=== PATIENT | female | born 1955 | race African-American/Black ===

== ENCOUNTER → 2020-07-26 03:58 | Outpatient (CLI) | payer MEDICARE, MEDICAID, SELFPAY ==
[2020-07-28 17:04] LABS: SARS-CoV-2 RNA PCR Negative
== END ==
PROVIDERS: Visit Provider Internal Medicine Gastroenterology
DX: Z01.812 Encounter for preprocedural laboratory examination (principal); Z20.822 Contact with and (suspected) exposure to COVID-19
CPT/HCPCS: C9803; U0003; U0005

== ENCOUNTER 2020-07-30 01:38 | Day surgery (SDC) | payer MEDICARE, MEDICAID, SELFPAY ==
[2020-07-17 08:21] VITALS: BMI 34.4
--- NOTE | 2020-07-18 08:07 | PC.NURSE ---
I called pt and instructed her to call Dr Van's office and tell him Dr Garber doesn't require abx for a colonoscopy pt with a knee replacement in 2003, Dr. Van may prescribe her one if needed.
[2020-07-30 07:59] VITALS: BP 158/86; PULSE 67; RESP 18; TEMP 35.9; O2SAT 100; BMI 34.9
--- NOTE | 2020-07-30 08:01 | PC.NURSE ---
PT WITH COMPLAINTS OF ITCHY, RASH. STATES IT STARTED WITH HER COVID VACCINE. TAKING OTC BENADRYL.
[2020-07-30] MEDS: LACTATED RINGERS 1,000 ML 150 ML IV CONT (08:14)
--- NOTE | 2020-07-30 08:16 | PM.HPGS ---
History of Present Illness History of Present Illness Consent: Risks, benefits, and alternatives have been discussed and questions answered. Patient agrees to proceed with procedure. Chief complaint: hx of colon polyps Narrative: Connie Garrett is a 65 year old female who had 5 polyps removed about 5 years ago. Last year she saw a physician in [place] who attempted a colonoscopy. She thinks he may have removed 1 or 2 polyps. they told her that her prep was unacceptable and she was told to return in 3 months for repeat colonoscopy Review of Systems Review of Systems: All systems reviewed & are unremarkable except as noted in HPI and below PMFSH Social History Social History Smoking packs per day: 1 Smoking cigarettes per day: 20.0 Years smoked: 43 Smoking pack-years: 43.00 Smoking status: Current every day smoker Tobacco type: cigarettes Alcohol intake: never Substance use: never Living arrangements: with family Gender identity (if verbalized by the patient): Female Spiritual care concerns: No Meds Home Medications and Allergies Home Medications Medication Instructions Recorded Confirmed Type peg 3350-electrolytes 227.1 240 ml PO Q10M #1 ea 07/16/20 07/30/20 Rx gram-21.5 gram-6.36gram oral powder packet albuterol sulfate 2.5 mg INHALATION TID 07/17/20 07/30/20 History albuterol sulfate [Ventolin HFA] 2 puff INHALATION TID PRN 07/17/20 07/30/20 History budesonide-formoterol [Symbicort] 160 puff INHALATION BID 07/17/20 07/30/20 History cyanocobalamin (vitamin B-12) 1,000 mcg SUBCUT MONTHLY 07/17/20 07/30/20 History ergocalciferol (vitamin D2) 1,250 mcg PO WEEKLY 07/17/20 07/30/20 History tiotropium bromide [Spiriva with 18 mcg INHALATION DAILY 07/17/20 07/30/20 History HandiHaler] Allergies Allergy/AdvReac Type Severity Reaction Status Date / Time fluconazole Allergy Mild RASH Verified 07/30/20 07:37 omeprazole Allergy Mild RASH Verified 07/30/20 07:37 Iodinated Contrast Media Allergy Unknown Rash Verified 07/30/20 07:37 lovastatin Allergy Hives Verified 07/30/20 07:37 Vital Signs Vital Signs - 24 hr 07/30/20 07:59 Temperature 35.9 C L Pulse Rate 67 Respiratory Rate 18 Blood Pressure 158/86 H Pulse Oximetry 100 Exam Const: General: alert Orientation/consciousness: patient oriented x3 Resp: Auscultation: clear to auscultation bilaterally Cardio: Rhythm: regular rhythm GI: GI Palp: Yes Soft to palpation and No Tenderness to palpation present (GI) Neuro: General: patient oriented x3 Assessment and Plan Assessment and plan (1) Personal history of colonic polyps: Code(s): Z86.010 - Personal history of colonic polyps Status: Acute Assessment and Plan: Colonoscopy with possible biopsy or polypectomy or cautery or injection of substances.
--- NOTE | 2020-07-30 08:28 | WPDANESEPPF ---
Anes - Initial Pre Proc Eval Procedure: Operation Date: 07/30/20 08:30 Proposed Procedures p Screening Colonoscopy - Ever Garber MD Date/Time: 07/30/20 08:28 Surgeon: Ever Garber MD Pre Op Diagnosis: hx of colon polyps Patient Data Age: 65 Gender: F Height: 5 ft 6 in Weight: 98.1 kg Last Vital Signs Temp 96.6 F L 07/30/20 07:59 Pulse 67 07/30/20 07:59 Resp 18 07/30/20 07:59 BP 158/86 H 07/30/20 07:59 Pulse Ox 100 07/30/20 07:59 Allergies Allergy/AdvReac Type Severity Reaction Status Date / Time fluconazole Allergy Mild RASH Verified 07/30/20 07:37 omeprazole Allergy Mild RASH Verified 07/30/20 07:37 Iodinated Contrast Media Allergy Unknown Rash Verified 07/30/20 07:37 lovastatin Allergy Hives Verified 07/30/20 07:37 Home Medications Medication Instructions Recorded Confirmed Type peg 3350-electrolytes 227.1 240 ml PO Q10M #1 ea 07/16/20 07/30/20 Rx gram-21.5 gram-6.36gram oral powder packet albuterol sulfate 2.5 mg INHALATION TID 07/17/20 07/30/20 History albuterol sulfate [Ventolin HFA] 2 puff INHALATION TID PRN 07/17/20 07/30/20 History budesonide-formoterol [Symbicort] 160 puff INHALATION BID 07/17/20 07/30/20 History cyanocobalamin (vitamin B-12) 1,000 mcg SUBCUT MONTHLY 07/17/20 07/30/20 History ergocalciferol (vitamin D2) 1,250 mcg PO WEEKLY 07/17/20 07/30/20 History tiotropium bromide [Spiriva with 18 mcg INHALATION DAILY 07/17/20 07/30/20 History HandiHaler] Patient hx anesthesia problems: none Family hx anesthesia problems: none PMFSH Past Medical History Medical History (Updated 07/30/20 @ 08:24 by Jose Mckeon MD) COPD (chronic obstructive pulmonary disease) Hyperlipidemia HUY (obstructive sleep apnea) Social History Social History Smoking packs per day: 1 Smoking cigarettes per day: 20.0 Years smoked: 43 Smoking pack-years: 43.00 Smoking status: Current every day smoker Tobacco type: cigarettes Alcohol intake: never Substance use: never Living arrangements: with family Gender identity (if verbalized by the patient): Female Spiritual care concerns: No Anes - Eval Final PreProcedure Day of Procedure 07/30/20 08:28 Patient weight: obese Heart: regular rate and rhythm Lungs: clear to auscultation Airway: Mallampati scale class II Neurological: alert and oriented Last oral intake: >/= 8 hours ASA classification: III Emergent: no Anesthetic plan: proceed Anesthesia type and monitoring: general GIVS and standard monitoring Informed Consent: The patient's anesthetic plan and its attendant risks and benefits were discussed with the patient/family/POA. Questions were solicited and answers provided to the satisfaction of the patient/family/POA.
[2020-07-30] MEDS: SIMETHICONE ORAL SUSPENSION 20 MG/0.3 ML 30 ML BOTTLE 0.6 ML IRRIGATION (09:05)
[2020-07-30 09:22] VITALS: BP 102/66; PULSE 69; RESP 18; O2SAT 92
[2020-07-30 09:32] VITALS: BP 114/72; PULSE 57; RESP 18; O2SAT 94
[2020-07-30 09:39] VITALS: BP 137/81; PULSE 60; RESP 18; O2SAT 94
== END 2020-07-30 10:04 | disposition home or self-care (01) ==
PROVIDERS: Visit Provider Internal Medicine Gastroenterology
PROC: 0DJD8ZZ Inspection of Lower Intestinal Tract, Via Natural or Artificial Opening Endoscopic (ICD-10-PCS; CPT 45378; principal; 2020-07-30 08:30)
DX: Z12.11 Encounter for screening for malignant neoplasm of colon (principal); K63.5 Polyp of colon; J44.9 Chronic obstructive pulmonary disease, unspecified; E78.5 Hyperlipidemia, unspecified; G47.33 Obstructive sleep apnea (adult) (pediatric); F17.210 Nicotine dependence, cigarettes, uncomplicated; Z79.51 Long term (current) use of inhaled steroids; E66.9 Obesity, unspecified; Z68.34 Body mass index [BMI] 34.0-34.9, adult
CPT/HCPCS: 45385; 45380; 88305; J2704; J7120

== ENCOUNTER 2022-05-31 14:35 | Outpatient (CLI) | payer MEDICARE, MEDICAID, SELFPAY ==
[2022-05-31 14:50] LABS: Basophils Absolute Auto 0.1 K/mm3 (0.0-0.1); Basophils Percent Auto 0.8 % (0.2-1.2); Eosinophils Absolute Auto 0.3 K/mm3 (0-0.3); Eosinophils Percent Auto 3.5 % (0-4.4); Hematocrit 45.1 % (37.0-47.0); Hemoglobin 14.9 g/dL (12.0-15.0); Immature Granulocyte Absolute 0.02 K/mm3 (0.00-0.031); Immature Granulocyte Percent A 0.3 % (0-0.5); Lymphocytes Percent Auto 50.2 % (18.3-44.2); Mean Corpuscular Hemoglobin 30.9 pg (26-34); Mean Corpuscular Volume 93.6 fl (80-100); Mean Platelet Volume 10.9 fl (7.4-10.4); Monocytes Absolute Auto 0.6 K/mm3 (0.1-0.6); Monocytes Percent Auto 7.5 % (2.6-8.5); Neutrophils Absolute Auto 2.9 K/mm3 (1.3-6.7); Neutrophils Percent Auto 37.7 % (45.5-73.1); Platelet Count Result 243 k/mm3 (150-375); Red Blood Count 4.82 M/mm3 (4.2-5.4); Red Cell Distribution Width 13.7 % (11.5-14.5); White Blood Count 7.8 K/mm3 (4.5-10.0)
[2022-05-31 17:44] LABS: Alanine Aminotransferase 28 U/L (6-35); Albumin Level 4.3 g/dL (3.5-5.1); Alkaline Phosphatase 68 U/L (38-126); Anion Gap 5 mmol/L (8-16); Aspartate Amino Transferase 29 U/L (14-36); Bilirubin,Total 0.4 mg/dL (0.2-1.3); Blood Urea Nitrogen 19 mg/dL (7-17); Calcium 8.6 mg/dL (8.4-10.2); Carbon Dioxide 31 mmol/L (22-30); Chloride 106 mmol/L (98-107); Estimated Glomerular Filt Rate > 60; Glucose 93 mg/dL (65-110); Potassium 4.5 mmol/L (3.4-5.0); Sodium 142 mmol/L (137-145)
[2022-06-03 12:44] LABS: Erythropoietin (EPO) 7.8 mIU/mL (2.6-18.5)
== END 2022-05-31 14:36 | disposition home or self-care (01) ==
LOC: ANHLAB 14:37
PROVIDERS: Visit Provider Internal Medicine Hematology & Oncology
DX: D75.1 Secondary polycythemia (principal)
CPT/HCPCS: 36415; 80053; 82668; 85025

== ENCOUNTER 2022-12-29 09:02 | Outpatient (CLI) | payer MEDICARE, MEDICAID, SELFPAY ==
[2022-12-29 09:18] LABS: Basophils Percent Auto 0.4 % (0.2-1.2); Eosinophils Absolute Auto 0.2 K/mm3 (0-0.3); Eosinophils Percent Auto 2.4 % (0-4.4); Hematocrit 43.1 % (37.0-47.0); Hemoglobin 14.2 g/dL (12.0-15.0); Immature Granulocyte Absolute 0.01 K/mm3 (0.00-0.031); Immature Granulocyte Percent A 0.1 % (0-0.5); Lymphocytes Absolute Auto 3.49 K/mm3 (0.9-3.2); Mean Corpuscular HGB Conc 32.9 g/dl (32-36); Mean Corpuscular Hemoglobin 30.5 pg (26-34); Mean Corpuscular Volume 92.7 fl (80-100); Mean Platelet Volume 11.1 fl (7.4-10.4); Monocytes Absolute Auto 0.5 K/mm3 (0.1-0.6); Monocytes Percent Auto 6.4 % (2.6-8.5); Neutrophils Absolute Auto 3.5 K/mm3 (1.3-6.7); Neutrophils Percent Auto 45.7 % (45.5-73.1); Platelet Count Result 230 k/mm3 (150-375); Red Blood Count 4.65 M/mm3 (4.2-5.4); Red Cell Distribution Width 13.6 % (11.5-14.5); White Blood Count 7.8 K/mm3 (4.5-10.0)
== END 2022-12-29 09:03 | disposition home or self-care (01) ==
PROVIDERS: Visit Provider Internal Medicine Hematology & Oncology
DX: D75.1 Secondary polycythemia (principal)
CPT/HCPCS: 36415; 85025

== ENCOUNTER 2023-07-04 10:37 | Outpatient (CLI) | payer MEDICARE, MEDICAID, SELFPAY ==
[2023-07-04 10:52] LABS: Basophils Percent Auto 0.5 % (0.2-1.2); Eosinophils Absolute Auto 0.2 K/mm3 (0-0.3); Eosinophils Percent Auto 3.1 % (0-4.4); Hematocrit 45.7 % (37.0-47.0); Hemoglobin 15.2 g/dL (12.0-15.0); Immature Granulocyte Absolute 0.01 K/mm3 (0.00-0.031); Immature Granulocyte Percent A 0.2 % (0-0.5); Lymphocytes Absolute Auto 3.39 K/mm3 (0.9-3.2); Lymphocytes Percent Auto 57.8 % (18.3-44.2); Mean Corpuscular HGB Conc 33.3 g/dl (32-36); Mean Corpuscular Hemoglobin 30.5 pg (26-34); Mean Corpuscular Volume 91.8 fl (80-100); Mean Platelet Volume 11.2 fl (7.4-10.4); Monocytes Absolute Auto 0.6 K/mm3 (0.1-0.6); Monocytes Percent Auto 10.1 % (2.6-8.5); Neutrophils Absolute Auto 1.7 K/mm3 (1.3-6.7); Neutrophils Percent Auto 28.3 % (45.5-73.1); Platelet Count Result 251 k/mm3 (150-375); Red Blood Count 4.98 M/mm3 (4.2-5.4); Red Cell Distribution Width 14.6 % (11.5-14.5); White Blood Count 5.9 K/mm3 (4.5-10.0)
[2023-07-04 12:16] LABS: Iron 65 ug/dL (37-170)
[2023-07-04 12:26] LABS: Percent Iron Saturation 23 % (20-50)
== END 2023-07-04 10:38 | disposition home or self-care (01) ==
PROVIDERS: Nurse Practitioner Family; Visit Provider Internal Medicine Hematology & Oncology
DX: D75.1 Secondary polycythemia (principal); E53.8 Deficiency of other specified B group vitamins; D50.8 Other iron deficiency anemias
CPT/HCPCS: 36415; 82607; 83540; 83550; 85025

== ENCOUNTER 2023-08-27 12:12 | Inpatient (IN) | payer MEDICARE, MEDICAID, SELFPAY ==
[2023-08-27] VITALS (25 sets, daily range): BP systolic 107–160; BP diastolic 58–104; PULSE 72–97; RESP 17–29; TEMP 36.3–36.9; O2SAT 84–99; BMI 34.3
--- NOTE | ~2023-08-27 | CT_ITS ---
EXAMINATION: CT abdomen pelvis wo con DATE: 08/29/2023 14:45 INDICATION: Kidney stones TECHNIQUE: Computed tomography (CT) of the abdomen and pelvis was performed without intravenous contr ast. Automated exposure control and iterative reconstruction technique were employed. The dose-length product was 1260.65 mGy-cm. COMPARISON: None FINDINGS: Moderate discoid atelectasis in the bilateral lower lungs including the lingula, right middle and jessica ateral lower lobes. Heart size is normal. No pericardial or pleural effusion. Small high attenuation likely gallstones within the cephalad aspect of the decompressed gallbladder. Liver, spleen, pancreas and bilateral adrenal glands are normal. There are nonobstructing stones at the lower pole calyces o f both kidneys measuring up to 6 mm on the left and 4 stones measuring up to 5 mm on the right. No ur eteral stones or hydronephrosis. Partially decompressed bladder is normal. Bowels are unremarkable wi th no obstruction. The uterus is not identified and has likely been surgically resected. No free intr aperitoneal gas or fluid. No pathologically enlarged abdominal or pelvic lymphadenopathy. Bones are u nremarkable. IMPRESSION: 1. Bilateral nephrolithiasis. 2. Cholelithiasis. Reviewed, dictated and finalized at location B.
--- NOTE | ~2023-08-27 | XR_ITS ---
EXAMINATION: XR abdomen/kub 1V DATE: 08/30/2023 10:43 INDICATION: Nephrolithiasis. TECHNIQUE: A supine view of the abdomen was obtained. COMPARISON: CT abdomen and pelvis 08/29/2023 FINDINGS: There are no dilated loops of bowel. There are phleboliths in the pelvis. The kidneys are o bscured by bowel. There is a 5 mm stone in left kidney lower pole. IMPRESSION: 1. 5 mm left kidney stone. Reviewed, dictated and finalized at location A. IMPRESSION: 1. 5 mm left kidney stone.
--- NOTE | ~2023-08-27 | XR_ITS ---
EXAMINATION: XR chest 2V DATE: 08/27/2023 12:53 INDICATION: 3-4 weeks of shortness of breath TECHNIQUE: frontal and lateral views of the chest were obtained. COMPARISON: None FINDINGS: Opacities in bilateral lower lung zones which include both linear discoid atelectasis in the right lo wer lung. Additionally there is bronchial wall thickening with some interstitial and more patchy airs pace opacities which could represent additional atelectasis, mild pulmonary edema or pneumonia. The c ardiomediastinal silhouette is normal. Lower cervical prosthetic disc. IMPRESSION: 1. Opacities in bilateral lower lungs most likely combination of atelectasis with pulmonary edema and /or pneumonia. Reviewed, dictated and finalized at location A. IMPRESSION: 1. Opacities in bilateral lower lungs most likely combination of atelectasis wi th pulmonary edema and/or pneumonia.
--- NOTE | 2023-08-27 12:19 | ECG_ITS ---
Test Date: 2023-08-27 12:21:13 Measurements Intervals [place] Rate: 90 P: 58 RI: 143 QRS: 39 QRSD: 82 T: 57 QT: 345 QTc: 422 Interpretive Statements SINUS RHYTHM No previous ECG available for comparison Electronically Signed On 08-28-2023 16:09:28 CDT by Tonny Arias M.D.
[2023-08-27 12:39] LABS: Basophils Percent Auto 0.3 % (0.2-1.2); Eosinophils Percent Auto 0.3 % (0-4.4); Hematocrit 47.8 % (37.0-47.0); Hemoglobin 15.9 g/dL (12.0-15.0); Immature Granulocyte Absolute 0.02 K/mm3 (0.00-0.031); Immature Granulocyte Percent A 0.3 % (0-0.5); Lymphocytes Absolute Auto 1.94 K/mm3 (0.9-3.2); Lymphocytes Percent Auto 33.7 % (18.3-44.2); Mean Corpuscular HGB Conc 33.3 g/dl (32-36); Mean Corpuscular Hemoglobin 30.4 pg (26-34); Mean Corpuscular Volume 91.4 fl (80-100); Mean Platelet Volume 11.1 fl (7.4-10.4); Monocytes Absolute Auto 0.9 K/mm3 (0.1-0.6); Monocytes Percent Auto 15.3 % (2.6-8.5); Neutrophils Absolute Auto 2.9 K/mm3 (1.3-6.7); Neutrophils Percent Auto 50.1 % (45.5-73.1); Platelet Count Result 205 k/mm3 (150-375); Red Blood Count 5.23 M/mm3 (4.2-5.4); Red Cell Distribution Width 14.6 % (11.5-14.5); White Blood Count 5.8 K/mm3 (4.5-10.0)
[2023-08-27 12:48] LABS: Alanine Aminotransferase 18 U/L (6-35); Alkaline Phosphatase 84 U/L (38-126); Anion Gap 13 mmol/L (4-12); Aspartate Amino Transferase 26 U/L (14-36); Bilirubin,Total 0.7 mg/dL (0.2-1.3); Blood Urea Nitrogen 14 mg/dL (7-17); Calcium 9.2 mg/dL (8.4-10.2); Carbon Dioxide 26 mmol/L (22-30); Chloride 102 mmol/L (98-107); Estimated CRCL calculation 55 ml/min; Estimated Glomerular Filt Rate > 60; Glucose 86 mg/dL (65-110); Potassium 4.3 mmol/L (3.4-5.0); Sodium 141 mmol/L (137-145)
[2023-08-27 13:17] LABS: Influenza A QL RT-PCR Negative (Negative); Influenza B QL RT-PCR Negative (Negative); RSV RNA, RT-PCR Negative (Negative); SARS-CoV-2 RNA PCR Positive (Negative)
--- NOTE | 2023-08-27 13:28 | ED.GENADULT ---
HPI - General Adult General Chief complaint: Shortness of Breath/Dyspnea Stated complaint: sob Time Seen by Provider: 08/27/23 12:28 History of Present Illness HPI narrative: 68-year-old female with history of COPD presented to the emergency department for evaluation of worsening cough and congestion. Patient states but 3 weeks ago she had onset of symptoms and had follow-up with her primary care physician and was started on antibiotic and prednisone. Patient reports symptoms continue to worsen. Patient presents emergency department today complaining worsening cough and shortness of breath. Patient does have history of COPD but is not on oxygen. Related Data Home Medications Medication Instructions Recorded Confirmed albuterol sulfate 90 mcg/actuation 2 puff inhalation TID PRN 07/17/20 08/27/23 aerosol inhaler (Ventolin HFA) Shortness Of Breath Or Wheezing budesonide-formoterol HFA 160 160 puff inhalation BID 07/17/20 08/27/23 mcg-4.5 mcg/actuation aerosol inhaler (Symbicort) tiotropium bromide 18 mcg capsule 18 mcg inhalation DAILY 07/17/20 08/27/23 with inhalation device (Spiriva with HandiHaler) aspirin 81 mg capsule 81 mg PO DAILY 08/27/23 08/27/23 atorvastatin 10 mg tablet 10 mg PO DAILY 08/27/23 08/27/23 baclofen 10 mg tablet 10 mg PO BID PRN Pain 08/27/23 08/27/23 montelukast 10 mg tablet 10 mg PO HS 08/27/23 08/27/23 Allergies Allergy/AdvReac Type Severity Reaction Status Date / Time fluconazole Allergy Mild RASH Verified 08/27/23 12:24 omeprazole Allergy Mild RASH Verified 08/27/23 12:24 Iodinated Contrast Media Allergy Unknown Rash Verified 08/27/23 12:24 lovastatin Allergy Hives Verified 08/27/23 12:24 Review of Systems Review of Systems: All systems reviewed & are unremarkable except as noted in HPI and below PMFSH Past Medical History Medical History Chronic obstructive pulmonary disease Hyperlipidemia Obstructive sleep apnea on CPAP Surgical History Surgical History History of appendectomy History of arthroplasty of left knee (2003) History of colonoscopy with polypectomy History of hysterectomy History of parotidectomy (11/16/18) Excision left parotid mass and tail of parotid. Pathology consistent with Warthin's tumor. History of spinal surgery (2018) History of tubal ligation Social History Social History (Updated 08/27/23 @ 16:36 by Noelle Wilkins PA-C) Social History: Surrogate medical decision maker: Code status: Full code. Smoking packs per day: 1 Smoking cigarettes per day: 20.0 Years smoked: 43 Smoking pack-years: 43.00 Smoking status: Current every day smoker Tobacco type: cigarettes Alcohol intake: never Substance use: never Do You Feel Safe in your Home?: Yes Lack of Transportation: No Lack of Food: Never True Current Housing: I Have Housing Concerned About Future Housing: No Difficulty Paying Gas/Electric Bills: No Difficulty Paying for Meds: No Currently Unemployed: No Education: High School Diploma/GED Difficulty w/ Childcare or Family Care: No Living arrangements: with family Spiritual care concerns: No Exam Narrative: APPEARANCE: Ill-appearing HEAD: normocephalic, atraumatic. EYES: PERRLA/EOMI, conjunctivae clear. NOSE: Normal no drainage EARS:TMS clear with good light reflex. THROAT: Pharynx clear, no exudate. NECK: Supple. No adenopathy, no masses. RESPIRATORY: Airway patent, respirations nonlabored. Clear to auscultation bilaterally, no rales, rhonchi, wheezing. CARDIOVASCULAR: Regular rate and rhythm without murmurs rubs or gallops. ABDOMINAL: Soft, nontender, nondistended, normal bowel sounds MUSCULOSKELETAL: Moves all extremities. Strength/ROM intact, No edema, No calf tenderness. NEURO: Alert. Cranial nerves II through XII intact. Grossly intact SKIN: Warm, dry
[2023-08-27 13:29] LABS: NT Pro B Type Natriuretic Pept 632 pg/mL (19.9-100)
[2023-08-27] MEDS: ALBUTEROL SULFATE NEB 2.5 MG/3 ML INH INHALATION (13:44)
[2023-08-27] MEDS: dexAMETHasone 2 MG TABLET 6 MG PO (13:57)
[2023-08-27] MEDS: AZITHROMYCIN 500 MG/NS 250 ML 500 MG/250 ML BAG 250 MG IVPB (15:22)
--- NOTE | 2023-08-27 16:29 | PM.IMHP ---
H&P: HPI History of Present Illness Date/Time: 08/27/23 17:00 Chief Complaint: Cough and shortness of breath. Narrative: This is a 68-year-old female smoker with chronic obstructive pulmonary disease and obstructive sleep apnea on CPAP presented to the emergency department for evaluation of cough and shortness of breath. The patient provides the following history. She has not felt well for several weeks with cough productive of clear sputum, mild wheezing, and exertional dyspnea. She saw her doctor at the beginning of the month and was prescribed cefdinir and a short burst of prednisone on 08/01/2023. Symptoms seem to improve for only a short period of time before returning. She is now feeling increasingly short of breath on exertion and her cough continues. She denies fever, chills, sweats, sinus congestion, sore throat, chest and pleuritic pain, orthopnea, paroxysmal nocturnal dyspnea, lower extremity edema, nausea, vomiting, and diarrhea. In the ED: SpO2 was as low as 84% with ambulation and she is currently requiring 2 L nasal cannula. She has been afebrile since arrival and is occasionally tachypneic. Labs were significant for WBC count of 5.8, hemoglobin 15.9, proBNP 632. She tested positive for SARS-CoV-2 by PCR. Chest x-ray shows opacities in the bilateral lower lung zones which is most likely combination of atelectasis with pulmonary edema and/or pneumonia. She was given an albuterol nebulizer, dexamethasone 6 mg IV, azithromycin 500 mg IV, and ceftriaxone 1 g IV and she is being admitted in this setting for further treatment. Review of Systems Review of Systems: 12 systems were reviewed and are negative except for as per HPI. [facility] Past Medical History Medical History (Updated 08/27/23 @ 20:09 by Noelle Wilkins PA-C) Chronic obstructive pulmonary disease Hyperlipidemia Obstructive sleep apnea on CPAP Tobacco dependence Surgical History Surgical History History of appendectomy History of arthroplasty of left knee (2003) History of colonoscopy with polypectomy History of hysterectomy History of parotidectomy (11/16/18) Excision left parotid mass and tail of parotid. Pathology consistent with Warthin's tumor. History of spinal surgery (2018) History of tubal ligation Family History Family History (Updated 08/27/23 @ 22:47 by Noelle Wilkins PA-C) Other Family history non-contributory Social History Social History (Updated 08/27/23 @ 22:47 by Noelle Wilkins PA-C) Social History: Surrogate medical decision maker: Lencho Garrett, [place]son. Code status: Full code. Smoking packs per day: 1 Smoking cigarettes per day: 20.0 Years smoked: 43 Smoking pack-years: 43.00 Smoking status: Current every day smoker Tobacco type: cigarettes Alcohol intake: never Substance use: never Do You Feel Safe in your Home?: Yes Lack of Transportation: No Lack of Food: Never True Current Housing: I Have Housing Concerned About Future Housing: No Difficulty Paying Gas/Electric Bills: No Difficulty Paying for Meds: No Currently Unemployed: No Education: High School Diploma/GED Difficulty w/ Childcare or Family Care: No Living arrangements: with family Spiritual care concerns: No Meds Home Medications and Allergies Home Medications Medication Instructions Recorded Confirmed Type albuterol sulfate 90 mcg/actuation 2 puff inhalation TID PRN 07/17/20 08/27/23 History aerosol inhaler (Ventolin HFA) Shortness Of Breath Or Wheezing budesonide-formoterol HFA 160 160 puff inhalation BID 07/17/20 08/27/23 History mcg-4.5 mcg/actuation aerosol inhaler (Symbicort) tiotropium bromide 18 mcg capsule 18 mcg inhalation DAILY 07/17/20 08/27/23 History with inhalation device (Spiriva with HandiHaler) aspirin 81 mg capsule 81 mg PO DAILY 08/27/23 08/27/23 History atorvastatin 10 mg tablet 10 mg PO DAILY 08/27/23
--- NOTE | 2023-08-27 16:37 | ADMGEN ---
This patient, Connie Garrett, was admitted to [address] [facility] Surg Room 302-01. Patient/family oriented to hospital policies and general routines including ID bracelet, bed and alarms, visiting hours, pain management, procedures, bathroom and other care routines, personal items, smoking policy, room service/diet, and visiting hours. Information on how to activate the Rapid Response Team has been discussed. Patient/Family are encouraged to report perceived risks to care and to ask questions if they do not understand what they are told or what they should do.
[2023-08-27 17:26] LABS: INR 1.1; Prothrombin Time 14.1 Seconds (11.1-14.7)
[2023-08-27 17:28] LABS: CRP 0.6 mg/dL (<1.0)
[2023-08-27 17:41] LABS: Procalcitonin 0.1 ng/mL
[2023-08-27] MEDS: ACETAMINOPHEN 325 MG TABLET 650 MG PO (17:59)
[2023-08-27] MEDS: REMDESIVIR 200 MG/NS 250 ML 200 MG/250 ML BAG 250 MG IVPB (18:54)
[2023-08-27] MEDS: FLUTICASONE/SALMETEROL 115-21 MCG INHALER 1 PUFF 2 PUFF INHALATION (19:28)
[2023-08-27] MEDS: IPRATROPIUM 0.5 MG/ALBUTEROL SULFATE 2.5 MG AMPUL.NEB 3 ML INHALATION (20:32)
[2023-08-27] MEDS: guaiFENesin 12 HR 600 MG TABCR 1200 MG PO (20:57)
[2023-08-27] MEDS: MONTELUKAST SODIUM 10 MG TABLET PO (20:57)
[2023-08-27] MEDS: HYDROcodone/acetaminophen (*CRX) 5-325 MG TABLET 1 TAB PO (20:58)
[2023-08-28] VITALS (17 sets, daily range): BP systolic 86–141; BP diastolic 55–72; PULSE 55–91; RESP 13–20; TEMP 36–36.7; O2SAT 93–98
--- NOTE | 2023-08-28 00:01 | PC.NURSE ---
Spoke with Noelle Wilkins at this time r/t patient having low BP (86/58). New order received to give NS 500 ml bolus, then recheck BP.
[2023-08-28] MEDS: SODIUM CHLORIDE 0.9% IV 500 ML IV CONT (00:20)
[2023-08-28] MEDS: IPRATROPIUM 0.5 MG/ALBUTEROL SULFATE 2.5 MG AMPUL.NEB 3 ML INHALATION ×4 (02:52→19:28)
[2023-08-28 06:14] LABS: Hematocrit 41.9 % (37.0-47.0); Hemoglobin 13.4 g/dL (12.0-15.0); Mean Corpuscular Volume 93.7 fl (80-100); Mean Platelet Volume 11.7 fl (7.4-10.4); Platelet Count Result 179 k/mm3 (150-375); Red Blood Count 4.47 M/mm3 (4.2-5.4); Red Cell Distribution Width 14.6 % (11.5-14.5); White Blood Count 2.9 K/mm3 (4.5-10.0)
[2023-08-28 06:44] LABS: Anion Gap 8 mmol/L (4-12); Blood Urea Nitrogen 16 mg/dL (7-17); Calcium 8.6 mg/dL (8.4-10.2); Carbon Dioxide 22 mmol/L (22-30); Chloride 109 mmol/L (98-107); Estimated CRCL calculation 77 ml/min; Estimated Glomerular Filt Rate > 60; Glucose 170 mg/dL (65-110); Magnesium 1.9 mg/dL (1.6-2.3); Potassium 4.3 mmol/L (3.4-5.0); Sodium 139 mmol/L (137-145)
--- NOTE | 2023-08-28 07:10 | PM.IMPN ---
Progress Note: A&P Assessment and Plan (1) Acute respiratory failure with hypoxia: Code(s): J96.01 - Acute respiratory failure with hypoxia Status: Acute Assessment and Plan: Patients SpO2 84% with ambulation on admission. Started on 2L NC supplemental O2. Patient has history of COPD. - Monitor Oxygen saturation, Oxygen via NC; wean oxygen as tolerated, keep SpO2 greater than 88% - Patient would likely benefit from a home O2 eval prior to discharge (2) COVID: Code(s): U07.1 - COVID-19 Status: Acute Assessment and Plan: Positive SARS-CoV-2 PCR. Likely cause of hypoxia. - Remdesivir 100 mg IV daily - Dexamethasone 6 mg IV daily - Isolation (3) COPD (chronic obstructive pulmonary disease): Qualifiers: COPD type: COPD with acute exacerbation Qualified Code(s): J44.1 - Chronic obstructive pulmonary disease with (acute) exacerbation Code(s): J44.9 - Chronic obstructive pulmonary disease, unspecified Status: Acute Assessment and Plan: COPD in acute exacerbation likely from underlying covid and pneumonia infections. - Monitor vital signs, I&Os, neuro status and patient is a fall risk - Monitor serum electrolytes, cultures and CBC - Monitor Oxygen saturation, Oxygen via NC; wean oxygen as tolerated, keep SpO2 greater than 88% - Antibiotics: Azithromycin 500mg - Duonebz q6H - Decadron 6 mg IV daily - Send sputum cultures if possible (4) Pneumonia: Code(s): J18.9 - Pneumonia, unspecified organism Status: Acute Assessment and Plan: CXR: Opacities in bilateral lower lungs most likely combination of atelectasis with pulmonary edema and/or pneumonia. - Complicating Factors: Covid and COPD - started on CAP tx: azithromycin ceftriaxone - Viral PCR: positive for Covid - Procal 0.1 and CRP 0.6 - 2L NC supplemental O2 requirement, baseline room air. Wean as tolerated. Keep SpO2 greater than 88% - supportive treatment tyl prn nebs prn - Monitor vital signs, I&Os, neuro status and patient is a fall risk - Follow WBC, serum electrolytes, temperature curves and cultures - Send sputum cultures (5) Polycythemia: Code(s): D75.1 - Secondary polycythemia Status: Acute Assessment and Plan: Possible that this is chronic due to patients hypoxia. Since admission the H/H has returned to normal limits. - Continue to monitor on daily labs (6) Obstructive sleep apnea on CPAP: Code(s): G47.33 - Obstructive sleep apnea (adult) (pediatric) Status: Acute Assessment and Plan: Chronic, continue CPAP. Patient states that she is not always compliant at home as the mask is uncomfortable. (7) Tobacco dependence: Code(s): F17.200 - Nicotine dependence, unspecified, uncomplicated Status: Acute Assessment and Plan: Not requiring a nicotine patch at this time. Encourage smoking cessation. Time Spent With Patient Time with patient: 25 - 35 minutes Subjective Date/time seen: 08/28/23 07:10 Interval history: 8-year-old female smoker with chronic obstructive pulmonary disease and obstructive sleep apnea on CPAP presented to the emergency department for evaluation of cough and shortness of breath. Patient is pleasant lying comfortably in bed. She continues to endorse shortness of breath that is further exacerbated by her coughing episodes and ambulating throughout her room. She stats she is coughing up a yellowish phlegm. Sputum culture ordered. She remains on supplemental O2 of 2LNC. Discussed with patient that we will continue to wean this as possible. She reports rib pain due to coughing, reproducible with palpation. She denies chest pain, nausea/vomiting and change in bowel/bladder. Review of Systems Review of Systems: All systems reviewed & are unremarkable except as noted in HPI and below Exam Narrative: AF HR 77 RR 20 SpO2 97 2LNC BP 138/72 General: female in no acute respiratory distress who is
[2023-08-28] MEDS: FLUTICASONE/SALMETEROL 115-21 MCG INHALER 1 PUFF 2 PUFF INHALATION ×2 (07:43→19:28)
[2023-08-28 07:45] LABS: Alanine Aminotransferase 16 U/L (6-35); Albumin Level 3.7 g/dL (3.5-5.1); Alkaline Phosphatase 62 U/L (38-126); Aspartate Amino Transferase 23 U/L (14-36); Bilirubin,Total 0.3 mg/dL (0.2-1.3)
[2023-08-28] MEDS: ENOXAPARIN 40 MG/0.4 ML SYRINGE SUB-Q (09:39)
[2023-08-28] MEDS: dexAMETHasone SOD PHOS INJ 10 MG/ML 1 ML VIAL 6 MG IV PUSH (09:39)
[2023-08-28] MEDS: guaiFENesin 12 HR 600 MG TABCR 1200 MG PO ×2 (09:40→21:48)
[2023-08-28] MEDS: ASPIRIN 81 MG ENTERIC TABLET PO (09:40)
[2023-08-28] MEDS: ATORVASTATIN 10 MG TABLET PO (09:40)
[2023-08-28] MEDS: AZITHROMYCIN 500 MG/NS 250 ML 500 MG/250 ML BAG 250 MG IVPB (14:39)
[2023-08-28] MEDS: ACETAMINOPHEN 325 MG TABLET 650 MG PO (14:39)
[2023-08-28] MEDS: REMDESIVIR 100 MG/NS 250 ML 100 MG/250 ML BAG 250 MG IVPB (21:48)
[2023-08-28] MEDS: MONTELUKAST SODIUM 10 MG TABLET PO (21:48)
[2023-08-29] VITALS (13 sets, daily range): BP systolic 133–138; BP diastolic 68–78; PULSE 67–82; RESP 14–20; TEMP 36.2–36.3; O2SAT 94–98
[2023-08-29] MEDS: IPRATROPIUM 0.5 MG/ALBUTEROL SULFATE 2.5 MG AMPUL.NEB 3 ML INHALATION ×4 (02:28→20:45)
[2023-08-29] MEDS: ACETAMINOPHEN 325 MG TABLET 650 MG PO (03:38)
[2023-08-29 06:02] LABS: Prothrombin Time 13.3 Seconds (11.1-14.7)
[2023-08-29] MEDS: FLUTICASONE/SALMETEROL 115-21 MCG INHALER 1 PUFF 2 PUFF INHALATION ×2 (07:36→20:45)
--- NOTE | 2023-08-29 07:52 | PM.IMPN ---
Progress Note: A&P Assessment and Plan (1) Acute respiratory failure with hypoxia: Code(s): J96.01 - Acute respiratory failure with hypoxia Status: Acute Assessment and Plan: Patients SpO2 84% with ambulation on admission. Started on 2L NC supplemental O2. Patient has history of COPD. - Monitor Oxygen saturation, Oxygen via NC; wean oxygen as tolerated, keep SpO2 greater than 88% - Patient would likely benefit from a home O2 eval prior to discharge (2) COVID: Code(s): U07.1 - COVID-19 Status: Acute Assessment and Plan: Positive SARS-CoV-2 PCR. Likely cause of hypoxia. - Remdesivir 100 mg IV daily - Dexamethasone 6 mg IV daily - Isolation (3) COPD (chronic obstructive pulmonary disease): Qualifiers: COPD type: COPD with acute exacerbation Qualified Code(s): J44.1 - Chronic obstructive pulmonary disease with (acute) exacerbation Code(s): J44.9 - Chronic obstructive pulmonary disease, unspecified Status: Acute Assessment and Plan: COPD in acute exacerbation likely from underlying covid and pneumonia infections. - Monitor vital signs, I&Os, neuro status and patient is a fall risk - Monitor serum electrolytes, cultures and CBC - Monitor Oxygen saturation, Oxygen via NC; wean oxygen as tolerated, keep SpO2 greater than 88% - Antibiotics: Azithromycin 500mg - Duonebz q6H - Decadron 6 mg IV daily - Send sputum cultures if possible (4) Pneumonia: Code(s): J18.9 - Pneumonia, unspecified organism Status: Acute Assessment and Plan: CXR: Opacities in bilateral lower lungs most likely combination of atelectasis with pulmonary edema and/or pneumonia. - Complicating Factors: Covid and COPD - started on CAP tx: azithromycin ceftriaxone - Viral PCR: positive for Covid - Procal 0.1 and CRP 0.6 - 2L NC supplemental O2 requirement, baseline room air. Wean as tolerated. Keep SpO2 greater than 88% - supportive treatment tyl prn nebs prn - Monitor vital signs, I&Os, neuro status and patient is a fall risk - Follow WBC, serum electrolytes, temperature curves and cultures - Send sputum cultures (5) Polycythemia: Code(s): D75.1 - Secondary polycythemia Status: Acute Assessment and Plan: Possible that this is chronic due to patients hypoxia. Since admission the H/H has returned to normal limits. - Continue to monitor on daily labs (6) Obstructive sleep apnea on CPAP: Code(s): G47.33 - Obstructive sleep apnea (adult) (pediatric) Status: Acute Assessment and Plan: Chronic, continue CPAP. Patient states that she is not always compliant at home as the mask is uncomfortable. (7) Tobacco dependence: Code(s): F17.200 - Nicotine dependence, unspecified, uncomplicated Status: Acute Assessment and Plan: Not requiring a nicotine patch at this time. Encourage smoking cessation. Time Spent With Patient Time with patient: 25 - 35 minutes Subjective Date/time seen: 08/29/23 07:52 Interval history: 68-year-old female smoker with chronic obstructive pulmonary disease and obstructive sleep apnea on CPAP presented to the emergency department for evaluation of cough and shortness of breath. Patient is pleasant lying comfortably in bed. She continues to endorse shortness of breath with a productive cough. A sputum culture was collected and pending. Patient remains on 2L NC at this time. Continue to wean as tolerated. She states she is having abdominal and flank pain similar to her prior kidney stones. Will obtain a urinalysis and CT abdomen/pelvis to further evaluate. Patient denies chest pain, nausea/vomiting and changes in bowel/bladder. Review of Systems Review of Systems: All systems reviewed & are unremarkable except as noted in HPI and below Exam Narrative: AF HR 72 RR 18 SpO2 96 BP 138/68 General: female in no acute respiratory distress who is nontoxic appearing, lying semi recumbent in bed.
[2023-08-29] MEDS: dexAMETHasone SOD PHOS INJ 10 MG/ML 1 ML VIAL 6 MG IV PUSH (09:06)
[2023-08-29] MEDS: ENOXAPARIN 40 MG/0.4 ML SYRINGE SUB-Q (09:06)
[2023-08-29] MEDS: guaiFENesin 12 HR 600 MG TABCR 1200 MG PO ×2 (09:06→21:45)
[2023-08-29] MEDS: ATORVASTATIN 10 MG TABLET PO (09:06)
[2023-08-29] MEDS: ASPIRIN 81 MG ENTERIC TABLET PO (09:06)
[2023-08-29] MEDS: HYDROcodone/acetaminophen (*CRX) 5-325 MG TABLET 1 TAB PO (09:12)
[2023-08-29 10:00] LABS: Basophils Percent Auto 0.4 % (0.2-1.2); Hematocrit 42.4 % (37.0-47.0); Hemoglobin 13.6 g/dL (12.0-15.0); Immature Granulocyte Absolute 0.01 K/mm3 (0.00-0.031); Immature Granulocyte Percent A 0.2 % (0-0.5); Lymphocytes Absolute Auto 2.64 K/mm3 (0.9-3.2); Lymphocytes Percent Auto 46.7 % (18.3-44.2); Mean Corpuscular HGB Conc 32.1 g/dl (32-36); Mean Corpuscular Hemoglobin 29.6 pg (26-34); Mean Corpuscular Volume 92.2 fl (80-100); Mean Platelet Volume 12.1 fl (7.4-10.4); Monocytes Absolute Auto 0.6 K/mm3 (0.1-0.6); Monocytes Percent Auto 10.3 % (2.6-8.5); Neutrophils Absolute Auto 2.4 K/mm3 (1.3-6.7); Neutrophils Percent Auto 42.4 % (45.5-73.1); Platelet Count Result 191 k/mm3 (150-375); Red Cell Distribution Width 14.6 % (11.5-14.5); White Blood Count 5.7 K/mm3 (4.5-10.0)
[2023-08-29 10:13] LABS: Alanine Aminotransferase 16 U/L (6-35); Albumin Level 3.6 g/dL (3.5-5.1); Alkaline Phosphatase 56 U/L (38-126); Anion Gap 10 mmol/L (4-12); Aspartate Amino Transferase 22 U/L (14-36); Bilirubin,Total 0.3 mg/dL (0.2-1.3); Blood Urea Nitrogen 17 mg/dL (7-17); Calcium 8.9 mg/dL (8.4-10.2); Carbon Dioxide 26 mmol/L (22-30); Chloride 107 mmol/L (98-107); Estimated CRCL calculation 69 ml/min; Estimated Glomerular Filt Rate > 60; Glucose 108 mg/dL (65-110); Potassium 3.3 mmol/L (3.4-5.0); Sodium 143 mmol/L (137-145)
[2023-08-29] MEDS: AZITHROMYCIN 500 MG/NS 250 ML 500 MG/250 ML BAG 250 MG IVPB (15:29)
[2023-08-29] MEDS: REMDESIVIR 100 MG/NS 250 ML 100 MG/250 ML BAG 250 MG IVPB (21:45)
[2023-08-29] MEDS: MONTELUKAST SODIUM 10 MG TABLET PO (21:45)
[2023-08-30] VITALS (13 sets, daily range): BP systolic 121–142; BP diastolic 53–75; PULSE 65–90; RESP 17–20; TEMP 36.1–36.6; O2SAT 95–98
[2023-08-30] MEDS: IPRATROPIUM 0.5 MG/ALBUTEROL SULFATE 2.5 MG AMPUL.NEB 3 ML INHALATION ×4 (02:33→22:47)
[2023-08-30] MEDS: HYDROcodone/acetaminophen (*CRX) 5-325 MG TABLET 1 TAB PO ×2 (03:53→20:55)
[2023-08-30 06:46] LABS: Basophils Percent Auto 0.2 % (0.2-1.2); Hematocrit 41.6 % (37.0-47.0); Hemoglobin 13.3 g/dL (12.0-15.0); Immature Granulocyte Absolute 0.01 K/mm3 (0.00-0.031); Immature Granulocyte Percent A 0.2 % (0-0.5); Lymphocytes Absolute Auto 3.11 K/mm3 (0.9-3.2); Lymphocytes Percent Auto 49.7 % (18.3-44.2); Mean Corpuscular Hemoglobin 29.8 pg (26-34); Mean Corpuscular Volume 93.3 fl (80-100); Mean Platelet Volume 12.1 fl (7.4-10.4); Monocytes Absolute Auto 0.5 K/mm3 (0.1-0.6); Monocytes Percent Auto 7.5 % (2.6-8.5); Neutrophils Absolute Auto 2.7 K/mm3 (1.3-6.7); Neutrophils Percent Auto 42.4 % (45.5-73.1); Platelet Count Result 205 k/mm3 (150-375); Red Blood Count 4.46 M/mm3 (4.2-5.4); Red Cell Distribution Width 14.9 % (11.5-14.5); White Blood Count 6.3 K/mm3 (4.5-10.0)
[2023-08-30 07:01] LABS: Alanine Aminotransferase 15 U/L (6-35); Albumin Level 3.5 g/dL (3.5-5.1); Alkaline Phosphatase 54 U/L (38-126); Anion Gap 6 mmol/L (4-12); Aspartate Amino Transferase 21 U/L (14-36); Bilirubin,Total 0.3 mg/dL (0.2-1.3); Blood Urea Nitrogen 21 mg/dL (7-17); Calcium 8.5 mg/dL (8.4-10.2); Carbon Dioxide 27 mmol/L (22-30); Chloride 107 mmol/L (98-107); Estimated CRCL calculation 69 ml/min; Estimated Glomerular Filt Rate > 60; Glucose 117 mg/dL (65-110); Potassium 3.7 mmol/L (3.4-5.0); Sodium 140 mmol/L (137-145)
--- NOTE | 2023-08-30 07:12 | PM.IMPN ---
Progress Note: A&P Assessment and Plan (1) Acute respiratory failure with hypoxia: Code(s): J96.01 - Acute respiratory failure with hypoxia Status: Acute Assessment and Plan: Patients SpO2 84% with ambulation on admission. Started on 2L NC supplemental O2. Patient has history of COPD. - Patient back to baseline room air - Monitor Oxygen saturation, Oxygen via NC; wean oxygen as tolerated, keep SpO2 greater than 88% - Patient would likely benefit from a home O2 eval prior to discharge (2) COVID: Code(s): U07.1 - COVID-19 Status: Acute Assessment and Plan: Positive SARS-CoV-2 PCR. Likely cause of hypoxia. - Remdesivir 100 mg IV daily - Dexamethasone 6 mg IV daily - Isolation (3) COPD (chronic obstructive pulmonary disease): Qualifiers: COPD type: COPD with acute exacerbation Qualified Code(s): J44.1 - Chronic obstructive pulmonary disease with (acute) exacerbation Code(s): J44.9 - Chronic obstructive pulmonary disease, unspecified Status: Acute Assessment and Plan: COPD in acute exacerbation likely from underlying covid and pneumonia infections. - Monitor vital signs, I&Os, neuro status and patient is a fall risk - Monitor serum electrolytes, cultures and CBC - Monitor Oxygen saturation, Oxygen via NC; wean oxygen as tolerated, keep SpO2 greater than 88% - Antibiotics: Azithromycin 500mg - Duonebz q6H - Decadron 6 mg IV daily - Sputum culture pending (4) Pneumonia: Code(s): J18.9 - Pneumonia, unspecified organism Status: Acute Assessment and Plan: CXR: Opacities in bilateral lower lungs most likely combination of atelectasis with pulmonary edema and/or pneumonia. - Complicating Factors: Covid and COPD - started on CAP tx: azithromycin ceftriaxone - Viral PCR: positive for Covid - Procal 0.1 and CRP 0.6 - Back to baseline room air. Keep SpO2 greater than 88% - supportive treatment tyl prn nebs prn - Monitor vital signs, I&Os, neuro status and patient is a fall risk - Follow WBC, serum electrolytes, temperature curves and cultures - Sputum culture pending (5) Bilateral nephrolithiasis: Code(s): N20.0 - Calculus of kidney Status: Acute Assessment and Plan: - CT abdomen/pelvis: 1. Bilateral nephrolithiasis, nonobstructing stones at the lower calyces of both kidneys (6mm left and 4 stones measuring 5 mm right) 2. Cholelithiasis. - KUB: 5 mm left kidney stone - Discussed patients case with urology and she will likely require a lithotripsy as the stones are unlikely to pass on their own. Due to patients covid status this will need to be performed outpatient. (6) Polycythemia: Code(s): D75.1 - Secondary polycythemia Status: Acute Assessment and Plan: Possible that this is chronic due to patients hypoxia. Since admission the H/H has returned to normal limits. - Continue to monitor on daily labs (7) Obstructive sleep apnea on CPAP: Code(s): G47.33 - Obstructive sleep apnea (adult) (pediatric) Status: Acute Assessment and Plan: Chronic, continue CPAP. Patient states that she is not always compliant at home as the mask is uncomfortable. (8) Tobacco dependence: Code(s): F17.200 - Nicotine dependence, unspecified, uncomplicated Status: Acute Assessment and Plan: Not requiring a nicotine patch at this time. Encourage smoking cessation. Time Spent With Patient Time with patient: 25 - 35 minutes Subjective Date/time seen: 08/30/23 07:12 Interval history: 68-year-old female smoker with chronic obstructive pulmonary disease and obstructive sleep apnea on CPAP presented to the emergency department for evaluation of cough and shortness of breath. Patient is pleasant lying in bed. She continues to endorse abdominal pain at this time. CT showing bilateral kidney stones. Discussed patients case with urology and she will likely require a lithotripsy as the ston
[2023-08-30] MEDS: FLUTICASONE/SALMETEROL 115-21 MCG INHALER 1 PUFF 2 PUFF INHALATION ×2 (07:29→22:47)
[2023-08-30] MEDS: guaiFENesin 12 HR 600 MG TABCR 1200 MG PO ×2 (08:48→20:56)
[2023-08-30] MEDS: dexAMETHasone SOD PHOS INJ 10 MG/ML 1 ML VIAL 6 MG IV PUSH (08:48)
[2023-08-30] MEDS: ATORVASTATIN 10 MG TABLET PO (08:48)
[2023-08-30] MEDS: ENOXAPARIN 40 MG/0.4 ML SYRINGE SUB-Q (08:49)
[2023-08-30] MEDS: ASPIRIN 81 MG ENTERIC TABLET PO (08:49)
[2023-08-30] MEDS: AZITHROMYCIN 500 MG/NS 250 ML 500 MG/250 ML BAG 250 MG IVPB (14:31)
[2023-08-30] MEDS: ACETAMINOPHEN 325 MG TABLET 650 MG PO (16:39)
[2023-08-30] MEDS: SALINE 0.65% NAS SOLN 44 ML BTL 1 SPRAY NASAL ×2 (16:39→23:02)
[2023-08-30 17:58] LABS: Appearance Urine Clear (Clear); Bilirubin Urine Negative (Negative); Blood Urine Negative (Negative); Color Urine Yellow (Yellow); Glucose Urine UA Negative (Negative); Ketones Urine Negative (Negative); Leukocyte Esterase Ur Negative LEU/UL (Negative); Nitrate Urine Negative (Negative); Protein Urine Negative (Negative); Urobilinogen Urine 0.2 mg/dL (<2.0)
[2023-08-30 18:51] LABS: Add Urine Microscopic? NO
[2023-08-30] MEDS: MONTELUKAST SODIUM 10 MG TABLET PO (20:55)
[2023-08-30] MEDS: REMDESIVIR 100 MG/NS 250 ML 100 MG/250 ML BAG 250 MG IVPB (20:56)
[2023-08-31] VITALS (15 sets, daily range): BP systolic 128–172; BP diastolic 58–80; PULSE 69–95; RESP 14–20; TEMP 36.1–36.7; O2SAT 91–97
[2023-08-31] MEDS: IPRATROPIUM 0.5 MG/ALBUTEROL SULFATE 2.5 MG AMPUL.NEB 3 ML INHALATION ×4 (02:30→20:53)
[2023-08-31] MEDS: HYDROcodone/acetaminophen (*CRX) 5-325 MG TABLET 1 TAB PO (03:42)
[2023-08-31 06:12] LABS: Basophils Percent Auto 0.1 % (0.2-1.2); Hematocrit 41.1 % (37.0-47.0); Hemoglobin 13.6 g/dL (12.0-15.0); Immature Granulocyte Absolute 0.01 K/mm3 (0.00-0.031); Immature Granulocyte Percent A 0.1 % (0-0.5); Lymphocytes Absolute Auto 3.22 K/mm3 (0.9-3.2); Lymphocytes Percent Auto 47.4 % (18.3-44.2); Mean Corpuscular HGB Conc 33.1 g/dl (32-36); Mean Corpuscular Hemoglobin 30.3 pg (26-34); Mean Corpuscular Volume 91.5 fl (80-100); Mean Platelet Volume 12.3 fl (7.4-10.4); Monocytes Absolute Auto 0.5 K/mm3 (0.1-0.6); Monocytes Percent Auto 7.1 % (2.6-8.5); Neutrophils Absolute Auto 3.1 K/mm3 (1.3-6.7); Neutrophils Percent Auto 45.3 % (45.5-73.1); Platelet Count Result 218 k/mm3 (150-375); Red Blood Count 4.49 M/mm3 (4.2-5.4); Red Cell Distribution Width 15.1 % (11.5-14.5); White Blood Count 6.8 K/mm3 (4.5-10.0)
[2023-08-31 06:22] LABS: INR 0.9; Prothrombin Time 12.4 Seconds (11.1-14.7)
[2023-08-31 06:24] LABS: Alanine Aminotransferase 17 U/L (6-35); Albumin Level 3.5 g/dL (3.5-5.1); Alkaline Phosphatase 53 U/L (38-126); Anion Gap 8 mmol/L (4-12); Aspartate Amino Transferase 22 U/L (14-36); Bilirubin,Total 0.2 mg/dL (0.2-1.3); Blood Urea Nitrogen 25 mg/dL (7-17); Calcium 8.6 mg/dL (8.4-10.2); Carbon Dioxide 25 mmol/L (22-30); Chloride 106 mmol/L (98-107); Estimated CRCL calculation 62 ml/min; Estimated Glomerular Filt Rate > 60; Glucose 171 mg/dL (65-110); Sodium 139 mmol/L (137-145)
[2023-08-31] MEDS: FLUTICASONE/SALMETEROL 115-21 MCG INHALER 1 PUFF 2 PUFF INHALATION ×2 (08:00→20:53)
[2023-08-31] MEDS: ENOXAPARIN 40 MG/0.4 ML SYRINGE SUB-Q (09:16)
[2023-08-31] MEDS: ASPIRIN 81 MG ENTERIC TABLET PO (09:17)
[2023-08-31] MEDS: dexAMETHasone SOD PHOS INJ 10 MG/ML 1 ML VIAL 6 MG IV PUSH (09:17)
[2023-08-31] MEDS: ATORVASTATIN 10 MG TABLET PO (09:17)
[2023-08-31] MEDS: guaiFENesin 12 HR 600 MG TABCR 1200 MG PO ×2 (09:17→20:23)
--- NOTE | 2023-08-31 11:54 | P.PNIM_ITS ---
Progress Note: A&P Assessment and Plan (1) Acute respiratory failure with hypoxia: Code(s): J96.01 - Acute respiratory failure with hypoxia Status: Acute (2) COVID: Code(s): U07.1 - COVID-19 Status: Acute (3) COPD (chronic obstructive pulmonary disease): Qualifiers: COPD type: COPD with acute exacerbation Qualified Code(s): J44.1 - Chronic obstructive pulmonary disease with (acute) exacerbation Code(s): J44.9 - Chronic obstructive pulmonary disease, unspecified Status: Acute (4) Pneumonia: Code(s): J18.9 - Pneumonia, unspecified organism Status: Acute (5) Bilateral nephrolithiasis: Code(s): N20.0 - Calculus of kidney Status: Acute (6) Polycythemia: Code(s): D75.1 - Secondary polycythemia Status: Acute (7) Obstructive sleep apnea on CPAP: Code(s): G47.33 - Obstructive sleep apnea (adult) (pediatric) Status: Acute (8) Tobacco dependence: Code(s): F17.200 - Nicotine dependence, unspecified, uncomplicated Status: Acute Plan Acute respiratory failure with hypoxia secondary to COVID * Patients SpO2 84% with ambulation on admission. Started on 2L NC supplemental O2. Patient has history of COPD and current smoker. * Intermittent use of O2 especially with exertion * Monitor Oxygen saturation, Oxygen via NC; wean oxygen as tolerated, keep SpO2 greater than 88% * Patient would likely benefit from a home O2 eval prior to discharge COVID * Patient tested positive for COVID. * Supportive care. * Monitor for COVID pneumonia, acute respiratory distress syndrome. * Decadron 6 mg daily * remdesivir for 5 days for patient with high risk for hypoxemia * supplemental oxygen as needed to maintain 90% oxygen saturation * monitor LFTs daily * incentive spirometer while awake * DuoNebs * procalcitonin/CRP * initiate antibiotic therapy if suspicion of bacterial * guaifenesin scheduled for cough COPD * Bronchodilators. * Chest x-ray * incentive spirometry while awake. * Decadron * azithromycin 500 x 1 day/250 daily/and Rocephin discontinued * Started on Augmentin p.o. 08/31/2023 * supplemental oxygen therapy to maintain oxygen 92% * Pneumonia and flu vaccination advised. * Evaluation from home O2 if saturation less than 88% on room air. * Smoking cessation counseling done Pneumonia * Complicating Factors: Covid and COPD * started on CAP tx: azithromycin ceftriaxone tranistion to PO Augmentin PO * Viral PCR: positive for Covid * Keep SpO2 greater than 88% * Monitor vital signs, I&Os, neuro status and patient is a fall risk * Sputum culture pending Bilateral Nephrolithiasis * 4/5MM stone bilateral * Lithotripsy outpatient due to current COVID status HX HUY: CPAP at night HX smoker: Smoking cessation Code status: Full code per patient DVT prophylaxis: Lovenox Stress ulcer prophylaxis: Protonix 40 daily PT/OT notes: PT/OT pending Disposition: Patient continues admission for acute respiratory failure secondary to COVID PNA will continue current treatment, wean O2 and plan for home o2 walk study tomorrow. Time Spent With Patient Time with patient: 15 - 25 minutes Subjective Date/time seen: 08/31/23 11:54 Interval history: Admission: Medical record 68-year-old female smoker with chronic obstructive pulmonary disease and obstructive sleep apnea on CPAP presented to the emergency department for evaluation of cough a
--- NOTE | 2023-08-31 11:54 | PM.IMPN ---
Progress Note: A&P Assessment and Plan (1) Acute respiratory failure with hypoxia: Code(s): J96.01 - Acute respiratory failure with hypoxia Status: Acute (2) COVID: Code(s): U07.1 - COVID-19 Status: Acute (3) COPD (chronic obstructive pulmonary disease): Qualifiers: COPD type: COPD with acute exacerbation Qualified Code(s): J44.1 - Chronic obstructive pulmonary disease with (acute) exacerbation Code(s): J44.9 - Chronic obstructive pulmonary disease, unspecified Status: Acute (4) Pneumonia: Code(s): J18.9 - Pneumonia, unspecified organism Status: Acute (5) Bilateral nephrolithiasis: Code(s): N20.0 - Calculus of kidney Status: Acute (6) Polycythemia: Code(s): D75.1 - Secondary polycythemia Status: Acute (7) Obstructive sleep apnea on CPAP: Code(s): G47.33 - Obstructive sleep apnea (adult) (pediatric) Status: Acute (8) Tobacco dependence: Code(s): F17.200 - Nicotine dependence, unspecified, uncomplicated Status: Acute Plan Acute respiratory failure with hypoxia secondary to COVID Patients SpO2 84% with ambulation on admission. Started on 2L NC supplemental O2. Patient has history of COPD and current smoker. Intermittent use of O2 especially with exertion Monitor Oxygen saturation, Oxygen via NC; wean oxygen as tolerated, keep SpO2 greater than 88% Patient would likely benefit from a home O2 eval prior to discharge COVID Patient tested positive for COVID. Supportive care. Monitor for COVID pneumonia, acute respiratory distress syndrome. Decadron 6 mg daily remdesivir for 5 days for patient with high risk for hypoxemia supplemental oxygen as needed to maintain 90% oxygen saturation monitor LFTs daily incentive spirometer while awake DuoNebs procalcitonin/CRP initiate antibiotic therapy if suspicion of bacterial guaifenesin scheduled for cough COPD Bronchodilators. Chest x-ray incentive spirometry while awake. Decadron azithromycin 500 x 1 day/250 daily/and Rocephin discontinued Started on Augmentin p.o. 08/31/2023 supplemental oxygen therapy to maintain oxygen 92% Pneumonia and flu vaccination advised. Evaluation from home O2 if saturation less than 88% on room air. Smoking cessation counseling done Pneumonia Complicating Factors: Covid and COPD started on CAP tx: azithromycin ceftriaxone tranistion to PO Augmentin PO Viral PCR: positive for Covid Keep SpO2 greater than 88% Monitor vital signs, I&Os, neuro status and patient is a fall risk Sputum culture pending Bilateral Nephrolithiasis 4/5MM stone bilateral Lithotripsy outpatient due to current COVID status HX HUY: CPAP at night HX smoker: Smoking cessation Code status: Full code per patient DVT prophylaxis: Lovenox Stress ulcer prophylaxis: Protonix 40 daily PT/OT notes: PT/OT pending Disposition: Patient continues admission for acute respiratory failure secondary to COVID PNA will continue current treatment, wean O2 and plan for home o2 walk study tomorrow. Time Spent With Patient Time with patient: 15 - 25 minutes Subjective Date/time seen: 08/31/23 11:54 Interval history: Admission: Medical record 68-year-old female smoker with chronic obstructive pulmonary disease and obstructive sleep apnea on CPAP presented to the emergency department for evaluation of cough and shortness of breath. Patient is pleasant lying in bed. She continues to endorse abdominal pain at this time. CT showing bilateral kidney stones. Discussed patients case with urology and she will likely require a lithotripsy as the stones are unlikely to pass on their own. Due to patients covid status this will need to be performed outpatient. Patient aware and states understanding. She is back on room air, but continues to have increased shortness of breath with short amounts of ambulation. She will
[2023-08-31] MEDS: AMOXICILLIN/CLAVULANATE K 875-125 MG TAB 1 TABLET PO ×2 (12:28→20:23)
[2023-08-31] MEDS: BENZOCAINE/MENTHOL (*BKC) 18 EA LOZENGE 1 LOZENGE PO (12:29)
[2023-08-31] MEDS: AZITHROMYCIN 250 MG TABLET 500 MG PO (14:36)
[2023-08-31] MEDS: polyethylene glycoL 3350 17 GM POWD.PACK PO (18:22)
[2023-08-31] MEDS: MONTELUKAST SODIUM 10 MG TABLET PO (20:24)
[2023-08-31] MEDS: REMDESIVIR 100 MG/NS 250 ML 100 MG/250 ML BAG 250 MG IVPB (21:29)
[2023-09-01] VITALS (8 sets, daily range): BP systolic 134; BP diastolic 71; PULSE 72–88; RESP 12–20; TEMP 36.3; O2SAT 98–100
[2023-09-01] MEDS: HYDROcodone/acetaminophen (*CRX) 5-325 MG TABLET 1 TAB PO (00:47)
[2023-09-01] MEDS: IPRATROPIUM 0.5 MG/ALBUTEROL SULFATE 2.5 MG AMPUL.NEB 3 ML INHALATION ×2 (02:25→06:52)
[2023-09-01] MEDS: polyethylene glycoL 3350 17 GM POWD.PACK PO (04:49)
[2023-09-01] MEDS: FLUTICASONE/SALMETEROL 115-21 MCG INHALER 1 PUFF 2 PUFF INHALATION (06:52)
[2023-09-01 06:57] LABS: Basophils Percent Auto 0.2 % (0.2-1.2); Eosinophils Percent Auto 0.2 % (0-4.4); Hematocrit 40.2 % (37.0-47.0); Hemoglobin 13.3 g/dL (12.0-15.0); Immature Granulocyte Absolute 0.02 K/mm3 (0.00-0.031); Immature Granulocyte Percent A 0.3 % (0-0.5); Lymphocytes Absolute Auto 3.09 K/mm3 (0.9-3.2); Lymphocytes Percent Auto 47.5 % (18.3-44.2); Mean Corpuscular HGB Conc 33.1 g/dl (32-36); Mean Corpuscular Hemoglobin 30.2 pg (26-34); Mean Corpuscular Volume 91.2 fl (80-100); Mean Platelet Volume 12.4 fl (7.4-10.4); Monocytes Absolute Auto 0.5 K/mm3 (0.1-0.6); Monocytes Percent Auto 8.2 % (2.6-8.5); Neutrophils Absolute Auto 2.8 K/mm3 (1.3-6.7); Neutrophils Percent Auto 43.6 % (45.5-73.1); Platelet Count Result 214 k/mm3 (150-375); Red Blood Count 4.41 M/mm3 (4.2-5.4); Red Cell Distribution Width 14.8 % (11.5-14.5); White Blood Count 6.5 K/mm3 (4.5-10.0)
[2023-09-01 07:08] LABS: Alanine Aminotransferase 22 U/L (6-35); Albumin Level 3.5 g/dL (3.5-5.1); Alkaline Phosphatase 53 U/L (38-126); Anion Gap 7 mmol/L (4-12); Aspartate Amino Transferase 26 U/L (14-36); Bilirubin,Total 0.3 mg/dL (0.2-1.3); Blood Urea Nitrogen 21 mg/dL (7-17); Calcium 8.5 mg/dL (8.4-10.2); Carbon Dioxide 27 mmol/L (22-30); Chloride 105 mmol/L (98-107); Estimated CRCL calculation 69 ml/min; Estimated Glomerular Filt Rate > 60; Glucose 119 mg/dL (65-110); Sodium 139 mmol/L (137-145)
--- NOTE | 2023-09-01 08:26 | HOMEO2EVAL ---
Evaluation was performed at [facility] Home Oxygen Evaluation RC: Home Oxygen (O2) Evaluation Start: 09/01/23 07:27 Freq: ONCE Status: Active Protocol: RPE Activity Type Activity Date Activity User E-sign Co-sign Detail Recorded Client Recorded Date Recorded By Document 09/01/23 08:10 CLC [email or web address] 09/01/23 08:25 CLC Document 09/01/23 08:24 CLC [email or web address] 09/01/23 08:25 CLC 09/01/23 09/01/23 08:10 08:24 Home O2 Evaluation [Oxygen] -Test Phase Resting Exercise -Oxygen Delivery Room Air [Pulse Oximetry] -Pulse Oximetry (90-100 %) 100 98 [Pulse Rate] -Pulse Rate (60-100 beats/min) 78 88 [Evaluation] -Activity Tolerance Good -Rating of Perceived Dyspnea (PD) +3 Moderate Difficulty, But Can Continue [Exercise] -Ambulation Distance (feet) 25 -Ambulation Distance (meters) 7.61 [Comments] -Home Oxygen Evaluation Comments Walked to bathroom and back to bed and did some leg exercises in bed for activity as well. [Charges] -Evaluation Charges O2 Evaluation by KIRTI
--- NOTE | 2023-09-01 08:26 | PCRCNOTE ---
Home oxygen evaluation complete. Patient requires no oxygen at rest or with activity.
[2023-09-01] MEDS: dexAMETHasone SOD PHOS INJ 10 MG/ML 1 ML VIAL 6 MG IV PUSH (08:43)
[2023-09-01] MEDS: ATORVASTATIN 10 MG TABLET PO (08:43)
[2023-09-01] MEDS: ENOXAPARIN 40 MG/0.4 ML SYRINGE SUB-Q (08:43)
[2023-09-01] MEDS: AMOXICILLIN/CLAVULANATE K 875-125 MG TAB 1 TABLET PO (08:43)
[2023-09-01] MEDS: ASPIRIN 81 MG ENTERIC TABLET PO (08:44)
[2023-09-01] MEDS: guaiFENesin 12 HR 600 MG TABCR 1200 MG PO (11:36)
[2023-09-01] MEDS: LACTULOSE 20 GM/30 ML UDC PO (11:36)
--- NOTE | 2023-09-01 11:51 | P.DS_ITS ---
DS: Admitting Diagnosis Discharge Date 09/01/2023 Admitting Diagnosis Acute respiratory failure with hypoxia secondary to COVID-19 pneumonia DS: Discharge Diagnosis Discharge Diagnosis (1) Acute respiratory failure with hypoxia: Code(s): J96.01 - Acute respiratory failure with hypoxia Status: Acute (2) COVID: Code(s): U07.1 - COVID-19 Status: Acute (3) COPD (chronic obstructive pulmonary disease): Qualifiers: COPD type: COPD with acute exacerbation Qualified Code(s): J44.1 - Chronic obstructive pulmonary disease with (acute) exacerbation Code(s): J44.9 - Chronic obstructive pulmonary disease, unspecified Status: Acute (4) Pneumonia: Code(s): J18.9 - Pneumonia, unspecified organism Status: Acute (5) Bilateral nephrolithiasis: Code(s): N20.0 - Calculus of kidney Status: Acute (6) Polycythemia: Code(s): D75.1 - Secondary polycythemia Status: Acute (7) Obstructive sleep apnea on CPAP: Code(s): G47.33 - Obstructive sleep apnea (adult) (pediatric) Status: Acute (8) Tobacco dependence: Code(s): F17.200 - Nicotine dependence, unspecified, uncomplicated Status: Acute Plan Acute respiratory failure with hypoxia secondary to COVID * Patients SpO2 84% with ambulation on admission. Started on 2L NC supplemental O2. Patient has history of COPD and current smoker. * Intermittent use of O2 especially with exertion * Monitor Oxygen saturation, Oxygen via NC; wean oxygen as tolerated, keep SpO2 greater than 88% * Patient would likely benefit from a home O2 eval prior to discharge COVID * Patient tested positive for COVID. * Supportive care. * Monitor for COVID pneumonia, acute respiratory distress syndrome. * Decadron 6 mg daily * remdesivir for 5 days for patient with high risk for hypoxemia * supplemental oxygen as needed to maintain 90% oxygen saturation * monitor LFTs daily * incentive spirometer while awake * DuoNebs * procalcitonin/CRP * initiate antibiotic therapy if suspicion of bacterial * guaifenesin scheduled for cough COPD * Bronchodilators. * Chest x-ray * incentive spirometry while awake. * Decadron * azithromycin 500 x 1 day/250 daily/and Rocephin discontinued * Started on Augmentin p.o. 08/31/2023 * supplemental oxygen therapy to maintain oxygen 92% * Pneumonia and flu vaccination advised. * Evaluation from home O2 if saturation less than 88% on room air. * Smoking cessation counseling done Pneumonia * Complicating Factors: Covid and COPD * started on CAP tx: azithromycin ceftriaxone tranistion to PO Augmentin PO * Viral PCR: positive for Covid * Keep SpO2 greater than 88% * Monitor vital signs, I&Os, neuro status and patient is a fall risk * Sputum culture pending Bilateral Nephrolithiasis * 4/5MM stone bilateral * Lithotripsy outpatient due to current COVID status HX HUY: CPAP at night HX smoker: Smoking cessation Disposition: Patient discharged to home on supportive care for COVID-19, patient on RA and did not require oxygen at discharge. DS: Summary Hospital Course Reason for hospitalization: Acute respiratory failure with hypoxia secondary to COVID-19 pneumonia Hospital Course: Interval history: Admission: Medical record 68-year-old female smoker with chronic obstructive pulmonary disease and obstructive sleep apnea on CPAP presented to the emergency department for
--- NOTE | 2023-09-01 11:51 | PM.DS ---
DS: Admitting Diagnosis Discharge Date 09/01/2023 Admitting Diagnosis Acute respiratory failure with hypoxia secondary to COVID-19 pneumonia DS: Discharge Diagnosis Discharge Diagnosis (1) Acute respiratory failure with hypoxia: Code(s): J96.01 - Acute respiratory failure with hypoxia Status: Acute (2) COVID: Code(s): U07.1 - COVID-19 Status: Acute (3) COPD (chronic obstructive pulmonary disease): Qualifiers: COPD type: COPD with acute exacerbation Qualified Code(s): J44.1 - Chronic obstructive pulmonary disease with (acute) exacerbation Code(s): J44.9 - Chronic obstructive pulmonary disease, unspecified Status: Acute (4) Pneumonia: Code(s): J18.9 - Pneumonia, unspecified organism Status: Acute (5) Bilateral nephrolithiasis: Code(s): N20.0 - Calculus of kidney Status: Acute (6) Polycythemia: Code(s): D75.1 - Secondary polycythemia Status: Acute (7) Obstructive sleep apnea on CPAP: Code(s): G47.33 - Obstructive sleep apnea (adult) (pediatric) Status: Acute (8) Tobacco dependence: Code(s): F17.200 - Nicotine dependence, unspecified, uncomplicated Status: Acute Plan Acute respiratory failure with hypoxia secondary to COVID Patients SpO2 84% with ambulation on admission. Started on 2L NC supplemental O2. Patient has history of COPD and current smoker. Intermittent use of O2 especially with exertion Monitor Oxygen saturation, Oxygen via NC; wean oxygen as tolerated, keep SpO2 greater than 88% Patient would likely benefit from a home O2 eval prior to discharge COVID Patient tested positive for COVID. Supportive care. Monitor for COVID pneumonia, acute respiratory distress syndrome. Decadron 6 mg daily remdesivir for 5 days for patient with high risk for hypoxemia supplemental oxygen as needed to maintain 90% oxygen saturation monitor LFTs daily incentive spirometer while awake DuoNebs procalcitonin/CRP initiate antibiotic therapy if suspicion of bacterial guaifenesin scheduled for cough COPD Bronchodilators. Chest x-ray incentive spirometry while awake. Decadron azithromycin 500 x 1 day/250 daily/and Rocephin discontinued Started on Augmentin p.o. 08/31/2023 supplemental oxygen therapy to maintain oxygen 92% Pneumonia and flu vaccination advised. Evaluation from home O2 if saturation less than 88% on room air. Smoking cessation counseling done Pneumonia Complicating Factors: Covid and COPD started on CAP tx: azithromycin ceftriaxone tranistion to PO Augmentin PO Viral PCR: positive for Covid Keep SpO2 greater than 88% Monitor vital signs, I&Os, neuro status and patient is a fall risk Sputum culture pending Bilateral Nephrolithiasis 4/5MM stone bilateral Lithotripsy outpatient due to current COVID status HX HUY: CPAP at night HX smoker: Smoking cessation Disposition: Patient discharged to home on supportive care for COVID-19, patient on RA and did not require oxygen at discharge. DS: Summary Hospital Course Reason for hospitalization: Acute respiratory failure with hypoxia secondary to COVID-19 pneumonia Hospital Course: Interval history: Admission: Medical record 68-year-old female smoker with chronic obstructive pulmonary disease and obstructive sleep apnea on CPAP presented to the emergency department for evaluation of cough and shortness of breath. Patient is pleasant lying in bed. She continues to endorse abdominal pain at this time. CT showing bilateral kidney stones. Discussed patients case with urology and she will likely require a lithotripsy as the stones are unlikely to pass on their own. Due to patients covid status this will need to be performed outpatient. Patient aware and states understanding. She is back on room air, but continues to have increased shortness of breath with short amounts of ambulatio
[2023-09-01 22:53] LABS: Pneumococcal Antigen Urine NOT DETECTED
[2023-09-03 17:24] LABS: Mycoplasma IgM Antibody Titer 89 U/mL
[2023-09-06 03:18] LABS: Legionella pneumophila Ag Ur NOT DETECTED
== END 2023-09-01 13:10 | disposition home or self-care (01) | DRG 177 ==
LOC: ANHED 14:23 → ANH3MEDSUR 15:57
PROVIDERS: Physician Assistant; Student in an Organized Health Care Education/Training Program; Admitting Provider Internal Medicine; Emergency Provider Emergency Medicine; PCP Internal Medicine; Visit Provider Nurse Practitioner Family
DX: U07.1 COVID-19 (principal); J12.82 Pneumonia due to coronavirus disease 2019; J96.01 Acute respiratory failure with hypoxia; J44.1 Chronic obstructive pulmonary disease with (acute) exacerbation; D75.1 Secondary polycythemia; E78.5 Hyperlipidemia, unspecified; F17.210 Nicotine dependence, cigarettes, uncomplicated; G47.33 Obstructive sleep apnea (adult) (pediatric); N20.0 Calculus of kidney; Z99.89 Dependence on other enabling machines and devices; Z79.82 Long term (current) use of aspirin; Z96.652 Presence of left artificial knee joint; Z90.49 Acquired absence of other specified parts of digestive tract; Z90.710 Acquired absence of both cervix and uterus
CPT/HCPCS: 36415; 71046; 74018; 74176; 80048; 80053; 80076; 81003; 82248; 83735; 83880; 84145; 85025; 85027; 85610; 86140; 86738; 87070; 87205; 87449; 87637; 87899; 93005; 94002; 94003; 94618; 94640; 96372; 96374; 96375; 97161; 99285; A9270; G0378; J0248; J0456; J0696; J1100; J1650; J7040; J8540

== ENCOUNTER 2023-12-15 09:51 | Outpatient (CLI) | payer MEDICARE, MEDICAID, SELFPAY ==
--- NOTE | 2023-12-15 11:54 | WPDPFTINT ---
PFT Procedure Performed PFT Procedure Performed Spirometry with Pre/Post Bronchodilator Plethysmography (Lung Vol) Diffusing Cap (DLCO) Flow Vol Loop PFT Interpretation Lung volumes were measured with the body plethysmography method. The diminished lung volumes are indicative of restrictive respiratory disease. Spirometry showed diminished expiratory flow rates and a normal FEV1 to FVC ratio 79%, also consistent with restrictive respiratory disease. Following administration of a bronchodilator there was no significant increase in expiratory flow rates. Lung diffusion capacity is moderately reduced at 58% predicted. The diminished lung diffusion capacity coupled with a low alveolar volume and a normal DLCO/VA ratio indicates loss of alveolar capillary stricture as seen in interstitial lung disease or emphysema. The flow-volume loop is consistent with restrictive respiratory disease. Impression: Mild to moderate restrictive respiratory disease. Moderately reduced lung diffusion capacity.
== END 2023-12-15 09:52 | disposition home or self-care (01) ==
LOC: ANHPFT 09:52
PROVIDERS: PCP Internal Medicine; Visit Provider Internal Medicine Pulmonary Disease
DX: J45.40 Moderate persistent asthma, uncomplicated (principal); R94.2 Abnormal results of pulmonary function studies
CPT/HCPCS: 94060; 94726; 94729

== ENCOUNTER 2024-05-15 12:07 | Outpatient (CLI) | payer MEDICARE, MEDICAID, SELFPAY ==
--- OUTSIDE RECORDS SUMMARY | 2024-05-15 13:33 | XMS_ITS | Clinical Summary ---
Author Organization [facility] Address [address] [place] [address] Care Team Providers Care Warehouse Man Name Role Phone Unavailable Primary Care Provider Unavailabl e Allergies Active Allergy Reactions Criticality Noted Date Comments Iodine Rash Medium 10/12/2017 Omeprazole Hives 10/12/2017 Medications aspirin 81 MG chewable tablet Chew 1 tablet (81 mg total) once a day. 0 10/27/19 18 Active budesonide-formoter ol (SYMBICORT) 160-4.5 MCG/ACT inhaler Inhale 2 puffs RT 2 (two) times a day. 6 g 10/27/19 18 Active tiotropium (SPIRIVA) 18 MCG per inhalation capsule Place 2 puffs (1 capsule total) into inhaler and inhale RT Daily. 30 each 10/28/19 18 Active loratadine (CLARITIN) 10 MG tablet Take 1 tablet (10 mg total) by mouth once a day. 0 10/27/19 18 Active lidocaine (LIDOCARE) 4 % patch patch Place 1 patch on the skin once a day. 30 patch 10/27/19 18 Active furosemide (LASIX) 20 MG tablet Take 1 tablet (20 mg total) by mouth once a day. 30 tablet 10/27/19 18 Active vitamin B-12 1000 MCG tablet Take 1 tablet (1,000 mcg total) by mouth once a day. 0 10/27/19 18 Active polyethylene glycol (MIRALAX) packet Take 17 g by mouth daily as needed (constipation) . 10 each 10/27/19 18 Active senna-docusate (SENOKOT-S) 8.6-50 MG Take 2 tablets by mouth 2 (two) times a day. 0 10/27/19 18 Active potassium bicarb-citric acid (EFFER-K) 10 MEQ effervescent tablet effervescent tablet Take 1 tablet (10 mEq total) by mouth once a day. 30 tablet 10/27/19 18 Active ipratropium (ATROVENT) 0.06 % nasal spray Administer 2 sprays into each nostril Daily at 6am. 15 mL 10/28/19 18 Active famotidine (PEPCID) 20 MG tablet Take 1 tablet (20 mg total) by mouth 2 (two) times a day. 60 tablet 10/27/19 18 Active vitamin D cholecalciferol 1000 units tablet Take 2 tablets (2,000 Units total) by mouth once a day. 30 tablet 10/27/19 18 Active Active Problems Problem Noted Date Diagnosed Date Cervical myelopathy 10/12/2017 Atherosclerosis of aorta 11/22/2016 Overview (10/26/2017): Overview: CT Abdomen 07/22/16 Chronic obstructive pulmonary disease 04/24/2014 Overview (10/26/2017): Overview: Dr. Dobbs note 11/05/13 Cobalamin deficiency 09/29/2010 Overview (10/26/2017): Overview: Wants to remain on injections. Normal 04/11, 10/2012 Glaucoma 09/29/2010 Obesity 09/29/2010 Obstructive sleep apnea syndrome 09/29/2010 Overview (10/26/2017): Overview: Uses CPAP Dr. Abdullahi Ortiz Tobacco user 09/29/2010 Overview (10/26/2017): Overview: Declines lung cancer CT screening. Gastroesophageal reflux disease 09/28/2010 Overview (10/26/2017): Overview: Zantac doesn't help with GERD. Fatigue 04/20/2010 Overview (10/26/2017): Overview: Life-long Celiac negative 04/11 Osteoarthritis 04/20/2010 Vitamin D deficiency 10/28/2009 Overview (10/26/2017): Overview: 10/2012: 29 (L) Allergic rhinitis 10/27/2009 Hyperlipidemia 10/27/2009 Overview (10/26/2017): Overview: Family History Medical History Relation Name Comments Cancer Brother colon Hypertension Brother Heart disease Father Stroke Maternal Grandfather Stroke Maternal Grandmother Heart disease Mother Hypertension Mother Migraines Mother Stroke Mother Cancer Sister cervical Diabetes Sister Sleep apnea Sister Relation Name Status Comments Brother Father Maternal Grandfather Maternal Grandmother Mother Sister Social History Tobacco Use Types Packs/Day Years Used Date Smoking Tobacco: Every Day Cigarettes 1 53.6 Started: 10/12/1970 Smokeless Tobacco: Never Tobacco Cessation:Ready to Q uit: Yes; Counseling Given: Yes Alcohol Use Standard Drinks/Week Comments No 0 (1 standard drink = 0.6 oz pur e alcohol) Comments Unknown Sex and Gender Information Value Date Recorded Sex Assigned at Not on file Legal Sex Female 12:59 PM EDT Gender Identity Not on file Sexual Orientation Not on file Last Filed Vital Signs Vital Sign Reading Time Taken Comments Blood Pressure 101/66 10/25/2017 7:55 PM CDT Pulse 87 10/25/2017 7:55 PM CDT Temperature 37 C (98.6 F) 10/25/2017 7:55 PM CDT Respiratory Rate 19 10/25/2017 7:55 PM CDT Oxygen Saturation 98% 10/25/2017 7:55 PM CDT Inhaled Oxygen Concentration - - Weight 95.3 kg (210 lb 1 oz) 10/25/2017 6:00 AM CDT Height 165.1 cm (5' 5 ) 10/18/2017 6:16 AM CDT Body Mass Index 34.96 10/18/2017 6:16 AM CDT Plan of Treatment Not on file Advance Directives * Full Resuscitation (Latest Code Status on File) Date Activated Date Inactivated Comments 10/12/2017 4:19 PM 10/26/2017 2:37 PM
--- OUTSIDE RECORDS SUMMARY | 2024-05-15 13:33 | XMS_ITS | Clinical Summary ---
Author Organization [employer] [facility] Address [address] [place] [address] Care Team Providers Care Electron Beam Welder Setter Name Role Phone Emery Jarrell MD Primary Care Provider [phone] Allergies Active Allergy Reactions Criticality Noted Date Comments Denosumab Rash Low 05/31/2022 Blisters around mouth Iodinated Contrast Media Rash Low 05/31/2022 Medications budesonide-formo teroL (SYMBICORT) 160-4.5 mcg/actuation HFA Aerosol Inhaler Take 2 Puffs by inhalation 2 times daily. Active baclofen (LIORESAL) 10 mg tablet Take by mouth. Activ e HYDROcodone-acet aminophen (NORCO) 5-325 mg tablet Take 1 Tablet by mouth every 4 hours as needed for Pain, Moderate. Active albuterol (PROVENTIL,KELLI GIRISH) 0.63 mg/3 mL Solution for Nebulization Take 0.63 mg by inhalation one time only. Active tiotropium (Spiriva Respimat) 2.5 mcg/actuation Mist Take by inhalation daily. Active atorvastatin (LIPITOR) 10 mg tablet Take 10 mg by mouth daily. 04/01/19 24 Active aspirin (ECOTRIN EC) 81 mg Tablet, Delayed Release (E.C.) Take 81 mg by mouth daily. Active montelukast (SINGULAIR) 10 mg tablet Take 10 mg by mouth daily at bedtime. Active Syringe with Needle, Disp, 1 mL 27 x 1/2 Syringe Use with B-12 3 Each 3 03/27/19 25 Active cyanocobalamin (VITAMIN B-12) 1,000 mcg/mL Solution Inject 1 mL (1,000 mcg) by intramuscular injection every 30 days. 3 mL 3 01/28/20 25 Active Active Problems No known active problems Encounters Date Type Department Care Team Description 05/05/2024 External Device Data [facility] ABSTRACTION Provider, Abstract 05/04/2024 External Device Data [facility] ABSTRACTION Provider, Abstract 05/01/2024 External Device Data [facility] ABSTRACTION Provider, Abstract 04/17/2024 External Device Data [facility] ABSTRACTION Provider, Abstract 03/27/2024 2:00 PM CANDLE POURER Office Visit [facility] - [place] [address] [place] [address] Darryl Hauser MD B12 deficiency (Primary Dx) 03/27/2024 External Device Data [facility] ABSTRACTION Provider, Abstract 03/27/2024 Refill [facility] - [place] [address] [place] [address] Darryl Hauser MD 03/27/2024 Orders Only [facility] - [place] [address] [place] [address] Darryl Hauser MD 03/22/2024 Orders Only [facility] - [place] [address] [place] [address] Darryl Hauser MD B12 deficiency (Primary Dx); Other iron deficiency anemia; Erythrocytosis 03/21/2024 External Device Data [facility] ABSTRACTION Provider, Abstract 03/21/2024 External Device Data [facility] ABSTRACTION Provider, Abstract 2024 External Device Data [facility] ABSTRACTION Provider, Abstract 02/28/2024 External Device Data [facility] ABSTRACTION Provider, Abstract from Last 3 Months Family History Medical History Relation Name Comments Colon Cancer Brother 2 Heart Disease Mother Cervical Cancer Sister 1 Relation Name Status Comments Brother 1 Alive Brother 2 Alive Father Mother Sister 1 Alive Sister 2 Alive Sister 3 Alive Social History Tobacco Use Types Packs/Day Years Used Date Smoking Tobacco: Every Day Cigarettes 0.5 48 Smokeless Tobacco: Never Alcohol Use Standard Drinks/Week Comments Not Currently 0 (1 standard drink = 0.6 oz pur e alcohol) Comments Unknown Sex and Gender Information Value Date Recorded Sex Assigned at Not on file Legal Sex Female 11:08 AM CANDLE POURER Gender Identity Not on file Sexual Orientation Not on file Last Filed Vital Signs Vital Sign Reading Time Taken Comments Blood Pressure 130/79 03/27/2024 1:45 PM CANDLE POURER Pulse 72 03/27/2024 1:45 PM CANDLE POURER Temperature 36 C (96.8 F) 03/27/2024 1:45 PM CANDLE POURER Respiratory Rate 15 03/27/2024 1:45 PM CANDLE POURER Oxygen Saturation 96% 03/27/2024 1:45 PM CANDLE POURER Inhaled Oxygen Concentration - - Weight 96.3 kg (212 lb 6.4 oz) 03/27/2024 1:45 P M CANDLE POURER Height 165.1 cm (5' 5 ) 05/31/2022 1:51 PM CDT Body Mass Index 35.35 05/31/2022 1:51 PM CDT Plan of Treatment Upcoming Encounters Date Type Department Care Team (Late st Contact Info) Description 09/25/2024 11:30 AM CDT Office Visit [facility] [address] [facility] [address] [place] [address] Darryl Hauser MD [address] [facility] [address] [place] [address] Health Maintenance Due Date Last Done Comments Pre-Diabetes and Diabetes Screening 1955 FIT-DNA Q 3 years 1999 FIT/FOBT Q 1 year 1999 Flex Sig/CT Colonography Q 5 years 1999 Lung Cancer Screening 2004 RSV VACCINE (60+ or ) (1 - Risk 60-74 years 1-dose series) 2014 INFLUENZA VACCINE (#1) 2023 , 03/19/2022, 12/05/2020, Additional history exists COVID-19 Vaccine (3 - 2023-2 5 season) 2023 05/19/2020, 04/21/2020 BREAST CANCER SCREENING 12/25/2024 12/26/19 24, 12/24/2022, 12/21/2021, Additional history exists DTAP/TDAP/TD VACCINES (3 - T d or Tdap) 01/10/2028 01/09/2018, 04/01/2011 COLORECTAL SCREENING 07/30/2030 07/30/2020 Colorectal Cancer Screening 07/30/2030 ZOSTER VACCINE Completed 10/29/2017, 08/28, 06/24/2017 PNEUMOCOCCAL VACCINE 50+ YEARS Completed 1 , 04/26/2014, 05/04/2012 OSTEOPOROSIS SCREENING Completed 05/16/2020, 2020 Procedures Procedure Name Priority Date/Time Associated Diagnosis Comments CBC WITH DIFFERENTIAL Routine 03/26/2024 12:56 PM CANDLE POURER from Last 3 Months Results * CBC WITH DIFFERENTIAL (03/26/2024 12:56 PM CANDLE POURER) Blood us Darryl Hauser MD HEMATOLOGY ORDERABLES Final Res ult from Last 3 Months Insurance RX [employer] RX Member Subscriber Plan / Payer (Ef fective 2022-Present) Name:Connie Garrett Relation to Subscriber:Self Name:Connie Garrett Payer ID:Not on file Group ID:[id number] Type:RX Medicare Part D Address: [address] [place] Care Teams Electron Beam Welder Setter Relationship Specialty Start Date End Date Emery Jarrell MD [address] [phone] PCP - General Internal Medicine 12/29/22
--- OUTSIDE RECORDS SUMMARY | 2024-05-15 13:34 | XMS_ITS | Clinical Summary ---
Author Organization [facility] Address [address] [place] [id number] Care Team Providers Care Supervisor Special Education Name Role Phone Unavailable Primary Care Provider Unavailabl e Social History Tobacco Use Types Packs/Day Years Used Date Smoking Tobacco: Never Assessed Comments Unknown Sex and Gender Information Value Date Recorded Sex Assigned at Not on file Legal Sex Female 7:42 PM CDT Gender Identity Not on file Sexual Orientation Not on file Plan of Treatment Health Maintenance Due Date Last Done Comments Colorectal Cancer Screening Colonoscopy (10 Years) 1954 Hepatitis C 1972 DTaP, Tdap and Td Vaccines ( 1 - Tdap) 1973 Mammogram Screening 1994 Zoster Vaccines (1 of 2) 2004 Dexa Scan (General) 2019 Pneumococcal Vaccine: 65+ Ye ars (1 of 1 - PCV) 2019 COVID-19 Vaccine ( - 2023-2 5 season) 2023 Influenza Adult (#1) 2023 RSV Immunization or 60+ Years (1 - 1-dose 75+ series) 2029 Meningococcal B Vaccine Aged Out No l onger eligible based on patient's age to complete this topic Meningococcal Vaccine Aged Out No randall grupo eligible based on patient's age to complete this topic RSV Immunizations Under 20 Months Aged Out No longer eligible based on patient's age to complete this topic
--- OUTSIDE RECORDS SUMMARY | 2024-05-15 13:34 | XMS_ITS | Clinical Summary ---
Author Organization [facility] Address [address] [facility] [place] [address] Care Team Providers Care Tree Thinner Name Role Phone Jas Borrero MD Unavailable [phone] Ever Garber MD Unavailable [phone] Gian Zimmer Unavailable [phone] MastromichalDino anne MD Unavailable [phone] Rambo Hui MD Unavailable [phone] Emery Jarrell MD Primary Care Provider [phone] Francisco Adams MD Unavailable [phone] Source Comments [facility],non-owned Affiliates and Associated Physician Practices is amultiple site organization consisting of ambulatory clinics and hospital sitesin [place], [place], [place] and [place]. This disclosure is being madepursuant to the Care Everywhere program and may not contain all information available regarding this patient. Last updated 17.[facility] Allergies Active Allergy Reactions Criticality Noted Date Comments Cefuroxime Itching,Nausea and/or Vomiting 09/13/2016 Cefazolin IV dosed 01/2018 with no adverse effect Denosumab Rash Medium 05/31/2022 Blisters around mouth Iodine Rash High 10/27/2009 IVP DYE Contrast-Iodinated Agents For Ct/Other Rash Low 09/28/2010 IVP DYE Flunisolide Other 04/13/2012 Gag and vomit. Tolerates nasacort, causes nose to bleed. Omeprazole Rash,Nausea and/or Vomiting Low 09/29/2010 Over the counter prilosec Propoxyphene N-Apap Elevated Blood Pressure Medium 10/27/2009 Medications * Be aware that medications may not be up to date on this document. Alwaysverify current medications with the patient. Medication Sig Dispensed Refills Start Date End Date Status lidocaine (LIDODERM) 5 % patch 1 Active albuterol (PROVENTIL;VENTOLIN) (2.5 MG/3ML) 0.083% nebulizer solution INHALE 1 VIAL VIA NEBULIZER FOUR TIMES DAILY NEEDED SHORTNESS OF BREATH 2 Active triamcinolone acetonide (KENALOG) 0.1 % ointment Active tiotropium (SPIRIVA RESPIMAT) 2.5 MCG/ACT inhaler Inhale 2 (two) puffs by mouth once daily 1 g 2 Active ibuprofen (MOTRIN) 800 MG tablet 2 Active albuterol HFA (Proventil; Ventolin; Proair) 108 (90 Base) MCG/ACT inhaler INHALE 2 PUFFS BY MOUTH EVERY 6 HOURS NEEDED 54 g 1 2 Active cyanocobalamin (Vitamin B-12) injection Inject 1,000 (one thousand) mcg into muscle every 30 days 10 mL 2 Active montelukast (Singulair) 10 MG tabletIndications:Asthma TAKE 1 TABLET BY MOUTH AT BEDTIME FOR ASTHMA Reasons: Asthma 90 tablet 2 2 Active baclofen (Lioresal) 10 MG tablet TAKE 1 TABLET BY MOUTH 1 TO 2 TIMES DAILY NEEDED 3 Active ASPIRIN 81 PO Active ipratropium (Atrovent) 0.06 % nasal spray USE 2 SPRAYS IN EACH NOSTRIL THREE TIMES DAILY NEEDED Active Misc. Devices (Transfer Bench) MISC Use 1 Each once daily as needed 1 Each 3 Active Symbicort 160-4.5 MCG/ACT inhalerIndications:Chron ic obstructive pulmonary disease, unspecified COPD type (HCC) INHALE 2 PUFFS BY MOUTH TWICE DAILY FOR CHRONIC OBSTRUCTIVE LUNG DISEASE 10.2 g 2 3 Active HYDROcodone-acetaminophe n ([place]) 5-325 MG tabletIndications:Kidney stone Take 1 (one) tablet by mouth every 6 hours as needed for Pain 12 tablet 3 Active triamcinolone (Nasacort Aq) 55 MCG/ACT nasal inhalerIndications:Aller gic rhinitis, unspecified seasonality, unspecified trigger [place] 1 (one) spray to 2 (two) sprays into each nostril once daily 50.7 mL 4 4 Active Additional Information Patient not taking.Reported on 06/27/2023 gabapentin (Neurontin) 100 MG capsule Take 1 (one) capsule by mouth once daily Active ergocalciferol (Drisdol) 1.25 MG (00859 UT) capsuleIndications:Vitam in D deficiency Take 1 (one) capsule by mouth every 7 days 12 capsule 5 Active furosemide (Lasix) 20 MG tabletIndications:Chroni c heart failure with preserved ejection fraction (HCC) Take 1 (one) tablet by mouth once daily 90 tablet 5 Active guaiFENesin-codeine (Robitussin AC) 100-10 MG/5ML syrupIndications:Chronic cough Take 5 mL by mouth every 6 hours as needed for Cough 240 mL 5 Active ergocalciferol (Drisdol) 1.25 MG (09596 UT) capsule 025 Discontin ued(Reord er) atorvastatin (Lipitor) 10 MG tabletIndications:Pure hypercholesterolemia Take 1 (one) tablet by mouth once daily 100 tablet 4 4 025 Discontin ued(List Clean-Up) ezetimibe (Zetia) 10 MG tablet Take 1 (one) tablet by mouth once daily 025 Discontin ued(List Clean-Up) guaiFENesin-codeine (Robitussin AC) 100-10 MG/5ML syrupIndications:Chronic cough Take 5 mL by mouth every 6 hours as needed for Cough 240 mL 5 025 Discontin ued(Reord er) Active Problems Problem Noted Date Diagnosed Date [place] 10/27/2023 Assessment & Plan (10/27/2023 11:03 AM CDT): Using walker and right leg brace Chronic pain syndrome 03/23/2023 Assessment & Plan (10/27/2023 11:02 AM CDT): Current follow-up in pain clinic Intermittent hydrocodone use Encouraged less use due to pulmonary condition or eliminating if able Moderate persistent asthma 06/16/2022 Serum creatinine raised 09/13/2021 Insomnia 04/17/2021 Viral respiratory illness 11/29/2020 Bilateral plantar fasciitis 11/10/2020 Vulvovaginitis 10/17/2020 Age-related osteoporosis wit hout current pathological fracture 05/26/2020 Overview (05/26/2020): DEXA April,: T-score is -2.5 Assessment & Plan (10/27/2023 11:02 AM CDT): Will review and discuss treatment Vitamin-D pending Acute urticaria 05/19/2020 CKD (chronic kidney disease) stage 3, GFR 30-59 ml/min 12/26/2019 Assessment & Plan (10/27/2023 11:02 AM CDT): Follow-up labs ordered today Urinary incontinence 10/12/2019 Chronic constipation 03/08/2019 Eczema 10/23/2018 Parotid cyst 10/23/2018 Atherosclerosis of aorta 11/22/2016 Overview (03/13/2020): CT Abdomen 07/22/16 Overview: Overview: CT Abdomen 07/22/16 Assessment & Plan (10/27/2023 11:01 AM CDT): Continue statin and aspirin COPD (chronic obstructive pulmonary disease) Overview (04/24/2014): Dr. Dilia cat 11/05/13 Assessment & Plan (10/27/2023 11:01 AM CDT): Currently on inhalers Treatment per Pulmonary Calcium nephrolithiasis 01/23/2013 Overview (11/17/2015): urocit-K through Obesity, morbid 09/29/2010 Assessment & Plan (10/27/2023 11:00 AM CDT): 5-10% weight loss Fluid retention from pulmonary condition No evidence of systolic dysfunction History of mild diastolic dysfunction, Holding on diuresis given low blood pressure Tobacco abuse 09/29/2010 Overview (06/14/2017): Declines lung cancer CT screening. Assessment & Plan (10/27/2023 11:02 AM CDT): Declined screening Smoking cessation reviewed, 3 minutes Quadriparesis 09/29/2010 Overview (03/13/2020): Due to cervical myelopathy. Surgically repaired spine, but has residual damage. On disability. Has home health aid, power hospital bed Uses walker. Weakness in all extremities - quadriparesis MRI (05/05): residual C4-5 moderate central spinal stenosis Overview: Overview: Due to cervical myelopathy. Surgically repaired spine, but has residual damage. On disability. Has home health aid, power hospital bed Uses walker. Weakness in all extremities - quadriparesis MRI (05/05): residual C4-5 moderate central spinal stenosis HUY (obstructive sleep apnea) 09/29/2010 Overview (09/29/2010): Uses CPAP Dr. Abdullahi Ortiz Assessment & Plan (10/27/2023 11:01 AM CDT): Encouraged treatment Pulmonary follow-up Intolerant to CPAP currently Glaucoma 09/29/2010 Neurogenic bladder 09/29/2010 Overview (07/29/2014): Dr. Mondragon in the past. Wears adult diapers B12 deficiency 09/29/2010 Overview (11/07/2012): Wants to remain on injections. Normal 04/11, 10/2012 Assessment & Plan (10/27/2023 11:01 AM CDT): Patient reports outside B12 has been done I can prescribe injections if I can see documented level Patient will forward when able Gastroesophageal reflux disease 09/28/2010 Overview (03/13/2020): Zantac doesn't help with GERD. Osteoarthrosis 04/20/2010 Vitamin D deficiency 10/28/2009 Overview (03/13/2020): 10/2012: 29 (L) Assessment & Plan (10/27/2023 11:00 AM CDT): Periodic monitoring and replacement Allergic rhinitis 10/27/2009 Hyperlipidemia 10/27/2009 Overview (10/27/2023): Tolerating statin without side effects Follow-up lipid profile Resolved Problems Problem Noted Date Diagnosed Date Resolved Date Cough 11/29/2020 12/27/2020 Shoulder joint pain 03/13/2020 06/27/19 21 Sprain of ankle 03/13/2020 06/26/2020 Acute pharyngitis 06/05/2019 03/27/2020 Low serum vitamin B12 03/08/20192020 Herniated lumbar intervertebral disc 11/27/2018 06/26/2020 Right upper quadrant pain 09/22/2018 Dental abscess 06/15/2018 06/26/2020 Acute otitis media 05/01/2018 1 Neuropathy 10/05/2017 06/26/2020 Pneumonia due to organism 05/29/2017 COPD with acute exacerbation 05/29/2017 11/01/2017 Cervical myelopathy 04/21/2017 06/27/19 21 UTI (urinary tract infection) 09/14/2016 09/28/2016 COPD (chronic obstructive pulmonary disease) 5 06/26/2020 Overview (03/13/2020): Overview: Overview: Dr. Dilia cat 11/05/13 Preventative health care 04/01/201106/2022 Overview (05/16/2014): Breasts: The tissue density is heterogeneously dense. Lifetime Risk of Developing Breast Cancer is: 7.9% HIV negative 04/11 Last Medicare wellness visit done on 03/2014 Fatigue 04/20/2010 09/01/2022 Overview (04/08/2011): Life-long Celiac negative 04/11 Encounters Date Type Department Care Team Description 05/03/2024 Refill [facility] - Internal Medicine [address] [place] [address] Emery Jarrell MD MEDICATION REFILL 05/01/2024 12:30 PM BUOY TENDER - 05/01/2024 11:59 PM BUOY TENDER Hospital Encounter [facility] [address] [place] [address] Emery Jarrell MD Discharge Disposition: Home or Self Care 05/01/2024 11:00 AM BUOY TENDER Office Visit [facility] Internal Medicine [address] [place] [address] [address] [place] [address] Emery Jarrell MD Medicare annual wellness visit, subsequent (Primary Dx); Pure hypercholesterolemia; Vitamin D deficiency; Tobacco abuse; Stage 3a chronic kidney disease (HCC); B12 deficiency; Chronic cough; Chronic heart failure with preserved ejection fraction (HCC); Quadriparesis (HCC); Obesity, morbid (HCC); Atherosclerosis of aorta (HCC); Chronic obstructive pulmonary disease, unspecified COPD type (HCC); Moderate persistent asthma, unspecified whether complicated ([facility]); HUY (obstructive sleep apnea); Age-related osteoporosis without current pathological fracture; Gastroesophageal reflux disease without esophagitis from Last 3 Months Immunizations Name Administration Dates Next Due INFLUENZA VACCINE, TRIV. (AF LURIA, FLUZONE TRIVALENT; 6MO+) (IIV3) 12/02/2011,11/30/2010 Covid Moderna primary monova lent 12+ yr 0.5mL 05/19/2020,04/21/2020 FLU VACCINE QUAD IIV4 PF ID 11/17/2015 FLU VACCINE TRI IIV3 SPLIT PF IM (FLUVIRIN) 11/0 09/2012 HEP A VACCINE, ADULT 08/28/2002,02/28/2002 HEP B VACCINE ADOL/ADULT 2 DOSE 08/28/2002,03/31,02/28/2002 HEP B VACCINE, ADULT 3 DOSE 08/28/2002, 3,02/28/2002 INFLUENZA VACCINE 01/28/2009 INFLUENZA VACCINE, ADJUVANTE D, QUADR. (FLUAD QUADRIVALENT; 65Y+) (AIIV4) 03/19/2022,12/05/2020 INFLUENZA VACCINE, HIGH-DOSE , QUADR. (FLUZONE HIGH-DOSE QUADRIVALENT; 65Y+), 0.7 ML (HD-IIV4) 01/28/2023 INFLUENZA VACCINE, HIGH-DOSE , TRIV. (FLUZONE HIGH-DOSE TRIVALENT; 65Y+) (HD-IIV3) 12/13/2023 INFLUENZA VACCINE, QUADR. (F LUZONE; FLULAVAL; FLUARIX; AFLURIA QUADRIVALENT; 6MO+), 0.5 ML (IIV4) 11/23/2016,11/14/2014,11/05/2013 PNEUMOCOCCAL PPSV23 12/27/2019,05/04/2012 Pneumococcal Pcv13 Conj 04/26/2014 RSV AREXVY 60YR+ 0.5ML 03/28/2024 TD (ADULT), 5 LF TETANUS TOX OID, ADSORBED, PF 01/09/2018 TDAP (7yrs+) 04/01/2011 Zoster Hzv Vacc Recombinant Inj Im 10/29/2017,,06/24/2017 iNFLUENZA VACCINE, RECOM-BALL, QUADR. (FLUBLOCK QUADRIVALENT; 18Y+) (RIV4) 12/27/2019,12/25/2018,12/15/2017 Family History Medical History Relation Name Comments Hypertension Brother 1 Migraine Brother 2 Cancer - Colon Brother 3 Stroke Maternal Grandfather Stroke Maternal Grandmother Arthritis - Osteo Mother Hypercholesterolemia Mother Hypertension Mother Migraine Mother Stroke Mother Asthma Sister 1 Sleep Apnea Sister 1 Cancer Sister 2 cervical Sleep Apnea Sister 2 CAD (Coronary Artery Disease) Sister 3 Sleep Apnea Sister 3 Diabetes Sister 4 Sleep Apnea Sister 4 Hypercholesterolemia Sister 5 Sleep Apnea Sister 5 Hypertension Sister 6 Sleep Apnea Sister 6 Migraine Sister 7 Sleep Apnea Sister 7 Cancer - Breast Neg Hx Cancer - Ovarian Neg Hx Relation Name Status Comments Brother 1 Brother 2 Brother 3 Maternal Grandfather Maternal Grandmother Mother Sister 1 Sister 2 Sister 3 Sister 4 Sister 5 Sister 6 Sister 7 Social History Tobacco Use Types Packs/Day Years Used Date Smoking Tobacco: Every Day Cigarettes 1 49.2 Started: 02/28/1975 Smokeless Tobacco: Never Tobacco Cessation:Ready to Q uit: No; Counseling Given: Yes Comments:cut down to half ppd Alcohol Use Standard Drinks/Week Comments No 0 (1 standard drink = 0.6 oz pur e alcohol) AUDIT-C Answer Date Recorded Q1: How often do you have a drink containing alcohol? Never 09/22/2023 Q2: How many drinks containi ng alcohol do you have on a typical day when you are drinking? Patient does not drink Q3: How often do you have si x or more drinks on one occasion? Never 09/22/2023 PHQ-2 Answer Date Recorded Patient Health Questionnaire-2 Score 0 05/01/2024 Sex and Gender Information Value Date Recorded Sex Assigned at Not on file Gender Identity Not on file Sexual Orientation Not on file Last Filed Vital Signs Vital Sign Reading Time Taken Comments Blood Pressure 130/80 05/01/2024 11:04 AM BUOY TENDER Pulse 80 05/01/2024 11:04 AM BUOY TENDER Temperature 36.7 C (98.1 F) 05/01/2024 11:04 AM BUOY TENDER Respiratory Rate 20 10/27/2023 10:13 AM CDT Oxygen Saturation 98% 05/01/2024 11:04 AM BUOY TENDER Inhaled Oxygen Concentration 21% 12/05/2020 2 :06 AM CDT Weight 95.3 kg (210 lb) 05/01/2024 11:04 AM BUOY TENDER Height 165.1 cm (5' 5 ) 05/01/2024 11:04 AM BUOY TENDER Body Mass Index 34.95 05/01/2024 11:04 AM BUOY TENDER Plan of Treatment Upcoming Encounters Date Type Department Care Team (Late st Contact Info) Description 06/11/2024 1:20 PM CDT Office Visit [facility] - Urology [address], [address] [place] [address] Francisco Adams MD [address] [address] 11/12/2024 9:00 AM CDT Office Visit [facility] - Internal Medicine [address] [place] [address] Emery Jarrell MD [address] [place] [address] Health Maintenance Due Date Last Done Comments COLOGUARD (AGES 45-75) - COLON CA SCREENING 1955 CT COLONOGRAPHY - COLON CA SCREENING 1955 FIT - COLON CA SCREENING 1955 FLEX SIG - COLON CA SCREENING 1955 COVID-19 VACCINE ( season) 2023 05/19/2020, 04/21/2020 MAMMOGRAM 12/25/2024 12/26/2023, 11/29, 12/24/2022, Additional history exists LIPID TESTING 05/01/2025 05/01/2024, 03/01, 12/18/2019, Additional history exists COLON MONITORING 07/30/2025 07/30/2020 (Don e Outside Per Report), 07/30/2020, 03/11/2020, Additional history exists Colorectal Cancer Screening 07/30/2025 SCREENING FOR DIABETES 05/02/2027 , 12/05/2020, 12/04/2020, Additional history exists DTAP/TDAP/TD VACCINES (3 - Td or Tdap) 01/10/2028 01/09/2018, 04/01/2011 COLONOSCOPY - COLON CA SCREENING 07/30/2030 07/30/2020, 03/11/2020, 03/11/2020, Additional history exists HEPATITIS B VACCINE Completed 08/28/2002, 08/28/2002, 03/31/2002, Additional history exists HEPATITIS C SCREENING Completed 10/18/2014 ZOSTER VACCINE Completed 10/29/2017, 08/28, 06/24/2017 PNEUMOCOCCAL VACCINE 50+ Completed 020, 04/26/2014, 05/04/2012 INFLUENZA VACCINE Completed 12/13/2023, , 03/19/2022, Additional history exists Respiratory Syncytial Virus (RSV) Vaccine Pt: or over 60 yrs Completed 03/28/2024 BONE DENSITY TESTING Completed 05/01/2024, 05/16/2020, 11/08/2009 DEPRESSION SCREENING Completed 05/01/2024, 03/23/2023, 03/19/2022, Additional history exists MEDICARE AWV CALENDAR YEAR Completed 05/01/2024, 03/23/2023, 03/19/2022, Additional history exists HIB VACCINE Aged Out No longer eligi ble based on patient's age to complete this topic HPV VACCINE Aged Out No longer eligi ble based on patient's age to complete this topic LUNG CANCER SCREENING Discontinued MENINGOCOCCAL (Group B) VACCINE SHARED DECISION-MAKING Aged Out No longer eligible based on patient's age to complete this topic MENINGOCOCCAL GROUPS A/C/Y/W VACCINE Aged Out No longer eligible based on patient's age to complete this topic Goals Goal Patient Goal Type Associated Problems Recent Progress Patient-Stated? Author Quit smoking / using tobacco Lifestyle Not on track(11/17/19 16 12:03 PM CDT) Marie Guadarrama MA Medical Devices Implanted Type Area Underwriting Internship Device Identifier Shelf Expiration Date Model / Serial / Lot Percuflex Stent Implanted:Qty: 1 on 04/10/2015 by Dino Thakkar MD at [facility] Right: [employer]ter [employer] 09/18/2017 [id number] / / [id number] Set Stent Blk 22cm 6fr .038in 2 Pgtl Crv Implanted:Qty: 1 on 10/21/2016 at [facility] Right: [employer] 07/22/2018 [id number] / / [id number] Explanted Type Area Underwriting Internship Device Identifier Shelf Expiration Date Model / Serial / Lot Stent Uret Contour Vl 4.8fr X 22-30cm Implanted:Qty: 1 on 04/08/2015 by Dino Thakkar MD at [facility] Explanted:Qty: 1 on 10/21/2016 at [facility] Right: [employer] [id number] / / [id number] Stent Uret 6fr 22-30cm Pgtl Crv Tpr Tip Implanted:Qty: 1 on 09/09/2016 by Dino Thakkar MD at [facility] Explanted:Qty: 1 on 10/21/2016 at [facility] Left: [employer]ter [employer] 06/18/2019 [id number] Procedures Procedure Name Priority Date/Time Associated Diagnosis Comments DEXA BONE DENSITY AXIAL SKELETON Routine 05/01/2024 1:00 PM BUOY TENDER Age-related osteoporosis without current pathological fracture XR CHEST 2VW Routine 05/01/2024 12:50 PM BUOY TENDER Chronic cough LIPID PROFILE Routine 05/01/2024 12:08 PM BUOY TENDER Pure hypercholesterolemia TSH RFLX FREE T4+FREE T3 Routine 05/01/2024 12:08 PM BUOY TENDER Stage 3a chronic kidney disease (HCC) COMPREHENSIVE METABOLIC PANEL Routine 05/01/2024 12:08 PM BUOY TENDER Stage 3a chronic kidney disease (HCC) CBC W AUTO DIFFERENTIAL Routine 05/01/2024 12:08 PM BUOY TENDER Stage 3a chronic kidney disease (HCC) VITAMIN D 25-HYDROXY Routine 05/01/2024 12:08 PM BUOY TENDER Vitamin D deficiency VITAMIN B12 FOLATE PANEL Routine 05/01/2024 12:08 PM BUOY TENDER B12 deficiency MAMMO BILAT SCREENING W NAHUM Routine 12/26/2023 10:42 AM CDT Visit for screening mammogram ENDOSCOPY, COLON, SCREENING Routine 07/30/2020 HEPATITIS C ANTIBODY 10/18/2014 10:43 AM CDT from Last 3 Months or Most Recently Relevant to Health Maintenance Results * DEXA BONE DENSITY AXIAL SKELETON (05/01/2024 1:00 PM BUOY TENDER) Anatomical Region Laterality Modality Nuclear Medicine 05/01/2024 1:29 PM BUOY TENDER Impressions 05/01/2024 1:31 PM BUOY TENDER IMPRESSION: WHO category: Osteopenia WORLD HEALTH ORGANIZATION DEFINITIONS NORMAL= T-Score at or above -1.0 SD OSTEOPENIA = T-Score between -1 and -2.5 SD OSTEOPOROSIS = T-Score at or below -2.5 SD > Interpreting Provider: Martha Rodriguez DO on 05/01/2024 1:31 PM Narrative 05/01/2024 1:31 PM BUOY TENDER PROCEDURE: DEXA BONE DENSITY AXIAL SKELETON DATE/TIME OF EXAM: 05/01/2024 1:00 PM CLINICAL INFORMATION: None relevant/not provided if blank. Indication: M81.0: Age-related osteoporosis without current pathological fracture COMPARISON: DEXA dated 05/16/2020 INDICATION: 69 years-old for osteoporosis screening. FINDINGS: The mean bone mineral content of the lumbar spine is 1.067 g/cm2 and T-score is -0.9. The mean bone mineral content of the left femoral neck is 0.701 g/cm2 and T-score is -2.4. The mean bone mineral content of the left total hip is 0.761 g/cm2 and T-score is -2.0. The mean bone mineral content of the right femoral neck is 0.758 g/cm2 and T-score is -2.0. The mean bone mineral content of the right total hip is 0.726 g/cm2 and T-score is -2.2. FRAX 10 year fracture risk Major osteoporotic fracture: 10.3% Hip fracture: 3.5% In comparison to prior exam, there is improvement of the lumbar spine and hips. Procedure Note Martha Rodriguez DO - 05/01/2024 PROCEDURE: DEXA BONE DENSITY AXIAL SKELETON DATE/TIME OF EXAM: 05/01/2024 1:00 PM CLINICAL INFORMATION: None relevant/not provided if blank. Indication: M81.0: Age-related osteoporosis without current pathological fracture COMPARISON: DEXA dated 05/16/2020 INDICATION: 69 years-old for osteoporosis screening. FINDINGS: The mean bone mineral content of the lumbar spine is 1.067 g/cm2 and T-score is -0.9. The mean bone mineral content of the left femoral neck is 0.701 g/cm2and T-score is -2.4. The mean bone mineral content of the left total hip is 0.761 g/cm2 and T-score is -2.0. The mean bone mineral content of the right femoral neck is 0.758 g/cm2and T-score is -2.0. The mean bone mineral content of the right total hip is 0.726 g/cm2 and T-score is -2.2. FRAX 10 year fracture risk Major osteoporotic fracture: 10.3% Hip fracture: 3.5% In comparison to prior exam, there is improvement of the lumbar spineand hips. IMPRESSION: WHO category: Osteopenia WORLD HEALTH ORGANIZATION DEFINITIONS NORMAL= T-Score at or above -1.0 SD OSTEOPENIA = T-Score between -1 and -2.5 SD OSTEOPOROSIS = T-Score at or below -2.5 SD > Interpreting Provider: Martha Rodriguez DO on 05/01/2024 1:31 PM Emery Jarrell MD DEXA ORDERABLES * XR Chest 2Vw (05/01/2024 12:50 PM BUOY TENDER) Anatomical Region Laterality Modality Chest Radiographic Ирина ging 05/01/2024 12:5 3 PM BUOY TENDER Narrative 05/01/2024 12:54 PM BUOY TENDER Procedure: XR CHEST 2VW Exam Date: 05/01/2024 12:50 PM Location: [facility] Indication: R05.3: Chronic cough Findings/impression: The study is compared to an exam from December 2020. The heart size is stable. Increased interstitial markings are seen throughout the lungs similar to the old exam. There is no consolidation. There is no pleural effusion or pneumothorax. The pulmonary vascularity is normal. There are postop changes of the cervical spine. > Interpreting Provider: Eh Gerard MD on 05/01/2024 12:54 PM Procedure Note Eh Gerard MD - 05/01/2024 Procedure: XR CHEST 2VW Exam Date: 05/01/2024 12:50 PM Location: [facility] Indication: R05.3: Chronic cough Findings/impression: The study is compared to an exam from December 2020. The heart size is stable. Increased interstitial markings are seen throughout the lungs similar to the old exam. There is no consolidation. There is no pleural effusion or pneumothorax. The pulmonary vascularity is normal. There are postop changes of the cervical spine. > Interpreting Provider: Eh Gerard MD on 05/01/2024 12:54 PM Emery Jarrell MD DIAGNOSTIC IMAGING O RDERABLES * TSH RFLX FREE T4+FREE T3 (05/01/2024 12:08 PM BUOY TENDER) TSH 1.870 0.450 - 4.500 uIU/mL [facility] ACCOUNT BILL Blood BLOOD SPECIMEN / Unknown 05/01/2024 12:08 PM BUOY TENDER 05/01/2024 Narrative [facility] ACCOUNT BILL - 05/02/2024 6:09 AM BUOY TENDER Performed at: [address] [id number] Deployment Specialist: Oskar Bauer PhD, Phone: [phone] Emery Jarrell MD LAB - CHEMISTRY [address] [facility] ACCOUNT BILL [address] [place] [address] * (ABNORMAL) VITAMIN D 25-HYDROXY (05/01/2024 12:08 PM BUOY TENDER) Vitamin D, 25 Hydroxy 20.7(L) 30 - 80 ng/mL [facility] ACCOUNT BILL Comment: Vitamin D Status: Deficiency <20 ng/mL Insufficiency 20-30 ng/mL Sufficiency 30-100 ng/mL Toxicity >100 ng/mL Blood BLOOD SPECIMEN / Unknown 05/01/2024 12:08 PM BUOY TENDER 05/01/2024 Narrative [facility] ACCOUNT BILL - 05/01/2024 7:08 PM BUOY TENDER Performed at: [address] [place] [address] [place] [id number] Deployment Specialist: Sampson Joiner Dr, Phone: [phone] Emery Jarrell MD LAB - CHEMISTRY [address] [place] [facility] Organization Address City/State/ZIP Co de Phone Number [facility] ACCOUNT BILL [address] [place] [address] * CBC WITH DIFFERENTIAL (05/01/2024 12:08 PM BUOY TENDER) WBC 7.0 4.0 - 10.7 x10E9/L [facility] ACCOUNT BILL RBC 4.58 3.90 - 5.20 x10E12/L [facility] ACCOUNT BILL Hemoglobin 14.1 11.9 - 15.8 g/dL [facility] ACCOUNT BILL Hematocrit 42.6 34.8 - 46.1 % [facility] ACCOUNT BILL MCV 93.0 80.0 - 98.0 fL [facility] ACCOUNT BILL MCH 30.8 26.7 - 33.6 pg [facility] ACCOUNT BILL MCHC 33.1 31.7 - 36.3 g/dL [facility] ACCOUNT BILL RDW 13.8 11.3 - 14.8 % [facility] ACCOUNT BILL Platelet Count 352 150 - 420 x10E9/L [facility] ACCOUNT BILL Comment:MPV (CS) 11.4 fL 7.8 -11.4 Granulocytes % 42.6 41.0 - 74.0 % [facility] ACCOUNT BILL Lymphocytes % 46.4 17.0 - 47.0 % [facility] ACCOUNT BILL Monocytes % 8.1 3.0 - 11.0 % [facility] ACCOUNT BILL Eosinophils % 2.0 0.0 - 7.0 % [facility] ACCOUNT BILL Basophils % 0.6 0.0 - 1.6 % [facility] ACCOUNT BILL Granulocytes Absolute 2.99 1.60 - 7.50 x10E9/L [facility] ACCOUNT BILL Lymphocytes Absolute 3.26 1.00 - 4.40 x10E9/L [facility] ACCOUNT BILL Monocytes Absolute 0.57 0.15 - 1.00 x10E9/L [facility] ACCOUNT BILL Eosinophils Absolute 0.14 0.00 - 0.60 x10E9/L [facility] ACCOUNT BILL Basophils Absolute 0.04 0.00 - 0.13 x10E9/L [facility] ACCOUNT BILL Immature Granulocytes 0.3 0.0 - 1.0 % [facility] ACCOUNT BILL Blood BLOOD SPECIMEN / Unknown 05/01/2024 12:08 PM BUOY TENDER 05/01/2024 Narrative [facility] ACCOUNT BILL - 05/01/2024 5:09 PM BUOY TENDER Performed at: [address] [place] [id number] Deployment Specialist: Sampson [address], Phone: [phone] Emery Jarrell MD LAB - HEMATOLOGY ORD ERABLES [facility] ACCOUNT BILL [address] [place] [address] * (ABNORMAL) COMPREHENSIVE METABOLIC PANEL (05/01/2024 12:08 PM BUOY TENDER) Pathologist [facility] Glucose 95 70 - 99 mg/dL [facility] ACCOUNT BILL BUN 21 7 - 26 mg/dL [facility] ACCOUNT BILL Creatinine 0.78 0.57 - 1.11 mg/dL [facility] ACCOUNT BILL eGFR by CKD-EPI 82(L) >=90 mL/min/1.7 3 m2 [facility] ACCOUNT BILL Sodium 141 136 - 145 mmol/L [facility] ACCOUNT BILL Potassium 4.2 3.5 - 5.1 mmol/L [facility] ACCOUNT BILL Chloride 107 98 - 107 mmol/L [facility] ACCOUNT BILL CO2 27 22 - 29 mmol/L [facility] ACCOUNT BILL Calcium 8.5 8.4 - 10.4 mg/dL [facility] ACCOUNT BILL Protein Total 6.8 6.4 - 8.3 gm/dL [facility] ACCOUNT BILL Albumin 3.4 3.4 - 5.0 gm/dL [facility] ACCOUNT BILL Bilirubin Total 0.4 0.2 - 1.2 mg/dL [facility] ACCOUNT BILL Alkaline Phosphatase 60 40 - 150 U/L [facility] ACCOUNT BILL AST 15 5 - 34 U/L [facility] ACCOUNT BILL ALT 12 0 - 55 U/L [facility] ACCOUNT BILL Blood BLOOD SPECIMEN / Unknown 05/01/2024 12:08 PM BUOY TENDER 05/01/2024 Narrative [facility] ACCOUNT BILL - 05/01/2024 6:09 PM BUOY TENDER Performed at: [address] [place] [id number] Deployment Specialist: Sampson Joiner [address], Phone: [phone] Emery Jarrell MD LAB - CHEMISTRY [address] Performing Organization Address City/[facility]/ZIP Co de Phone Number [facility] ACCOUNT BILL [address] [place] [address] * VITAMIN B12 FOLATE PANEL (05/01/2024 12:08 PM BUOY TENDER) Pathologist [facility] Vitamin B12 591 232 - 1,245 pg/mL [facility] ACCOUNT BILL Folate 6.9 >3.0 ng/mL [facility] ACCOUNT BILL Comment: A serum folate concentration of less than 3.1 ng/mL is considered to represent clinical deficiency. Blood BLOOD SPECIMEN / Unknown 05/01/2024 12:08 PM BUOY TENDER 05/01/2024 Narrative [facility] ACCOUNT BILL - 05/02/2024 6:09 AM BUOY TENDER Performed at: [address] [place] [id number] Deployment Specialist: Oskar Bauer PhD, Phone: [phone] Emery Jarrell MD LAB - CHEMISTRY [address] Performing Organization Address [facility] Co de Phone Number [facility] ACCOUNT BILL [address] [place] [address] * LIPID PROFILE (05/01/2024 12:08 PM BUOY TENDER) [facility] Signature Cholesterol 157 <200 mg/dL [facility] ACCOUNT BILL Triglycerides 87 <150 mg/dL [facility] ACCOUNT BILL HDL Cholesterol 50 >40 mg/dL [facility] ACCOUNT BILL VLDL Calculated 17 <=30 mg/dL [facility] ACCOUNT BILL LDL Calculated 90 <130 mg/dL [facility] ACCOUNT BILL Blood BLOOD SPECIMEN / Unknown 05/01/2024 12:08 PM BUOY TENDER 05/01/2024 Narrative [facility] ACCOUNT BILL - 05/01/2024 6:09 PM BUOY TENDER Performed at: [address] [place] [address] [address] [place], [place] [id number] Deployment Specialist: Sampson Joiner [address], Phone: [phone] Emery Jarrell MD LAB - CHEMISTRY [address] [facility] ACCOUNT [place]ILL [place] [address] * Mammo Bilat Screening [place] (12/26/2023 10:42 AM CDT) Anatomical Region Laterality Modality Breast Bilateral Mammography 12/26/2023 1:26 PM CDT Impressions 12/26/2023 1:45 PM CDT IMPRESSION: Annual screening mammography is recommended. OVERALL FINAL ASSESSMENT: BI-RADS Category 2: Benign. > Interpreting Provider: Chris Gilbert MD on 12/26/2023 1:45 PM Narrative 12/26/2023 1:45 PM CDT EXAMINATION: BILATERAL DIGITAL SCREENING MAMMOGRAM AND BILATERAL BREAST TOMOSYNTHESIS HISTORY: Screening. COMPARISON: Serial examinations dating back to November 24, 2019. TECHNIQUE: BILATERAL digital breast tomosynthesis (DBT) and synthetic 2D digital mammogram images were obtained (bilateral craniocaudal and mediolateral oblique projections) including computer aided detection (CAD.) BREAST PARENCHYMAL COMPOSITION:Category B: There are scattered areas of fibroglandular density. MAMMOGRAM FINDINGS: There is no suspicious finding in either breast. Again seen are postoperative changes in the left breast. Emery Jarrell MD MAMMO ORDERABLES * ENDOSCOPY, COLON, SCREENING (07/30/2020) Scanned Document GI PROCEDURE ORDERAB LES * HEPATITIS C ANTIBODY (10/18/2014 10:43 AM CDT) Hepatitis C Antibody NON-REACTI VE NON-REACT [facility] Signal to Cut-Off 0.03 <1.00 [facility] Comment: Test Performed at: [facility] [address] [place] [address] SANDY SHARMA DO,MPH 10/18/2014 10:4 3 AM CDT 10/18/2014 10:43 AM CDT Mati Dobbs MD LAB - CHEMISTRY [address] [facility] [id number] [place] [id number] from Last 3 Months or Most Recently Relevant to Health Maintenance Advance Directives * Full Code (Latest Code Status on File) Date Activated Date Inactivated Comments 11/29/2020 5:27 PM 12/05/2020 8:38 PM * Full Code Date Activated Date Inactivated Comments 11/29/2020 1:36 PM 11/29/2020 5:27 PM * Full Code Date Activated Date Inactivated Comments 01/26/2018 3:16 PM 01/30/2018 1:50 PM * Full Code Date Activated Date Inactivated Comments 10/12/2017 3:39 PM 10/26/2017 12:44 PM * Full Code Date Activated Date Inactivated Comments 05/29/2017 11:59 PM 06/04/2017 7:29 PM Care Teams Tree Thinner Relationship Specialty Start Date End Date Toloczko, Emery J, MD [address] [facility] [address] [place] [address] PCP - General Internal Medicine 12/13/22 Jas Borrero MD Obstetrics 05/08/13 Ever Garber MD [address] [place], [place] [id number] Gastroenterology 03/22/14 Gian Zimmer PA [address] [place] [phone] Physician Server Cashier 05/24/17 Dino Thakkar MD [facility] [address] [place] [phone] Urology 05/24/17 Rambo Hui MD [address] [facility] [address] [place] [address] Sleep Medicine 06/22/18 Francisco Adams MD [facility] [address] [place], [place] [id number] Surgeon Urology 06/27/23
--- OUTSIDE RECORDS SUMMARY | 2024-05-15 13:34 | XMS_ITS | Data Portability ---
Author Organization [facility] S[place] Anderson Address [address] [place] [address] Care Team Providers Care Color Depositing Machine Tender Name Role Phone DONNIE DALEY Primary Care Provider Assessment Encounter Date Assessment Date Assessment LastModified by Organization Details LastModified Time 09/20/2023 09/20/2023 COPD exacerbation slowly improving obesity healthy lifestyle care instructions. Smoking quitting tobacco care instructions. She will follow up in a month I can not reiterate to her how important it is for her to get off of the cigarettes. Multiple strategies patch gum hypnosis auricular therapy Chantix and others discussed but she is not accepting of utilizing any of those plans at this time [email or web address] Not available 10/01/2023 15:16:15 10/26/2023 10/26/2023 advised to stay up-to-date on immunizations and screenings so she has a mammogram scheduled December 23 blood work has been ordered continue current therapy and follow up in 3 months [email or web address] Not available 11/05/2023 14:47:25 03/30/2024 03/30/2024 we will continue current therapy healthy lifestyle care instructions follow up 4 months continue current therapy all diagnosis discussed that are in the assessment and plan and their management patient did get an RSV shot at [facility] [email or web address] Not available 03/30/2024 22:09:19 04/13/2024 04/13/2024 she needs to get her blood work done EMG NCS legs ABIs legs to make sure no vascular insufficiency we may need an MRI of the back before it is all said and done blood work ordered further recommendations once we get testing results motor vascular and neuro appear intact to the lower extremities. consider [email or web address] Not available 04/14/2024 16:07:50 Plan of Treatment Reminders Order Date Submit Date Provider Last Modified By Organization Details Last Modified Time Details Appointments ANY 15 2024 10:30A Jeremie Daley MD Not available Not available Not available Lab cobalamin and folate panel, serum 2024 025 [facility], [address], [address], [place], [address], 04/14/2024 09:14:04 TSH + free T4, serum 2024 025 [facility], [address], [address], [place], [address], 04/14/2024 09:14:01 T3, total, serum 2024 025 [facility], [address], [address], [place], [address], 04/14/2024 09:14:06 CBC w/ auto diff 2024 025 [facility], [address], [address], [place], [address], 04/14/2024 09:14:07 CMP, serum or plasma 2024 025 [facility], [address], [address], [place], [address], 04/14/2024 09:14:02 CBC w/ auto diff 2023 024 [facility], [address], [address], [place], [address], 11/08/2023 17:31:42 CMP, serum or plasma 2023 024 [facility], [address], [address], [place], [address], 11/08/2023 17:31:57 lipid panel, serum 2023 024 [facility], [address], [address], [place], [address], 11/08/2023 17:32:13 T3, free, serum or plasma 2023 024 [facility], [address], [place], [address], 10/28/2023 06:18:58 T4, free, serum 2023 024 [facility], [address] [address] [facility] [address], [place], [address], 10/28/2023 06:18:59 TSH, serum or plasma 2023 024 [facility], [address] [place] [address], [address], [place], [address], 11/03/2023 06:19:46 vitamin B12 + folate, serum or blood 2023 024 [facility], [address], [address], [place], [address], 10/28/2023 06:18:59 Referral None recorded. Procedures nerve conductio n study/EMG , lower extremity (PROC) - B/L lower extermity . 2024 025 [facility] (Cardiology & Emg), [address], [place], [address], 05/14/2024 10:45:32 Surgeries None recorded. Imaging None recorded. Medication Orders Zetia 10 mg tablet 2024 025 [email or web address] [id number], [address], [place], [id number], 03/30/2024 14:01:31 Patient TargetsNo targets recorded. Patient Instructions Encounter Date Encounter Id Patient Instructions Last Modified By Organization Details Last Modified Time 09/20/2023 [id number] A healthy lifestyle: care instructions [email or web address] Not available 09/20/2023 17:42:06 Quitting Tobacco : Care Instructions [email or web address] Not available 09/20/2023 17:42:06 03/30/2024 [id number] A healthy lifestyle: care instructions [email or web address] Not available 03/30/2024 14:01:31 04/13/2024 [id number] A healthy lifestyle: care instructions Not available 04/13/2024 11:41:03 (AARON) ankle brachial index* [email or web address] Not available 05/07/2024 10:25:54 Reason for Referral None Reported. Results Created Date Observation Date Name Description Value Unit Range Abnormal Flag Note LastModifiedBy Organization Detail LastModifiedTime 10/26/19 24 10/27/2023 LIPID PANEL cholesterol, total 158 mg/dL 100-19 9 Not Available [facility] ([facility]) [address] [place], [address], 10/27/2023 11:15:07 10/26/19 24 10/27/2023 LIPID PANEL triglyceride s 111 mg/dL 0-149 Not Available [facility] ([facility]) [address] [place], [address], 10/27/2023 11:15:07 10/26/19 24 10/27/2023 LIPID PANEL HDL cholesterol 57 mg/dL >39 Not Available [facility] [address] [place], [address], 10/27/2023 11:15:07 10/26/19 24 10/27/2023 LIPID PANEL VLDL cholesterol divine 20 mg/dL 5-40 Not Available [facility] ([facility]) [address] [place], [address], 10/27/2023 11:15:07 10/26/19 24 10/27/2023 LIPID PANEL LDL chol calc ([facility]) 81 mg/dL 0-99 Not Available [facility]) [address] [place], [address], 10/27/2023 11:15:07 10/26/19 24 10/27/2023 COMP. METAB OLIC PANEL (14) glucose 88 mg/dL 70-99 Not Available [facility] ([facility]) [address] [place], [address], 10/27/2023 11:15:07 10/26/19 24 10/27/2023 COMP. METAB OLIC PANEL (14) BUN 12 mg/dL 8-27 Not Available [facility] ([facility]) [address] [place], [address], 10/27/2023 11:15:07 10/26/19 24 10/27/2023 COMP. METAB OLIC PANEL (14) creatinine 0.89 mg/dL 0.57-1 .00 Not Available [facility] ([facility]) [address] [place], [address], 10/27/2023 11:15:07 10/26/19 24 10/27/2023 COMP. METAB OLIC PANEL (14) eGFR 70 mL/mi n/1.7 3 >59 Not Available [facility] ([facility]) [address] [place], [address], 10/27/2023 11:15:07 10/26/19 24 10/27/2023 COMP. METAB OLIC PANEL (14) BUN/creatini ne ratio 13 12-28 Not Available [facility] ([facility]) [address] [place], [address], 10/27/2023 11:15:07 10/26/19 24 10/27/2023 COMP. METAB OLIC PANEL (14) sodium 143 mmol/ L 134-14 4 Not Available [facility] ([facility]) [address] [place], [address], 10/27/2023 11:15:07 10/26/19 24 10/27/2023 COMP. METAB OLIC PANEL (14) potassium 5.2 mmol/ L 3.5-5. 2 Not Available [facility] ([facility]) [address] [place], [address], 10/27/2023 11:15:07 10/26/19 24 10/27/2023 COMP. METAB OLIC PANEL (14) chloride 103 mmol/ L 96-106 Not Available [facility] ([facility]) [address] [place], [address], 10/27/2023 11:15:07 10/26/19 24 10/27/2023 COMP. METAB OLIC PANEL (14) carbon dioxide, total 25 mmol/ L 20- Not Available [facility] ([facility]) [address] [place], [address], 10/27/2023 11:15:07 10/26/19 24 10/27/2023 COMP. METAB OLIC PANEL (14) calcium 9.7 mg/dL 8.7-10 .3 Not Available [facility] ([facility]) [address] [place], [address], 10/27/2023 11:15:07 10/26/19 24 10/27/2023 COMP. METAB OLIC PANEL (14) protein, total 7.5 g/dL 6.0-8. 5 Not Available [facility] ([facility]) [address] [place], [address], 10/27/2023 11:15:07 10/26/19 24 10/27/2023 COMP. METAB OLIC PANEL (14) albumin 4.4 g/dL 3.9-4. 9 Not Available [facility] ([facility]) [address] [place], [address], 10/27/2023 11:15:07 10/26/19 24 10/27/2023 COMP. METAB OLIC PANEL (14) globulin, total 3.1 g/dL 1.5-4. 5 Not Available [facility] ([facility]) [address] [facility], [place], [address], 10/27/2023 11:15:07 10/26/19 24 10/27/2023 COMP. METAB OLIC PANEL (14) bilirubin, total 0.4 mg/dL 0.0-1. 2 Not Available [facility] ([facility]) [address], [place], [address], 10/27/2023 11:15:07 10/26/19 24 10/27/2023 COMP. METAB OLIC PANEL (14) alkaline phosphatase 87 IU/L 44-121 Not Available [facility]) [address] [facility], [place], [address], 10/27/2023 11:15:07 10/26/19 24 10/27/2023 COMP. METAB OLIC PANEL (14) AST (SGOT) 19 IU/L 0-40 Not Available [facility] ([facility]) [address] [facility] [place], [address], 10/27/2023 11:15:07 10/26/19 24 10/27/2023 COMP. METAB OLIC PANEL (14) ALT (SGPT) 14 IU/L 0-32 Not Available [facility] ([facility]) [address] [facility], [place], [address], 10/27/2023 11:15:07 10/26/19 24 10/27/2023 VITAM IN B12 AND FOLAT E vitamin B12 738 pg/mL 232-12 45 Not Available [facility] ([facility]) [address] [facility], [place], [address], 10/27/2023 11:15:08 10/26/19 24 10/27/2023 VITAM IN B12 AND FOLAT E folate (folic acid), serum 7.0 NG/mL >3.0 A serum folat e elisabeth ntrat ion of less than 3.1 ng/mL is consi dered to repre sent clini divine defic iency . Not Available [facility] ([facility]) [address] [place], [address], 10/27/2023 11:15:08 10/26/19 24 10/27/2023 CBC WITH DIFFE RENTI AL/PL ATELE T WBC 7.4 x10e3 /uL 3.4-10 .8 Not Available [facility] ([facility]) [address] [place], [address], 10/27/2023 11:15:08 10/26/19 24 10/27/2023 CBC WITH DIFFE RENTI AL/PL ATELE T RBC 5.26 x10e6 /uL 3.77-5 .28 Not Available [facility] ([facility]) [address] [place], [address], 10/27/2023 11:15:08 10/26/19 24 10/27/2023 CBC WITH DIFFE RENTI AL/PL ATELE T hemoglobin 15.9 g/dL 11.1-1 5.9 Not Available [facility] ([facility]) [address] [place], [address], 10/27/2023 11:15:08 10/26/19 24 10/27/2023 CBC WITH DIFFE RENTI AL/PL ATELE T hematocrit 48.7 % 34.0-4 6.6 above high normal Not Available [facility] ([facility]) [address] [place], [address], 10/27/2023 11:15:08 10/26/19 24 10/27/2023 CBC WITH DIFFE RENTI AL/PL ATELE T MCV 93 fL 79-97 Not Available [facility] ([facility]) [address] [place], [address], 10/27/2023 11:15:08 10/26/19 24 10/27/2023 CBC WITH DIFFE RENTI AL/PL ATELE T MCH 30.2 pg 26.6-3 3.0 Not Available [facility] ([facility]) [address] [facility], [place], [address], 10/27/2023 11:15:08 10/26/19 24 10/27/2023 CBC WITH DIFFE RENTI AL/PL ATELE T MCHC 32.6 g/dL 31.5-3 5.7 Not Available [facility] ([facility]) [address] [facility], [place], [address], 10/27/2023 11:15:08 10/26/19 24 10/27/2023 CBC WITH DIFFE RENTI AL/PL ATELE T RDW 13.1 % 11.7-1 5.4 Not Available [facility] ([facility]) [address] [facility], [place], [address], 10/27/2023 11:15:08 10/26/19 24 10/27/2023 CBC WITH DIFFE RENTI AL/PL ATELE T platelets 234 x10e3 /uL 150-45 0 Not Available [facility] ([facility]) [address] [facility], [place], [address], 10/27/2023 11:15:08 10/26/19 24 10/27/2023 CBC WITH DIFFE RENTI AL/PL ATELE T neutrophils 34 % notest ab. Not Available [facility] ([facility]) [address] [facility], [place], [address], 10/27/2023 11:15:08 10/26/19 24 10/27/2023 CBC WITH DIFFE RENTI AL/PL ATELE T lymphs 56 % notest ab. Not Available [facility] ([facility]) [address] [facility], [place], [address], 10/27/2023 11:15:08 10/26/19 24 10/27/2023 CBC WITH DIFFE RENTI AL/PL ATELE T monocytes 7 % notest ab. Not Available [facility] ([facility]) [address] [facility], [place], [address], 10/27/2023 11:15:08 10/26/19 24 10/27/2023 CBC WITH DIFFE RENTI AL/PL ATELE T eos 2 % notest ab. Not Available [facility] ([facility]) [address] [facility], [place], [address], 10/27/2023 11:15:08 10/26/19 24 10/27/2023 CBC WITH DIFFE RENTI AL/PL ATELE T basos 1 % notest ab. Not Available [facility] ([facility]) [address] [place], [address], 10/27/2023 11:15:08 10/26/19 24 10/27/2023 CBC WITH DIFFE RENTI AL/PL ATELE T neutrophils (absolute) 2.5 x10e3 /uL 1.4-7. 0 Not Available [facility] ([facility]) [address] [facility], [place], [address], 10/27/2023 11:15:08 10/26/19 24 10/27/2023 CBC WITH DIFFE RENTI AL/PL ATELE T lymphs (absolute) 4.2 x10e3 /uL 0.7-3. 1 above high normal Not Available [facility] ([facility]) [address] [facility], [place], [address], 10/27/2023 11:15:08 10/26/19 24 10/27/2023 CBC WITH DIFFE RENTI AL/PL ATELE T monocytes(ab solute) 0.5 x10e3 /uL 0.1-0. 9 Not Available [facility] ([facility]) [address] [place], [address], 10/27/2023 11:15:08 10/26/19 24 10/27/2023 CBC WITH DIFFE RENTI AL/PL ATELE T eos (absolute) 0.2 x10e3 /uL 0.0-0. 4 Not Available [facility] ([facility]) [address] [place], [address], 10/27/2023 11:15:08 10/26/19 24 10/27/2023 CBC WITH DIFFE RENTI AL/PL ATELE T baso (absolute) 0.1 x10e3 /uL 0.0-0. 2 Not Available [facility] ([facility]) [address] [place], [address], 10/27/2023 11:15:08 10/26/19 24 10/27/2023 CBC WITH DIFFE RENTI AL/PL ATELE T immature granulocytes 0 % notest ab. Not Available [facility] ([facility]) [address] [place], [address], 10/27/2023 11:15:08 10/26/19 24 10/27/2023 CBC WITH DIFFE RENTI AL/PL ATELE T immature grans (abs) 0.0 x10e3 /uL 0.0-0. 1 Not Available [facility] ([facility]) [address] [place], [address], 10/27/2023 11:15:08 10/26/19 24 10/27/2023 TRIIO DOTHY KANDACE E (T3), FREE triiodothyro nine (T3), free 3.2 pg/mL 2.0-4. 4 Not Available [facility] ([facility]) [address] [place], [address], 10/27/2023 11:15:09 10/26/19 24 10/27/2023 T4,FR EE(DI RECT) T4,free(dire ct) 1.37 NG/dL 0.82-1 .77 Not Available [facility] ([facility]) [address] [place], [address], 10/27/2023 11:15:09 10/26/19 24 11/03/2023 THYRO ID STIMU LATIN G HORMO NE TSH-icma 1.2 uu/mL Refer ence Range : Non-P regna nt Adult 0.450 -4.50 0 Pregn girish First Trime ster 0.100 -4.00 0 Secon d Trime ster 0.200 -4.00 0 Third Trime ster 0.300 -4.50 0 Not Available [facility] [address] [facility], [place], [address], 11/03/2023 06:19:46 04/13/1904/14/2024 TSH+F REE T4 TSH 2.100 uIU/m L 0.450- 4.500 Not Available [facility] ([facility]) [address] [place], [address], 04/14/2024 09:14:01 04/13/1904/14/2024 TSH+F REE T4 T4,free(dire ct) 1.22 NG/dL 0.82-1 .77 Not Available [facility] ([facility]) [address] [place], [address], 04/14/2024 09:14:01 04/13/1904/14/2024 COMP. METAB OLIC PANEL (14) glucose 89 mg/dL 70-99 Not Available [facility] ([facility]) [address] [place], [address], 04/14/2024 09:14:02 04/13/19 25 04/14/2024 COMP. METAB OLIC PANEL (14) BUN 20 mg/dL 8-27 Not Available [facility] ([facility]) [address] [place], [address], 04/14/2024 09:14:02 04/13/19 25 04/14/2024 COMP. METAB OLIC PANEL (14) creatinine 0.99 mg/dL 0.57-1 .00 Not Available [facility] ([facility]) [address] [place], [address], 04/14/2024 09:14:02 04/13/19 25 04/14/2024 COMP. METAB OLIC PANEL (14) eGFR 61 mL/mi n/1.7 3 >59 Not Available [facility] ([facility]) [address] [facility], [place], [address], 04/14/2024 09:14:02 04/13/19 25 04/14/2024 COMP. METAB OLIC PANEL (14) BUN/creatini ne ratio 20 12-28 Not Available [facility] ([facility]) [address] [facility], [place], [address], 04/14/2024 09:14:02 04/13/19 25 04/14/2024 COMP. METAB OLIC PANEL (14) sodium 143 mmol/ L 134-14 4 Not Available [facility] ([facility]) [address] [place], [address], 04/14/2024 09:14:02 04/13/19 25 04/14/2024 COMP. METAB OLIC PANEL (14) potassium 4.9 mmol/ L 3.5-5. 2 Not Available [facility] ([facility]) [address] [place], [address], 04/14/2024 09:14:02 04/13/19 25 04/14/2024 COMP. METAB OLIC PANEL (14) chloride 104 mmol/ L 96-106 Not Available [facility] ([facility]) [address] [place], [address], 04/14/2024 09:14:02 04/13/19 25 04/14/2024 COMP. METAB OLIC PANEL (14) carbon dioxide, total 21 mmol/ L 20-29 Not Available [facility] ([facility]) [address] [place], [address], 04/14/2024 09:14:02 04/13/19 25 04/14/2024 COMP. METAB OLIC PANEL (14) calcium 9.2 mg/dL 8.7-10 .3 Not Available [facility] ([facility]) [address] [place], [address], 04/14/2024 09:14:02 04/13/19 25 04/14/2024 COMP. METAB OLIC PANEL (14) protein, total 7.3 g/dL 6.0-8. 5 Not Available [facility] ([facility]) [address] [place], [address], 04/14/2024 09:14:02 04/13/19 25 04/14/2024 COMP. METAB OLIC PANEL (14) albumin 4.1 g/dL 3.9-4. 9 Not Available [facility] ([facility]) [address] [place], [address], 04/14/2024 09:14:02 04/13/19 25 04/14/2024 COMP. METAB OLIC PANEL (14) globulin, total 3.2 g/dL 1.5-4. 5 Not Available [facility] ([facility]) [address] [place], [address], 04/14/2024 09:14:02 04/13/19 25 04/14/2024 COMP. METAB OLIC PANEL (14) bilirubin, total 0.5 mg/dL 0.0-1. 2 Not Available [facility] ([facility]) [address] [place], [address], 04/14/2024 09:14:02 04/13/19 25 04/14/2024 COMP. METAB OLIC PANEL (14) alkaline phosphatase 91 IU/L 44-121 Not Available [facility] [address] [facility], [place], [address], 04/14/2024 09:14:02 04/13/19 25 04/14/2024 COMP. METAB OLIC PANEL (14) AST (SGOT) 15 IU/L 0-40 Not Available [facility]) [address] [facility], [place], [address], 04/14/2024 09:14:02 04/13/19 25 04/14/2024 COMP. METAB OLIC PANEL (14) ALT (SGPT) 10 IU/L 0-32 Not Available [facility]) [address] [facility], [place], [address], 04/14/2024 09:14:02 04/13/19 25 04/14/2024 VITAM IN B12 AND FOLAT E vitamin B12 637 pg/mL 232-12 45 Not Available [facility]) [address] [facility], [place], [address], 04/14/2024 09:14:04 04/13/19 25 04/14/2024 VITAM IN B12 AND FOLAT E folate (folic acid), serum 5.4 NG/mL >3.0 A serum folat e elisabeth ntrat ion of less than 3.1 ng/mL is consi dered to repre sent clini divine defic iency . Not Available [facility] ([facility]) [address] [facility], [place], [address], 04/14/2024 09:14:04 04/13/19 25 04/14/2024 TRIIO DOTHY KANDACE E (T3) triiodothyro nine (T3) 100 NG/dL 71-180 Not Available [facility]) [address] [facility], [place], [address], 04/14/2024 09:14:05 04/13/19 25 04/14/2024 CBC WITH DIFFE RENTI AL/PL ATELE T WBC 7.6 x10e3 /uL 3.4-10 .8 Not Available [facility]) [address] [facility], [place], [address], 04/14/2024 09:14:07 04/13/1904/14/2024 CBC WITH DIFFE RENTI AL/PL ATELE T RBC 5.04 x10e6 /uL 3.77-5 .28 Not Available [facility]) [address] [facility], [place], [address], 04/14/2024 09:14:07 04/13/1904/14/2024 CBC WITH DIFFE RENTI AL/PL ATELE T hemoglobin 15.7 g/dL 11.1-1 5.9 Not Available [facility]) [address] [facility], [place], [address], 04/14/2024 09:14:07 04/13/1904/14/2024 CBC WITH DIFFE RENTI AL/PL ATELE T hematocrit 46.9 % 34.0-4 6.6 above high normal Not Available [facility] ([facility]) [address] [place], [address], 04/14/2024 09:14:07 04/13/1904/14/2024 CBC WITH DIFFE RENTI AL/PL ATELE T MCV 93 fL 79-97 Not Available [facility] ([facility]) [address] [place], [address], 04/14/2024 09:14:07 04/13/1904/14/2024 CBC WITH DIFFE RENTI AL/PL ATELE T MCH 31.2 pg 26.6-3 3.0 Not Available [facility] ([facility]) [address] [place], [address], 04/14/2024 09:14:07 04/13/19 25 04/14/2024 CBC WITH DIFFE RENTI AL/PL ATELE T MCHC 33.5 g/dL 31.5-3 5.7 Not Available [facility] ([facility]) [address] [facility], [place], [address], 04/14/2024 09:14:07 04/13/19 25 04/14/2024 CBC WITH DIFFE RENTI AL/PL ATELE T RDW 12.9 % 11.7-1 5.4 Not Available [facility]) [address] [facility], [place], [address], 04/14/2024 09:14:07 04/13/19 25 04/14/2024 CBC WITH DIFFE RENTI AL/PL ATELE T platelets 215 x10e3 /uL 150-45 0 Not Available [facility] ([facility]) [address] [facility], [place], [address], 04/14/2024 09:14:07 04/13/19 25 04/14/2024 CBC WITH DIFFE RENTI AL/PL ATELE T neutrophils 47 % notest ab. Not Available [facility] ([facility]) [address] [facility], [place], [address], 04/14/2024 09:14:07 04/13/19 25 04/14/2024 CBC WITH DIFFE RENTI AL/PL ATELE T lymphs 43 % notest ab. Not Available [facility] ([facility]) [address] [facility], [place], [address], 04/14/2024 09:14:07 04/13/1904/14/2024 CBC WITH DIFFE RENTI AL/PL ATELE T monocytes 8 % notest ab. Not Available [facility] ([facility] [address] [place], [address], 04/14/2024 09:14:07 04/13/19 25 04/14/2024 CBC WITH DIFFE RENTI AL/PL ATELE T eos 1 % notest ab. Not Available [facility]) [address] [place], [address], 04/14/2024 09:14:07 04/13/1904/14/2024 CBC WITH DIFFE RENTI AL/PL ATELE T basos 1 % notest ab. Not Available [facility] ([facility]) [address] [facility], [place], [address], 04/14/2024 09:14:07 04/13/1904/14/2024 CBC WITH DIFFE RENTI AL/PL ATELE T neutrophils (absolute) 3.5 x10e3 /uL 1.4-7. 0 Not Available [facility] ([facility]) [address] [facility], [place], [address], 04/14/2024 09:14:07 04/13/19 25 04/14/2024 CBC WITH DIFFE RENTI AL/PL ATELE T lymphs (absolute) 3.3 x10e3 /uL 0.7-3. 1 above high normal Not Available [facility] ([facility]) [address] [facility], [place], [address], 04/14/2024 09:14:07 04/13/1904/14/2024 CBC WITH DIFFE RENTI AL/PL ATELE T monocytes(ab solute) 0.6 x10e3 /uL 0.1-0. 9 Not Available [facility] [address] [facility], [place], [address], 04/14/2024 09:14:07 04/13/1904/14/2024 CBC WITH DIFFE RENTI AL/PL ATELE T eos (absolute) 0.1 x10e3 /uL 0.0-0. 4 Not Available [facility] [address] [facility], [place], [address], 04/14/2024 09:14:07 04/13/19 25 04/14/2024 CBC WITH DIFFE RENTI AL/PL ATELE T baso (absolute) 0.0 x10e3 /uL 0.0-0. 2 Not Available [facility] ([facility] [address] [facility], [place], [address], 04/14/2024 09:14:07 04/13/19 25 04/14/2024 CBC WITH DIFFE RENTI AL/PL ATELE T immature granulocytes 0 % notest ab. Not Available [facility] [address] [facility], [place], [address], 04/14/2024 09:14:07 04/13/19 25 04/14/2024 CBC WITH DIFFE RENTI AL/PL ATELE T immature grans (abs) 0.0 x10e3 /uL 0.0-0. 1 Not Available [facility]) [address] [facility], [place], [address], 04/14/2024 09:14:07 05/02/19 25 05/01/2024 25-hy droxy vitam in D3 [Mass /volu me] in Serum or Plasm a vitamin D, 25 hydroxy 20.7 NG/mL low: 30NG/m Lhigh: 80NG/m L low Vitam in D, 25 [place] xy 20.7 (L) 30 - 80 ng/mL [facility] RP ACCOU NT BILL Not Available Not Available 05/03/2024 19:16:28 05/02/19 25 05/01/2024 25-hy droxy vitam in D3 [Mass /volu me] in Serum or Plasm a Unknown Analyte [facility] med at: - [place] [id number] or: [address], Not Available Not Available 19:16:28 05/02/19 25 05/01/2024 25-hy droxy vitam in D3 [Mass /volu me] in Serum or Plasm a interpretati on and review of laboratory results Abnorm al Not Available Not Available 19:16:28 05/02/19 25 05/01/2024 Compr [facility] metab [facility]lic 2000 panel - Serum or Plasm a glucose [mass/volume ] in serum or plasma 95 mg/dL low: 70mg/d Lhigh: 99mg/d L Gluco se 95 70 - 99 mg/dL [facility] ACCOU NT BILL Not Available Not Available 05/03/2024 19:16:28 05/02/19 25 05/01/2024 Compr ehens [place] metab olic 2000 panel - Serum or Plasm a BUN 21 mg/dL low: 7mg/dL high: 26mg/d L BUN 21 7 - 26 mg/dL [facility] ACCOU NT BILL Not Available Not Available 05/03/2024 19:16:28 05/02/19 25 05/01/2024 Compr ehens [place] metab olic 2000 panel - Serum or Plasm a creatinine [mass/volume ] in serum or plasma 0.78 mg/dL low: 0.57mg /dLhig h: 1.11mg /dL Creat inine 0.78 0.57 - 1.11 mg/dL [facility] ACCOU NT BILL Not Available Not Available 05/03/2024 19:16:28 05/02/19 25 05/01/2024 Compr Pelikon[facility] metab olic 2000 panel - Serum or Plasm a glomerular filtration rate/1.73 sq M.predicted [volume rate/area] in serum, plasma or blood by creatinine-b ased formula (CKD-epi) 82 text: >=90 mL/min /1.73 m2 low eGFR by CKD-E PI 82 (L) >=90 mL/mi n/1.7 3 m2 [facility] ACCOU NT BILL Not Available Not Available 05/03/2024 19:16:28 05/02/19 25 05/01/2024 Compr Pelikonens [place] metab olic 2000 panel - Serum or Plasm a sodium 141 mmol/ L low: 136mmo l/Lhig h: 145mmo l/L Sodiu m 141 136 - 145 mmol/ L [facility] ACCOU NT BILL Not Available Not Available 05/03/2024 19:16:28 05/02/19 25 05/01/2024 Compr e[facility] [place] metab olic 2000 panel - Serum or Plasm a potassium 4.2 mmol/ L low: 3.5mmo l/Lhig h: 5.1mmo l/L Potas sium 4.2 3.5 - 5.1 mmol/ L [facility] ACCOU NT BILL Not Available Not Available 05/03/2024 19:16:28 05/02/19 25 05/01/2024 Compr e[facility] [place] metab olic 2000 panel - Serum or Plasm a chloride 107 mmol/ L low: 98mmol /Lhigh : 107mmo l/L Chlor phillip 107 98 - 107 mmol/ L [facility] ACCOU NT BILL Not Available Not Available 05/03/2024 19:16:28 05/02/19 25 05/01/2024 Compr e[facility] [place] metab olic 2000 panel - Serum or Plasm a CO2 27 mmol/ L low: 22mmol /Lhigh : 29mmol /L CO2 27 22 - 29 mmol/ L [facility] ACCOU NT BILL Not Available Not Available 05/03/2024 19:16:28 05/02/19 25 05/01/2024 Compr e[facility] [place] metab olic 2000 panel - Serum or Plasm a calcium 8.5 mg/dL low: 8.4mg/ dLhigh : 10.4mg /dL Calci um 8.5 8.4 - 10.4 mg/dL [facility] ACCOU NT BILL Not Available Not Available 05/03/2024 19:16:28 05/02/19 25 05/01/2024 Compr e[facility] [place] metab olic 2000 panel - Serum or Plasm a protein total 6.8 text: 6.4 - 8.3 gm/dL Prote in Total 6.8 6.4 - 8.3 gm/dL [facility] ACCOU NT BILL Not Available Not Available 05/03/2024 19:16:28 05/02/19 25 05/01/2024 Compr [facility] [place] metab olic 2000 panel - Serum or Plasm a albumin 3.4 text: 3.4 - 5.0 gm/dL Album in 3.4 3.4 - 5.0 gm/dL [facility] ACCOU NT BILL Not Available Not Available 05/03/2024 19:16:28 05/02/19 25 05/01/2024 Compr [facility] [place] metab [facility]lic 2000 panel - Serum or Plasm a bilirubin total 0.4 mg/dL low: 0.2mg/ dLhigh : 1.2mg/ dL Bilir ubin Total 0.4 0.2 - 1.2 mg/dL [facility] ACCOU NT BILL Not Available Not Available 05/03/2024 19:16:28 05/02/19 25 05/01/2024 Compr [facility] [place] metab olic 2000 panel - Serum or Plasm a alkaline phosphatase 60 U/L low: 40U/Lh igh: 150U/L Alkal ine Phosp hatas e 60 40 - 150 U/L [facility] ACCOU NT BILL Not Available Not Available 05/03/2024 19:16:28 05/02/19 25 05/01/2024 Compr [facility] [place] metab olic 2000 panel - Serum or Plasm a AST 15 U/L low: 5U/Lhi gh: 34U/L AST 15 5 - 34 U/L [facility] ACCOU NT BILL Not Available Not Available 05/03/2024 19:16:28 05/02/19 25 05/01/2024 Compr [facility] [place] metab olic 2000 panel - Serum or Plasm a ALT 12 U/L low: 0U/Lhi gh: 55U/L ALT 12 0 - 55 U/L [facility] ACCOU NT BILL Not Available Not Available 05/03/2024 19:16:28 05/02/19 25 05/01/2024 Compr [facility] [place] metab olic 2000 panel - Serum or Plasm a Unknown Analyte [facility] at: [address] [place] [id number] Lab Direct or: [address], Not Available Not Available 19:16:28 05/02/19 25 05/01/2024 Compr [facility] [place] metab olic 2000 panel - Serum or Plasm a interpretati on and review of laboratory results Abnorm al Not Available Not Available 19:16:28 05/02/19 25 05/02/2024 Cobal fitzgerald (Miriam min B12) [Mass /volu me] in Serum or Plasm a vitamin B12 591 pg/mL low: 232pg/ mLhigh : 1245pg /mL Vitam in B12 591 232 - 1,245 pg/mL [facility] RP ACCOU NT BILL Not Available Not Available 05/03/2024 19:16:28 05/02/19 25 05/02/2024 Cobal fitzgerald (Miriam min B12) [Mass /volu me] in Serum or Plasm a folate 6.9 NG/mL low: 3NG/mL Folat e 6.9 >3.0 ng/mL [facility] ACCOU NT BILL Not Available Not Available 05/03/2024 19:16:28 05/02/19 25 05/02/2024 Cobal fitzgerald (Miriam min B12) [Mass /volu me] in Serum or Plasm a Unknown Analyte [facility] at: 01 - [facility] [address] [id number] Lab Direct or: Charline morris PhD, Not Available Not Available 19:16:28 05/02/19 25 05/01/2024 Lipid 1996 panel - Serum or Plasm a cholesterol 157 mg/dL high: 200mg/ dL Sneha stero l 157 <200 mg/dL [facility] ACCOU NT BILL Not Available Not Available 05/03/2024 19:16:28 05/02/19 25 05/01/2024 Lipid 1996 panel - Serum or Plasm a triglyceride s 87 mg/dL high: 150mg/ dL Trigl yceri geronimo 87 <150 mg/dL [facility] ACCOU NT BILL Not Available Not Available 05/03/2024 19:16:28 05/02/19 25 05/01/2024 Lipid 1996 panel - Serum or Plasm a HDL cholesterol 50 mg/dL low: 40mg/d L HDL Sneha stero l 50 >40 mg/dL [facility] RP ACCOU NT BILL Not Available Not Available 05/03/2024 19:16:28 05/02/19 25 05/01/2024 Lipid 1996 panel - Serum or Plasm a VLDL calculated 17 mg/dL high: 30mg/d L VLDL Calcu lated 17 <=30 mg/dL [facility] RP ACCOU NT BILL Not Available Not Available 05/03/2024 19:16:28 05/02/19 25 05/01/2024 Lipid 1996 panel - Serum or Plasm a cholesterol in LDL [mass/volume ] in serum or plasma by calculation 90 mg/dL high: 130mg/ dL LDL Calcu lated 90 <130 mg/dL [facility] ACCOU NT BILL Not Available Not Available 05/03/2024 19:16:28 05/02/19 25 05/01/2024 Lipid 1996 panel - Serum or Plasm a Unknown Analyte [facility] at: [place] [id number] Lab Direct or: [address], Not Available Not Available 19:16:28 05/02/19 25 05/01/2024 CBC W Auto Diffe renti al panel - Blood WBC 7 text: 4.0 - 10.7 x10e9/ L WBC 7.0 4.0 - 10.7 x10E9 /L [facility] ACCOU NT BILL Not Available Not Available 05/01/2024 17:17:06 05/02/19 25 05/01/2024 CBC W Auto Diffe renti al panel - Blood RBC 4.58 text: 3.90 - 5.20 x10e12 /L RBC 4.58 3.90 - 5.20 x10E1 2/L [facility] ACCOU NT BILL Not Available Not Available 05/01/2024 17:17:06 05/02/19 25 05/01/2024 CBC W Auto Diffe renti al panel - Blood hemoglobin 14.1 g/dL low: 11.9g/ dLhigh : 15.8g/ dL Hemog lobin 14.1 11.9 - 15.8 g/dL [facility] ACCOU NT BILL Not Available Not Available 05/01/2024 17:17:06 05/02/19 25 05/01/2024 CBC W Auto Diffe renti al panel - Blood hematocrit 42.6 % low: 34.8%h igh: 46.1% Hemat ocrit 42.6 34.8 - 46.1 % [facility] ACCOU NT BILL Not Available Not Available 05/01/2024 17:17:06 05/02/19 25 05/01/2024 CBC W Auto Diffe renti al panel - Blood MCV 93 fL low: 80fLhi gh: 98fL MCV 93.0 80.0 - 98.0 fL [facility] RP ACCOU NT BILL Not Available Not Available 05/01/2024 17:17:06 05/02/19 25 05/01/2024 CBC W Auto Diffe renti al panel - Blood MCH 30.8 pg low: 26.7pg high: 33.6pg MCH 30.8 26.7 - 33.6 pg [facility] RP ACCOU NT BILL Not Available Not Available 05/01/2024 17:17:06 05/02/19 25 05/01/2024 CBC W Auto Diffe renti al panel - Blood MCHC 33.1 g/dL low: 31.7g/ dLhigh : 36.3g/ dL MCHC 33.1 31.7 - 36.3 g/dL [facility] ACCOU NT BILL Not Available Not Available 05/01/2024 17:17:06 05/02/19 25 05/01/2024 CBC W Auto Diffe renti al panel - Blood RDW 13.8 % low: 11.3%h igh: 14.8% RDW 13.8 11.3 - 14.8 % [facility] ACCOU NT BILL Not Available Not Available 05/01/2024 17:17:06 05/02/19 25 05/01/2024 CBC W Auto Diffe renti al panel - Blood platelet count 352 text: 150 - 420 x10e9/ L Plate let Count 352 150 - 420 x10E9 /L [facility] ACCOU NT BILL Not Available Not Available 05/01/2024 17:17:06 05/02/19 25 05/01/2024 CBC W Auto Diffe renti al panel - Blood granulocytes % 42.6 % low: 41%hig h: 74% Granu locyt es % 42.6 41.0 - 74.0 % [facility] RP ACCOU NT BILL Not Available Not Available 05/01/2024 17:17:06 05/02/19 25 05/01/2024 CBC W Auto Diffe renti al panel - Blood lymphocytes % 46.4 % low: 17%hig h: 47% Lymph ocyte s % 46.4 17.0 - 47.0 % [facility] RP ACCOU NT BILL Not Available Not Available 05/01/2024 17:17:06 05/02/19 25 05/01/2024 CBC W Auto Diffe renti al panel - Blood monocytes % 8.1 % low: 3%high : 11% Monoc ytes % 8.1 3.0 - 11.0 % [facility] RP ACCOU NT BILL Not Available Not Available 05/01/2024 17:17:06 05/02/19 25 05/01/2024 CBC W Auto Diffe renti al panel - Blood eosinophils % 2 % low: 0%high : 7% Eosin ophil s % 2.0 0.0 - 7.0 % [facility] RP ACCOU NT BILL Not Available Not Available 05/01/2024 17:17:06 05/02/19 25 05/01/2024 CBC W Auto Diffe renti al panel - Blood basophils % 0.6 % low: 0%high : 1.6% Basop hils % 0.6 0.0 - 1.6 % [facility] RP ACCOU NT BILL Not Available Not Available 05/01/2024 17:17:06 05/02/19 25 05/01/2024 CBC W Auto Diffe renti al panel - Blood granulocytes absolute 2.99 text: 1.60 - 7.50 x10e9/ L Granu locyt es Absol chefornak 2.99 1.60 - 7.50 x10E9 /L [facility] RP ACCOU NT BILL Not Available Not Available 05/01/2024 17:17:06 05/02/19 25 05/01/2024 CBC W Auto Diffe renti al panel - Blood lymphocytes absolute 3.26 text: 1.00 - 4.40 x10e9/ L Lymph ocyte s Absol chefornak 3.26 1.00 - 4.40 x10E9 /L [facility] RP ACCOU NT BILL Not Available Not Available 05/01/2024 17:17:06 05/02/19 25 05/01/2024 CBC W Auto Diffe renti al panel - Blood monocytes absolute 0.57 text: 0.15 - 1.00 x10e9/ L Monoc ytes Absol chefornak 0.57 0.15 - 1.00 x10E9 /L [facility] ACCOU NT BILL Not Available Not Available 05/01/2024 17:17:06 05/02/19 25 05/01/2024 CBC W Auto Diffe renti al panel - Blood eosinophils absolute 0.14 text: 0.00 - 0.60 x10e9/ L Eosin ophil s Absol chefornak 0.14 0.00 - 0.60 x10E9 /L [facility] RP ACCOU NT BILL Not Available Not Available 05/01/2024 17:17:06 05/02/19 25 05/01/2024 CBC W Auto Diffe renti al panel - Blood basophils absolute 0.04 text: 0.00 - 0.13 x10e9/ L Basop hils Absol chefornak 0.04 0.00 - 0.13 x10E9 /L [facility] RP ACCOU NT BILL Not Available Not Available 05/01/2024 17:17:06 05/02/19 25 05/01/2024 CBC W Auto Diffe renti al panel - Blood immature granulocytes 0.3 % low: 0%high : 1% Immat ure Granu locyt es 0.3 0.0 - 1.0 % [facility] RP ACCOU NT BILL Not Available Not Available 05/01/2024 17:17:06 05/02/19 25 05/01/2024 CBC W Auto Diffe renti al panel - Blood Unknown Analyte [facility]for med at: [address] [place] [address] [place] [id number] Lab Direct or: [address], Not Available Not Available 17:17:06 08/27/19 24 08/27/2023 XR, chest , 2 view No observ ation record ed. [address] [facility], [place], [address], 08/29/2023 13:33:05 08/29/19 24 08/29/2023 CT, abdom en + pelvi s, w/ contr ast No observ ation record ed. [address] [facility], [place], [address], 09/13/2023 16:44:17 08/30/19 24 08/30/2023 XR, abdom en, 1 view No observ ation record ed. [address] [facility], [place], [address], 09/13/2023 16:50:40 11/30/19 24 11/30/2023 LDCT, chest , for lung cance r scree nely No observ ation record ed. [email or web address] [facility] [address], [place], [address], 11/30/2023 21:38:21 12/15/19 24 12/15/2023 PFT, compl ete No observ ation record ed. [facility] [address] [facility] [address], [place], [address], 12/16/2023 15:29:51 Result Notes None recorded. Problems Name Problem SNOMED Code Status Onset Date Resolution Date Notes Provider Name and Address Organization Details Recorded Time Pre-surgery testing Active 2017 Not Available [facility] 3 16:06:31 Neuropathy 023127592 Active 2017 Not Available [facility] 3 16:06:31 Vitamin D deficiency 27807356 Active 2017 Not Available [facility] 3 16:06:31 Right upper quadrant pain 994140855 Active 2018 Not Available [facility] 3 16:06:31 Parotid cyst 723080801 Active 2018 Not Available [facility] 3 16:06:31 Eczema 04188786 Active 2018 Not Available [facility] 3 16:06:31 Prolapsed lumbar interverteb ral disc 676429324 Active 2018 Not Available [facility] 3 16:06:31 Gastroesoph ageal reflux disease 090896500 Active 2019 Not Available [facility] 3 16:06:31 Chronic constipatio n 462374962 Active 2019 Not Available [facility] 3 16:06:31 Serum vitamin B12 below reference range 130981629 Active 2019 Not Available [facility] 3 16:06:31 Urinary incontinenc e 608951110 Active 2019 Not Available [facility] 3 16:06:31 Acute urticaria 787549690 Active 2020 Not Available [facility] 3 16:06:31 Vulvovagini tis 00110562 Active 2020 Not Available [facility] 3 16:06:31 Insomnia 781285092 Active 2021 Not Available [facility] 3 16:06:31 Normal grief reaction 687774110 Active 2021 of53 years a few weeks ago Not Available [facility] 3 16:06:31 Serum creatinine above reference range 977962172 Active 2021 Not Available [facility] 3 16:06:31 Allergic rhinitis 21538135 Active 2021 Not Available [facility] 3 16:06:32 Neurogenic urinary bladder 337831553 Active 2023 Donnie Daley MD Attn: Accounting ,[address], [place], [address] [place] [address] , [place] - [facility] 4 12:06:32 Obstructive sleep apnea syndrome 48516323 Active 2023 Donnie Daley MD Attn: Accounting ,[address], [place], [address] [place] [address] , [place] [facility] 4 12:06:35 Chronic pain syndrome 350011308 Active 2023 Donnie Daley MD Attn: Accounting ,[address], [place], [address] [place] [address] , [place] [facility] 4 22:42:21 Smoker 89396564 Active 2023 Donnie Daley MD Attn: Accounting ,[address], [place], [address] [place] [address] , [place] [facility] 4 22:42:23 Gastroesoph ageal reflux disease without esophagitis 371159239 Active 2023 Donnie Daley MD Attn: Accounting ,[address], [place], [address] [place] [address] , [place] [facility] 4 22:42:25 Fatigue 22890814 Active 2023 Aditi Livingston MA null, [place] [facility] 4 15:58:12 Secondary polycythemi a 03586453 Active 2024 Donnie Daley MD Attn: Accounting ,[address] , [place], [address] , [place] [facility] 5 22:08:25 Chronic obstructive pulmonary disease 76606164 Active Not Available [facility] 3 16:06:31 Acid reflux 967965518 Active Not Available [facility] 3 16:06:32 Essential hypertensio n 91313667 Active Not Available [facility] 3 16:06:31 Hyperlipide jah 77905734 Active Not Available [facility] 3 16:06:31 Obesity 754361893 Active Not Available [facility] 3 16:06:31 Hip pain 63030784 Active Not Available [facility] 3 16:06:31 Knee pain Active Not Available [facility] 3 16:06:31 Migraine 15519813 Active Not Available [facility] 3 16:06:31 Kidney stone 39447115 Active Not Available [facility] 3 16:06:32 Tobacco user 525384097 Active 2015 Not Available [facility] 3 16:06:31 Vaginitis and vulvovagini tis Active 2016 Not Available [facility] 3 16:06:31 Sinusitis 39568752 Active 2016 Not Available [facility] 3 16:06:31 Notes:sees Dr. pedraza : n europathy Problem Notes None recorded. Procedures Surgical History Date Name Laterality Status Provider Name and Address Organization Details Recorded Time Unlisted procedure spine completed KELSEY August - [facility] 01/05/2018 13:19:52 Joint Replacement completed Dae Mora MA [place] - [facility] 10/10/2014 13:07:07 Knee Surgery completed Gueirta Mora MA [place] - [facility] 10/10/2014 13:07:07 Tonsillectomy completed KELSEY Charles - [facility] 10/10/2014 13:07:07 Imaging Results Imaging Date Name Status [facility] Details LastModified Time 08/27/2023 XR, chest, 2 view completed [facility] [address] [facility] [address], [place], [address], 08/29/2023 13:33:05 08/29/2023 CT, abdomen + pelvis, w/ contrast completed [facility] [address] [place] [address] [address], [place], [address], 09/13/2023 16:44:17 08/30/2023 XR, abdomen, 1 view completed [address], [place], [address], 09/13/2023 16:50:40 11/30/2023 LDCT, chest, for lung cancer screening completed [address] [place], [address], 11/30/2023 21:38:21 12/15/2023 [facility], [facility] [address] [place] [address] [address], [place], [address], 12/16/2023 15:29:51 Procedure Notes None recorded. Medical Equipment None Reported. Allergies Allergen ID Allergen Name Allergen Category Reaction Reaction Severity Criticality Documentation Date Start Date Code Code System Note Provider Name and Address Organization Details Recorded Time 762426 rosuvasta tin medicatio n Not available Not available Not available 05/19/2020 46635 2 RxNorm Other react ions and sever ities : 'Adve rse react ion to subst ance' . Not Available Not Available Not Available 623723 cefuroxim e Not available itching Not available Not available 04/13/20242016 2194 RxNorm Cefaz nolan IV dosed 02/16 18 with no adver se effec t unrec ogniz ed react ion (text : Nause a and/o r Vomit ing, code: 64323 000) (from exter nal sourc e) Not Available Not Available Not Available 562973 denosumab medicatio n rash Not available high 04/13/20242022 84677 9 RxNorm Blist ers aroun d mouth Not Available Not Available Not Available 000017 flunisoli de medicatio n Not available Not available Not available 04/13/20242012 44135 RxNorm Gag and vomit . Shahla ates nasac ort, cause s nose to bleed . unrec ogniz ed react ion (text : Other , code: 24357 07) (from exter nal sourc e) Not Available Not Available Not Available 773643 lovastati n medicatio n Not available Not available Not available 04/13/20242023 6472 RxNorm Not Available Not Available Not Available 62638 Iodinated contrast media (substanc e) medicatio n rash Not available low 10/10/20142022 70790 2004 SNOMED Not Available Not Available Not Available 72343 omeprazol e medicatio n Not available Not available Not available 01/06/2016 7646 RxNorm Other react ions and sever ities : 'Adve rse react ion to subst ance - Mild' . Not Available Not Available Not Available Medications Name Sig Start Date Stop Date Status Note LastModified by Organization Details LastModified Time ibuprofen 800 mg tabs 08/11 completed Not Available Not Available Not Available hydrocort isone 2.5 % crea 08/11 completed Not Available Not Available Not Available ventolin hfa 108 mcg/act aers 09/07 completed Not Available Not Available Not Available symbicort aer 160-4.5 08/11 completed Not Available Not Available Not Available triamcino lone acetonide 0.1 % crea 08/11 completed Not Available Not Available Not Available augmented betametha sone dipropion at e 0.05 % lotn 05/19 completed Not Available Not Available Not Available hydroco/a pap tab 5-325mg 08/11 completed Not Available Not Available Not Available dexametha sone sodium phosphate 0.1 % soln 08/11 completed Not Available Not Available Not Available rosuvasta tin calcium 5 mg tabs 06/19 completed Not Available Not Available Not Available nebulizer w/mouthpi james adult 08/11 completed Not Available Not Available Not Available ipratropi um bromide 0.06 % soln 08/11 completed Not Available Not Available Not Available amoxicill in 500 mg capsule TK FOUR CS PO 1 HOUR B DAPP 03/30 completed Not Available Not Available Not Available silver sulfadiaz ine 1 % topical cream 08/25 completed Not Available Not Available Not Available promethaz ine-DM 6.25 mg-15 mg/5 mL oral syrup TAKE 5-10 ML BY MOUTH THREE TIMES DAILY NEEDED 03/22 completed Not Available Not Available Not Available nystatin 100,000 unit/mL oral suspensio n Take 5 mL 4 times a day by oral route as directed for 10 days. 08/11 completed Not Available Not Available Not Available Colace 100 mg capsule Take 1 capsule twice a day by oral route as needed for 30 days. 05/01 completed Not Available Not Available Not Available prednison e 10 mg tablet 03/22 completed Not Available Not Available Not Available doxycycli ne hyclate 100 mg capsule 05/01 completed Not Available Not Available Not Available naproxen 375 mg tablet 05/01 completed Not Available Not Available Not Available albuterol sulfate 2.5 mg/3 mL (0.083 %) solution for nebulizat ion USE 1 VIAL VIA NEBULIZE R THREE TIMES DAILY active Not Available Not Available No t Available trazodone 50 mg tablet TAKE 1 TABLET BY MOUTH EVERY DAY AT BEDTIME 08/11 completed not helping Not Available Not Available Not Available atorvasta tin 10 mg tablet TAKE 1 TABLET BY MOUTH EVERY DAY 03/30 completed changedt o Rosuvast atin per Dr Daley at visit 03/30/24. Not Available Not Available Not Available azithromy josue 250 mg tablet TAKE 2 TABLETS (500 MG) BY ORAL ROUTE ONCE DAILY FOR 1 DAY THEN 1 TABLET (250 MG) BY ORAL ROUTE ONCE DAILY FOR 4 DAYS active Not Available Not Available No t Available cefpodoxi me 100 mg tablet 05/01 completed Not Available Not Available Not Available ibuprofen 800 mg tablet TAKE 1 TABLET(8 00 MG) BY MOUTH THREE TIMES DAILY WITH FOOD 09/07 completed Not Available Not Available Not Available ofloxacin 0.3 % eye drops 09/07 completed Not Available Not Available Not Available fluconazo le 150 mg tablet TAKE 1 TABLET BY MOUTH 3 TIMES A WEEK FOR 7 DAYS 06/14 /2022 completed Not Available Not Available Not Available benzonata te 200 mg capsule Take 1 capsule 3 times a day by oral route as needed for 10 days. 06/24 completed Not Available Not Available Not Available cephalexi n 250 mg capsule 05/01 completed Not Available Not Available Not Available hydrocodo ne 5 mg-acetam inophen 325 mg tablet TAKE 1 TABLET BY MOUTH THREE TIMES DAILY NEEDED FOR PAIN. MUST LAST 28 DAYS. active Not Available Not Available No t Available famotidin e 40 mg tablet TAKE 1 TABLET BY MOUTH AT BEDTIME 09/07 completed Not Available Not Available Not Available prednison e 20 mg tablet TAKE 2 TABLETS BY MOUTH EVERY DAY FOR 5 DAYS 09/07 completed Not Available Not Available Not Available clindamyc in HCl 150 mg capsule TK FOUR CS PO 1 HOUR B DAPP 01/28 completed Not Available Not Available Not Available trimethop rim 100 mg tablet 05/01 completed Not Available Not Available Not Available valacyclo vir 500 mg tablet TAKE 1 TABLET BY MOUTH TWICE DAILY 07/31 completed Not Available Not Available Not Available ciproflox acin 500 mg tablet TAKE 1 TABLET BY MOUTH TWICE DAILY FOR 7 DAYS 03/30 completed Not Available Not Available Not Available sulfameth oxazole 800 mg-trimet hoprim 160 mg tablet TAKE 1 TABLET BY MOUTH TWICE DAILY 09/19 completed Not Available Not Available Not Available hydrocodo ne 10 mg-acetam inophen 325 mg tablet 05/01 completed Not Available Not Available Not Available peg-elect rolyte solution 420 gram oral solution 03/22 completed Not Available Not Available Not Available omeprazol e 40 mg capsule,d elayed release 05/01 completed hives , itching Not Available Not Available Not Available triamcino lone acetonide 0.1 % topical cream APPLY EXTERNAL LY TO THE AFFECTED AREA TWICE DAILY NEEDED 08/11 completed Not Available Not Available Not Available Depo-Medr ol 80 mg/mL suspensio n for injection 01/05 completed Not Available Not Available Not Available ketorolac 10 mg tablet 05/01 completed Not Available Not Available Not Available dexametha sone sodium phosphate 0.1 % eye drops 08/11 completed Not Available Not Available Not Available ketorolac 0.5 % eye drops INSTILL 1 DROP IN AFFECTED EYE THREE TIMES DAILY BEGINNIN G 2 DAYS BEFORE SURGERY. 01/28 completed Not Available Not Available Not Available Kenalog 40 mg/mL suspensio n for injection Take 40 mg by injectio n route. 01/05 completed patient tolerate d injectio n well and had no apparent bleeding or redness at injectio n site Not Available Not Available Not Available oxycodone -acetamin ophen 5 mg-325 mg tablet 08/25 completed Not Available Not Available Not Available betametha sone, augmented 0.05 % lotion APPLY TO THE AFFECTED AREA ON SCALP DAILY NEEDED 08/11 completed Not Available Not Available Not Available famotidin e 20 mg tablet TAKE 1 TABLET BY MOUTH TWICE DAILY BEFORE MEALS 05/19 completed Not Available Not Available Not Available prednisol one acetate 1 % eye drops,chris pension 09/07 completed Not Available Not Available Not Available dexametha sone 1 mg tablet TAKE 1 TABLET BY MOUTH AT 10 PM THE NIGHT BEFORE 8 AM CORTISOL TEST 06/24 completed Not Available Not Available Not Available baclofen 10 mg tablet TAKE 1 TABLET BY MOUTH TWICE DAILY NEEDED active Not Available Not Available No t Available potassium citrate ER 10 mEq (1,080 mg) tablet,ex tended release 08/25 completed Not Available Not Available Not Available benzonata te 100 mg capsule TAKE 1 CAPSULE BY MOUTH THREE TIMES DAILY NEEDED FOR COUGH 08/11 completed Not Available Not Available Not Available cephalexi n 500 mg capsule TAKE 1 CAPSULE BY MOUTH FOUR TIMES DAILY UNTIL ALL TAKEN 06/24 completed Not Available Not Available Not Available pantopraz ole 40 mg tablet,de layed release TAKE 1 TABLET BY MOUTH EVERY DAY BEFORE A MEAL 08/11 completed Not Available Not Available Not Available erythromy josue 5 mg/gram (0.5 %) eye ointment 05/01 completed Not Available Not Available Not Available nortripty line 10 mg capsule TAKE 2 TO 3 CAPSULES BY MOUTH AT BEDTIME NEEDED 09/07 completed Not Available Not Available Not Available cyanocoba bradley (vit B-12) 1,000 mcg/mL injection solution INJECT 1 ML INTO THE MUSCLE EVERY 30 DAYS active Not Available Not Available No t Available triamcino lone acetonide 0.1 % topical ointment APPLY TOPICALL Y TO THE AFFECTED AREA TWICE DAILY PRN 2024 active Not Available Not Available Not Avai lable ranitidin e 150 mg tablet Take 1 tablet twice a day by oral route before meals for 30 days. 03/08 completed contamin ants Not Available Not Available Not Available clotrimaz ole-betam ethasone 1 %-0.05 % topical cream 05/01 completed Not Available Not Available Not Available diphenhyd ramine 25 mg tablet Take 1 tablet every day by oral route at bedtime for 30 days. 08/11 completed Not Available Not Available Not Available prednison e 50 mg tablet 05/01 completed Not Available Not Available Not Available lidocaine 5 % topical patch APPLY 1 PATCH TO SKIN ONCE DAILY REMOVE AFTER 12 HOURS active Not Available Not Available No t Available nicotine 21 mg/24 hr daily transderm al patch Apply 1 patch every day by transder mal route for 30 days. 05/01 completed Not Available Not Available Not Available BD Luer-Yunier Syringe 3 mL 25 gauge x 1 05/01 completed Not Available Not Available Not Available mometason e 50 mcg/actua tion nasal spray SHAKE LIQUID AND USE 2 SPRAYS IN EACH NOSTRIL EVERY DAY. 09/07 completed Not Available Not Available Not Available hydrocort isone 2.5 % topical cream 08/11 completed Not Available Not Available Not Available monteluka st 10 mg tablet Take 1 tablet(s ) every day by oral route for 30 days. 2023 active Not Available Not Available Not Avai lable codeine 10 mg-guaife nesin 100 mg/5 mL oral liquid TAKE 5 ML BY MOUTH EVERY 6 HOURS NEEDED FOR COUGH 06/24 completed Not Available Not Available Not Available acetamino phen 300 mg-codein e 60 mg tablet 08/11 completed Not Available Not Available Not Available mupirocin 2 % topical ointment APPLY TOPICALL Y TO THE AFFECTED AREA THREE TIMES DAILY 06/24 completed Not Available Not Available Not Available furosemid e 20 mg tablet TAKE 1 TABLET BY MOUTH EVERY DAY NEEDED 09/07 completed Not Available Not Available Not Available gabapenti n 100 mg capsule TAKE 1 CAPSULE BY MOUTH EVERY DAY active Not Available Not Available No t Available ergocalci ferol (vitamin D2) 1,250 mcg (50,000 unit) capsule TAKE 1 CAPSULE BY MOUTH EVERY WEEK WITH FOOD 07/31 completed Not Available Not Available Not Available cefuroxim e axetil 500 mg tablet 05/01 completed Not Available Not Available Not Available polyethyl gela glycol 3350 17 gram/dose oral powder 05/01 completed Not Available Not Available Not Available levofloxa josue 750 mg tablet TAKE 1 TABLET BY MOUTH ONCE DAILY AFTER A MEAL 06/24 completed Not Available Not Available Not Available methylpre dnisolone 4 mg tablets in a dose pack FOLLOW PACKAGE DIRECTIO NS 09/07 completed Not Available Not Available Not Available albuterol sulfate HFA 90 mcg/actua tion aerosol inhaler INHALE 1 PUFF BY MOUTH EVERY 4 HOURS NEEDED active Not Available Not Available No t Available ipratropi um bromide 42 mcg (0.06 %) nasal spray USE 2 SPRAYS IN EACH NOSTRIL THREE TIMES DAILY NEEDED 08/11 completed Not Available Not Available Not Available oxybutyni n chloride 5 mg tablet 05/01 completed Not Available Not Available Not Available methylpre dnisolone 16 mg tablet 05/01 completed Not Available Not Available Not Available ondansetr on 4 mg disintegr ating tablet Take 1 tablet every 8 hours by oral route as needed for 30 days. 05/19 completed Not Available Not Available Not Available cefdinir 300 mg capsule TAKE 1 CAPSULE BY MOUTH TWICE DAILY FOR 10 DAYS 09/07 completed Not Available Not Available Not Available fluticaso ne propionat e 50 mcg/actua tion nasal spray,[facility] 05/01 completed Not Available Not Available Not Available doxycycli ne hyclate 100 mg tablet TAKE 1 TABLET BY MOUTH TWICE DAILY FOR 7 DAYS 01/28 completed Not Available Not Available Not Available loratadin e 10 mg tablet Take 1 tablet every day by oral route in the morning for 30 days. 07/31 completed Not Available Not Available Not Available amoxicill in 875 mg-potass ium clavulana te 125 mg tablet TAKE 1 TABLET BY MOUTH EVERY 12 HOURS 09/07 completed Not Available Not Available Not Available nabumeton e 500 mg tablet Take 2 tablets every day by oral route with meals for 30 days. 05/01 completed Not Available Not Available Not Available ceftriaxo ne 2 gram solution for injection 05/01 completed Not Available Not Available Not Available amoxicill in 500 mg-potass ium clavulana te 125 mg tablet TAKE 1 TABLET BY MOUTH TWICE DAILY WITH THE MORNING AND EVENING MEAL FOR 7 DAYS 07/31 completed Not Available Not Available Not Available oxycodone 5 mg tablet 05/01 completed Not Available Not Available Not Available neomycin 3.5 mg/g-poly myxin B 10,000 unit/g-de xameth 0.1 % eye oint 05/01 completed Not Available Not Available Not Available azithromy josue 500 mg tablet Take 1 tablet every day by oral route for 5 days. 01/05 completed Not Available Not Available Not Available escitalop steven 10 mg tablet TAKE 1 TABLET BY MOUTH EVERY DAY IN THE MORNING 09/07 completed Not Available Not Available Not Available Asprin Ec Low Dose 81 mg tablet,de layed release Take 1 tablet every day by oral route. active Not Available Not Available No t Available ezetimibe 10 mg tablet TAKE 1 TABLET BY MOUTH EVERY DAY active Not Available Not Available No t Available rosuvasta tin 5 mg tablet TAKE 1 TABLET BY MOUTH EVERY DAY IN THE MORNING 05/19 completed hives Not Available Not Available Not Available rosuvasta tin 10 mg tablet TAKE 1 TABLET BY MOUTH EVERY DAY FOR HIGH AMOUNT OF FATS IN THE BLOOD 03/22 completed Not Available Not Available Not Available Klor-Con M20 mEq tablet,ex tended release 05/01 completed Not Available Not Available Not Available Spiriva with [employer] r 18 mcg and inhalatio n capsules INHALE THE CONTENTS OF 1 CAPSULE VIA INHALATI ON DEVICE EVERY DAY FOR CHRONIC OBSTRUCT ASHKAN LUNG DISEASE 04/17 completed Not Available Not Available Not Available nitrofura ntoin monohydra te/macroc rystals 100 mg capsule active Not Available Not Available Not Available cholecalc iferol (vitamin D3) 25 mcg (1,000 unit) tablet Take 1 tablet every day by oral route with meals for 30 days. 05/19 completed Not Available Not Available Not Available Symbicort 160 mcg-4.5 mcg/actua tion HFA aerosol inhaler INHALE 2 PUFFS BY MOUTH TWICE DAILY active Not Available Not Available No t Available peg 3350-elec trolytes 236 gram-22.7 4 gram-6.74 gram-5.86 gram solution 03/22 completed Not Available Not Available Not Available peg 3350 240 gram-elec trolytes 22.72 gram-6.72 g-5.84 g powdr for soln 05/01 completed Not Available Not Available Not Available diclofena c 1 % topical gel APPLY 2 GRAMS TO TO AFFECTED AREA(S) OF SKIN FOUR TIMES A DAY 05/01 completed Not Available Not Available Not Available D3-2000 50 mcg (2,000 unit) capsule TAKE 2 CAPSULES BY MOUTH EVERY MORNING 07/31 completed Not Available Not Available Not Available Prolia 60 mg/mL subcutane ous syringe 09/07 completed Not Available Not Available Not Available Leslie Allergy 180 mg tablet Take 1 tablet every day by oral route as directed for 30 days. 09/07 completed Not Available Not Available Not Available Chantix Starting Month Box 0.5 mg (11)-1 mg (42) tablets in dose pack Take 1 startr pk by oral route as directed for 30 days. 05/01 completed Not Available Not Available Not Available Spiriva Respimat 2.5 mcg/actua tion solution for inhalatio n INHALE 2 PUFFS BY MOUTH EVERY DAY active Not Available Not Available No t Available naloxone 4 mg/actuat ion nasal spray FOLLOW PACKAGE DIRECTIO NS active Not Available Not Available No t Available Shingrix (PF) 50 mcg/0.5 mL intramusc ular suspensio n, kit 05/01 completed Not Available Not Available Not Available COVID-19 test specimen collectio n TEST DIRECTED 08/11 completed Not Available Not Available Not Available Vitals Date Recorded Body height Body mass index (BMI) Body weight Oxygen saturation Oxygen saturation in Arterial blood by Pulse oximetry Heart rate Systolic blood pressure Diastolic blood pressure Provider Name and Address Organization Details Last Updated DateTime 4 167.64 cm 33.7 kg/m2 30844.8 1 g 98 % 98 % 78 /min 124 mm[Hg] 78 mm[Hg] Adelia Zimmer MA [facility] 4 12:39:23 Date Recorded Body height Body mass index (BMI) Body weight Heart rate Oxygen saturation Oxygen saturation in Arterial blood by Pulse oximetry Systolic blood pressure Diastolic blood pressure Provider Name and Address Organization Details Last Updated DateTime 4 167.64 cm 34 kg/m2 54369.2 7 g 79 /min 97 % 97 % 120 mm[Hg] 72 mm[Hg] Floresita Fritz MA [facility] 4 14:49:31 Date Recorded Body height Body mass index (BMI) Body weight Heart rate Oxygen saturation Oxygen saturation in Arterial blood by Pulse oximetry Systolic blood pressure Diastolic blood pressure Provider Name and Address Organization Details Last Updated DateTime 4 167.64 cm 33.8 kg/m2 85500.9 6 g 86 /min 95 % 95 % 128 mm[Hg] 72 mm[Hg] Aliza Cali MA [facility] 4 10:20:00 Date Recorded Body height Body mass index (BMI) Body weight Heart rate Oxygen saturation Oxygen saturation in Arterial blood by Pulse oximetry Systolic blood pressure Diastolic blood pressure Provider Name and Address Organization Details Last Updated DateTime 5 167.64 cm 34.3 kg/m2 81756.0 2 g 100 /min 96 % 96 % 106 mm[Hg] 68 mm[Hg] Veronica Sweeney MA [facility] 5 09:40:15 Date Recorded Body height Body mass index (BMI) Body weight Heart rate Oxygen saturation Oxygen saturation in Arterial blood by Pulse oximetry Systolic blood pressure Diastolic blood pressure Provider Name and Address Organization Details Last Updated DateTime 5 167.64 cm 34.2 kg/m2 55165.5 8 g 94 /min 97 % 97 % 110 mm[Hg] 64 mm[Hg] Veronica Sweeney MA [facility] 5 10:59:33 Social History Question Answer Notes LastModified by Organizat ion Details LastModified Time Tobacco Smoking Status Current Every Day Smoker KELSEY Khanna [facility] 03/08/2019 14:25:00 Do You Have An Advance Directive? No Information not available 06/24/2023 What Is Your Level Of Alcohol Consumption? None Information not available 06/19/2020 Are You Blind Or Do You Have Difficulty Seeing? Yes Wears Glasses Information not available 06/19/2020 What Is Your Level Of Caffeine Consumption? Moderate Information not available 06/19/2020 In The 14 Days Before Symptom Onset, Have You Had Close Contact With A Laboratory-confir med COVID-19 While That Case Was Ill? No Information not available 06/24/2023 In The 14 Days Before Symptom Onset, Have You Had Close Contact With A Person Who Is Under Investigation For COVID-19 While That Person Was Ill? No Information not available 06/24/2023 Have You Been To An Area Known To Be High Risk For COVID-19? No Information not available 06/24/2023 Are You Currently Employed? No Information not available 06/19/2020 Are You Deaf Or Do You Have Serious Difficulty Hearing? No Information not available 06/19/2020 What Type Of Diet Are You Following? REGULAR Information not available 06/19/2020 Are There Any Guns Present In Your Home? No Information not available 10/26/2023 What Was The Date Of Your Most Recent Tobacco Screening? 04/13/2024 Information not available 04/13/2024 What Is Your Relationship Status? Information not available 06/19/2020 Do You Use Your Seat Belt Or Car Seat Routinely? Yes Information not available 06/19/2020 Are You Sexually Active? No Information not available 06/19/2020 Do You Have Smoke And Carbon Monoxide Detectors In Your Home? No Information not available 06/19/2020 Are You Passively Exposed To Smoke? No Information no t available 06/19/2020 How Much Tobacco Do You Smoke? 0.5 PPD Information not available 10/16/2021 Do You Feel Stressed (tense, Restless, Nervous, Or Anxious, Or Unable To Sleep At Night)? [id number] Information not available 06/19/2020 Do You Use Any Illicit Or Recreational Drugs? No Information not available 06/19/2020 Do You Use Sunscreen Routinely? No Information not available 06/19/2020 Has Tobacco Cessation Counseling Been Provided? Yes Information not available 07/18/2020 On What Date Was Tobacco Cessation Counseling Provided? 04/13/2024 Information not available 04/13/2024 How Many Years Have You Smoked Tobacco? 29 Information not available 10/10/2014 Do You Or Have You Ever Used Any Other Forms Of Tobacco Or Nicotine? 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 None Information not available 06/19/2020 Mental Status None recorded. Family History Relationship Description Onset Age of this Age Resolved Age Notes LastModified by Organization Details LastModified Time Mother Cerebrovascu lar accident Not available 13:07:07 Mother Disorder of thyroid gland Not available 2014 13:07:07 Mother Hypercholest erolemia Not available 2014 13:07:07 Mother Hypertensive disorder Not available 2014 13:07:07 Mother Migraine Not available 0 10/10/2014 13:07:07 Father Cerebrovascu lar accident Not available 13:07:07 Father Hypertensive disorder Not available 2014 13:07:07 Father Asthma Not available 13:07:07 Father Diabetes mellitus Not available 2014 13:07:07 Father Disorder of thyroid gland Not available 2014 13:07:07 Father Hypercholest erolemia Not available 2014 13:07:07 Father Hypertensive disorder Not available 2014 13:07:07 Father Migraine Not available 0 10/10/2014 13:07:07 Father Osteoporosis Not availab le 10/10/2014 13:07:07 Brother Malignant tumor of colon Not available 2014 13:07:07 Brother Hypertensive disorder Not available 2014 13:07:07 Brother Migraine Not available 10/10/2014 13:07:07 Notes:No new family history, me/rma Medical History Condition Response Have you had a mammogram in the last yea r? Y Acid Reflux (GERD) Y Have you had a colonoscopy in the last 1 0 years? Y COPD Y Gynecological HistoryNo gynecological history recorded. Obstetrics History GPAL:G 0 P 0 0 0 0 Immunizations Vaccine Type Date Status Note Provider Nam e and Address Organization Details Recorded Time influenza, intradermal, quadrivalent, preservative free 6 completed KELSEY [place], [place] [facility] 09/08/2023 15:27:31 Influenza, recombinant, quadrivalent, PF 8 completed Adelia Zimmer [place], [place] [facility] 09/08/2023 15:27:31 Influenza, recombinant, quadrivalent, PF 9 completed Adelia Z[place] [facility] 09/08/2023 15:27:31 Influenza, recombinant, quadrivalent, PF 0 completed Adelia [place] [facility] 09/08/2023 15:27:31 zoster recombinant 8 completed Adelia [place] [facility] 09/08/2023 15:27:31 zoster recombinant 8 completed Adelia [place] [facility] 09/08/2023 15:27:31 Influenza, adjuvanted, quadrivalent, PF 3 completed Adelia [place] [facility] 09/08/2023 15:27:31 Influenza, adjuvanted, quadrivalent, PF 1 [place] [facility] 09/08/2023 15:27:31 COVID-19, mRNA, LNP-S, PF, 100 mcg/0.5mL dose or 50 mcg/0.25mL dose 1 [place]EL[place]Y [place] [facility] 09/08/2023 15:27:31 COVID-19, mRNA, LNP-S, PF, 100 mcg/0.5mL dose or 50 mcg/0.25mL dose 1 [place] [facility] 09/08/2023 15:27:31 pneumococcal polysaccharide PPV23 3 [place] [facility] 09/08/2023 15:27:31 pneumococcal polysaccharide PPV23 0 [place] [facility] 09/08/2023 15:27:31 Pneumococcal conjugate PCV 13 5 [place] [facility] 09/08/2023 15:27:31 Td (adult), 5 Lf tetanus toxoid, preservative free, adsorbed 8 completed [place] [facility] 09/08/2023 15:27:31 Influenza, split virus, quadrivalent, PF 5 [place] [facility] 09/08/2023 15:27:31 Influenza, high-dose, quadrivalent, PF 3 completed Juan Canseco MD Attn: Accounting,[address] [place], [address], [place] [facility] 01/28/2023 17:44:30 Influenza, high-dose, trivalent, PF 4 completed KELSEY Gautam, [place] [facility] 12/14/2023 14:44:32 Past Encounters Encounter ID Performer Location Encounter Start Date Encounter Closed Date Diagnosis/Indication Diagnosis SNOMED-CT Code Diagnosis ICD10 Code Diagnosis Note [id number] GARFIELD Briseno (Adult Med) [address] [place] [address] 10/10/2014 11:51:30 10/10/2014 13:26:35 Bronchitis 36817433 Adult heal th examination 570316753 Chronic ob structive pulmonary disease 02774570 Essential hypertension 58366449 Hyperlipidemia 94356600 Obesity 166860377 [id number] Nargis Mcphersonlroy Murtaza (Adult Med) [address] [place] [address] 12/12/2014 15:25:34 12/12/2014 16:35:15 Acid reflux 358811433 K21.9 Adult heal th examination 859263386 Z00.00 Essential hypertension 88842913 I10 Hyperlipidemia 90252654 E78.5 Obesity 476354695 E66.9 Hip pain 70035453 M25.55 1 Chronic ob structive pulmonary disease 16077978 J44.9 [id number] JW Hyatt (Adult Med) [address] [place] [address] 0 03/13/2015 14:59:03 03/13/2015 15:27:13 Acid reflux 249092954 K21.9 Chronic ob structive pulmonary disease 47354827 J44.9 Essential hypertension 50455375 I10 Hip pain 53265201 M25.55 1 Hyperlipidemia 68194027 E78.5 Diabetes m ellitus screening 737067821 Z13.1 Knee pain 90944550 M25.5 60 right more than left , left aches but had total knee replacemen t on left knee January 2004. Dr. Jefferson [id number] JW Hyatt (Adult Med) [address] [place] [address] 0 06/05/2015 13:54:38 06/05/2015 15:19:57 Migraine 89202203 G43.909 Hip pain 90022432 M25.55 1 Hyperlipidemia 82518536 E78.5 Obesity 896134410 E66.9 Kidney stone 24845182 N2 0.0 lithotrips y April 11, and while hospitaliz ed at [facility] in [place] [id number] JW Hyatt (Adult Med) [address] [place] [address]221[address] 0 10/08/2015 11:25:49 10/08/2015 17:31:01 Acute sinusitis 73645863 J01.90 Obesity 293255687 E66.9 Hyperlipidemia 77741816 E78.5 Essential hypertension 98678136 I10 Hip pain 20105373 M25.55 1 Chronic ob structive pulmonary disease 78066620 J44.9 [id number] JW Hyatt (Adult Med) [address] [place] [address]281 0 01/06/2016 13:14:57 01/06/2016 15:35:52 Kidney stone 51051018 N20.0 lithotrips y April 11, and while hospitaliz ed at [facility] in [place] Acid reflux 738532651 K2 1.9 Essential hypertension 72730301 I10 Hyperlipidemia 66387007 E78.5 Hip pain 88945938 M25.55 1 Obesity 743205382 E66.9 Migraine 41345756 G43.90 9 Chronic ob structive pulmonary disease 64312548 J44.9 Tobacco user 074449624 Z 72.0 [id number] JW Hyatt (Adult Med) [address] [place] [address]906-307 0 04/02/2016 15:33:38 04/02/2016 16:37:50 Acute sinusitis 17479480 J01.90 Vaginitis and vulvovaginitis 554241330 N76.0 Hip pain 54837093 M25.55 1 Essential hypertension 97146564 I10 Hyperlipidemia 71071404 E78.5 Acid reflux 851225061 K2 1.9 Tobacco user 982392320 Z 72.0 [id number] JW Hyatt (Adult Med) [address] [place] [address]69[address]743 0 07/02/2016 14:47:06 07/02/2016 17:59:49 Hip pain 41903398 M25.551 Sinusitis 19155032 J32.9 Essential hypertension 23358020 I10 Bronchitis 44292228 J40 Hyperlipidemia 64840959 E78.5 Obesity 573941322 E66.9 [id number] JW Hyatt (Adult Med) [address] [place] [address]90[address]882 0 10/01/2016 14:44:39 10/04/2016 11:29:13 Essential hypertension 06087645 I10 Hyperlipidemia 06230881 E78.5 Acid reflux 880126678 K2 1.9 Kidney stone 78554962 N2 0.0 lithotrips y April 11, and 9 while hospitaliz ed at [facility] in [place] Hip pain 01155643 M25.55 1 Obesity 250093523 E66.9 Migraine 26370145 G43.90 9 Knee pain 15083778 M25.5 60 right more than left , left aches but had total knee replacemen t on left knee January 2004. Dr. Jefferson Chronic ob structive pulmonary disease 98518807 J44.9 Tobacco user 191289836 Z 72.0 [id number] JW Hyatt (Adult Med) [address] [place] [address] 0 03/24/2017 15:47:09 03/24/2017 16:42:47 Bronchitis 35701102 J40 Obesity 406508476 E66.9 Chronic ob structive pulmonary disease 22035024 J44.9 [id number] JW Hyatt (Adult Med) [address] [place] [address] 0 09/06/2017 12:34:13 09/06/2017 13:43:30 Pre-surgery testing 256103964 Z01.89 Essential hypertension 97729313 I10 Chronic ob structive pulmonary disease 05910534 J44.9 Obesity 179263638 E66.9 Hyperlipidemia 12485838 E78.5 Acid reflux 176052220 K2 1.9 [id number] JW Hyatt (Adult Med) [address] [place] [address]24-227 0 10/05/2017 13:02:28 10/05/2017 13:28:01 Essential hypertension 43734698 I10 Tobacco user 283024686 Z 72.0 Neuropathy 183299448 G62 .9 Hyperlipidemia 69099642 E78.5 Obesity 491358466 E66.9 Chronic ob structive pulmonary disease 64879214 J44.9 [id number] JW Hyatt (Adult Med) [address] [place] [address] 51174-991 0 01/05/2018 12:14:03 01/05/2018 13:41:48 Hyperlipidemia 20428023 E78.5 Vitamin D deficiency 347 16714 E55.9 Hip pain 48397915 M25.55 1 Chronic ob structive pulmonary disease 74233802 J44.9 Obesity 777237123 E66.9 Essential hypertension 73895579 I10 [id number] JW Hyatt (Adult Med) [address] [place] [address] 30658-958 0 05/01/2018 15:11:21 05/02/2018 12:34:30 Vitamin D deficiency 20805298 E55.9 Tobacco user 019736611 Z 72.0 Chronic ob structive pulmonary disease 69240537 J44.9 Obesity 367270460 E66.9 Hyperlipidemia 57437504 E78.5 Acid reflux 854557751 K2 1.9 Acute otitis media 69874 03 H66.91 Acute sinusitis 50246785 J01.90 Sinusitis 02198872 J32.9 Essential hypertension 48413862 I10 [id number] JW Hyatt (Adult Med) [address] [place] [address] 0 08/25/2018 13:57:44 08/25/2018 15:49:18 Acute otitis media 7191236 H66.91 Acute sinusitis 03480816 J01.90 Vitamin D deficiency 347 20652 E55.9 Acid reflux 230334405 K2 1.9 Chronic ob structive pulmonary disease 71932404 J44.9 Neuropathy 577047975 G62 .9 Obesity 700808356 E66.9 Hyperlipidemia 16757782 E78.5 Essential hypertension 75437604 I10 [id number] JW Hyatt (Adult Med) [address] [place] [address] 98676[address]801 0 09/22/2018 15:35:45 09/22/2018 16:22:16 Acid reflux 914630257 K21.9 Acute sinusitis 19873164 J01.90 Right uppe r quadrant pain 518147702 R10.11 no fever ... Chronic ob structive pulmonary disease 51833426 J44.9 Obesity 686818331 E66.9 [id number] JW Hyatt (Adult Med) [address] [place] [address]69-126 0 10/23/2018 15:48:34 10/24/2018 09:06:46 Parotid cyst 874756283 K11.6 Hyperlipidemia 22507231 E78.5 Essential hypertension 91944626 I10 Vitamin D deficiency 347 53132 E55.9 Acid reflux 095615340 K2 1.9 Acute otitis media 12817 03 H66.91 Eczema 54134517 L30.9 Chronic ob structive pulmonary disease 11376377 J44.9 [id number] JW Hyatt (Adult Med) [address] [place] [address] 51202-705 0 03/08/2019 13:42:13 03/08/2019 15:12:05 Gastroesophageal reflux disease 904544015 K21.9 Chronic constipation 236 477451 K59.09 Serum miriam min B12 below reference range 419234562 R79.89 Vitamin D deficiency 347 98832 E55.9 Hyperlipidemia 39652646 E78.5 Chronic ob structive pulmonary disease 84963378 J44.9 Essential hypertension 64130556 I10 Prolapsed lumbar intervertebral disc 808861324 M51.26 Tobacco user [id number] Z 72.0 [id number] JW Hyatt (Adult Med) [address] [place] [address] 83192-046 0 05/14/2019 16:38:51 05/14/2019 17:22:23 Acute otitis media 2656852 H66.91 Sinusitis 86184106 J32.9 Chronic ob structive pulmonary disease 76541536 J44.9 Hyperlipidemia 02497877 E78.5 Essential hypertension 31759639 I10 Gastroesop hageal reflux disease 944260887 K21.9 Neuropathy 408764512 G62 .9 Prolapsed lumbar intervertebral disc 784294999 M51.26 Vitamin D deficiency 347 73071 E55.9 [id number] JW Hyatt (Adult Med) [address] [place] [address] 17434-236 0 06/05/2019 14:12:13 06/05/2019 15:17:46 Acute otitis media 1036032 H66.91 Acute pharyngitis 775805 003 J02.9 Chronic ob structive pulmonary disease 44126413 J44.9 Essential hypertension 78355792 I10 Gastroesop hageal reflux disease 606765952 K21.9 Hyperlipidemia 83560783 E78.5 Neuropathy 947346456 G62 .9 Obesity 539451284 E66.9 Prolapsed lumbar intervertebral disc 413907134 M51.26 Vitamin D deficiency 347 31260 E55.9 Serum miriam min B12 below reference range 726619249 R79.89 [id number] RONALDO BUT[address]ERget[address]w [address] [place] [address] 08/17/2019 14:30:59 08/20/2019 14:17:14 Viral screening 180032106 Z11.59 [id number] JW Hyatt (Adult Med) [address] [place] [address] 67622-306 0 09/04/2019 10:12:09 09/05/2019 11:58:54 Chronic obstructive pulmonary disease 27305464 J44.9 Essential hypertension 81378748 I10 Gastroesop hageal reflux disease 192671430 K21.9 Hyperlipidemia 47893390 E78.5 Neuropathy 035165214 G62 .9 Prolapsed lumbar intervertebral disc 463260623 M51.26 Tobacco user [id number] Z 72.0 Vitamin D deficiency 347 18737 E55.9 [id number] RONALDO Humphreys [address] [place] [address] 47080-778 9 09/13/2019 10:05:42 09/14/2019 11:47:21 Viral screening 497814829 Z11.59 D/w pt the current pandemic of COVID-19 and call for social isolation in order to blunt the curve and minimize risk and spread. Encouraged patient and family to take restrictio ns seriously. They have verbalized understand ing of such. Viral syndrome 406034698 B34.9 [id number] JW Hyatt (Adult Med) [address] [place] [address] 31654-786 0 02/28/2020 07:56:22 02/28/2020 14:17:05 Bronchitis 12613086 J40 Acute sinusitis 82082285 J01.90 Gastroesop hageal reflux disease 170763642 K21.9 Chronic ob structive pulmonary disease 09253668 J44.9 Hyperlipidemia 48732398 E78.5 Essential hypertension 44016175 I10 Neuropathy 205680734 G62 .9 Serum miriam min B12 below reference range 235297982 R79.89 Vitamin D deficiency 347 85240 E55.9 Tobacco user [id number] Z 72.0 [id number] JW Hyatt (Adult Med) [address] [place] [address] 80765-807 0 05/19/2020 08:29:37 05/19/2020 17:52:33 Acute urticaria 152020097 L50.9 Neuropathy 277145681 G62 .9 Prolapsed lumbar intervertebral disc 737335668 M51.26 Chronic ob structive pulmonary disease 26572152 J44.9 Acid reflux 068847886 K2 1.9 Essential hypertension 69783239 I10 Gastroesop hageal reflux disease 359428686 K21.9 Hyperlipidemia 31181230 E78.5 Obesity 580870435 E66.9 Serum miriam min B12 below reference range 815808295 R79.89 Tobacco user [id number] Z 72.0 Vitamin D deficiency 347 19179 E55.9 [id number] JW Hyatt (Adult Med) [address] [place] [address] 21523-867 0 06/19/2020 08:34:28 06/19/2020 13:44:26 Eczema 15900654 L30.9 Hyperlipidemia 10205258 E78.5 [id number] JW Hyatt (Adult Med) [address] [place] [address] 66519-868 0 07/18/2020 09:38:30 07/18/2020 14:12:14 Chronic obstructive pulmonary disease 31649985 J44.9 Essential hypertension 00572558 I10 Gastroesop hageal reflux disease 154825757 K21.9 Hyperlipidemia 28739602 E78.5 Neuropathy 484473017 G62 .9 Obesity 359414964 E66.9 Prolapsed lumbar intervertebral disc 267977332 M51.26 Vitamin D deficiency 347 19120 E55.9 Serum miriam min B12 below reference range 385459415 R79.89 [id number] JW Hyatt (Adult Med) [address] [place] [address] 07477-277 0 10/17/2020 08:48:38 10/17/2020 11:58:21 Neuropathy 852086976 G62.9 Vulvovaginitis 19243951 N76.0 Chronic ob structive pulmonary disease 51843978 J44.9 Essential hypertension 96413992 I10 Gastroesop hageal reflux disease 430517663 K21.9 Hyperlipidemia 48553422 E78.5 Prolapsed lumbar intervertebral disc 117779986 M51.26 Vitamin D deficiency 347 15583 E55.9 Tobacco user [id number] Z 72.0 Serum miriam min B12 below reference range 348513606 R79.89 [id number] JW Hyatt (Adult Med) [address] [place] [address] 40477-083 0 01/16/2021 12:02:03 01/16/2021 12:48:32 Chronic obstructive pulmonary disease 02212856 J44.9 Serum miriam min B12 below reference range 572844837 R79.89 Chronic constipation 236 666442 K59.09 Essential hypertension 35877928 I10 Gastroesop hageal reflux disease 035610158 K21.9 Hyperlipidemia 73217172 E78.5 Neuropathy 733869613 G62 .9 Prolapsed lumbar intervertebral disc 316613799 M51.26 Tobacco user [id number] Z 72.0 Urinary incontinence 165 901874 R32 Vitamin D deficiency 347 87309 E55.9 [id number] JW Hyatt (Adult Med) [address] [place] [address] 14785-394 0 04/17/2021 09:21:22 04/17/2021 16:48:47 Insomnia 679765053 G47.00 Chronic ob structive pulmonary disease 65523464 J44.9 Chronic constipation 236 662902 K59.09 Essential hypertension 12928171 I10 Gastroesop hageal reflux disease 402941107 K21.9 Hip pain 95384189 M25.55 1 Hyperlipidemia 00207301 E78.5 Neuropathy 007834602 G62 .9 Normal grief reaction 27 6688838 F43.20 Prolapsed lumbar intervertebral disc 197089694 M51.26 Serum miriam min B12 below reference range 699890205 R79.89 Tobacco user [id number] Z 72.0 Vitamin D deficiency 347 78790 E55.9 [id number] JW Hyatt (Adult Med) [address] [place] [address] 67317-916 0 08/11/2021 15:00:29 08/12/2021 13:12:43 Acid reflux 061238230 K21.9 Gastroesop hageal reflux disease 193172354 K21.9 Hyperlipidemia 35876766 E78.5 Insomnia 304369186 G47.0 0 Neuropathy 130604431 G62 .9 Obesity 326030569 E66.9 Prolapsed lumbar intervertebral disc 056880017 M51.26 Serum miriam min B12 below reference range 410477726 R79.89 Tobacco user [id number] Z 72.0 Vitamin D deficiency 347 63337 E55.9 Chronic ob structive pulmonary disease 55324419 J44.9 Essential hypertension 44158587 I10 Normal grief reaction 27 2940314 F43.20 Eczema 99229705 L30.9 arms [id number] JW Hyatt (Adult Med) [address] [place] [address] 98119-515 0 09/11/2021 11:49:22 09/15/2021 08:25:09 Acute sinusitis 03468359 J01.90 Hyperlipidemia 36686374 E78.5 Serum miriam min B12 below reference range 501452607 R79.89 Vitamin D deficiency 347 15414 E55.9 Essential hypertension 73918846 I10 Gastroesop hageal reflux disease 213861660 K21.9 Neuropathy 517818104 G62 .9 Prolapsed lumbar intervertebral disc 619135965 M51.26 Chronic ob structive pulmonary disease 59292379 J44.9 Insomnia 487662775 G47.0 0 [id number] JW Hyatt (Adult Med) [address] [place] [address] 16140-638 0 10/16/2021 11:49:21 10/20/2021 07:59:55 Chronic obstructive pulmonary disease 68592969 J44.9 Acute sinusitis 54543499 J01.90 Renewal of prescription 338479569 Z76.0 [id number] JW Hyatt (Adult Med) [address] [place] [address] 06854-462 0 11/16/2021 12:07:30 11/17/2021 08:34:17 Bronchitis 35694964 J40 Chronic ob structive pulmonary disease 51939858 J44.9 Eczema 61548688 L30.9 arms Acute otitis media 70400 03 H66.91 Allergic rhinitis 048667 04 J30.9 Essential hypertension 71814895 I10 Gastroesop hageal reflux disease 767313399 K21.9 Hyperlipidemia 14529077 E78.5 Insomnia 753854104 G47.0 0 Prolapsed lumbar intervertebral disc 271972018 M51.26 Serum miriam min B12 below reference range 443046286 R79.89 Tobacco user [id number] Z 72.0 Vitamin D deficiency 347 37027 E55.9 [id number] Juan Canseco MD [facility] (Adult Med) [address] [place] [address] 38286-510 0 03/22/2022 16:01:18 03/25/2022 15:01:33 Obesity 483617901 E66.9 BMI is 35.2. she has been advised to watx=ch her diwr, exercise and keep the weight down. Acid reflux 952768742 K2 1.9 On famotidine . Chronic ob structive pulmonary disease 41036436 J44.9 On inhalers. Gastroesop hageal reflux disease 902798571 K21.9 On famotidine . Hyperlipidemia 94630295 E78.5 On low anomal fat diet, and ezetimibe Degenerati ve joint disease involving multiple joints 509681234 M15.9 On ergocalcif john. Smoker 65469018 F17.200 Advised her to quit smoking. 03-22-2022 . [id number] Juan Canseco MD [facility] (Adult Med) [address] [place] [address] 97870-057 0 07/20/2022 11:50:11 07/21/2022 14:43:32 Obesity 151024222 E66.9 BMI is 35.2. she has been advised to watch her diet, exercise and keep the weight down. Edema of l ower extremity 572874107 R60.0 She agreed for the tests as ordered and agreed to try furosemide pending the tests. Smoker 80558105 F17.200 Advised her to quit smoking. 03-22-2022 . She is aware of cigarettes smoking can cause cancer of lung, throat, mouth , and emphysema and other disese. [id number] Juan Canseco MD [facility] (Adult Med) [address] [place] [address] 10/04/2022 11:51:03 10/05/2022 13:14:56 Obesity 198246554 E66.9 BMI is 35.2. she has been advised to watch her diet, exercise and keep the weight down. BMI is 36.8 as 10-04-22, Chronic ob structive pulmonary disease 03082500 J44.9 On inhalers. Also under the care of her communication specialist . Smoker 63057595 F17.200 Advised her to quit smoking. 03-22-2022 . She is aware of cigarettes smoking can cause cancer of lung, throat, mouth , and emphysema and other disese. She said that she has cut down to about 10 cigarettes /day, has LDCT ordered by Dr. Luciano Mustafa. communication specialist , no lung tumor 2022. Chronic sinusitis 195525 00 J32.9 has had chronic sinus congestion , Discussed with patient, that chronic use of ABS and prednisolo n is not a good ideal, . She agreed for the med as ordered. [id number] Juan Canseco MD [facility] (Adult Med) [address] [place] [address] 01/28/2023 13:58:01 01/31/2023 14:45:20 Administration of influenza vaccine 95608799 Z23 She tolerated shot well. Chronic ob structive pulmonary disease 93227601 J44.9 On inhalers. Also under the care of her communication specialist . Smoker 70292234 F17.200 Advised her to quit smoking. 03-22-2022 . She is aware of cigarettes smoking can cause cancer of lung, throat, mouth , and emphysema and other disese. She said that she has cut down to about 10 cigarettes /day, has LDCT ordered by Dr. Luciano Mustafa. communication specialist , no lung tumor 2022. Hyperlipidemia 36110900 E78.5 On low anomal fat diet, and ezetimibe Chronic back pain 198564 002 G89.29 Under the care of her pain management . Vitamin B1 2 level below reference range 699599809 R79.9 it is not truth, she wants to be tested today. Vitamin D deficiency 347 07702 E55.9 Level was 37.9 on 09-11-2021 . Normal is above 30. [id number] MD Murtaza Mcgee (Adult Med) [address] [place] [address] 20980-255 0 04/28/2023 16:24:12 05/03/2023 11:21:57 Acute exacerbation of chronic obstructive pulmonary disease 726278433 J44.1 Discussed with patient, agreed to try medication s as ordered. [id number] MD Murtaza Ware (Adult Med) [address] [place] [address] 85278-602 0 06/24/2023 09:45:55 06/24/2023 11:00:02 Hyperlipidemia 22363670 E78.5 Vitamin D deficiency 347 66369 E55.9 Neurogenic urinary bladder 450720721 N31.9 Urinary incontinence 165 059268 R32 Obstructiv e sleep apnea syndrome 17068437 G47.33 [id number] Donnie Daley MD [facility] [place] [address] [place] [address] 28848-316 1 08/01/2023 16:08:34 08/01/2023 17:41:50 Acute bronchitis 50873537 J20.9 [id number] Donnie Daley MD [facility] [place] [address] [place] [address] 23226-249 1 09/08/2023 14:52:54 09/08/2023 16:56:15 Obesity 392764450 E66.8 Chronic ob structive pulmonary disease 37608327 J44.9 Chronic pain syndrome 37 3882850 G89.4 Obstructiv e sleep apnea syndrome 12938950 G47.33 Smoker 62762777 F17.200 Gastroesop hageal reflux disease without esophagitis 666013812 K21.9 [id number] MD Murtaza Ware (Adult Med) [address] [place] [address] 49411-704 0 09/20/2023 11:56:28 09/20/2023 12:48:36 Obesity 014821781 E66.8 Smoker 94360367 F17.200 Chronic ob structive pulmonary disease 40524623 J44.9 [id number] MD Murtaza Ware (Adult Med) [address] [place] [address] 56318-578 0 10/26/2023 14:30:51 10/26/2023 16:17:42 Essential hypertension 93376749 I10 Fatigue 23829215 R53.83 Hyperlipidemia 55830885 E78.5 Chronic ob structive pulmonary disease 72119844 J44.9 [id number] KELSEY Gautam (Adult Med) [address] [place] [address] 11870-359 0 12/13/2023 10:11:48 12/13/2023 10:57:30 Administration of influenza vaccine 03329408 Z23 [id number] MD Murtaza Ware (Adult Med) [address] [place] [address] 79052-163 0 03/30/2024 09:28:05 03/30/2024 10:54:48 Body mass index 30+ - obesity 662668356 Z68.34 Obesity 094860223 E66.9 Hyperlipidemia 89329520 E78.5 Chronic ob structive pulmonary disease 46530097 J44.9 Kidney stone 24408874 N2 0.0 Obstructiv e sleep apnea syndrome 04879752 G47.33 Gallstone 725073447 K80. 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 Eczema 21788320 L30.9 [id number] MD Murtaza Ware (Adult Med) [address] [place] [address] 70037-521 0 04/13/2024 10:43:23 04/13/2024 11:59:26 Body mass index 30+ - obesity 797674011 Z68.34 Obesity 307950910 E66.9 Hyperlipidemia 16372040 E78.5 Paresthesi a of lower extremity 067013145 R20.2 Health Concerns Section Related Observation LastModified by Organization Detai ls LastModified Time None Recorded Concern Status LastModified by Organization Details LastModified Time None Recorded Advance Directives Directive N: Payers Encounter Date Sequence Insurance Name Policy Number Policy Crane Covered Member ID Crane Member ID Guarantor Name 09/20/2023 1 [facility] (MEDICARE REPLACEMENT/A DVANTAGE - HMO) [id number] Ashutosh Garrett [id number] Connie Garrett 10/26/2023 1 [facility] (MEDICARE REPLACEMENT/A DVANTAGE - HMO) [id number] Oralee N Garrett [id number] Ora Anatoliy Garrett 12/13/2023 1 [facility] (MEDICARE REPLACEMENT/A DVANTAGE - HMO) [id number] Oralee N Garrett [id number] Ora Anatoliy Garrett 03/30/2024 1 [facility] (MEDICARE REPLACEMENT/A DVANTAGE - HMO) [id number] Oralee N Garrett [id number] Ora Anatoliy Garrett 04/13/2024 1 [facility] (MEDICARE REPLACEMENT/A DVANTAGE - HMO) [id number] Oralee N Garrett [id number] Ora Anatoliy Garrett Notes Date Note Type Note Provider Name and Address Organization Details Recorded Time 09/20/2023 text/html she continues to make some improvement breathing is stable following up for her COPD exacerbation continues to smoke Donnie Daley MD Attn: Accounting, [address] [place], [address], [facility] 10/01/2023 15:16:53 10/26/2023 text/html COPD no cough or wheezing doing better sounds like she is over her exacerbation. Dyslipidemia needs blood work she does try to follow a low-fat diet. She does complain a little bit of fatigue some of that could be coming off the COPD exacerbation. Hypertension no headache no dizziness. Chronic pain she does see a local pain management Donnie Daley MD Attn: Accounting, [address] [facility], [place], [address], [facility] 11/05/2023 14:48:01 03/30/2024 text/html hypertension no headache or dizziness blood pressure 106/68. COPD stable no cough or wheezing. Dyslipidemia taking her Zetia without any side effects. gallstone asymptomatic kidney stone asymptomatic Donnie Daley MD Attn: Accounting, [address] [place], [address], [place] [facility] 03/30/2024 22:09:45 04/13/2024 text/html Acute appointmen t she comes in basically for a couple of things 1. She needs her blood work done she did not get that done yet but now she is complaining of several months of numbness and burning in her legs at night she did not go over that our last visit with me she does have a history of some spinal problems no bowel or bladder incontinence as stated kind of numb and they burn at night when she is walking sometimes they will have some pain but it does not have classic claudication Donnie Daley MD Attn: Accounting,[address] [facility], [place], [address], [facility] 04/14/2024 16:08:07 OBGyn Episode No OBEpisode recorded.
--- NOTE | 2024-05-15 13:55 | NEURO_ITS ---
Impression: # Complains of paresthesia in lower extremities. ? # Normal motor and sensory Nerve Conduction Study. ? # Normal needle/EMG exam. ? # Clinical correlation recommended. Could be related to small fiber neuropathy. Nerve Conduction Studies Anti Sensory Summary Table ?Stim Site NR Peak (ms) P-T Amp (?V) Site1 Site2 Delta-P (ms) Dist (cm) Shiraz (m/s) Left Sup Fibular Anti Sensory (Ant Lat Mall) 14 cm ? 3.6 6.4 14 cm Ant Lat Mall 3.6 16.0 44 Right Sup Fibular Anti Sensory (Ant Lat Mall) 14 cm ? 3.6 7.0 14 cm Ant Lat Mall 3.6 16.0 44 Left Sural Anti Sensory (Lat Mall) Calf ? 3.4 13.2 Calf Lat Mall 3.4 16.0 47 Right Sural Anti Sensory (Lat Mall) Calf ? 3.7 10.7 Calf Lat Mall 3.7 16.0 43 Motor Summary Table ?Stim Site NR Onset (ms) O-P Amp (mV) Site1 Site2 Delta-0 (ms) Dist (cm) Shiraz (m/s) Left Peroneal Motor (Vastus Med) Ankle ? 2.6 0.9 Popit Ankle 8.3 39.0 47 Popit ? 10.9 0.9 Right Peroneal Motor (Vastus Med) Ankle ? 3.4 2.8 Popit Ankle 8.6 38.0 44 Popit ? 12.0 2.4 Left Tibial Motor (Abd Schulte Brev) Ankle ? 4.1 2.8 Knee Ankle 8.8 40.0 45 Knee ? 12.9 2.3 Right Tibial Motor (Abd Schulte Brev) Ankle ? 3.5 4.7 Knee Ankle 8.5 39.0 46 Knee ? 12.0 2.7 F Wave Studies ?NR F-Lat (ms) L-R F-Lat (ms) Left Peroneal (Mrkrs) (EDB) ? 49.14 1.18 Right Peroneal (Mrkrs) (EDB) ? 50.31 1.18 Left Tibial (Mrkrs) (Abd Hallucis) ? 50.90 0.67 Right Tibial (Mrkrs) (Abd Hallucis) ? 51.58 0.67 EMG ?Side Muscle Nerve Root Ins Act Fibs Amp Dur Recrt Comment Right AntTibialis Dp Br Fibular L4-5 Nml Nml Nml Nml Nml Right Gastroc Tibial S1-2 Nml Nml Nml Nml Nml Right Fibularis Long Sup Br Fibular L5-S1 Nml Nml Nml Nml Nml Right Flex Dig Long Tibial L5-S2 Nml Nml Nml Nml Nml Right Ext Dig Brev Dp Br Fibular L5, S1 Nml Nml Nml Nml Nml Right QuadratusFem QuadFemoris L4-5, S1 Nml Nml Nml Nml Nml Left AntTibialis Dp Br Fibular L4-5 Nml Nml Nml Nml Nml Left Gastroc Tibial S1-2 Nml Nml Nml Nml Nml Left Fibularis Long Sup Br Fibular L5-S1 Nml Nml Nml Nml Nml Left Flex Dig Long Tibial L5-S2 Nml Nml Nml Nml Nml Left Ext Dig Brev Dp Br Fibular L5, S1 Nml Nml Nml Nml Nml Left QuadratusFem QuadFemoris L4-5, S1 Nml Nml Nml Nml Nml MTDD
== END 2024-05-15 12:08 | disposition home or self-care (01) ==
PROVIDERS: PCP Internal Medicine; Visit Provider Internal Medicine
DX: R20.2 Paresthesia of skin (principal)
CPT/HCPCS: 95886; 95910

== ENCOUNTER 2024-09-06 13:50 | Outpatient (CLI) | payer MEDICARE, MEDICAID, SELFPAY ==
--- NOTE | ~2024-09-06 | US_ITS ---
Ankle Brachial Index with Ultrasound Dopplers and Pulse Volume Recordings Technique: Pressures in the arm and lower extremity were obtained. Additionally, arterial and pulse v olume waveforms were obtained bilaterally. Findings: Segmental pressures Right posterior tibial: 120 Right dorsalis pedis: 111 Left posterior tibial: 130 Left dorsalis pedis: 106 There are monophasic and biphasic waveforms bilaterally. AARON Right 1.0 Left 1.08 TBI Right 0.79 Left 0.87 Impression: No sonographic evidence to suggest the presence of peripheral vascular disease causing elgin lara's paresthesias in the bilateral lower extremities. Reviewed, dictated and finalized at location A. Impression: No sonographic evidence to suggest the presence of peripheral vascu lar disease causing patient's paresthesias in the bilateral lower extremities.
--- OUTSIDE RECORDS SUMMARY | 2024-09-06 13:54 | XMS_ITS | Data Portability ---
[facility] [address] [facility] [place] [address] Care Team Providers Care Personnel Assistant Name Role Phone DONNIE DALEY Primary Care Provider Assessment Encounter Date Assessment Date Assessment LastModified by Organization Details LastModified Time 10/26/2023 10/26/2023 advised to stay up-to-date on immunizations and screenings so she has a mammogram scheduled December 23 blood work has been ordered continue current therapy and follow up in 3 months [email or web address] Not available 11/05/2023 14:47:25 03/30/2024 03/30/2024 we will continue current therapy healthy lifestyle care instructions follow up 4 months continue current therapy all diagnosis discussed that are in the assessment and plan and their management patient did get an RSV shot at [facility] [email or web address] Not available 03/30/2024 22:09:19 04/13/2024 04/13/2024 she needs to get her blood work done [facility] NCS legs ABIs legs to make sure no vascular insufficiency we may need an MRI of the back before it is all said and done blood work ordered further recommendations once we get testing results motor vascular and neuro appear intact to the lower extremities. consider [email or web address] Not available 04/14/2024 16:07:50 07/20/2024 07/20/2024 Her nerve conduction tests were unremarkable we will get her set up with some physical therapy for her legs healthy lifestyle care instructions quitting tobacco care instructions blood work has been ordered review of management of diagnosis in the assessment and plan have been discussed follow up 3 months [email or web address] Not available 07/21/2024 15:57:24 Plan of Treatment Reminders Order Date Submit Date Provider Last Modified By Organization Details Last Modified Time Details Appointments ANY 15 2024 10:00A Jeremie Daley MD Not available Not available Not available Lab vitamin D, 25-hydrox y, total, serum 2024 025 [facility], [facility] [address], [address], [place], [address], 07/21/2024 08:22:27 lipid panel, serum 2024 025 [facility], [address] [place], [place] [address]benji Marvin, [address], [place], [address], 07/21/2024 08:22:24 CMP, serum or plasma 2024 025 [facility], [address] [place], [place] [address]benji [address], [address], [place], [address], 07/21/2024 08:22:24 CBC w/ auto diff 2024 025 [facility], [address] [place], [place] [address]dheeraj Marvin, [address], [place], [address], 07/21/2024 08:22:26 vitamin B12, serum 2024 025 [facility], [address] [place], [place] [address]benji Marvin, [address], [place], [address], 07/21/2024 08:22:25 cobalamin and folate panel, serum 2024 025 [facility], [facility], [address], [place], [address], 04/14/2024 09:14:04 TSH + free T4, serum 2024 025 [facility], [address], [address], [place], [address], 04/14/2024 09:14:01 T3, total, serum 2024 025 [facility], [address], [address], [place], [address], 04/14/2024 09:14:06 CBC w/ auto diff 2024 025 [facility], [address]una [address], [address], [place], [address], 04/14/2024 09:14:07 CMP, serum or plasma 2024 025 [facility], [address], [address], [place], [address], 04/14/2024 09:14:02 CBC w/ auto diff 2023 024 [facility], [address], [address], [place], [address], 11/08/2023 17:31:42 CMP, serum or plasma 2023 024 [facility], [address], [address], [place], [address], 11/08/2023 17:31:57 lipid panel, serum 2023 024 [facility], [address], [address], [place], [address], 11/08/2023 17:32:13 T3, free, serum or plasma 2023 024 [facility], [address], [address], [place], [address], 10/28/2023 06:18:58 T4, free, serum 2023 024 [facility], [address], [address], [place], [address], 10/28/2023 06:18:59 TSH, serum or plasma 2023 024 [facility], [address], [address], [place], [address], 11/03/2023 06:19:46 vitamin B12 + folate, serum or blood 2023 024 [facility], [address] [facility], [address], [place], [address], 10/28/2023 06:18:59 Referral physical therapist referral 2024 025 [facility], [address] [facility], [facility], [place], [address], 07/31/2024 15:20:31 Procedures nerve conductio n study/EMG , lower extremity (PROC) - B/L lower extermity . 2024 025 [facility] (Cardiology & Emg), [address] [facility] [address] [place] [address], [address], 05/15/2024 16:13:13 Surgeries None recorded. Imaging None recorded. Medication Orders Zetia 10 mg tablet [email or web address] [facility] [id number], [address] [place] [address], [id number], 03/30/2024 14:01:31 Patient TargetsNo targets recorded. Patient Instructions Encounter Date Encounter Id Patient Instructions Last Modified By Organization Details Last Modified Time 03/30/2024 [id number] A healthy lifestyle: care instructions Not available 03/30/2024 14:01:31 04/13/2024 [id number] A healthy lifestyle: care instructions Not available 04/13/2024 11:41:03 (AARON) ankle brachial index* [email or web address] Not available 07/16/2024 20:39:26 07/20/2024 [id number] Quitting Tobacco : Care Instructions [email or web address] Not available 07/20/2024 12:00:24 A healthy lifestyle: care instructions [email or web address] Not available 07/20/2024 12:00:24 Reason for Referral Physical Therapist Referral for Weakness of bilateral lower limb Referring Physician: Donnie Daley, Internal Medicine, Encounter Date: 07/20/2024 Results Created Date Observation Date Name Description Value Unit Range Abnormal Flag Note LastModifiedBy Organization Detail LastModifiedTime 10/26/19 24 10/27/2023 LIPID PANEL cholesterol, total 158 mg/dL 100-19 9 Not Available [facility] ([facility]) [address] [place], [address], 10/27/2023 11:15:07 10/26/19 24 10/27/2023 LIPID PANEL triglyceride s 111 mg/dL 0-149 Not Available [facility] ([facility]) [address] [place], [address], 10/27/2023 11:15:07 10/26/19 24 10/27/2023 LIPID PANEL HDL cholesterol 57 mg/dL >39 Not Available [facility] ([facility]) [address] [place], [address], 10/27/2023 11:15:07 10/26/19 24 10/27/2023 LIPID PANEL VLDL cholesterol divine 20 mg/dL 5-40 Not Available [facility] ([facility]) [address] [place], [address], 10/27/2023 11:15:07 10/26/19 24 10/27/2023 LIPID PANEL LDL chol calc ([facility]) 81 mg/dL 0-99 Not Available [facility] ([facility]) [address] [place], [address], 10/27/2023 11:15:07 10/26/19 24 10/27/2023 COMP. METAB OLIC PANEL (14) glucose 88 mg/dL 70-99 Not Available [facility] ([facility]) [address] [facility] [place], [address], 10/27/2023 11:15:07 10/26/19 24 10/27/2023 COMP. METAB OLIC PANEL (14) BUN 12 mg/dL 8-27 Not Available [facility] ([facility]) [address] [facility] [place], [address], 10/27/2023 11:15:07 10/26/19 24 10/27/2023 COMP. METAB OLIC PANEL (14) creatinine 0.89 mg/dL 0.57-1 .00 Not Available [facility] ([facility]) [address] [facility] [place], [address], 10/27/2023 11:15:07 10/26/19 24 10/27/2023 COMP. METAB OLIC PANEL (14) eGFR 70 mL/mi n/1.7 3 >59 Not Available [facility] ([facility]) [address] [facility] [place], [address], 10/27/2023 11:15:07 10/26/19 24 10/27/2023 COMP. METAB OLIC PANEL (14) BUN/creatini ne ratio 13 12-28 Not Available [facility] ([facility]) [address] [facility] [place], [address], 10/27/2023 11:15:07 10/26/19 24 10/27/2023 COMP. METAB OLIC PANEL (14) sodium 143 mmol/ L 134-14 4 Not Available [facility] ([facility]) [address] [facility] [place], [address], 10/27/2023 11:15:07 10/26/19 24 10/27/2023 COMP. METAB OLIC PANEL (14) potassium 5.2 mmol/ L 3.5-5. 2 Not Available [facility] ([facility]) [address] [facility] [place], [address], 10/27/2023 11:15:07 10/26/19 24 10/27/2023 COMP. METAB OLIC PANEL (14) chloride 103 mmol/ L 96-106 Not Available [facility] ([facility]) [address] [place] [place], [place], [address], 10/27/2023 11:15:07 10/26/19 24 10/27/2023 COMP. METAB OLIC PANEL (14) carbon dioxide, total 25 mmol/ L 20-29 Not Available [facility] ([facility]) [address], [place], [address], 10/27/2023 11:15:07 10/26/19 24 10/27/2023 COMP. METAB OLIC PANEL (14) calcium 9.7 mg/dL 8.7-10 .3 Not Available [facility] ([facility]) [address], [place], [address], 10/27/2023 11:15:07 10/26/19 24 10/27/2023 COMP. METAB OLIC PANEL (14) protein, total 7.5 g/dL 6.0-8. 5 Not Available [facility] ([facility]) [address] [facility], [place], [address], 10/27/2023 11:15:07 10/26/19 24 10/27/2023 COMP. METAB OLIC PANEL (14) albumin 4.4 g/dL 3.9-4. 9 Not Available [facility] ([facility] [address] [facility] [place], [address], 10/27/2023 11:15:07 10/26/19 24 10/27/2023 COMP. METAB OLIC PANEL (14) globulin, total 3.1 g/dL 1.5-4. 5 Not Available [facility] ([facility] [address] [facility] [place], [address], 10/27/2023 11:15:07 10/26/19 24 10/27/2023 COMP. METAB OLIC PANEL (14) bilirubin, total 0.4 mg/dL 0.0-1. 2 Not Available [facility] ([facility]) [address] [facility] [place], [address], 10/27/2023 11:15:07 10/26/19 24 10/27/2023 COMP. METAB OLIC PANEL (14) alkaline phosphatase 87 IU/L 44-121 Not Available [facility] ([facility]) [address] [facility] [place], [address], 10/27/2023 11:15:07 10/26/19 24 10/27/2023 COMP. METAB OLIC PANEL (14) AST (SGOT) 19 IU/L 0-40 Not Available [facility] ([facility]) [address] [facility] [place], [address], 10/27/2023 11:15:07 10/26/19 24 10/27/2023 COMP. METAB OLIC PANEL (14) ALT (SGPT) 14 IU/L 0-32 Not Available [facility] ([facility]) [address] [facility] [place], [address], 10/27/2023 11:15:07 10/26/19 24 10/27/2023 VITAM IN B12 AND FOLAT E vitamin B12 738 pg/mL 232-12 45 Not Available [facility] ([facility]) [address] [facility] [place], [address], 10/27/2023 11:15:08 10/26/19 24 10/27/2023 VITAM IN B12 AND FOLAT E folate (folic acid), serum 7.0 NG/mL >3.0 A serum folat e elisabeth ntrat ion of less than 3.1 ng/mL is consi dered to repre sent clini divine defic iency . Not Available [facility] ([facility]) [address] [facility] [place], [address], 10/27/2023 11:15:08 10/26/19 24 10/27/2023 CBC WITH DIFFE RENTI AL/PL ATELE T WBC 7.4 x10e3 /uL 3.4-10 .8 Not Available [facility] ([facility]) [address] [facility], [place], [address], 10/27/2023 11:15:08 10/26/19 24 10/27/2023 CBC WITH DIFFE RENTI AL/PL ATELE T RBC 5.26 x10e6 /uL 3.77-5 .28 Not Available [facility] ([facility]) [address] [facility], [place], [address], 10/27/2023 11:15:08 10/26/19 24 10/27/2023 CBC WITH DIFFE RENTI AL/PL ATELE T hemoglobin 15.9 g/dL 11.1-1 5.9 Not Available [facility] ([facility]) [address] [facility], [place], [address], 10/27/2023 11:15:08 10/26/19 24 10/27/2023 CBC WITH DIFFE RENTI AL/PL ATELE T hematocrit 48.7 % 34.0-4 6.6 above high normal Not Available [facility] ([facility]) [address] [facility], [place], [address], 10/27/2023 11:15:08 10/26/19 24 10/27/2023 CBC WITH DIFFE RENTI AL/PL ATELE T MCV 93 fL 79-97 Not Available [facility] ([facility]) [address] [place], [address], 10/27/2023 11:15:08 10/26/19 24 10/27/2023 CBC WITH DIFFE RENTI AL/PL ATELE T MCH 30.2 pg 26.6-3 3.0 Not Available [facility] ([facility]) [address] [place], [address], 10/27/2023 11:15:08 10/26/19 24 10/27/2023 CBC WITH DIFFE RENTI AL/PL ATELE T MCHC 32.6 g/dL 31.5-3 5.7 Not Available [facility] ([facility]) [address] [facility], [place], [address], 10/27/2023 11:15:08 10/26/19 24 10/27/2023 CBC WITH DIFFE RENTI AL/PL ATELE T RDW 13.1 % 11.7-1 5.4 Not Available [facility] ([facility]) [address] [facility], [place], [address], 10/27/2023 11:15:08 10/26/19 24 10/27/2023 CBC WITH DIFFE RENTI AL/PL ATELE T platelets 234 x10e3 /uL 150-45 0 Not Available [facility] ([facility]) [address] [facility], [place], [address], 10/27/2023 11:15:08 10/26/19 24 10/27/2023 CBC WITH DIFFE RENTI AL/PL ATELE T neutrophils 34 % notest ab. Not Available [facility] ([facility]) [address] [facility], [place], [address], 10/27/2023 11:15:08 10/26/19 24 10/27/2023 CBC WITH DIFFE RENTI AL/PL ATELE T lymphs 56 % notest ab. Not Available [facility] ([facility]) [address] [facility], [place], [address], 10/27/2023 11:15:08 10/26/19 24 10/27/2023 CBC WITH DIFFE RENTI AL/PL ATELE T monocytes 7 % notest ab. Not Available [facility] ([facility]) [address] [facility], [place], [address], 10/27/2023 11:15:08 10/26/19 24 10/27/2023 CBC WITH DIFFE RENTI AL/PL ATELE T eos 2 % notest ab. Not Available [facility] ([facility]) [address] [place], [address], 10/27/2023 11:15:08 10/26/19 24 10/27/2023 CBC WITH DIFFE RENTI AL/PL ATELE T basos 1 % notest ab. Not Available [facility] ([facility]) [address] [facility], [place], [address], 10/27/2023 11:15:08 10/26/19 24 10/27/2023 CBC WITH DIFFE RENTI AL/PL ATELE T neutrophils (absolute) 2.5 x10e3 /uL 1.4-7. 0 Not Available [facility] ([facility]) [address] [place], [address], 10/27/2023 11:15:08 10/26/19 24 10/27/2023 CBC WITH DIFFE RENTI AL/PL ATELE T lymphs (absolute) 4.2 x10e3 /uL 0.7-3. 1 above high normal Not Available [facility] ([facility]) [address] [place], [address], 10/27/2023 11:15:08 10/26/19 24 10/27/2023 CBC WITH DIFFE RENTI AL/PL ATELE T monocytes(ab solute) 0.5 x10e3 /uL 0.1-0. 9 Not Available [facility] ([facility]) [address] [place], [address], 10/27/2023 11:15:08 10/26/19 24 10/27/2023 CBC WITH DIFFE RENTI AL/PL ATELE T eos (absolute) 0.2 x10e3 /uL 0.0-0. 4 Not Available [facility] ([facility]) [address] [place], [address], 10/27/2023 11:15:08 10/26/19 24 10/27/2023 CBC WITH DIFFE RENTI AL/PL ATELE T baso (absolute) 0.1 x10e3 /uL 0.0-0. 2 Not Available [facility] ([facility]) [address] [facility], [place], [address], 10/27/2023 11:15:08 10/26/19 24 10/27/2023 CBC WITH DIFFE RENTI AL/PL ATELE T immature granulocytes 0 % notest ab. Not Available [facility] ([facility]) [address] [place], [address], 10/27/2023 11:15:08 10/26/19 24 10/27/2023 CBC WITH DIFFE RENTI AL/PL ATELE T immature grans (abs) 0.0 x10e3 /uL 0.0-0. 1 Not Available [facility] ([facility]) [address] [place], [address], 10/27/2023 11:15:08 10/26/19 24 10/27/2023 TRIIO DOTHY KANDACE E (T3), FREE triiodothyro nine (T3), free 3.2 pg/mL 2.0-4. 4 Not Available [facility] ([facility]) [address] [place], [address], 10/27/2023 11:15:09 10/26/19 24 10/27/2023 T4,FR EE(DI RECT) T4,free(dire ct) 1.37 NG/dL 0.82-1 .77 Not Available [facility] ([facility]) [address] [place], [address], 10/27/2023 11:15:09 10/26/19 24 11/03/2023 THYRO ID STIMU LATIN G HORMO NE TSH-icma 1.2 uu/mL Refer ence Range : Non-P regna nt Adult 0.450 -4.50 0 Pregn girish First Trime ster 0.100 -4.00 0 Secon d Trime ster 0.200 -4.00 0 Third Trime ster 0.300 -4.50 0 Not Available [facility] [address] [place] [address], [address], 11/03/2023 06:19:46 04/13/1904/14/2024 TSH+F REE T4 TSH 2.100 uIU/m L 0.450- 4.500 Not Available [facility] ([facility]) [address] [place], [address], 04/14/2024 09:14:01 04/13/1904/14/2024 TSH+F REE T4 T4,free(dire ct) 1.22 NG/dL 0.82-1 .77 Not Available [facility] ([facility]) [address] [place], [address], 04/14/2024 09:14:01 04/13/19 25 04/14/2024 COMP. METAB OLIC PANEL (14) glucose 89 mg/dL 70-99 Not Available [facility] ([facility]) [address] [place], [address], 04/14/2024 09:14:02 04/13/19 25 04/14/2024 COMP. METAB OLIC PANEL (14) BUN 20 mg/dL 8-27 Not Available [facility] ([facility]) [address] [place], [address], 04/14/2024 09:14:02 04/13/19 25 04/14/2024 COMP. METAB OLIC PANEL (14) creatinine 0.99 mg/dL 0.57-1 .00 Not Available [facility] ([facility]) [address] [place], [address], 04/14/2024 09:14:02 04/13/19 25 04/14/2024 COMP. METAB OLIC PANEL (14) eGFR 61 mL/mi n/1.7 3 >59 Not Available [facility] ([facility]) [address] [facility], [place], [address], 04/14/2024 09:14:02 04/13/19 25 04/14/2024 COMP. METAB OLIC PANEL (14) BUN/creatini ne ratio 20 12-28 Not Available [facility] ([facility]) [address] [facility], [place], [address], 04/14/2024 09:14:02 04/13/19 25 04/14/2024 COMP. METAB OLIC PANEL (14) sodium 143 mmol/ L 134-14 4 Not Available [facility] ([facility]) [address] [facility], [place], [address], 04/14/2024 09:14:02 04/13/19 25 04/14/2024 COMP. METAB OLIC PANEL (14) potassium 4.9 mmol/ L 3.5-5. 2 Not Available [facility] ([facility]) [address] [facility], [place], [address], 04/14/2024 09:14:02 04/13/19 25 04/14/2024 COMP. METAB OLIC PANEL (14) chloride 104 mmol/ L 96-106 Not Available [facility] ([facility]) [address] [facility], [place], [address], 04/14/2024 09:14:02 04/13/19 25 04/14/2024 COMP. METAB OLIC PANEL (14) carbon dioxide, total 21 mmol/ L 20-29 Not Available [facility] ([facility]) [address] [facility] [place], [address], 04/14/2024 09:14:02 04/13/19 25 04/14/2024 COMP. METAB OLIC PANEL (14) calcium 9.2 mg/dL 8.7-10 .3 Not Available [facility] ([facility]) [address], [place], [address], 04/14/2024 09:14:02 04/13/19 25 04/14/2024 COMP. METAB OLIC PANEL (14) protein, total 7.3 g/dL 6.0-8. 5 Not Available [facility] ([facility]) [address], [place], [address], 04/14/2024 09:14:02 04/13/19 25 04/14/2024 COMP. METAB OLIC PANEL (14) albumin 4.1 g/dL 3.9-4. 9 Not Available [facility] ([facility]) [address] [place] [address], [place], [address], 04/14/2024 09:14:02 04/13/19 25 04/14/2024 COMP. METAB OLIC PANEL (14) globulin, total 3.2 g/dL 1.5-4. 5 Not Available [facility] ([facility]) [address] [place], [place], [address], 04/14/2024 09:14:02 04/13/19 25 04/14/2024 COMP. METAB OLIC PANEL (14) bilirubin, total 0.5 mg/dL 0.0-1. 2 Not Available [facility] ([facility]) [address], [place], [address], 04/14/2024 09:14:02 04/13/19 25 04/14/2024 COMP. METAB OLIC PANEL (14) alkaline phosphatase 91 IU/L 44-121 Not Available [facility] ([facility]) [address] [place], [address], 04/14/2024 09:14:02 04/13/19 25 04/14/2024 COMP. METAB OLIC PANEL (14) AST (SGOT) 15 IU/L 0-40 Not Available [facility] ([facility]) [address] [place], [address], 04/14/2024 09:14:02 04/13/19 25 04/14/2024 COMP. METAB OLIC PANEL (14) ALT (SGPT) 10 IU/L 0-32 Not Available [facility] ([facility]) [address] [facility], [place], [address], 04/14/2024 09:14:02 04/13/19 25 04/14/2024 VITAM IN B12 AND FOLAT E vitamin B12 637 pg/mL 232-12 45 Not Available [facility] ([facility]) [address] [facility], [place], [address], 04/14/2024 09:14:04 04/13/1904/14/2024 VITAM IN B12 AND FOLAT E folate (folic acid), serum 5.4 NG/mL >3.0 A serum folat e elisabeth ntrat ion of less than 3.1 ng/mL is consi dered to repre sent clini divine defic iency . Not Available [facility] ([facility]) [address] [facility], [place], [address], 04/14/2024 09:14:04 04/13/1904/14/2024 TRIIO DOTHY KANDACE E (T3) triiodothyro nine (T3) 100 NG/dL 71-180 Not Available [facility] ([facility]) [address] [facility], [place], [address], 04/14/2024 09:14:05 04/13/1904/14/2024 CBC WITH DIFFE RENTI AL/PL ATELE T WBC 7.6 x10e3 /uL 3.4-10 .8 Not Available [facility] ([facility]) [address] [facility], [place], [address], 04/14/2024 09:14:07 04/13/19 25 04/14/2024 CBC WITH DIFFE RENTI AL/PL ATELE T RBC 5.04 x10e6 /uL 3.77-5 .28 Not Available [facility] ([facility]) [address] [place], [address], 04/14/2024 09:14:07 04/13/1904/14/2024 CBC WITH DIFFE RENTI AL/PL ATELE T hemoglobin 15.7 g/dL 11.1-1 5.9 Not Available [facility] ([facility]) [address] [place], [address], 04/14/2024 09:14:07 04/13/1904/14/2024 CBC WITH DIFFE RENTI AL/PL ATELE T hematocrit 46.9 % 34.0-4 6.6 above high normal Not Available [facility] ([facility]) [address] [place], [address], 04/14/2024 09:14:07 04/13/1904/14/2024 CBC WITH DIFFE RENTI AL/PL ATELE T MCV 93 fL 79-97 Not Available [facility] ([facility]) [address] [place], [address], 04/14/2024 09:14:07 04/13/1904/14/2024 CBC WITH DIFFE RENTI AL/PL ATELE T MCH 31.2 pg 26.6-3 3.0 Not Available [facility] ([facility]) [address] [place], [address], 04/14/2024 09:14:07 04/13/1904/14/2024 CBC WITH DIFFE RENTI AL/PL ATELE T MCHC 33.5 g/dL 31.5-3 5.7 Not Available [facility] ([facility]) [address] [place], [address], 04/14/2024 09:14:07 04/13/1904/14/2024 CBC WITH DIFFE RENTI AL/PL ATELE T RDW 12.9 % 11.7-1 5.4 Not Available [facility] ([facility]) [address] [facility], [place], [address], 04/14/2024 09:14:07 04/13/19 25 04/14/2024 CBC WITH DIFFE RENTI AL/PL ATELE T platelets 215 x10e3 /uL 150-45 0 Not Available [facility] ([facility]) [address] [facility], [place], [address], 04/14/2024 09:14:07 04/13/1904/14/2024 CBC WITH DIFFE RENTI AL/PL ATELE T neutrophils 47 % notest ab. Not Available [facility] ([facility]) [address] [facility], [place], [address], 04/14/2024 09:14:07 04/13/1904/14/2024 CBC WITH DIFFE RENTI AL/PL ATELE T lymphs 43 % notest ab. Not Available [facility] ([facility]) [address] [facility], [place], [address], 04/14/2024 09:14:07 04/13/1904/14/2024 CBC WITH DIFFE RENTI AL/PL ATELE T monocytes 8 % notest ab. Not Available [facility] ([facility]) [address] [facility], [place], [address], 04/14/2024 09:14:07 04/13/1904/14/2024 CBC WITH DIFFE RENTI AL/PL ATELE T eos 1 % notest ab. Not Available [facility] ([facility]) [address] [facility], [place], [address], 04/14/2024 09:14:07 04/13/1904/14/2024 CBC WITH DIFFE RENTI AL/PL ATELE T basos 1 % notest ab. Not Available [facility] ([facility]) [address] [facility], [place], [address], 04/14/2024 09:14:07 04/13/19 25 04/14/2024 CBC WITH DIFFE RENTI AL/PL ATELE T neutrophils (absolute) 3.5 x10e3 /uL 1.4-7. 0 Not Available [facility] ([facility]) [address] [place], [address], 04/14/2024 09:14:07 04/13/19 25 04/14/2024 CBC WITH DIFFE RENTI AL/PL ATELE T lymphs (absolute) 3.3 x10e3 /uL 0.7-3. 1 above high normal Not Available [facility] ([facility]) [address] [place], [address], 04/14/2024 09:14:07 04/13/19 25 04/14/2024 CBC WITH DIFFE RENTI AL/PL ATELE T monocytes(ab solute) 0.6 x10e3 /uL 0.1-0. 9 Not Available [facility] ([facility]) [address] [place], [address], 04/14/2024 09:14:07 04/13/19 25 04/14/2024 CBC WITH DIFFE RENTI AL/PL ATELE T eos (absolute) 0.1 x10e3 /uL 0.0-0. 4 Not Available [facility] ([facility]) [address] [place], [address], 04/14/2024 09:14:07 04/13/19 25 04/14/2024 CBC WITH DIFFE RENTI AL/PL ATELE T baso (absolute) 0.0 x10e3 /uL 0.0-0. 2 Not Available [facility] ([facility]) [address] [place], [address], 04/14/2024 09:14:07 04/13/19 25 04/14/2024 CBC WITH DIFFE RENTI AL/PL ATELE T immature granulocytes 0 % notest ab. Not Available [facility] ([facility]) [address] [facility], [place], [address], 04/14/2024 09:14:07 04/13/19 25 04/14/2024 CBC WITH DIFFE RENTI AL/PL ATELE T immature grans (abs) 0.0 x10e3 /uL 0.0-0. 1 Not Available [facility] ([facility]) [address] [facility], [place], [address], 04/14/2024 09:14:07 05/02/19 25 05/01/2024 25-hy droxy vitam in D3 [Mass /volu me] in Serum or Plasm a vitamin D, 25 hydroxy 20.7 NG/mL low: 30NG/m Lhigh: 80NG/m L low Vitam in D, 25 [place] xy 20.7 (L) 30 - 80 ng/mL [facility] ACCOU NT BILL Not Available Not Available 05/03/2024 19:16:28 05/02/19 25 05/01/2024 25-hy droxy vitam in D3 [Mass /volu me] in Serum or Plasm a Unknown Analyte [facility] at: [address] [address] 81 Lab Direct or: [address], [...] Available 05/03/2024 19:16:28 05/02/19 25 05/01/2024 Compr ens [place] metab ol 1999 panel - Serum or Plasm a creatinine [mass/volume ] in serum or plasma 0.78 mg/dL low: 0.57mg /dLhig h: 1.11mg /dL Creat inine 0.78 0.57 - 1.11 mg/dL [facility] ACCOU NT BILL Not Available Not Available 05/03/2024 19:16:28 05/02/19 25 05/01/2024 Compr ens [place] metab olic 2000 panel - Serum or Plasm a glomerular filtration rate/1.73 sq M.predicted [volume rate/area] in serum, plasma or blood by creatinine-b ased formula (CKD-epi) 82 text: >=90 mL/min /1.73 m2 low eGFR by CKD-E PI 82 (L) >=90 mL/mi n/1.7 3 m2 [facility] ACCOU NT BILL Not Available Not Available 05/03/2024 19:16:28 05/02/19 25 05/01/2024 Compr ens [place] metab olic 1999 panel - Serum or Plasm a sodium 141 mmol/ L low: 136mmo l/Lhig h: 145mmo l/L Sodiu m 141 136 - 145 mmol/ L [facility] ACCOU NT BILL Not Available Not Available 05/03/2024 19:16:28 05/02/19 25 05/01/2024 [facility] - Serum [...] 25 05/01/2024 Compr ehens ash[place] metab olic 1999 panel - Serum or Plasm a AST [...] - Serum or Plasm a Unknown Analyte [facility] at: [address] [place] [address] 811 Lab Direct or: Sam[address], Not Available Not Available 19:16:28 05/02/19 25 05/01/2024 Compr ehens ash[place] metab olic 2000 panel - Serum or Plasm a interpretati on and review of laboratory results Abnorm al Not Available Not Available 19:16:28 05/02/19 25 05/02/2024 Cobal fitzgerald (Debby min B12) [Mass /volu me] in Serum or Plasm a vitamin B12 591 pg/mL low: 232pg/ mLhigh : 1245pg /mL Vitam in B12 591 232 - 1,245 pg/mL [facility] ACCOU NT BILL Not Available Not Available 05/03/2024 19:16:28 05/02/19 25 05/02/2024 Cobal fitzgerald (Debby min B12) [Mass /volu me] in Serum or Plasm a folate 6.9 NG/mL low: 3NG/mL Folat e 6.9 >3.0 ng/mL [facility] ACCOU NT BILL Not Available Not Available 05/03/2024 19:16:28 05/02/19 25 05/02/2024 Cobal fitzgerald (Debby min B12) [Mass /volu me] in Serum or Plasm a Unknown Analyte [facility]: [facility] [address] [place], [place] [address] 846 Lab Direct or: Charline morris PhD, Not [...] Plasm a Unknown Analyte [facility] at: 01 - [facility] [address] [place], [place] [address] 811 Lab Direct or: [address], [...] 7.50 x10e9/ L Granu locyt es Absol [place] 2.99 1.60 - 7.50 x10E9 /L [facility] ACCOU NT BILL Not Available Not Available 05/01/2024 17:17:06 05/02/19 25 05/01/2024 CBC W Auto Diffe renti al panel - Blood lymphocytes absolute 3.26 text: 1.00 - 4.40 x10e9/ L Lymph ocyte s Absol [place] 3.26 1.00 - 4.40 x10E9 /L [facility] ACCOU NT BILL Not Available Not Available 05/01/2024 17:17:06 05/02/19 25 05/01/2024 CBC W Auto Diffe renti al panel - Blood monocytes absolute 0.57 text: 0.15 - 1.00 x10e9/ L Monoc ytes Absol [place] 0.57 0.15 - 1.00 x10E9 /L [facility] ACCOU NT BILL Not Available Not Available 05/01/2024 17:17:06 05/02/19 25 05/01/2024 CBC W Auto Diffe renti al panel - Blood eosinophils absolute 0.14 text: 0.00 - 0.60 x10e9/ L Eosin ophil s Absol [place] 0.14 0.00 - 0.60 x10E9 /L [facility] ACCOU NT BILL Not Available Not Available 05/01/2024 17:17:06 05/02/19 25 05/01/2024 CBC W Auto Diffe renti al panel - Blood basophils absolute 0.04 text: 0.00 - 0.13 x10e9/ L Basop hils Absol [place] 0.04 0.00 - 0.13 x10E9 /L [facility] [...] - Blood Unknown Analyte Perfor med at: [facility] [address] [address] 81 Lab Direct or: Sam[address], Not Available Not Available 17:17:06 07/21/19 25 07/21/2024 LIPID PANEL cholesterol, total 195 mg/dL 100-19 9 Not Available [facility] ([facility]) [address] [place], [address], 07/21/2024 08:22:24 07/21/19 25 07/21/2024 LIPID PANEL triglyceride s 128 mg/dL 0-149 Not Available [facility] ([facility]) [address] [place], [address], 07/21/2024 08:22:24 07/21/19 25 07/21/2024 LIPID PANEL HDL cholesterol 54 mg/dL >39 Not Available [facility] ([facility]) [address] [place], [address], 07/21/2024 08:22:24 07/21/19 25 07/21/2024 LIPID PANEL VLDL cholesterol divine 23 mg/dL 5-40 Not Available [facility] ([facility]) [address] [place], [address], 07/21/2024 08:22:24 07/21/19 25 07/21/2024 LIPID PANEL LDL chol calc ([facility]) 118 mg/dL 0-99 above high normal Not Available [facility] ([facility]) [address] [facility] [place], [address], 07/21/2024 08:22:24 07/21/19 25 07/21/2024 COMP. METAB OLIC PANEL (14) glucose 90 mg/dL 70-99 Not Available [facility] ([facility]) [address] [facility] [place], [address], 07/21/2024 08:22:24 07/21/19 25 07/21/2024 COMP. METAB OLIC PANEL (14) BUN 18 mg/dL 8-27 Not Available [facility] ([facility]) [address] [facility] [place], [address], 07/21/2024 08:22:24 07/21/19 25 07/21/2024 COMP. METAB OLIC PANEL (14) creatinine 1.13 mg/dL 0.57-1 .00 above high normal Not Available [facility] ([facility]) [address] [facility] [place], [address], 07/21/2024 08:22:24 07/21/19 25 07/21/2024 COMP. METAB OLIC PANEL (14) eGFR 52 mL/mi n/1.7 3 >59 below low normal Not Available [facility] ([facility]) [address] [facility] [place], [address], 07/21/2024 08:22:24 07/21/19 25 07/21/2024 COMP. METAB OLIC PANEL (14) BUN/creatini ne ratio 16 12-28 Not Available [facility] ([facility]) [address] [facility] [place], [address], 07/21/2024 08:22:24 07/21/19 25 07/21/2024 COMP. METAB OLIC PANEL (14) sodium 143 mmol/ L 134-14 4 Not Available [facility] ([facility]) [address] [place], [address], 07/21/2024 08:22:24 07/21/19 25 07/21/2024 COMP. METAB OLIC PANEL (14) potassium 4.5 mmol/ L 3.5-5. 2 Not Available [facility] ([facility]) [address] [facility] [place], [address], 07/21/2024 08:22:24 07/21/19 25 07/21/2024 COMP. METAB OLIC PANEL (14) chloride 101 mmol/ L 96-106 Not Available [facility] ([facility]) [address] [facility], [place], [address], 07/21/2024 08:22:24 07/21/19 25 07/21/2024 COMP. METAB OLIC PANEL (14) carbon dioxide, total 25 mmol/ L 20-29 Not Available [facility] ([facility]) [address] [facility] [place], [address], 07/21/2024 08:22:24 07/21/19 25 07/21/2024 COMP. METAB OLIC PANEL (14) calcium 9.3 mg/dL 8.7-10 .3 Not Available [facility] ([facility]) [address] [facility] [place], [address], 07/21/2024 08:22:24 07/21/19 25 07/21/2024 COMP. METAB OLIC PANEL (14) protein, total 7.3 g/dL 6.0-8. 5 Not Available [facility] ([facility]) [address] [facility] [place], [address], 07/21/2024 08:22:24 07/21/19 25 07/21/2024 COMP. METAB OLIC PANEL (14) albumin 4.2 g/dL 3.9-4. 9 Not Available [facility] ([facility]) [address] [facility] [place], [address], 07/21/2024 08:22:24 07/21/19 25 07/21/2024 COMP. METAB OLIC PANEL (14) globulin, total 3.1 g/dL 1.5-4. 5 Not Available [facility] ([facility]) [address] [place], [address], 07/21/2024 08:22:24 07/21/19 25 07/21/2024 COMP. METAB OLIC PANEL (14) bilirubin, total 0.4 mg/dL 0.0-1. 2 Not Available [facility] ([facility]) [address] [place], [address], 07/21/2024 08:22:24 07/21/19 25 07/21/2024 COMP. METAB OLIC PANEL (14) alkaline phosphatase 81 IU/L 44-121 Not Available [facility] ([facility]) [address] [place], [address], 07/21/2024 08:22:24 07/21/19 25 07/21/2024 COMP. METAB OLIC PANEL (14) AST (SGOT) 16 IU/L 0-40 Not Available [facility] ([facility]) [address] [place], [address], 07/21/2024 08:22:24 07/21/19 25 07/21/2024 COMP. METAB OLIC PANEL (14) ALT (SGPT) 9 IU/L 0-32 Not Available [facility] ([facility]) [address] [place], [address], 07/21/2024 08:22:24 07/21/19 25 07/21/2024 VITAM IN B12 vitamin B12 581 pg/mL 232-12 45 Not Available [facility] ([facility]) [address] [place], [address], 07/21/2024 08:22:25 07/21/19 25 07/21/2024 CBC WITH DIFFE RENTI AL/PL ATELE T WBC 6.6 x10e3 /uL 3.4-10 .8 Not Available [facility] ([facility]) [address] [place], [address], 07/21/2024 08:22:26 07/21/19 25 07/21/2024 CBC WITH DIFFE RENTI AL/PL ATELE T RBC 5.24 x10e6 /uL 3.77-5 .28 Not Available [facility] ([facility]) [address] [place], [address], 07/21/2024 08:22:26 07/21/19 25 07/21/2024 CBC WITH DIFFE RENTI AL/PL ATELE T hemoglobin 16.1 g/dL 11.1-1 5.9 above high normal Not Available [facility] ([facility]) [address] [place], [address], 07/21/2024 08:22:26 07/21/1907/21/2024 CBC WITH DIFFE RENTI AL/PL ATELE T hematocrit 48.9 % 34.0-4 6.6 above high normal Not Available [facility] ([facility]) [address] [place], [address], 07/21/2024 08:22:26 07/21/1907/21/2024 CBC WITH DIFFE RENTI AL/PL ATELE T MCV 93 fL 79-97 Not Available [facility] ([facility]) [address] [place], [address], 07/21/2024 08:22:26 07/21/1907/21/2024 CBC WITH DIFFE RENTI AL/PL ATELE T MCH 30.7 pg 26.6-3 3.0 Not Available [facility] ([facility]) [address] [place], [address], 07/21/2024 08:22:26 07/21/19 25 07/21/2024 CBC WITH DIFFE RENTI AL/PL ATELE T MCHC 32.9 g/dL 31.5-3 5.7 Not Available [facility] ([facility]) [address] [facility], [place], [address], 07/21/2024 08:22:26 07/21/19 25 07/21/2024 CBC WITH DIFFE RENTI AL/PL ATELE T RDW 13.5 % 11.7-1 5.4 Not Available [facility] ([facility]) [address] [facility], [place], [address], 07/21/2024 08:22:26 07/21/19 25 07/21/2024 CBC WITH DIFFE RENTI AL/PL ATELE T platelets 220 x10e3 /uL 150-45 0 Not Available [facility] ([facility]) [address] [facility], [place], [address], 07/21/2024 08:22:26 07/21/19 25 07/21/2024 CBC WITH DIFFE RENTI AL/PL ATELE T neutrophils 39 % notest ab. Not Available [facility] ([facility]) [address] [facility], [place], [address], 07/21/2024 08:22:26 07/21/19 25 07/21/2024 CBC WITH DIFFE RENTI AL/PL ATELE T lymphs 51 % notest ab. Not Available [facility] ([facility]) [address] [place], [address], 07/21/2024 08:22:26 07/21/19 25 07/21/2024 CBC WITH DIFFE RENTI AL/PL ATELE T monocytes 7 % notest ab. Not Available [facility] ([facility]) [address] [place], [address], 07/21/2024 08:22:26 07/21/19 25 07/21/2024 CBC WITH DIFFE RENTI AL/PL ATELE T eos 2 % notest ab. Not Available [facility] ([facility]) [address] [place], [address], 07/21/2024 08:22:26 07/21/19 25 07/21/2024 CBC WITH DIFFE RENTI AL/PL ATELE T basos 1 % notest ab. Not Available [facility] ([facility]) [address] [facility], [place], [address], 07/21/2024 08:22:26 07/21/19 25 07/21/2024 CBC WITH DIFFE RENTI AL/PL ATELE T neutrophils (absolute) 2.6 x10e3 /uL 1.4-7. 0 Not Available [facility] ([facility]) [address] [facility], [place], [address], 07/21/2024 08:22:26 07/21/19 25 07/21/2024 CBC WITH DIFFE RENTI AL/PL ATELE T lymphs (absolute) 3.4 x10e3 /uL 0.7-3. 1 above high normal Not Available [facility] ([facility]) [address] [place], [address], 07/21/2024 08:22:26 07/21/19 25 07/21/2024 CBC WITH DIFFE RENTI AL/PL ATELE T monocytes(ab solute) 0.5 x10e3 /uL 0.1-0. 9 Not Available [facility] ([facility]) [address] [place], [address], 07/21/2024 08:22:26 07/21/19 25 07/21/2024 CBC WITH DIFFE RENTI AL/PL ATELE T eos (absolute) 0.2 x10e3 /uL 0.0-0. 4 Not Available [facility] ([facility]) [address] [place], [address], 07/21/2024 08:22:26 07/21/19 25 07/21/2024 CBC WITH DIFFE RENTI AL/PL ATELE T baso (absolute) 0.0 x10e3 /uL 0.0-0. 2 Not Available [facility] ([facility]) [address] [facility], [place], [address], 07/21/2024 08:22:26 07/21/1907/21/2024 CBC WITH DIFFE RENTI AL/PL ATELE T immature granulocytes 0 % notest ab. Not Available [facility] ([facility]) [address] [facility], [place], [address], 07/21/2024 08:22:26 07/21/1907/21/2024 CBC WITH DIFFE RENTI AL/PL ATELE T immature grans (abs) 0.0 x10e3 /uL 0.0-0. 1 Not Available [facility] ([facility]) [address] [facility], [place], [address], 07/21/2024 08:22:26 07/21/1907/21/2024 VITAM IN D, 25-HY DROXY vitamin D, 25-hydroxy 38.4 NG/mL 30.0-1 00.0 Vitam in D defic iency has been defin ed by the Insti tute of Medic ine and an Endoc rine Socie ty pract ice guide line as a level of serum 25-OH vitam in D less than 20 ng/mL (1,2) . The Endoc rine Socie ty went on to [facility] defin e vitam in D insuf ficie ncy as a level betwe en 21 and 29 ng/mL (2). 1. IOM (Inst itute of Medic ine). 2010. Dieta ry refer ence intak es for calci um and D. Luz Marina meade [place]: The Natio nal [facility] Press . 2. Amilcar wilde MF, Harper flores [place], Zandra off-F errar i BALL, et al. Evalu ation , treat ment, and preve ntion of vitam in D defic iency : an Endoc rine Socie ty clini divine pract ice guide line. JCEM. 2010; 96(7) :1911 -30. Not Available [facility] ([facility]) [address], [place], [address], 07/21/2024 08:22:27 11/30/19 24 11/30/2023 LDCT, chest , for lung cance r howard clarkeg No observ ation record ed. [facility] [address] [facility], [place], [place], [address], 11/30/2023 21:38:21 12/15/19 24 12/15/2023 PFT, compl ete No observ ation record ed. [facility] [address] [facility] [address], [place], [address], 12/16/2023 15:29:51 05/16/19 25 05/15/2024 nerve condu ction study /EMG, lower extre mity (PROC ) No observ ation record ed. [facility] [address], [place], [address], 05/16/2024 17:24:25 Result Notes None recorded. Problems Name Problem SNOMED Code Status Onset Date Resolution Date Notes Provider Name and Address Organization Details Recorded Time Pre-surgery testing Active 2017 Not Available [facility] 3 16:06:31 Neuropathy 322855811 Active 2017 Not Available [facility] 3 16:06:31 Vitamin D deficiency 76407202 Active 2017 Not Available [facility] 3 16:06:31 Right upper quadrant pain 665702983 Active 2018 Not Available [facility] 3 16:06:31 Parotid cyst 240458930 Active 2018 Not Available [facility] 3 16:06:31 Eczema 64870708 Active 2018 Not Available [facility] 3 16:06:31 Prolapsed lumbar interverteb ral disc 757198974 Active 2018 Not Available [facility] 3 16:06:31 Gastroesoph ageal reflux disease 011300673 Active 2019 Not Available [facility] 3 16:06:31 Chronic constipatio n 396584275 Active 2019 Not Available [facility] 3 16:06:31 Serum vitamin B12 below reference range 707472580 Active 2019 Not Available [facility] 3 16:06:31 Urinary incontinenc e 605534393 Active 2019 Not Available [facility] 3 16:06:31 Acute urticaria 294540995 Active 2020 Not Available [facility] 3 16:06:31 Vulvovagini tis 71692657 Active 2020 Not Available [facility] 3 16:06:31 Insomnia 536220535 Active 2021 Not Available [facility] 3 16:06:31 Normal grief reaction 403870819 Active 2021 of53 years a few weeks ago Not Available [facility] 3 16:06:31 Serum creatinine above reference range 329634777 Active 2021 Not Available [facility] 3 16:06:31 Allergic rhinitis 93246086 Active 2021 Not Available [facility] 3 16:06:32 Neurogenic urinary bladder 277041658 Active 2023 Donnie Daley MD Attn: Accounting ,[address] [place], [address] , [place] - [facility] 4 12:06:32 Obstructive sleep apnea syndrome 93505025 Active 2023 Donnie Daley MD Attn: Accounting ,[address] [place], [address] , [place] [facility] 4 12:06:35 Chronic pain syndrome 781809185 Active 2023 Donnie Daley MD Attn: Accounting ,[address] [place], [address] , [place] [facility] 4 22:42:21 Smoker 65098591 Active 2023 Donnie Daley MD Attn: Accounting ,[address] [facility], [place], [address] , [place] [facility] 4 22:42:23 Gastroesoph ageal reflux disease without esophagitis 624514686 Active 2023 Donnie Daley MD Attn: Accounting ,[address] [facility], [place], [address] , [place] [facility] 4 22:42:25 Fatigue 10794607 Active 2023 Aditi Livingston MA [facility], [place] - [facility] 4 15:58:12 Secondary polycythemi a 70297789 Active 2024 Donnie Daley MD Attn: Accounting ,[address] [facility], [place], [address] , [place] - [facility] 5 22:08:25 Chronic obstructive pulmonary disease 25168574 Active Not Available [facility] 3 16:06:31 Acid reflux 284129819 Active Not Available [facility] 3 16:06:32 Essential hypertensio n 88523932 Active Not Available [facility] 3 16:06:31 Hyperlipide jah 37189884 Active Not Available [facility] 3 16:06:31 Obesity 658209929 Active Not Available [facility] 3 16:06:31 Pain of hip region 92132838 Active Not Available [facility] 3 16:06:31 Knee pain Active Not Available [facility] 3 16:06:31 Migraine 80378767 Active Not Available [facility] 3 16:06:31 Kidney stone 02084334 Active Not Available [facility] 3 16:06:32 Tobacco user 724862337 Active 2015 Not Available [facility] 3 16:06:31 Vaginitis and vulvovagini tis Active 2016 Not Available [facility] 3 16:06:31 Sinusitis 77674462 Active 2016 Not Available [facility] 3 16:06:31 Notes:sees Dr. pedraza : n europathy Problem Notes None recorded. Procedures Surgical History Date Name Laterality Status Provider Name and Address Organization Details Recorded Time Unlisted procedure spine completed Arlen Powell [place] 01/05/2018 13:19:52 Joint Replacement completed [place]ae [place] 10/10/2014 13:07:07 Knee Surgery completed Guerita [place] 10/10/2014 13:07:07 Tonsillectomy completed Guerita [place] 10/10/2014 13:07:07 Imaging Results None recorded. Procedure Notes None recorded. Medical Equipment None Reported. Allergies Allergen ID Allergen Name Allergen Category Reaction Reaction Severity Criticality Documentation Date Start Date Code Code System Note Provider Name and Address Organization Details Recorded Time 931200 rosuvasta tin medicatio n Not available Not available Not available 05/19/2020 74978 2 RxNorm Other react ions and sever ities : 'Adve rse react ion to subst ance' . [place] 4 12:17:46 831796 cefuroxim e Not available itching Not available Not available 04/13/20242016 2194 RxNorm Cefaz nolan IV dosed 02/16 18 with no adver se effec t unrec ogniz ed react ion (text : Nause a and/o r Vomit ing, code: 90217 000) (from exter nal sour e) [place], [place] 5 11:00:22 631297 denosumab medicatio n rash Not available [facility] 04/13/20242022 35388 9 RxNorm Blist ers aroun d mouth [place], [place] - [place] 5 11:00:36 029868 flunisoli de medicatio n Not available Not available Not available 04/13/20242012 95251 RxNorm Gag and vomit . Shahla ates nasac ort, cause s nose to bleed . unrec ogniz ed react ion (text : Other , code: 35070 07) (from exter nal sour e) [place], [place] 5 11:00:42 666598 lovastati n medicatio n Not available Not available Not available 04/13/20242023 6472 RxNorm KELSEY Jimenez, [facility] 5 11:00:50 74560 Iodinated contrast media (substanc e) medicatio n rash Not available low 10/10/20142022 82439 2004 SNOMED KELSEY Jimenez, [facility] 5 11:00:47 22422 omeprazol e medicatio n Not available Not available Not available 01/06/2016 7646 RxNorm Other react ions and sever ities : 'Adve rse react ion to subst ance - Mild' . Adelia Zimmer [place], [facility] 4 12:17:46 Medications Name Sig Start Date Stop Date [...] 3 TIMES A WEEK FOR 7 DAYS 08/11 completed Not Available Not Available Not Available benzonata te 200 mg capsule Take 1 capsule 3 times a day by oral route as needed for 10 days. 06/24 completed Not Available Not Available Not Available cephalexi n 250 mg capsule 05/01 completed Not Available Not Available Not Available hydrocodo ne 5 mg-acetam inophen 325 mg tablet TAKE 1 TABLET BY MOUTH 2-3 TIMES DAILY NEEDED MUST LAST 28 DAYS active Not Available Not Available No [...] (vit B-12) 1,000 mcg/mL injection solution INJECT 1ML IN THE MUSCLE EVERY 30 DAYS active Not Available Not Available No t Available triamcino lone acetonide 0.1 % topical ointment APPLY TOPICALL Y TO THE AFFECTED AREA TWICE DAILY NEEDED 2024 active Not Available Not Available Not Avai lable ranitidin e 150 mg tablet Take 1 tablet twice a day by oral route before meals for 30 days. 03/08 completed contamin ants Not Available Not Available Not Available crystal ole-betam ethasone 1 %-0.05 % topical cream 05/01 completed Not Available Not Available Not Available diphenhyd ramine 25 mg tablet Take 1 tablet every day by oral route at bedtime for 30 days. 08/11 completed Not Available Not Available Not Available prednison e 50 mg tablet 05/01 completed Not Available Not Available Not Available lidocaine 5 % topical patch APPLY TOPICALL Y TO THE AFFECTED AREA ONCE DAILY FOR UP TO 12 HOURS. active Not Available Not Available No t [...] Not Available monteluka st 10 mg tablet TAKE 1 TABLET BY MOUTH EVERY DAY active Not Available Not Available No t Available codeine 10 mg-guaife nesin 100 mg/5 mL oral liquid TAKE 5 ML BY MOUTH EVERY 6 HOURS NEEDED FOR COUGH active Not Available Not Available No t Available acetamino phen 300 mg-codein e 60 mg tablet 08/11 completed Not Available Not Available Not Available mupirocin 2 % topical ointment APPLY TOPICALL Y TO THE AFFECTED AREA THREE TIMES DAILY 06/24 completed Not Available Not Available Not Available furosemid e 20 mg tablet TAKE 1 TABLET BY MOUTH DAILY active Not Available Not Available No t Available gabapenti n 100 mg capsule TAKE 1 CAPSULE BY MOUTH EVERY DAY active Not Available Not Available No t Available ergocalci ferol (vitamin D2) 1,250 mcg (50,000 unit) capsule TAKE 1 CAPSULE BY MOUTH EVERY 7 DAYS active Not Available Not Available No t Available cefuroxim e axetil 500 mg tablet [...] ne propionat e 50 mcg/actua tion nasal spray,chris pension 05/01 completed Not Available Not Available Not [...] in Arterial blood by Pulse oximetry Systolic And Diastolic Provider Name and Address Organization Details Last Updated DateTime 5 167.64 cm 34.3 kg/m2 96992.0 2 g 100 /min 96 % 96 % 106/68 mm[Hg] Veronica Sweeney [place] [facility] 5 09:40:15 Date Recorded Body height Body mass index (BMI) Body weight Heart rate Oxygen saturation Oxygen saturation in Arterial blood by Pulse oximetry Systolic And Diastolic Provider Name and Address Organization Details Last Updated DateTime 5 167.64 cm 34.2 kg/m2 27633.5 8 g 94 /min 97 % 97 % 110/64 mm[Hg] Veronica Sweeney MA [facility] 5 10:59:33 Date Recorded Body height Body mass index (BMI) Body weight Heart rate Oxygen saturation Oxygen saturation in Arterial blood by Pulse oximetry Systolic And Diastolic Provider Name and Address Organization Details Last Updated DateTime 5 167.64 cm 33 kg/m2 06413.9 2 g 73 /min 99 % 99 % 124/68 mm[Hg] Floresita Fritz MA [facility] 5 11:48:31 Date Recorded Body height Body mass index (BMI) Body weight Heart rate Oxygen saturation Oxygen saturation in Arterial blood by Pulse oximetry Systolic And Diastolic Provider Name and Address Organization Details Last Updated DateTime 4 167.64 cm 34 kg/m2 32590.2 7 g 79 /min 97 % 97 % 120/72 mm[Hg] Floresita Fritz MA [facility] 4 14:49:31 Date Recorded Body height Body mass index (BMI) Body weight Heart rate Oxygen saturation Oxygen saturation in Arterial blood by Pulse oximetry Systolic And Diastolic Provider Name and Address Organization Details Last Updated DateTime 4 167.64 cm 33.8 kg/m2 15403.9 6 g 86 /min 95 % 95 % 128/72 mm[Hg] Aliza Cali MA [facility] 4 10:20:00 Social History Question Answer Notes LastModified by Organizat ion Details LastModified Time Tobacco Smoking Status Current Every Day [facility] 14:25:00 Do You Have An Advance Directive? No Information not available 06/24/2023 Are You Blind Or Do You Have [...] No Information not available 06/24/2023 Are You Deaf Or Do You Have Serious Difficulty Hearing? No Information not available 06/19/2020 What Type Of Diet Are You Following? REGULAR Information not available 06/19/2020 Are There Any Guns Present In Your Home? No Information not available 10/26/2023 What Was The Date Of Your Most Recent Tobacco Screening? 07/20/2024 Information not available 07/20/2024 What Is Your Relationship Status? Information not [...] PPD Information not available 10/16/2021 Do You Use Sunscreen Routinely? No Information not available 06/19/2020 Has Tobacco Cessation Counseling Been Provided? Yes Information not available 07/18/2020 On What Date Was Tobacco Cessation Counseling Provided? 07/20/2024 Information not available 07/20/2024 How Many Years Have You Smoked Tobacco? 29 Information not available 10/10/2014 Sex: Female Functional Status Question Answer Note LastModified by Organizat ion Details LastModified Time Do you use any illicit or recreational drugs? No Information not available 06/19/2020 Do you or have you ever used any other forms of tobacco or nicotine? No [email or web address] Information not available 10/04/2022 What is your level of alcohol consumption? None Information not available 06/19/2020 Are you currently employed? 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 None Information not available 06/19/2020 Mental Status Question Answer Note LastModified by Organization D etails LastModified Time Do you feel stressed (tense, restless, nervous, or anxious, or unable to sleep at night)? [id number] Information not available 06/19/2020 Family History Relationship Description Onset Age of [...] family history, me/rma Medical History Condition Response COPD Y Acid Reflux (GERD) Y Have you had a mammogram in the last yea r? Y Have you had a colonoscopy in the last 1 0 years? Y Gynecological HistoryNo gynecological history recorded. Obstetrics History GPAL:G 0 P 0 0 0 0 Immunizations Vaccine Type Date Status Note Provider Nam e and Address Organization Details Recorded Time influenza, intradermal, quadrivalent, preservative free 6 completed Adelia Zimmer [place] null, [place] - [...] 15:27:31 Influenza, adjuvanted, quadrivalent, PF 1 completed Adelia [place] [facility] 09/08/2023 15:27:31 COVID-19, mRNA, LNP-S, PF, 100 mcg/0.5mL dose or 50 mcg/0.25mL dose 1 completed Adelia [place], [place] [facility] 09/08/2023 15:27:31 COVID-19, mRNA, [...] KELSEY Long, [place] [facility] 09/08/2023 15:27:31 RSV, recombinant, protein subunit RSVpreF, adjuvant reconstituted, 0.5 mL, PF 5 completed Not [facility] 10:47:51 Influenza, high-dose, quadrivalent, PF 3 completed Juan Canseco MD Attn: Accounting[address] [place], [address], [place] [facility] 01/28/2023 17:44:30 Influenza, high-dose, trivalent, PF 4 completed Aliza Cali [place], [place] [facility] 12/14/2023 14:44:32 Past Encounters Encounter ID Performer Location Encounter Start Date Encounter Closed Date Diagnosis/Indication Diagnosis SNOMED-CT Code Diagnosis ICD10 Code Diagnosis Note [id number] JW Hyatt (Adult Med) [address] [place] [address] [id number] 0 10/10/2014 11:51:30 10/10/2014 13:26:35 Bronchitis 15988449 Adult heal th examination 253215227 Chronic ob structive pulmonary disease 69981912 Essential hypertension 21057989 Hyperlipidemia 69842962 Obesity 181262219 [id number] JW Hyatt (Adult Med) [address] [place] [address] [phone] 0 12/12/2014 15:25:34 12/12/2014 16:35:15 Acid reflux 669887977 K21.9 Adult heal th examination 584758852 Z00.00 Essential hypertension 50057166 I10 Hyperlipidemia 13151009 E78.5 Obesity 341625148 E66.9 Pain of hip region 30695 002 M25.551 Chronic ob structive pulmonary disease 91552485 J44.9 [id number] JW Hyatt (Adult Med) [address] [place] [address] [id number] 0 03/13/2015 14:59:03 03/13/2015 15:27:13 Acid reflux 140120506 K21.9 Chronic ob structive pulmonary disease 69385620 J44.9 Essential hypertension 06921772 I10 Pain of hip region 17970 002 M25.551 Hyperlipidemia 15981513 E78.5 Diabetes m ellitus screening 167683333 Z13.1 Knee pain 12227930 M25.5 61 right more than left , left aches but had total knee replacemen t on left knee January 2004. Dr. Jefferson [id number] JW Hyatt (Adult Med) [address] [place] [address] [id number] 0 06/05/2015 13:54:38 06/05/2015 15:19:57 Migraine 03468836 G43.909 Pain of hip region 10595 002 M25.551 Hyperlipidemia 51708480 E78.5 Obesity 666084888 E66.9 Kidney stone 55807396 N2 0.0 lithotrips y April 11, and while hospitaliz ed at [facility] in [place] [id number] JW Hyatt (Adult Med) [address] [place] [address] [id number] 0 10/08/2015 11:25:49 10/08/2015 17:31:01 Acute sinusitis 09178901 J01.90 Obesity 122207211 E66.9 Hyperlipidemia 59111062 E78.5 Essential hypertension 89011289 I10 Pain of hip region 56945 002 M25.551 Chronic ob structive pulmonary disease 75205452 J44.9 [id number] [facility] [address] [place] [address] [id number] 0 01/06/2016 13:14:57 01/06/2016 15:35:52 Kidney stone 44147835 N20.0 lithotrips y April 11, and while hospitaliz ed at [facility] Acid reflux 361613616 K2 1.9 Essential hypertension 89386986 I10 Hyperlipidemia 99968226 E78.5 Pain of hip region 99381 002 M25.551 Obesity 146584420 E66.9 Migraine 44336824 G43.90 9 Chronic ob structive pulmonary disease 35049214 J44.9 Tobacco user 076666826 Z 72.0 [id number] MD Murtaza Mcgee (Adult Med) [address] [place] [address] [id number] 0 04/02/2016 15:33:38 04/02/2016 16:37:50 Acute sinusitis 87766481 J01.90 Vaginitis and vulvovaginitis 339811296 N76.0 Pain of hip region 77363 002 M25.551 Essential hypertension 21117240 I10 Hyperlipidemia 20636735 E78.5 Acid reflux 290789187 K2 1.9 Tobacco user 696998684 Z 72.0 [id number] Juan Canseco MD [facility] (Adult Med) [address] [place] [address] [id number] 0 07/02/2016 14:47:06 07/02/2016 17:59:49 Pain of hip region 14942489 M25.551 Sinusitis 63285815 J32.9 Essential hypertension 34397801 I10 Bronchitis 04670951 J40 Hyperlipidemia 92605381 E78.5 Obesity 766939174 E66.9 [id number] [facility] [address] [place] [address] [id number] 0 10/01/2016 14:44:39 10/04/2016 11:29:13 Essential hypertension 03104498 I10 Hyperlipidemia 79647023 E78.5 Acid reflux 824487870 K2 1.9 Kidney stone 23702858 N2 0.0 lithotrips y April 11, and while hospitaliz ed at [facility] in [place] Pain of hip region 99949 002 M25.551 Obesity 867923411 E66.9 Migraine 39716540 G43.90 9 Knee pain 28849970 M25.5 60 right more than left , left aches but had total knee replacemen t on left knee January 2004. Dr. Jefferson Chronic ob structive pulmonary disease 75219524 J44.9 Tobacco user 997782294 Z 72.0 [id number] Juan Canseco MD [facility] (Adult Med) [address] [place] [address] [id number] 03/24/2017 15:47:09 03/24/2017 16:42:47 Bronchitis 63100172 J40 Obesity 152647353 E66.9 Chronic ob structive pulmonary disease 15839006 J44.9 [id number] [facility] [address] [place] [address] [id number] 0 09/06/2017 12:34:13 09/06/2017 13:43:30 Pre-surgery testing 045419624 Z01.89 Essential hypertension 04462918 I10 Chronic ob structive pulmonary disease 68110754 J44.9 Obesity 832613930 E66.9 Hyperlipidemia 84430434 E78.5 Acid reflux 522371789 K2 1.9 [id number] [facility] [address] [place] [address] [id number] 0 10/05/2017 13:02:28 10/05/2017 13:28:01 Essential hypertension 85202560 I10 Tobacco user 825105735 Z 72.0 Neuropathy 239730187 G62 .9 Hyperlipidemia 73315630 E78.5 Obesity 613872752 E66.9 Chronic ob structive pulmonary disease 95278510 J44.9 [id number] MD Murtaza Mcgee (Adult Med) [address] [place] [address] [id number] 0 01/05/2018 12:14:03 01/05/2018 13:41:48 Hyperlipidemia 05517827 E78.5 Vitamin D deficiency 347 03993 E55.9 Pain of hip region 59468 002 M25.551 Chronic ob structive pulmonary disease 58771754 J44.9 Obesity 426596675 E66.9 Essential hypertension 88080244 I10 [id number] [facility] [address] [place] [address] [id number] 0 05/01/2018 15:11:21 05/02/2018 12:34:30 Vitamin D deficiency 19043078 E55.9 Tobacco user 771902962 Z 72.0 Chronic ob structive pulmonary disease 85155724 J44.9 Obesity 912964057 E66.9 Hyperlipidemia 80977344 E78.5 Acid reflux 061128064 K2 1.9 Acute otitis media 85555 03 H66.91 Acute sinusitis 49668369 J01.90 Sinusitis 29914633 J32.9 Essential hypertension 43645959 I10 [id number] MD Murtaza Mcgee (Adult Med) [address] [place] [address] [id number] 0 08/25/2018 13:57:44 08/25/2018 15:49:18 Acute otitis media 2706469 H66.91 Acute sinusitis 24875904 J01.90 Vitamin D deficiency 347 71103 E55.9 Acid reflux 259700533 K2 1.9 Chronic ob structive pulmonary disease 26110198 J44.9 Neuropathy 348563309 G62 .9 Obesity 040923801 E66.9 Hyperlipidemia 12315724 E78.5 Essential hypertension 35462180 I10 [id number] MD Murtaza Mcgee (Adult Med) [address] [place] [address] [id number] 0 09/22/2018 15:35:45 09/22/2018 16:22:16 Acid reflux 019780607 K21.9 Acute sinusitis 56076590 J01.90 Right uppe r quadrant pain 686200778 R10.11 no fever ... Chronic ob structive pulmonary disease 01044648 J44.9 Obesity 562205809 E66.9 [id number] MD Murtaza Mcgee (Adult Med) [address] [place] [address] [id number] 10/23/2018 15:48:34 10/24/2018 09:06:46 Parotid cyst 832777404 K11.6 Hyperlipidemia 99388188 E78.5 Essential hypertension 60806648 I10 Vitamin D deficiency 347 40392 E55.9 Acid reflux 922215569 K2 1.9 Acute otitis media 21149 03 H66.91 Eczema 69631975 L30.9 Chronic ob structive pulmonary disease 48210547 J44.9 [id number] MD Murtaza Mcgee (Adult Med) [address] [place] [address] [id number] 0 03/08/2019 13:42:13 03/08/2019 15:12:05 Gastroesophageal reflux disease 171788887 K21.9 Chronic constipation 236 134817 K59.09 Serum debby min B12 below reference range 604517243 R79.89 Vitamin D deficiency 347 23341 E55.9 Hyperlipidemia 59072764 E78.5 Chronic ob structive pulmonary disease 58987977 J44.9 Essential hypertension 94765971 I10 Prolapsed lumbar intervertebral disc 635231297 M51.26 Tobacco user 553984515 Z 72.0 [id number] Juan Canseco MD [facility] (Adult Med) [address] [place] [address] [id number] 0 05/14/2019 16:38:51 05/14/2019 17:22:23 Acute otitis media 0990772 H66.91 Sinusitis 45137633 J32.9 Chronic ob structive pulmonary disease 36715940 J44.9 Hyperlipidemia 79542657 E78.5 Essential hypertension 98528820 I10 Gastroesop hageal reflux disease 559392125 K21.9 Neuropathy 340739188 G62 .9 Prolapsed lumbar intervertebral disc 710223035 M51.26 Vitamin D deficiency 347 90573 E55.9 [id number] JW Hyatt (Adult Med) [address] [place] [address] [id number] 0 06/05/2019 14:12:13 06/05/2019 15:17:46 Acute otitis media 2291856 H66.91 Acute pharyngitis 799117 003 J02.9 Chronic ob structive pulmonary disease 84631497 J44.9 Essential hypertension 52307111 I10 Gastroesop hageal reflux disease 972717970 K21.9 Hyperlipidemia 43705874 E78.5 Neuropathy 014413639 G62 .9 Obesity 533402974 E66.9 Prolapsed lumbar intervertebral disc 263412364 M51.26 Vitamin D deficiency 347 90927 E55.9 Serum debby min B12 below reference range 080572602 R79.89 [id number] MD Akua Baumannandrew [address] [place] [address] [phone] 9 08/17/2019 14:30:59 08/20/2019 14:17:14 Viral screening 196053758 Z11.59 [id number] MD Murtaza Mcgee (Adult Med) [address] [place] [address] [id number] 09/04/2019 10:12:09 09/05/2019 11:58:54 Chronic obstructive pulmonary disease 21216776 J44.9 Essential hypertension 38099260 I10 Gastroesop hageal reflux disease 053633869 K21.9 Hyperlipidemia 73945369 E78.5 Neuropathy 700308056 G62 .9 Prolapsed lumbar intervertebral disc 153506836 M51.26 Tobacco user 070796946 Z 72.0 Vitamin D deficiency 347 53229 E55.9 [id number] RONALDO Humphreys [address] [place] [address] [phone] 9 09/13/2019 10:05:42 09/14/2019 11:47:21 Viral screening 835960445 Z11.59 D/w pt the current pandemic of COVID-19 and call for social isolation in order to blunt the curve and minimize risk and spread. Encouraged patient and family to take restrictio ns seriously. They have verbalized understand ing of such. Viral syndrome 673802230 B34.9 [id number] MD Murtaza Mcgee (Adult Med) [address] [place] [address] [id number] 0 02/28/2020 07:56:22 02/28/2020 14:17:05 Bronchitis 31590556 J40 Acute sinusitis 57875057 J01.90 Gastroesop hageal reflux disease 595388721 K21.9 Chronic ob structive pulmonary disease 65424534 J44.9 Hyperlipidemia 62031012 E78.5 Essential hypertension 79687451 I10 Neuropathy 493641924 G62 .9 Serum debby min B12 below reference range 909176179 R79.89 Vitamin D deficiency 347 75135 E55.9 Tobacco user 123062336 Z 72.0 [id number] MD Murtaza Mcgee (Adult Med) [address] [place] [address] [id number] 0 05/19/2020 08:29:37 05/19/2020 17:52:33 Acute urticaria 613098990 L50.9 Neuropathy 752100732 G62 .9 Prolapsed lumbar intervertebral disc 716322630 M51.26 Chronic ob structive pulmonary disease 22983028 J44.9 Acid reflux 386749727 K2 1.9 Essential hypertension 97159732 I10 Gastroesop hageal reflux disease 805207342 K21.9 Hyperlipidemia 90193739 E78.5 Obesity 734970608 E66.9 Serum debby min B12 below reference range 866667821 R79.89 Tobacco user 292191303 Z 72.0 Vitamin D deficiency 347 42014 E55.9 [id number] MD Murtaza Mcgee (Adult Med) [address] [place] [address] [id number] 0 06/19/2020 08:34:28 06/19/2020 13:44:26 Eczema 71626508 L30.9 Hyperlipidemia 01340893 E78.5 [id number] MD Murtaza Mcgee (Adult Med) [address] [place] [address] [id number] 0 07/18/2020 09:38:30 07/18/2020 14:12:14 Chronic obstructive pulmonary disease 85856298 J44.9 Essential hypertension 06925256 I10 Gastroesop hageal reflux disease 722705750 K21.9 Hyperlipidemia 65863068 E78.5 Neuropathy 646609115 G62 .9 Obesity 404634130 E66.9 Prolapsed lumbar intervertebral disc 212037479 M51.26 Vitamin D deficiency 347 50652 E55.9 Serum debby min B12 below reference range 758596808 R79.89 [id number] MD Murtaza Mcgee (Adult Med) [address] [place] [address] [id number] 0 10/17/2020 08:48:38 10/17/2020 11:58:21 Neuropathy 483672134 G62.9 Vulvovaginitis 68209549 N76.0 Chronic ob structive pulmonary disease 63257867 J44.9 Essential hypertension 28356573 I10 Gastroesop hageal reflux disease 273427785 K21.9 Hyperlipidemia 44664794 E78.5 Prolapsed lumbar intervertebral disc 921843517 M51.26 Vitamin D deficiency 347 19642 E55.9 Tobacco user 535753638 Z 72.0 Serum debby min B12 below reference range 392121291 R79.89 [id number] Juan Canseco MD [facility] (Adult Med) [address] [place] [address] [id number] 0 01/16/2021 12:02:03 01/16/2021 12:48:32 Chronic obstructive pulmonary disease 56372862 J44.9 Serum debby min B12 below reference range 895648711 R79.89 Chronic constipation 236 482927 K59.09 Essential hypertension 66418973 I10 Gastroesop hageal reflux disease 486526724 K21.9 Hyperlipidemia 64370206 E78.5 Neuropathy 361959588 G62 .9 Prolapsed lumbar intervertebral disc 389438231 M51.26 Tobacco user 508562349 Z 72.0 Urinary incontinence 165 679441 R32 Vitamin D deficiency 347 86332 E55.9 [id number] Juan Canseco MD [facility] (Adult Med) [address] [place] [address] 03078-565 0 04/17/2021 09:21:22 04/17/2021 16:48:47 Insomnia 339015507 G47.00 Chronic ob structive pulmonary disease 87841082 J44.9 Chronic constipation 236 927930 K59.09 Essential hypertension 64661369 I10 Gastroesop hageal reflux disease 096386680 K21.9 Pain of hip region 14802 002 M25.551 Hyperlipidemia 61732943 E78.5 Neuropathy 997086907 G62 .9 Normal grief reaction 27 7132436 F43.20 Prolapsed lumbar intervertebral disc 987906150 M51.26 Serum debby min B12 below reference range 900954502 R79.89 Tobacco user 977572790 Z 72.0 Vitamin D deficiency 347 40363 E55.9 [id number] [facility] [address] [place] [address] [id number] 0 08/11/2021 15:00:29 08/12/2021 13:12:43 Acid reflux 994896080 K21.9 Gastroesop hageal reflux disease 115676018 K21.9 Hyperlipidemia 41579679 E78.5 Insomnia 588662117 G47.0 0 Neuropathy 027873250 G62 .9 Obesity 492628056 E66.9 Prolapsed lumbar intervertebral disc 051137356 M51.26 Serum debby min B12 below reference range 850149406 R79.89 Tobacco user 162159190 Z 72.0 Vitamin D deficiency 347 07176 E55.9 Chronic ob structive pulmonary disease 92583098 J44.9 Essential hypertension 35209373 I10 Normal grief reaction 27 5972785 F43.20 Eczema 93960207 L30.9 arms [id number] MD Murtaza Mcege (Adult Med) [address] [place] [address] 59734-806 0 09/11/2021 11:49:22 09/15/2021 08:25:09 Acute sinusitis 82975765 J01.90 Hyperlipidemia 48291032 E78.5 Serum debby min B12 below reference range 220804310 R79.89 Vitamin D deficiency 347 40562 E55.9 Essential hypertension 87593119 I10 Gastroesop hageal reflux disease 164079363 K21.9 Neuropathy 592843799 G62 .9 Prolapsed lumbar intervertebral disc 475518738 M51.26 Chronic ob structive pulmonary disease 19942907 J44.9 Insomnia 508500449 G47.0 0 [id number] MD Murtaza Mcgee (Adult Med) [address] [place] [address] [id number] 0 10/16/2021 11:49:21 10/20/2021 07:59:55 Chronic obstructive pulmonary disease 26954196 J44.9 Acute sinusitis 64869072 J01.90 Renewal of prescription 094903551 Z76.0 [id number] MD Murtaza Mcgee (Adult Med) [address] [place] [address] [id number] 0 11/16/2021 12:07:30 11/17/2021 08:34:17 Bronchitis 61728612 J40 Chronic ob structive pulmonary disease 10031580 J44.9 Eczema 90276652 L30.9 arms Acute otitis media 62005 03 H66.91 Allergic rhinitis 757126 04 J30.9 Essential hypertension 50729786 I10 Gastroesop hageal reflux disease 615938894 K21.9 Hyperlipidemia 79837683 E78.5 Insomnia 552502567 G47.0 0 Prolapsed lumbar intervertebral disc 807756131 M51.26 Serum dbeby min B12 below reference range 426476717 R79.89 Tobacco user 180152018 Z 72.0 Vitamin D deficiency 347 50866 E55.9 [id number] MD Murtaza Mcgee (Adult Med) [address] [place] [address] [phone] 0 03/22/2022 16:01:18 03/25/2022 15:01:33 Obesity 678414252 E66.9 BMI is 35.2. she has been advised to watx=ch her diwr, exercise and keep the weight down. Acid reflux 699770295 K2 1.9 On famotidine . Chronic ob structive pulmonary disease 34896309 J44.9 On inhalers. Gastroesop hageal reflux disease 406573511 K21.9 On famotidine . Hyperlipidemia 39502912 E78.5 On low anomal fat diet, and ezetimibe Generalize d osteoarthritis 232753796 M15.9 On ergocalcif john. Smoker 40227703 F17.200 Advised her to quit smoking. 03-22-2022 . [id number] MD Murtaza Mcgee (Adult Med) [address] [place] [address] [id number] 0 07/20/2022 11:50:11 07/21/2022 14:43:32 Obesity 164679439 E66.9 BMI is 35.2. she has been advised to watch her diet, exercise and keep the weight down. Edema of l ower extremity 015959536 R60.0 She agreed for the tests as ordered and agreed to try furosemide pending the tests. Smoker 57094294 F17.200 Advised her to quit smoking. 03-22-2022 . She is aware of cigarettes smoking can cause cancer of lung, throat, mouth , and emphysema and other disese. [id number] MD Murtaza Mcgee (Adult Med) [address] [place] [address] [id number] 0 10/04/2022 11:51:03 10/05/2022 13:14:56 Obesity 866617723 E66.9 BMI is 35.2. she has been advised to watch her diet, exercise and keep the weight down. BMI is 36.8 as 10-04-22, Chronic ob structive pulmonary disease 03659946 J44.9 On inhalers. Also under the care of her photogrammetric compilation specialist . Smoker 73517554 F17.200 Advised her to quit smoking. 03-22-2022 . She is aware of cigarettes smoking can cause cancer of lung, throat, mouth , and emphysema and other disese. She said that she has cut down to about 10 cigarettes /day, has LDCT ordered by Dr. Luciano Mustafa. 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 Chronic sinusitis 863577 00 J32.9 has had chronic sinus congestion , Discussed with patient, that chronic use of ABS and prednisolo n is not a good ideal, . She agreed for the med as ordered. [id number] Juan Canseco MD [facility] (Adult Med) [address] [place] [address] [phone] 0 01/28/2023 13:58:01 01/31/2023 14:45:20 Administration of influenza vaccine 58371459 Z23 She tolerated shot well. Chronic ob structive pulmonary disease 95407519 J44.9 On inhalers. Also under the care of her photogrammetric compilation specialist . Smoker 59161923 F17.200 Advised her to quit smoking. 03-22-2022 . She is aware of cigarettes smoking can cause cancer of lung, throat, mouth , and emphysema and other disese. She said that she has cut down to about 10 cigarettes /day, has LDCT ordered by Dr. Luciano Mustafa. 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 Hyperlipidemia 05003360 E78.5 On low anomal fat diet, and ezetimibe Chronic back pain 809377 002 G89.29 Under the care of her pain management . Vitamin B1 2 level below reference range 907304919 R79.9 it is not truth, she wants to be tested today. Vitamin D deficiency 347 14082 E55.9 Level was 37.9 on 09-11-2021 . Normal is above 30. [id number] MD Murtaza Mcgee (Adult Med) [address] [place] [address] [phone] 0 04/28/2023 16:24:12 05/03/2023 11:21:57 Acute exacerbation of chronic obstructive pulmonary disease 614190573 J44.1 Discussed with patient, agreed to try medication s as ordered. [id number] MD Murtaza Pandey (Adult Med) [address] [place] [address] [phone] 06/24/2023 09:45:55 06/24/2023 11:00:02 Hyperlipidemia 36596620 E78.5 Vitamin D deficiency 347 65470 E55.9 Neurogenic urinary bladder 339454956 N31.9 Urinary incontinence 165 150208 R32 Obstructiv e sleep apnea syndrome 14130094 G47.33 [id number] Donnie Daley MD [facility] [employer] [facility] [place] [address] [place] [address] 08/01/2023 16:08:34 08/01/2023 17:41:50 Acute bronchitis 63312997 J20.9 [id number] Donnie Daley MD [facility] [employer] [facility] [place] [address] [place] [address] 09/08/2023 14:52:54 09/08/2023 16:56:15 Obesity 212148062 E66.8 Chronic ob structive pulmonary disease 34199006 J44.9 Chronic pain syndrome 37 8865936 G89.4 Obstructiv e sleep apnea syndrome 96691152 G47.33 Smoker 78153108 F17.200 Gastroesop hageal reflux disease without esophagitis 100688597 K21.9 [id number] MD [facility] (Adult Med) [address] [place] [address] 09/20/2023 11:56:28 09/20/2023 12:48:36 Obesity 710687780 E66.8 Smoker 72693715 F17.200 Chronic ob structive pulmonary disease 72122205 J44.9 [id number] MD [facility] (Adult Med) [address] [place] [address] 10/26/2023 14:30:51 10/26/2023 16:17:42 Essential hypertension 99447087 I10 Fatigue 68161479 R53.83 Hyperlipidemia 65705870 E78.5 Chronic ob structive pulmonary disease 93066673 J44.9 [id number] Donnie Daley MD [facility] (Adult Med) [address] [place] [address] 0 12/13/2023 10:11:48 12/13/2023 10:57:30 Administration of influenza vaccine 59208081 Z23 [id number] Donnie Daley MD [facility] (Adult Med) [address] [place] [address] 03/30/2024 09:28:05 03/30/2024 10:54:48 Body mass index 30+ - obesity 206785857 Z68.34 Obesity 623323017 E66.9 Hyperlipidemia 57808849 E78.5 Chronic ob structive pulmonary disease 37368653 J44.9 Kidney stone 54986377 N2 0.0 Obstructiv e sleep apnea syndrome 46152733 G47.33 Gallstone 570790533 K80. 20 Secondary polycythemia 82434065 D75.1 Eczema 62813317 L30.9 [id number] Donnie Daley MD [facility] (Adult Med) [address] [place] [address] 0 04/13/2024 10:43:23 04/13/2024 11:59:26 Body mass index 30+ - obesity 980484152 Z68.34 Obesity 911485337 E66.9 Hyperlipidemia 38340256 E78.5 Paresthesi a of lower extremity 639929079 R20.2 [id number] Donnie Daley MD [facility] (Adult Med) [address] [place] [address] 0 07/20/2024 10:46:46 07/20/2024 12:19:04 Smoker 30273274 F17.200 Obesity ca used by energy imbalance 800640015 E66.811 E66.09 Z68.33 Essential hypertension 60537071 I10 Hyperlipidemia 93733514 E78.5 Vitamin D deficiency 347 77629 E55.9 Serum debby min B12 below reference range 550768550 R79.89 Gastroesop hageal reflux disease without esophagitis 887968784 K21.9 Weakness o f bilateral lower limb 8210908490 48241 R29.898 Chronic ob structive pulmonary disease 72806738 J44.9 Health Concerns Section Related Observation LastModified by Organization Detai ls LastModified Time None Recorded Concern Status LastModified by Organization Details LastModified Time None Recorded Advance Directives Directive N: Payers Insurance Date Sequence Insurance Name Policy Number Policy Crane Covered Member ID Crane Member ID Guarantor Name 07/20/2024 2 [place]ARE OR MEDICARE REPLACEMENT PRIMARY) Oralee Garrett [id number] Ora Anatoliy Garrett 07/20/2024 [facility] ON OR AFTER 08/28/20 (MEDICAID REPLACEMENT - HMO) Oralee Garrett [id number] Ora Anatoliy Garrett 07/20/2024 1 [place] Oralee N Garrett [id number] Ora Anatoliy Garrett 07/24/2024 1 [facility] (MEDICARE REPLACEMENT/ADVANT AGE - HMO) [id number] Oralee N Garrett [id number] Ora Anatoliy Garrett 07/20/2024 2 [place] OR MEDICARE REPLACEMENT PRIMARY) Oralee Garrett [id number] Ora Anatoliy Garrett 07/20/2024 [place] N [facility] Oralee N Garrett [id number] Ora Anatoliy Garrett 07/20/2024 2 [facility] PRIOR TO 08/28/2020 (MEDICAID REPLACEMENT - HMO) Oralee Garrett [id number] Ora Anatoliy Garrett 07/20/2024 2 [facility] - DUAL ELIGIBLE - [place] (MEDICARE REPLACEMENT/ADVANT AGE) Oralee Garrett [id number] Ora Anatoliy Garrett 07/20/2024 [facility] ON OR AFTER 08/28/20 (MEDICAID REPLACEMENT - HMO) Oralee Garrett [id number] Ora Anatoliy Garrett 07/20/2024 1 [facility] ON OR AFTER 02/29/2020 - DUAL ELIGIBLE (MEDICARE REPLACEMENT/ADVANT AGE - HMO) Oralee Garrett [id number] Ora Anatoliy Garrett 07/20/2024 [place] [facility] Oralee N Garrett [id number] Ora Anatoliy Garrett 07/20/2024 2 [place] [facility] Oralee Garrett [id number] Ora Anatoliy Garrett 07/20/2024 1 [place] Oralee N Garrett [id number] Ora Anatoliy Garrett 07/20/2024 2 [place] OR MEDICARE REPLACEMENT PRIMARY) Oralee Garrett [id number] Ora Anatoliy Garrett 07/20/2024 2 [facility] - DOS ON OR AFTER 20 (MEDICAID REPLACEMENT - HMO) Oralee Garrett [id number] Ora Anatoliy Garrett 07/20/2024 1 [facility] - DOS ON OR AFTER 2020 - DUAL ELIGIBLE (MEDICARE REPLACEMENT/ADVANT AGE - HMO) Oralee Garrett [id number] Ora Anatoliy Garrett 07/20/2024 [place] OR MEDICARE REPLACEMENT PRIMARY) Oralee Garrett [id number] Ora Anatoliy Garrett 07/20/2024 2 [place] WHEN [place]ARE OR MEDICARE REPLACEMENT PRIMARY) Oralee Garrett [id number] Ora Anatoliy Garrett 07/20/2024 2 [place] [facility] Oralee Garrett [id number] Ora Anatoliy Garrett 07/20/2024 [facility] - DOS PRIOR TO 2020 (MEDICAID REPLACEMENT - HMO) Oralee Garrett [id number] Ora Anatoliy Garrett Notes Date Note Type Note Provider Name and Address Organization Details Recorded Time 10/26/2023 text/html COPD no cough or wheezing [...] local pain management Donnie Daley MD Attn: Accounting,[address] [place], [address], [facility] 11/05/2023 14:48:01 03/30/2024 text/html hypertension no headache or dizziness blood pressure 106/68. COPD stable no cough or wheezing. Dyslipidemia taking her Zetia without any side effects. gallstone asymptomatic kidney stone asymptomatic Donnie Daley MD Attn: Accounting,[address] [facility], [place], [address], [facility] 03/30/2024 22:09:45 04/13/2024 text/html Acute appointmen t [...] but it does not have classic claudication Mary Boykin RN [facility], [place] - [facility] 07/16/2024 17:45:36 07/20/2024 text/html hypertension no headache or dizziness . COPD stable no cough or wheezing. Dyslipidemia taking her Zetia without any side effects. gallstone asymptomatic kidney stone asymptomatic still feel weak in the legs needs her vitamin-D level checked she needs to quit smoking or GERD has been doing fine Donnie Daley MD Attn: Accounting,[address] [facility], [place], [address], [facility] 07/21/2024 15:57:45 OBGyn Episode No OBEpisode recorded.
--- OUTSIDE RECORDS SUMMARY | 2024-09-06 13:54 | XMS_ITS | Encounter Summary ---
Author Organization [facility] Address [address] [facility] [place] [address] Care Team Providers Care Shelver Name Role Phone Jas Borrero MD Unavailable [phone] Ever Garber MD Unavailable [phone] Gian Zimmer Unavailable MastDino kaye MD Unavailable [phone] Rambo Hui MD Unavailable [phone] Emery Jarrell MD Primary Care Provider Francisco Adams MD Unavailable Reason for Visit * Reason Comments Refill Request Encounter Details Date Type Department Care Team (Late st Contact Info) Description 09/05/2024 Refill [facility] - Internal Medicine [facility] [address] [address] Emery Jarrell MD [address] [place] [address] Refill Request Social History Tobacco Use Types Packs/Day Years Used Date Smoking Tobacco: Every Day Cigarettes 1 49.5 Started: 02/28/1975 Smokeless Tobacco: Never Comments:cut down to half pp d Alcohol Use Standard Drinks/Week Comments No 0 [...] Recorded Patient Health Questionnaire-2 Score 0 05/01/2024 Comments No Sex and Gender Information Value Date Recorded Sex Assigned at Not on file Legal Sex Female 6:39 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 Answer Date of Assessment Author No 01/14/2023 4:38 PM Jh Castellanos RN * Is person blind or have serious difficulty seeing? Answer Date of Assessment Author No 01/14/2023 4:38 PM Jh Castellanos RN * Does person have serious difficulty walking/climbing stairs? Answer Date of Assessment Author Yes 01/14/2023 4:38 PM Jh Castellanos RN * Does person have difficulty dressing/bathing? Answer Date of Assessment Author Yes 01/14/2023 4:38 PM Jh Castellanos RN * Does person have difficulty doing errands alone? Answer Date of Assessment Author Yes 01/14/2023 4:38 PM Jh Castellanos RN documented as of this encounter Mental Status * Does person have difficulty concentrating/remembering/making decisions? Answer Entry Date Author No 01/14/2023 4:38 PM Jh Castellanos RN documented in this encounter Plan of Treatment Upcoming Encounters Date Type Department Care Team (Late st Contact Info) Description 11/12/2024 9:00 AM CDT Office Visit [facility] - Internal Medicine [facility] [address] [address] Emery Jarrell MD [address] [place] [phone] 12/17/2024 9:40 AM CDT Office Visit [facility] Medical [facility] - Urology [address] [facility], [address] [place] [address] Francisco Adams MD [address] [place] [address] documented as of this encounter Goals Goal Patient Goal Type Associated Problems Recent Progress Patient-Stated? Author Quit smoking / using tobacco Lifestyle Not on track(11/17/19 16 12:03 PM CDT) No Marie Hollis MA documented as of this encounter Visit Diagnoses Diagnosis Vitamin D deficiency documented in this encounter Care Teams Shelver Relationship Specialty Start Date End Date Emery Jarrell MD [facility] [address] [place] [address] PCP - General Internal Medicine 12/13/22 Jas Borrero MD Obstetrics 05/08/13 Ever Garber MD [facility] [place] [address] Gastroenterology 03/22/14 Gian Zimmer PA [address] [place] [address] Physician Wind Turbine Design Engineer 05/24/17 Dino Thakkar MD [facility] [address] [place] [address] Urology 05/24/17 [place] [address] [place] [address] Internal Medicine Sleep Medicine 06/22/18 Francisco Adams MD [address] [address] Surgeon Urology 06/27/23 documented as of this encounter
--- OUTSIDE RECORDS SUMMARY | 2024-09-06 13:54 | XMS_ITS | Clinical Summary ---
Author Organization [facility] Address [address] [place] [address] Care Team Providers Care Home Theater Installer Name Role Phone Unavailable Primary Care Provider [...] 1 - Tdap) 1973 Mammogram Screening 1994 Pneumococcal Vaccine: 50+ Ye ars (1 of 1 - PCV) 2004 Zoster Vaccines (1 of 2) 2004 Dexa Scan (General) 2019 COVID-19 Vaccine ( - 2023-2 5 season) 2023 RSV Immunization or 60+ Years (1 [...]
--- OUTSIDE RECORDS SUMMARY | 2024-09-06 13:54 | XMS_ITS | Clinical Summary ---
Author Organization [facility] Address [address] [place] [address] Care Team Providers Care Chief Operator Reformer Name Role Phone Unavailable Primary Care Provider [...] Date Smoking Tobacco: Every Day Cigarettes 1 53.9 Started: 10/12/1970 Smokeless Tobacco: Never Tobacco Cessation:Ready [...] 6:00 AM CDT Height 165.1 cm (5' 5) 10/18/2017 6:16 AM CDT Body Mass Index 34.96 10/18/2017 6:16 AM CDT Plan of Treatment Not on file Advance Directives * Full Resuscitation (Latest Code Status on File) Date Activated Date Inactivated Comments 10/12/2017 4:19 PM 10/26/2017 2:37 PM
--- OUTSIDE RECORDS SUMMARY | 2024-09-06 13:54 | XMS_ITS | Clinical Summary ---
Author Organization [facility] Address [address] [place] [address] Care Team Providers Care Car And Yard Supervisor Name Role Phone Emery Jarrell MD Primary Care Provider [phone] Allergies Active Allergy Reactions Criticality Noted Date [...] Encounters Date Type Department Care Team Description 08/21/2024 External Device Data ST[facility] ABSTRACTION Provider, Abstract 08/14/2024 External Device Data [facility] ABSTRACTION Provider, Abstract 07/24/2024 External Device Data [facility] ABSTRACTION Provider, Abstract 07/19/2024 External Device Data [facility] ABSTRACTION Provider, Abstract 07/18/2024 External Device Data [facility] ABSTRACTION Provider, Abstract 07/17/2024 External Device Data [facility] ABSTRACTION Provider, Abstract [...] on file Legal Sex Female 11:08 AM SYSTEMS APPLICATIONS PROGRAMMING LEAD Gender Identity Not on file Sexual Orientation Not on file Last Filed Vital Signs Vital Sign Reading Time Taken Comments Blood Pressure 130/79 03/27/2024 1:45 PM SYSTEMS APPLICATIONS PROGRAMMING LEAD Pulse 72 03/27/2024 1:45 PM SYSTEMS APPLICATIONS PROGRAMMING LEAD Temperature 36 C (96.8 F) 03/27/2024 1:45 PM SYSTEMS APPLICATIONS PROGRAMMING LEAD Respiratory Rate 15 03/27/2024 1:45 PM SYSTEMS APPLICATIONS PROGRAMMING LEAD Oxygen Saturation 96% 03/27/2024 1:45 PM SYSTEMS APPLICATIONS PROGRAMMING LEAD Inhaled Oxygen Concentration - - Weight 96.3 kg (212 lb 6.4 oz) 03/27/2024 1:45 P M SYSTEMS APPLICATIONS PROGRAMMING LEAD Height 165.1 cm (5' 5) 05/31/2022 1:51 PM CDT Body Mass Index 35.35 05/31/2022 1:51 PM CDT Plan of Treatment Upcoming Encounters Date Type Department Care Team (Late st Contact Info) Description 09/25/2024 11:30 AM CDT Office Visit [facility]cology and Hematology - [place] [address] [place] [address] Darryl Hauser MD [address] [facility] [address] [place] [address] Health Maintenance Due Date Last Done Comments Pre-Diabetes and Diabetes Screening 1954 FIT-DNA Q 3 years 1999 FIT/FOBT Q 1 year 1999 Flex Sig/CT Colonography Q 5 years 1999 Lung Cancer Screening 2004 RSV VACCINE (60+ or ) (1 - Risk 60-74 years 1-dose series) 2014 COVID-19 Vaccine (3 - 2023-2 5 season) 2023 05/19/2020, 04/21/2020 INFLUENZA VACCINE (#1) 2024 3, 03/19/2022, 12/05/2020, Additional history exists BREAST CANCER SCREENING 12/25/2024 12/26/19 24, 12/26/2023, 12/24/2022, Additional history exists OSTEOPOROSIS SCREENING 05/16/2025 05/16/2020, 2020 DTAP/TDAP/TD VACCINES (3 - T d or Tdap) 01/10/2028 01/09/2018, 04/01/2011 COLORECTAL SCREENING 07/30/2030 07/30/2020 Colorectal Cancer Screening 07/30/2030 ZOSTER VACCINE Completed 10/29/2017, 08/28, 06/24/2017 PNEUMOCOCCAL VACCINE 50+ YEARS Completed 1 , 04/26/2014, 05/04/2012 Insurance RX [employer] RX Member Subscriber Plan / Payer (Ef fective 2022-Present) Name:Connie Garrett Relation to Subscriber:Self Name:Connie Garrett Payer ID:Not on file Group ID:[id number] Type:RX Medicare Part D Address: [address] [facility] [id number] [place] Care Teams Car And Yard Supervisor Relationship Specialty Start Date End Date Emery Jarrell MD [address] [phone] PCP - General Internal Medicine 12/29/22
--- OUTSIDE RECORDS SUMMARY | 2024-09-06 13:54 | XMS_ITS | Data Portability ---
Author Organization [place] - [facility] [employer], Main Office Address [address] [place] [address] Care Team Providers Care Rubber Chemist Name Role Phone DONNIE GRIFFITHS Primary Care Provider DONNIE GRIFFITHS Referring Provider [phone] Assessment Encounter Date Assessment Date Assessment LastModified by Organization Details LastModified Time 06/16/2022 06/16/2022 Assessment: Hypogammaglobuline jah Nicotine smoke: 1 ppd 1975-present = 47 pack years Methacholine (+) mod persistent asthma Atelectasis Early REM onset Mild OSAHS, AHI = 8, supine AHI = 10 Plan: The following were reviewed and explained to the patient: Lab data 10/01/[address] 10/06/21 thyromegaly, atelectasis, RLL 1.5 mm nodule, GAYLA 1 mm nodule PFT 10/07/21 nl FEV1/FVC, FEV1 1.37 L (71%), TLC 2.98 L (59%), DLCO 39%, DLCO/VA 111% Methacholine challenge testing 11/09/21 (+) methacholine challenge @ level 5 [facility] split night sleep study 02/16/09 AHI = 6, CPAP 8 cmH2O [facility] titration sleep study 06/09/13 sleep onset = 19 minutes, REM onset = 33 minutes, Respironics Easy Life nasal mask @ 8-14 cmH2O [facility] diagnostic sleep study 12/08/21 sleep onset = 32.5 minutes, REM onset = 55.5 minutes, AHI = 8, supine AHI = 10 [facility] titration sleep study 02/16/22 sleep onset = 8 minutes, REM onset = 35 minutes, Respironics extra large Parveen nasal mask PAP compliance downloaded and interpreted x 20 minutes. Data reviewed and explained to the patient. Average apnea/hypopnea index (AHI) is 3.0. Patient used PAP > 4 hours 52% of the time. PAP is set at 5-9 cmH2O. PAP will be reset at 6-9 cmH2O. Oxygen supplementation: none Patient is benefiting from PAP therapy. Encouraged patient to maintain PAP use more than 70% of the time. Statement of PAP use and benefits will be sent to the home care store. Educated the patient on problems and solutions associated with positive airway pressure (PAP) use. Difficulty tolerating pressure, mask leaks, intolerance of interface, nasal congestion, claustrophobic response, dry mouth, and unintentional mask removal during sleep were covered. Patient has some difficulty tolerating pressure. Patient is advised to practice wearing PAP daily while awake, lower pressure with or without sleeping on sides, activate PAP ramp feature, have blower checked to make sure pressure is set as prescribed and return to sleep center for consideration of auto-adjusting PAP therapy. Provided the patient with a list of local home care stores where positive airway pressure (PAP) units, accouterments, and services are available. Home care store selection is based on patient's insurance carrier. Patient will setup an appointment with [facility] for supplies and pressure adjustments. A major predictor of success with use of PAP is follow-up with both the respiratory supplier and the treating physician. The download results can show the treating physician information about adherence to treatment, residual AHI while on treatment and presence of large mask leakage. This information is especially helpful if the patient has residual sleepiness despite treatment. General information on sleep disorder breathing, evaluation of sleep disordered breathing, treatment with PAP therapy, and living with PAP therapy were covered. We discussed with the patient the impact of weight on: Sleep disordered breathing Hyperlipidemia KOLBY Lumbar disc prolapse Hip pain Bilateral plantar fasciitis We discussed with the patient the benefit of PAP therapy on: Sleep disordered breathing Headaches Rhinosinusitis Atelectasis KOLBY Bilateral renal calculi Urge urinary incontinence Educated the patient on sleep hygiene measures. Relaxing rituals to rest easy, understanding foods with positive and negative impact on sleep, creating a peaceful sleep environment, timing of exercise, using herbal sleep aids, and practicing sleep-friendly meditation were covered. To determine how much sleep is needed, the patient will assess where (s)he falls on the spectrum, examine what lifestyle factors such as work schedules and stress are affecting the quality and quantity of sleep. In general, adults need 7-9 hours of sleep. Educated the patient regarding foods that promote sleep. These include but are not limited to cherries, bananas, toast, oatmeal, and warm milk. Educated the patient regarding foods and drinks to avoid before bedtime. These include but are not limited to aged cheese, chocolate, spicy foods, tomato-based sauces, soy, ginseng tea and processed meat. Continue incentive spirometer x 5 minutes every 2 hours while awake to reverse and prevent further atelectasis. Patient may need gammaglobulin infusions during times of infection. Nicotine cessation counseling provided. [place] for quitting nicotine include getting ready, getting support and encouragement, learning new skills and behaviors and being prepared to handle slips. Tips for dealing with cravings provided. Prevention of subsequent illnesses from nicotine addiction discussed. Comorbidities include but are not limited to hypertension, cerebrovascular disease, coronary heart disease, congestive heart failure, hyperlipidemia, COPD/asthma, peptic ulcer disease, esophagitis/gastri tis, and osteoporosis. Therapy options offered include: Quitting by total abstinence Receiving nicotine replacement therapy Undergoing hypnosis Filling a bupropion or varenicline prescription Enrolling in Quit For Life program Registering at [email or web address] Making a call to 7-157-LTZZ-NOW ( ). A strong, clear, personalized message was given to the patient to quit smoking. The patient was urged to set a quit date. We discussed patient's barriers to quitting and I will be of assistance when patient is ready to quit. I encouraged patient to inform friends and family of plans to quit with a request for support. I encouraged the patient to remove all cigarettes from the environment. We reviewed any previous quit attempts and lessons learned from them. I encouraged total abstinence from smoking and advised the patient that drinking alcohol and/or associating with other smokers are associated with failure or relapse. Patient can enroll in [facility]'s smoking cessation class through Allyssa Raygoza RN at . Enrollment is free and classes are held every tuesday of the month from 1:30 pm to 2:30 pm at the conference room next to the cafeteria on the ground floor. The [place] Preventive Services Task Force (USPSTF) recommends annual screening for lung cancer with low-dose computed tomography (LDCT) in: 1. adults aged 50 to 80 years who have a 20 pack-year smoking history and 2. current smokers or smokers who have quit within the past 15 years. Screening should be discontinued once a person has not smoked for 15 years or develops a health problem that substantially limits life expectancy or the ability or willingness to have curative lung surgery. Follow up LDCT one week before return. General information on bronchial asthma was covered. Educational video was shown. Patient will monitor peak flow daily at a set time and again when symptoms of chest tightness, cough, dyspnea or wheezing occur. Patient will bring peak flow record to subsequent visits. The color of a traffic light will guide the patient's use of asthma medications: (1) Green means Go Zone. Peak flow: above 80% of personal best. Symptoms: Breathing is good, no cough or wheeze present, patient sleeps through the night and can work and play. Plan: Patient will continue the use of preventative medicine. (2) Yellow means Caution Zone. Peak flow: between 50-80% of personal best. Symptoms: Presence of first signs of a cold, exposure to known trigger, mild wheeze, tight chest and coughing especially night. Plan: Patient will add quick-relief medicine to preventative medicine. (3) Red means Danger Zone. Peak flow: below 50% of personal best. Symptoms: Asthma is getting worse quickly and medicine is not helping, breathing is hard and fast, nose opens widely when breathing, ribs showing when breathing, and patient cannot speak in full sentences. Plan: Patient will get help from a physician immediately. Continue montelukast 10 mg nightly. Continue albuterol HFA as needed. Continue Symbicort 160/4.5 mcg 2 puffs BID. Gargle after use. Continue Spiriva Respimat 2.5 mcg 2 puffs once daily. The patient does not know how to accurately administer the inhalers. Today, the patient was shown how to take these medications. The proper technique for delivering these medications was instructed. The patient expressed a clear understanding and demonstrated back how to use these medications. Without the proper technique, the patient will not reap the benefits of these medications as the contents will not reach the lower airways as intended to be. Adherence to therapy is advocated. Nonadherence may lead to treatment failure, further progression of the condition, and other complications. Hospitals admissions are often the result of individuals not taking prescription medications accurately. Alternatively, greater adherence to medication regimens have shown to lower rates of hospitalization and decrease total medical costs in patients with chronic medical conditions. Advocated influenza vaccination annually and pneumonia vaccination SISI. Advocated weight loss through diet and exercise. Patient's ideal body weight according to height and gender is up to 135 lbs. Encouraged patient to adjust caloric intake to maintain/achieve ideal body weight, emphasizing on fruits, vegetables, whole grains, and fat-free or low-fat products. These include lean meats, poultry, fish, beans, eggs, and nuts and foods that are low in saturated fats, trans-fats, cholesterol, salt (sodium), and glycemic index. Stressed the importance of regular exercise up to the patient's capacity limits. In this case, we recommend 20 min daily walking, 2 days a week of resistance training. Patient to monitor BP daily and bring records to PCP for further management. Follow-up: 6 months, November 2022 Not available 06/16/2022 11:04:25 12/16/2022 12/16/2022 Assessment: Hypogammaglobuline jah Nicotine smoke: 1 ppd 1975-present = 47 pack years Methacholine (+) mod persistent asthma Atelectasis Early REM onset Mild OSAHS, AHI = 8, supine AHI = 10 Plan: The following were reviewed and explained to the patient: Lab data 10/01/[address] 10/06/21 thyromegaly, atelectasis, RLL 1.5 mm nodule, GAYLA [address] 11/15/22 dependent atelectasis, small bilateral effusions PFT 10/07/21 nl FEV1/FVC, FEV1 1.37 L (71%), TLC 2.98 L (59%), DLCO 39%, DLCO/VA 111% PFT 11/15/22 nl FEV1/FVC, FEV1 1.34 L (70%), TLC 3.01 L (60%), DLCO 34%, DLCO/VA 83% Methacholine challenge testing 11/09/21 (+) methacholine challenge @ level 5 [facility] split night sleep study 02/16/09 AHI = 6, CPAP 8 cmH2O [facility] titration sleep study 06/09/13 sleep onset = 19 minutes, REM onset = 33 minutes, Respironics Easy Life nasal mask @ 8-14 cmH2O [facility] diagnostic sleep study 12/08/21 sleep onset = 32.5 minutes, REM onset = 55.5 minutes, AHI = 8, supine AHI = 10 [facility] titration sleep study 02/16/22 sleep onset = 8 minutes, REM onset = 35 minutes, Respironics extra large Parveen nasal mask PAP compliance downloaded and interpreted x 20 minutes. Data reviewed and explained to the patient. Average apnea/hypopnea index (AHI) is 2.0. Patient used PAP > 4 hours 40% of the time. PAP is set at 6-9 cmH2O. PAP will be reset at 8-9 cmH2O. Oxygen supplementation: none Patient is benefiting from PAP therapy. Encouraged patient to maintain PAP use more than 70% of the time. Statement of PAP use and benefits will be sent to the home care store. Educated the patient on problems and solutions associated with positive airway pressure (PAP) use. Difficulty tolerating pressure, mask leaks, intolerance of interface, nasal congestion, claustrophobic response, dry mouth, and unintentional mask removal during sleep were covered. Patient has some difficulty tolerating pressure. Patient is advised to practice wearing PAP daily while awake, lower pressure with or without sleeping on sides, activate PAP ramp feature, have blower checked to make sure pressure is set as prescribed and return to sleep center for consideration of auto-adjusting PAP therapy. Provided the patient with a list of local home care stores where positive airway pressure (PAP) units, accouterments, and services are available. Home care store selection is based on patient's insurance carrier. Patient will setup an appointment with [facility] for supplies and pressure adjustments. A major predictor of success with use of PAP is follow-up with both the respiratory supplier and the treating physician. The download results can show the treating physician information about adherence to treatment, residual AHI while on treatment and presence of large mask leakage. This information is especially helpful if the patient has residual sleepiness despite treatment. General information on sleep disorder breathing, evaluation of sleep disordered breathing, treatment with PAP therapy, and living with PAP therapy were covered. We discussed with the patient the impact of weight on: Sleep disordered breathing Hyperlipidemia KOLBY Lumbar disc prolapse Hip pain Bilateral plantar fasciitis We discussed with the patient the benefit of PAP therapy on: Sleep disordered breathing Headaches Rhinosinusitis Atelectasis KOLBY Bilateral renal calculi Urge urinary incontinence Educated the patient on sleep hygiene measures. Relaxing rituals to rest easy, understanding foods with positive and negative impact on sleep, creating a peaceful sleep environment, timing of exercise, using herbal sleep aids, and practicing sleep-friendly meditation were covered. To determine how much sleep is needed, the patient will assess where (s)he falls on the spectrum, examine what lifestyle factors such as work schedules and stress are affecting the quality and quantity of sleep. In general, adults need 7-9 hours of sleep. Educated the patient regarding foods that promote sleep. These include but are not limited to cherries, bananas, toast, oatmeal, and warm milk. Educated the patient regarding foods and drinks to avoid before bedtime. These include but are not limited to aged cheese, chocolate, spicy foods, tomato-based sauces, soy, ginseng tea and processed meat. Continue incentive spirometer x 5 minutes every 2 hours while awake to reverse and prevent further atelectasis. Patient may need gammaglobulin infusions during times of infection. Nicotine cessation counseling provided. [place] for quitting nicotine include getting ready, getting support and encouragement, learning new skills and behaviors and being prepared to handle slips. Tips for dealing with cravings provided. Prevention of subsequent illnesses from nicotine addiction discussed. Comorbidities include but are not limited to hypertension, cerebrovascular disease, coronary heart disease, congestive heart failure, hyperlipidemia, COPD/asthma, peptic ulcer disease, esophagitis/gastri tis, and osteoporosis. Therapy options offered include: Quitting by total abstinence Receiving nicotine replacement therapy Undergoing hypnosis Filling a bupropion or varenicline prescription Enrolling in Quit For Life program Registering at [email or web address] Making a call to 4-597-KBCG-NOW ( ). A strong, clear, personalized message was given to the patient to quit smoking. The patient was urged to set a quit date. We discussed patient's barriers to quitting and I will be of assistance when patient is ready to quit. I encouraged patient to inform friends and family of plans to quit with a request for support. I encouraged the patient to remove all cigarettes from the environment. We reviewed any previous quit attempts and lessons learned from them. I encouraged total abstinence from smoking and advised the patient that drinking alcohol and/or associating with other smokers are associated with failure or relapse. Patient can enroll in [facility]'s smoking cessation class through Allyssa Raygoza RN at . Enrollment is free and classes are held every tuesday of the month from 1:30 pm to 2:30 pm at the conference room next to the cafeteria on the ground floor. The [place] Preventive Services Task Force (USPSTF) recommends annual screening for lung cancer with low-dose computed tomography (LDCT) in: 1. adults aged 50 to 80 years who have a 20 pack-year smoking history and 2. current smokers or smokers who have quit within the past 15 years. Screening should be discontinued once a person has not smoked for 15 years or develops a health problem that substantially limits life expectancy or the ability or willingness to have curative lung surgery. Follow up LDCT and PFT one week before return. General information on bronchial asthma was covered. Patient will monitor peak flow daily at a set time and again when symptoms of chest tightness, cough, dyspnea or wheezing occur. Patient will bring peak flow record to subsequent visits. The color of a traffic light will guide the patient's use of asthma medications: (1) Green means Go Zone. Peak flow: above 80% of personal best. Symptoms: Breathing is good, no cough or wheeze present, patient sleeps through the night and can work and play. Plan: Patient will continue the use of preventative medicine. (2) Yellow means Caution Zone. Peak flow: between 50-80% of personal best. Symptoms: Presence of first signs of a cold, exposure to known trigger, mild wheeze, tight chest and coughing especially night. Plan: Patient will add quick-relief medicine to preventative medicine. (3) Red means Danger Zone. Peak flow: below 50% of personal best. Symptoms: Asthma is getting worse quickly and medicine is not helping, breathing is hard and fast, nose opens widely when breathing, ribs showing when breathing, and patient cannot speak in full sentences. Plan: Patient will get help from a physician immediately. Continue montelukast 10 mg nightly. Continue albuterol HFA as needed. Continue Symbicort 160/4.5 mcg 2 puffs BID. Gargle after use. Continue Spiriva Respimat 2.5 mcg 2 puffs once daily. The patient does not know how to accurately administer the inhalers. Today, the patient was shown how to take these medications. The proper technique for delivering these medications was instructed. The patient expressed a clear understanding and demonstrated back how to use these medications. Without the proper technique, the patient will not reap the benefits of these medications as the contents will not reach the lower airways as intended to be. Adherence to therapy is advocated. Nonadherence may lead to treatment failure, further progression of the condition, and other complications. Hospitals admissions are often the result of individuals not taking prescription medications accurately. Alternatively, greater adherence to medication regimens have shown to lower rates of hospitalization and decrease total medical costs in patients with chronic medical conditions. Advocated influenza vaccination annually and pneumonia vaccination SISI. Advocated weight loss through diet and exercise. Patient's ideal body weight according to height and gender is up to 135 lbs. Encouraged patient to adjust caloric intake to maintain/achieve ideal body weight, emphasizing on fruits, vegetables, whole grains, and fat-free or low-fat products. These include lean meats, poultry, fish, beans, eggs, and nuts and foods that are low in saturated fats, trans-fats, cholesterol, salt (sodium), and glycemic index. Stressed the importance of regular exercise up to the patient's capacity limits. In this case, we recommend 20 min daily walking, 2 days a week of resistance training. Patient to monitor BP daily and bring records to PCP for further management. Follow-up: 1 year, November 2023 Not available 12/16/2022 10:49:04 12/19/2023 12/19/2023 Assessment: Hypogammaglobuline jah Nicotine smoke: 1 ppd 1975-present = 47 pack years Methacholine (+) mod persistent asthma Atelectasis Early REM onset Mild OSAHS, AHI = 8, supine AHI = 10 Plan: The following were reviewed and explained to the patient: Lab data 10/01/[address] 10/06/21 thyromegaly, atelectasis, RLL 1.5 mm nodule, GAYLA [address] 11/15/22 dependent atelectasis, small bilateral effusions Chest CT 11/30/23 RUL pneumatocele, no more nodules PFT 10/07/21 nl FEV1/FVC, FEV1 1.37 L (71%), TLC 2.98 L (59%), DLCO 39%, DLCO/VA 111% PFT 11/15/22 nl FEV1/FVC, FEV1 1.34 L (70%), TLC 3.01 L (60%), DLCO 34%, DLCO/VA 83% Methacholine challenge testing 11/09/21 (+) methacholine challenge @ level 5 [facility] split night sleep study 02/16/09 AHI = 6, CPAP 8 cmH2O [facility] titration sleep study 06/09/13 sleep onset = 19 minutes, REM onset = 33 minutes, Respironics Easy Life nasal mask @ 8-14 cmH2O [facility] diagnostic sleep study 12/08/21 sleep onset = 32.5 minutes, REM onset = 55.5 minutes, AHI = 8, supine AHI = 10 [facility] titration sleep study 02/16/22 sleep onset = 8 minutes, REM onset = 35 minutes, Respironics extra large Parveen nasal mask PAP compliance downloaded and interpreted x 20 minutes. Data reviewed and explained to the patient. Average apnea/hypopnea index (AHI) is 1.9. Patient used PAP > 4 hours 20% of the time. PAP is set at 8-9 cmH2O. PAP will be reset at 8 cmH2O. Keep humidifier level on automatic mode. Keep tube temperature on automatic mode. Keep EPR +1 real time operator. Oxygen supplementation: none Patient is benefiting from PAP therapy. Encouraged patient to maintain PAP use more than 70% of the time. Statement of PAP use and benefits will be sent to the home care store. Educated the patient on problems and solutions associated with positive airway pressure (PAP) use. Difficulty tolerating pressure, mask leaks, intolerance of interface, nasal congestion, claustrophobic response, dry mouth, and unintentional mask removal during sleep were covered. Patient has some difficulty tolerating pressure. Patient is advised to practice wearing PAP daily while awake, lower pressure with or without sleeping on sides, activate PAP ramp feature, have blower checked to make sure pressure is set as prescribed and return to sleep center for consideration of auto-adjusting PAP therapy. Provided the patient with a list of local home care stores where positive airway pressure (PAP) units, accoutrement, and services are available. Home care store selection is based on patient's insurance carrier. Patient will setup an appointment with [facility] for supplies and pressure adjustments. A major predictor of success with use of PAP is follow-up with both the respiratory supplier and the treating physician. The download results can show the treating physician information about adherence to treatment, residual AHI while on treatment and presence of large mask leakage. This information is especially helpful if the patient has residual sleepiness despite treatment. General information on sleep disorder breathing, evaluation of sleep disordered breathing, treatment with PAP therapy, and living with PAP therapy were covered. We discussed with the patient the impact of weight on: Sleep disordered breathing Hyperlipidemia KOLBY Lumbar disc prolapse Hip pain Bilateral plantar fasciitis We discussed with the patient the benefit of PAP therapy on: Sleep disordered breathing Headaches Rhinosinusitis Atelectasis KOLBY Bilateral renal calculi Urge urinary incontinence Educated the patient on sleep hygiene measures. Relaxing rituals to rest easy, understanding foods with positive and negative impact on sleep, creating a peaceful sleep environment, timing of exercise, using herbal sleep aids, and practicing sleep-friendly meditation were covered. To determine how much sleep is needed, the patient will assess where (s)he falls on the spectrum, examine what lifestyle factors such as work schedules and stress are affecting the quality and quantity of sleep. In general, adults need 7-9 hours of sleep. Educated the patient regarding foods that promote sleep. These include but are not limited to cherries, bananas, toast, oatmeal, and warm milk. Educated the patient regarding foods and drinks to avoid before bedtime. These include but are not limited to aged cheese, chocolate, spicy foods, tomato-based sauces, soy, ginseng tea and processed meat. Continue incentive spirometer x 5 minutes every 2 hours while awake to reverse and prevent further atelectasis. Patient may need gammaglobulin infusions during times of infection. Nicotine cessation counseling provided. [place] for quitting nicotine include getting ready, getting support and encouragement, learning new skills and behaviors and being prepared to handle slips. Tips for dealing with cravings provided. Prevention of subsequent illnesses from nicotine addiction discussed. Comorbidities include but are not limited to hypertension, cerebrovascular disease, coronary heart disease, congestive heart failure, hyperlipidemia, COPD/asthma, peptic ulcer disease, esophagitis/gastri tis, and osteoporosis. Therapy options offered include: Quitting by total abstinence Receiving nicotine replacement therapy Undergoing hypnosis Filling a bupropion or varenicline prescription Enrolling in Quit For Life program Registering at [email or web address] Making a call to 6-137-VVRK-NOW ( ). A strong, clear, personalized message was given to the patient to quit smoking. The patient was urged to set a quit date. We discussed patient's barriers to quitting and I will be of assistance when patient is ready to quit. I encouraged patient to inform friends and family of plans to quit with a request for support. I encouraged the patient to remove all cigarettes from the environment. We reviewed any previous quit attempts and lessons learned from them. I encouraged total abstinence from smoking and advised the patient that drinking alcohol and/or associating with other smokers are associated with failure or relapse. Patient can enroll in [facility]'s smoking cessation class through Allyssa Raygoza RN at . Enrollment is free and classes are held every tuesday of the month from 1:30 pm to 2:30 pm at the conference room next to the cafeteria on the ground floor. The [place] Preventive Services Task Force (USPSTF) recommends annual screening for lung cancer with low-dose computed tomography (LDCT) in: 1. adults aged 50 to 80 years who have a 20 pack-year smoking history and 2. current smokers or smokers who have quit within the past 15 years. Screening should be discontinued once a person has not smoked for 15 years or develops a health problem that substantially limits life expectancy or the ability or willingness to have curative lung surgery. General information on bronchial asthma was covered. Patient will monitor peak flow daily at a set time and again when symptoms of chest tightness, cough, dyspnea or wheezing occur. Patient will bring peak flow record to subsequent visits. The color of a traffic light will guide the patient's use of asthma medications: (1) Green means Go Zone. Peak flow: above 80% of personal best. Symptoms: Breathing is good, no cough or wheeze present, patient sleeps through the night and can work and play. Plan: Patient will continue the use of preventative medicine. (2) Yellow means Caution Zone. Peak flow: between 50-80% of personal best. Symptoms: Presence of first signs of a cold, exposure to known trigger, mild wheeze, tight chest and coughing especially night. Plan: Patient will add quick-relief medicine to preventative medicine. (3) Red means Danger Zone. Peak flow: below 50% of personal best. Symptoms: Asthma is getting worse quickly and medicine is not helping, breathing is hard and fast, nose opens widely when breathing, ribs showing when breathing, and patient cannot speak in full sentences. Plan: Patient will get help from a physician immediately. Continue montelukast 10 mg nightly. Continue albuterol HFA as needed. Continue Symbicort 160/4.5 mcg 2 puffs BID. Gargle after use. Continue Spiriva Respimat 2.5 mcg 2 puffs once daily. The patient does not know how to accurately administer the inhalers. Today, the patient was shown how to take these medications. The proper technique for delivering these medications was instructed. The patient expressed a clear understanding and demonstrated back how to use these medications. Without the proper technique, the patient will not reap the benefits of these medications as the contents will not reach the lower airways as intended to be. Adherence to therapy is advocated. Nonadherence may lead to treatment failure, further progression of the condition, and other complications. Hospitals admissions are often the result of individuals not taking prescription medications accurately. Alternatively, greater adherence to medication regimens have shown to lower rates of hospitalization and decrease total medical costs in patients with chronic medical conditions. Advocated influenza vaccination annually and pneumonia vaccination SISI. Advocated weight loss through diet and exercise. Patient's ideal body weight according to height and gender is up to 135 lbs. Encouraged patient to adjust caloric intake to maintain/achieve ideal body weight, emphasizing on fruits, vegetables, whole grains, and fat-free or low-fat products. These include lean meats, poultry, fish, beans, eggs, and nuts and foods that are low in saturated fats, trans-fats, cholesterol, salt (sodium), and glycemic index. Stressed the importance of regular exercise up to the patient's capacity limits. In this case, we recommend 20 min daily walking, 2 days a week of resistance training. Patient to monitor BP daily and bring records to PCP for further management. Follow-up: 1 year, November 2024 Not available 12/19/2023 12:28:37 02/14/2024 02/14/2024 This note is dictated and transcribed by [employer]. Clerk To Justice variances may occur. Despite proofreading, typographical errors may occur. Occasional wrong-word or '[id number]' substitutions may have occurred due to the inherent limitations of voice recording. Read the chart carefully and recognize, using context, where substitutions have occurred. [email or web address] Not available 02/14/2024 15:15:13 05/29/2024 05/29/2024 This note is dictated and transcribed by [employer]. Clerk To Justice variances may occur. Despite proofreading, typographical errors may occur. Occasional wrong-word or '[id number]' substitutions may have occurred due to the inherent limitations of voice recording. Read the chart carefully and recognize, using context, where substitutions have occurred. [email or web address] Not available 05/30/2024 09:29:27 Plan of Treatment Reminders Order Date Submit Date Provider Last Modified By Organization Details Last Modified Time Details Appointments Establish ed Patient 15 2024 01:15P Jeremie Reynolds DPM Not available Not available Not available Any 30 2024 10:30A M Emanuel Mustafa MD Not available Not available Not available Lab None recorded. Referral None recorded. Procedures None recorded. Surgeries None recorded. Imaging LDCT, chest, for lung cancer screening 2023 025 Not available 12/19/2023 12:37:26 LDCT, chest, for lung cancer screening 2022 024 [email or web address] [facility] ([facility]), [address] [place], [address], 01/05/2024 12:22:59 LDCT, chest, for lung cancer screening - Nicotine smoke: 1 ppd 1975-pres ent = 47 pack years 2022 023 [facility] ([facility]), [address] [place], [address], 12/23/2022 12:33:34 Medication Orders albuterol sulfate HFA 90 mcg/actua tion aerosol inhaler 2023 024 [facility] #[id number], [address], [place], [id number], 12/19/2023 12:29:[address] 10 mg tablet 2023 024 [facility] #[id number], [address], [place], [id number], 12/19/2023 12:29:28 Symbicort 160 mcg-4.5 mcg/actua tion HFA aerosol inhaler 2023 025 [facility] #98391, [address], [place], [id number], 04/19/2024 11:04:21 Spiriva Respimat 2.5 mcg/actua tion solution for inhalatio n 2023 024 [facility] #06138, [address], [place], [id number], 12/19/2023 12:29:26 albuterol sulfate HFA 90 mcg/actua tion aerosol inhaler 2022 023 [facility] #84551, [address], [place], [id number], 12/16/2022 10:50:[address] 10 mg tablet 2022 023 [facility] #23373, [address], [place], [id number], 12/16/2022 10:50:28 Symbicort 160 mcg-4.5 mcg/actua tion HFA aerosol inhaler 2022 023 [facility] #64863, [address], [place], [id number], 12/16/2022 10:50:31 Spiriva Respimat 2.5 mcg/actua tion solution for inhalatio n 2022 023 [facility] #98408, [address], [place], [id number], 12/16/2022 10:50:31 albuterol sulfate HFA 90 mcg/actua tion aerosol inhaler 2022 023 [facility] #06285, [address], [place], [id number], 06/16/2022 11:06:[address] 10 mg tablet 2022 023 [facility] #69015, [address], [place], [id number], 06/16/2022 11:06:14 Symbicort 160 mcg-4.5 mcg/actua tion HFA aerosol inhaler 2022 023 [facility] #39425, [address], [place], [id number], 06/16/2022 11:06:13 Spiriva Respimat 2.5 mcg/actua tion solution for inhalatio n 2022 023 [facility] #85814, [address], [place], [id number], 06/16/2022 11:06:15 Patient TargetsNo targets recorded. Patient Instructions Encounter Date Encounter Id Patient Instructions Last Modified By Organization Details Last Modified Time 06/16/2022 [id number] complete PFT w/ post bronchodilator spirometry* Not available 12/27/2022 13:55:09 12/16/2022 [id number] complete PFT w/ post bronchodilator spirometry* [email or web address] Not available 12/21/2023 08:35:08 12/19/2023 [id number] complete PFT w/ post bronchodilator spirometry* Not available 12/19/2023 12:29:16 Reason for Referral None Reported. Results Created Date Observation Date Name Description Value Unit Range Abnormal Flag Note LastModifiedBy Organization Detail LastModifiedTime 11/16/1911/15/2022 LDCT, chest , for lung ana maría mckay No observ ation record ed. [facility] [address] [place], [address], 11/15/2022 14:15:22 11/17/1911/15/2022 [facility] * No observ ation record ed. [facility] ([facility]) [address] [place], [address], 11/16/2022 19:17:05 08/01/19 24 08/01/2023 XR, chest , 2 view [facility] [address] [facility] [place] [address] Patien t Name: VICENTE MARTINEZ Access ion #: [id number] Sex: F : 1955 5 Dictat ed By: Catherine Luque Attend ing Physic yisel: NOÉ GRIFFITHS Orderi ng Physic yisel: NOÉ GRIFFITHS Exam Date: 2023 11:44 AM Exam Name: XR CHEST 2V Admitt ing Diagno sis(es ): EXAM: XR CHEST 2V CLINIC AL HISTOR Y: Dyspne a COMPAR JASMYN: 2023 TECHNI QUE: Fronta l and latera l view of the chest was obtain ed FINDIN GS: Lines and Tubes: None Lungs: No focal consol idatio n. Linear opacit y is visual ized in the right lower lung which may repres ent pulmon linda edema in the horizo ntal fissur e or atelec tasis. Pleura : No effusi on. No pneumo thorax . Cardio medias tinal contou rs: Unrema rkable Bones: No acute osseou s abnorm ality. IMPRES JAX: No focal consol idatio n. Linear opacit y is visual ized in the right lower lung which may repres ent pulmon linda edema in the horizo ntal fissur e or atelec tasis. Electr onical ly Signed by: Catherine Luque at 2023 13:00: 50 PM Page 1 [email or web address] [facility] (Imaging) [address] [place], [address], 09/13/2023 10:17:19 10/04/19 2311/30/2023 LDCT, chest , for lung ana maría mckay No observ ation record ed. [email or web address] [facility] ([facility]) [address] [place], [address], 01/05/2024 12:22:59 01/24/20 24 12/15/2023 compl [facility] * No observ ation record ed. [facility] [place] [address], [place], [address], 01/24/2024 11:02:12 05/22/1905/01/2024 XR, chest , 2 view No observ ation record ed. BARCODE Not Available 2024 14:14:03 Result Notes Documentation Provider Name and Address Organization Details Recorded Time Xr, Chest, 2 View : [facility] [address] [place] [address] Patient Name: VICENTE MARTINEZ Sex: F : 1955 Dictated By: Catherine Luque Attending Physician: DONNIE GRIFFITHS Ordering Physician: DONNIE GRIFFITHS Exam Date: 08/01/2023 11:44 AM Exam Name: XR CHEST 2V Admitting Diagnosis(es): EXAM: XR CHEST 2V CLINICAL HISTORY: Dyspnea COMPARISON: 04/28/2023 TECHNIQUE: Frontal and lateral view of the chest was obtained FINDINGS: Lines and Tubes: None Lungs: No focal consolidation. Linear opacity is visualized in the right lower lung which may represent pulmonary edema in the horizontal fissure or atelectasis. Pleura: No effusion. No pneumothorax. Cardiomediastinal contours: Unremarkable Bones: No acute osseous abnormality. IMPRESSION: No focal consolidation. Linear opacity is visualized in the right lower lung which may represent pulmonary edema in the horizontal fissure or atelectasis. Page 1 Zenobia Mckeon APRN [address] [facility] [address], [address], [place], [address], [place] [facility] [employer] 09/13/2023 10:17:19 Problems Name Problem SNOMED Code Status Onset Date Resolution Date Notes Provider Name and Address Organization Details Recorded Time Postmenopa usal osteoporos is 269087099 Active 2022 Not Available [facility], [facility] 3 20:55:25 Bilateral plantar fasciitis 7128389227556 9108 Active 2020 Not Available [facility] 3 20:55:25 Closed fracture of base of metacarpal bone other than first metacarpal 57234301 Active Not Available [facility] 3 20:55:25 Moderate persistent asthma 504088668 Active 2022 Not Available [facility] 3 20:55:25 Obstructiv e sleep apnea syndrome 50695316 Active 2022 Not Available [facility] 3 20:55:25 Smoker 76304554 Active 2022 Not Available [facility] 3 20:55:25 Arthritis 1042718 Active 2023 Leatha howard [facility] [employer] [facility] 4 14:27:10 Notes:Medical History: Nicot ine dependence Migraine headaches Bilateral high frequency hearing loss COVID infection 08/2023 Rhinosinusitis with postnasal drip Eosinophils 140/uL IgE 26 IU/mL Methacholine (+) mod persistent asthma Hypogammaglobulinemia (IgG2) Alpha-1 antitrypsin PiMM 146 mg% Atelectasis RUL pneumatocele Moderate restrictive airflow impairment Obesity with mild OSAHS, AHI = 8, 12/08/21, on CPAP c/o IVRC Early REM onset Graves' disease Hyperlipidemia KOLBY Bilateral renal calculi Urge urinary incontinence Vit D deficiency Lumbar disc prolapse Hip pain Bilateral plantar fasciitis Procedure History: T&A 1979 Left knee surgery 2004 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 Please review this document and add these problems to the patient's chart manually as needed. Problem Notes None recorded. Procedures Surgical History Date Name Laterality Status Provider Name and Address Organization Details Recorded Time 05/30/19 25 Nail Debridement completed Ambrosio Reynolds DPM [address], [address], [place], [address], [facility] 05/30/2024 09:29:22 02/14/20 24 Nail Debridement completed Ambrosio Reynolds DPM [address], [address], [place], [address], [facility] 02/14/2024 15:15:01 Knee Replacement completed Leatha Gomez [facility] 02/14/2024 14:31:20 Imaging Results None recorded. Procedure Notes None recorded. Medical Equipment None Reported. Allergies Allergen ID Allergen Name Allergen Category Reaction Reaction Severity Criticality Documentation Date Start Date Code Code System Note Provider Name and Address Organization Details Recorded Time 72541 rosuvasta tin medicatio n hives Not available Not available 04/28/2022 26141 2 RxNorm Not Available [facility] 3 13:15:10 37922 omeprazol e medicatio n hives Not available Not available 04/28/2022 7646 RxNorm Not Available [facility] 3 13:15:10 84120 Iodinated contrast media (substanc e) medicatio n Not available Not available Not available 04/28/2022 07448 2004 SNOMED dye Not Available [facility] 3 13:15:10 Medications Name Sig Start Date Stop Date Status Note LastModified by Organization Details LastModified Time amoxicill in 500 mg capsule TK FOUR CS PO 1 HOUR B DAPP 12/18 completed Not Available Not Available Not Available promethaz ine-DM 6.25 mg-15 mg/5 mL oral syrup TAKE 5-10 ML BY MOUTH THREE TIMES DAILY NEEDED 12/03 completed Not Available Not Available Not Available nystatin 100,000 unit/mL oral suspensio n 09/24 completed Not Available Not Available Not Available prednison e 10 mg tablet 10/01 completed Not Available Not Available Not Available doxycycli ne hyclate 100 mg capsule 09/02 completed Not Available Not Available Not Available desoximet asone 0.25 % topical cream 09/02 completed Not Available Not Available Not Available albuterol sulfate 2.5 mg/3 mL (0.083 %) solution for nebulizat ion USE 1 VIAL VIA NEBULIZE R THREE TIMES DAILY active Not Available Not Available No t Available trazodone 50 mg tablet TAKE 1 TABLET BY MOUTH AT BEDTIME 12/03 completed Not Available Not Available Not Available atorvasta tin 10 mg tablet TAKE 1 TABLET BY MOUTH EVERY DAY 02/13 completed Not Available Not Available Not Available azithromy josue 250 mg tablet TAKE 2 TABLETS BY MOUTH FOR 1 DAY THEN TAKE 1 TABLET BY MOUTH DAILY FOR 4 DAYS active Not Available Not Available No t Available ibuprofen 800 mg tablet 02/13 completed Not Available Not Available Not Available ofloxacin 0.3 % eye drops 03/26 completed Not Available Not Available Not Available fluconazo le 150 mg tablet TAKE 1 TABLET BY MOUTH 3 TIMES A WEEK FOR 7 DAYS 09/24 completed Not Available Not Available Not Available hydrocodo ne 5 mg-acetam inophen 325 mg tablet TAKE 1 TABLET BY MOUTH THREE TIMES DAILY NEEDED FOR PAIN active Not Available Not Available No t Available famotidin e 40 mg tablet TAKE 1 TABLET BY MOUTH AT BEDTIME 02/13 completed Not Available Not Available Not Available prednison e 20 mg tablet TAKE 1 TABLET BY MOUTH EVERY DAY FOR 10 DAYS 11/12 completed Not Available Not Available Not Available clobetaso l 0.05 % topical cream 09/02 completed Not Available Not Available Not Available clindamyc in HCl 150 mg capsule TK FOUR CS PO 1 HOUR B DAPP 12/16 completed Not Available Not Available Not Available valacyclo vir 500 mg tablet TAKE 1 TABLET BY MOUTH TWICE DAILY 10/27 completed Not Available Not Available Not Available ciproflox acin 500 mg tablet TAKE 1 TABLET BY MOUTH TWICE DAILY FOR 7 DAYS 12/18 completed Not Available Not Available Not Available sulfameth oxazole 800 mg-trimet hoprim 160 mg tablet TAKE 1 TABLET BY MOUTH TWICE DAILY 12/18 completed Not Available Not Available Not Available hydrocodo ne 10 mg-acetam inophen 325 mg tablet 09/02 completed Not Available Not Available Not Available omeprazol e 40 mg capsule,d elayed release 09/02 completed Not Available Not Available Not Available triamcino lone acetonide 0.1 % topical cream APPLY EXTERNAL LY TO THE AFFECTED AREA TWICE DAILY NEEDED 09/24 completed Not Available Not Available Not Available dexametha sone sodium phosphate 0.1 % eye drops 09/24 completed Not Available Not Available Not Available ketorolac 0.5 % eye drops INSTILL 1 DROP IN AFFECTED EYE THREE TIMES DAILY BEGINNIN G 2 DAYS BEFORE SURGERY. 11/12 completed Not Available Not Available Not Available betametha sone, augmented 0.05 % lotion APPLY TO THE AFFECTED AREA ON SCALP DAILY NEEDED 09/24 completed Not Available Not Available Not Available famotidin e 20 mg tablet TAKE 1 TABLET BY MOUTH TWICE DAILY BEFORE MEALS 03/26 completed Not Available Not Available Not Available prednisol one acetate 1 % eye drops,chris pension 03/26 completed Not Available Not Available Not Available dexametha sone 1 mg tablet TAKE 1 TABLET BY MOUTH AT 10 PM THE NIGHT BEFORE 8 AM CORTISOL TEST 12/16 completed Not Available Not Available Not Available baclofen 10 mg tablet TAKE 1 TABLET BY MOUTH TWICE DAILY NEEDED active Not Available Not Available No t Available benzonata te 100 mg capsule TAKE 1 CAPSULE BY MOUTH THREE TIMES DAILY NEEDED FOR COUGH 10/01 completed Not Available Not Available Not Available cephalexi n 500 mg capsule TAKE 1 CAPSULE BY MOUTH FOUR TIMES DAILY UNTIL ALL TAKEN 12/18 completed Not Available Not Available Not Available pantopraz ole 40 mg tablet,de layed release TAKE 1 TABLET BY MOUTH EVERY DAY BEFORE A MEAL 09/24 completed Not Available Not Available Not Available nortripty line 10 mg capsule TAKE 2 TO 3 CAPSULES BY MOUTH AT BEDTIME NEEDED 02/13 completed Not Available Not Available Not Available cyanocoba bradley (vit B-12) 1,000 mcg/mL injection solution INJECT 1 ML INTO THE MUSCLE EVERY 30 DAYS active Not Available Not Available No t Available triamcino lone acetonide 0.1 % topical ointment APPLY TOPICALL Y TO THE AFFECTED AREA TWICE DAILY NEEDED active Not Available Not Available No t Available ranitidin e 150 mg tablet TK 1 T PO BID 30 MINUTES AC 10/03 completed Not Available Not Available Not Available lansopraz ole 30 mg capsule,d elayed release 09/02 completed Not Available Not Available Not Available lidocaine 5 % topical patch APPLY 1 PATCH TO SKIN ONCE DAILY REMOVE AFTER 12 HOURS active Not Available Not Available No t Available BD Luer-Yunier Syringe 3 mL 25 gauge x 1 USE ONE SYRINGE EVERY 30 DAYS 09/02 completed Not Available Not Available Not Available mometason e 50 mcg/actua tion nasal spray SHAKE LIQUID AND USE 2 SPRAYS IN EACH NOSTRIL EVERY DAY. 02/13 completed Not Available Not Available Not Available hydrocort isone 2.5 % topical cream ROSALINDA EXT AA HS ROSALINDA HS PRF FLARE 09/24 completed Not Available Not Available Not Available monteluka st 10 mg tablet TAKE 1 TABLET BY MOUTH EVERY DAY active Not Available Not Available No t Available codeine 10 mg-guaife nesin 100 mg/5 mL oral liquid TAKE 5 ML BY MOUTH EVERY 6 HOURS NEEDED FOR COUGH active Not Available Not Available No t Available acetamino phen 300 mg-codein e 60 mg tablet TK 1 T PO QD TO BID PRN 10/01 completed Not Available Not Available Not Available mupirocin 2 % topical ointment APPLY TOPICALL Y TO THE AFFECTED AREA THREE TIMES DAILY 11/12 completed Not Available Not Available Not Available [...] Not Available Not Available No t Available levofloxa josue 750 mg tablet TAKE 1 TABLET BY MOUTH ONCE DAILY AFTER A MEAL 12/18 completed Not Available Not Available Not Available methylpre dnisolone 4 mg tablets in a dose pack FOLLOW PACKAGE DIRECTIO NS 12/18 completed Not Available Not Available Not Available albuterol sulfate HFA 90 mcg/actua tion aerosol inhaler INHALE 1 PUFF BY MOUTH EVERY 4 HOURS NEEDED active Not Available Not Available No t Available ipratropi um bromide 42 mcg (0.06 %) nasal spray USE 2 SPRAYS IN EACH NOSTRIL THREE TIMES DAILY NEEDED 02/13 completed Not Available Not Available Not Available ondansetr on 4 mg disintegr ating tablet DIS 1 T ON THE TONGUE Q 8 H PRN 09/24 completed Not Available Not Available Not Available cefdinir 300 mg capsule TAKE 1 CAPSULE BY MOUTH TWICE DAILY FOR 10 DAYS 12/18 completed Not Available Not Available Not Available fluticaso ne propionat e 50 mcg/actua tion nasal spray,chris pension 09/02 completed Not Available Not Available Not Available doxycycli ne hyclate 100 mg tablet TAKE 1 TABLET BY MOUTH TWICE DAILY FOR 7 DAYS 12/16 completed Not Available Not Available Not Available amoxicill in 875 mg-potass ium clavulana te 125 mg tablet TAKE 1 TABLET BY MOUTH EVERY 12 HOURS 12/18 completed Not Available Not Available Not Available nabumeton e 500 mg tablet 09/02 completed Not Available Not Available Not Available amoxicill in 500 mg-potass ium clavulana te 125 mg tablet TAKE 1 TABLET BY MOUTH TWICE DAILY WITH THE MORNING AND EVENING MEAL FOR 7 DAYS 12/18 completed Not Available Not Available Not Available azithromy josue 500 mg tablet 09/02 completed Not Available Not Available Not Available escitalop steven 10 mg tablet TAKE 1 TABLET BY MOUTH EVERY DAY IN THE MORNING 12/03 completed Not Available Not Available Not Available ezetimibe 10 mg tablet TAKE 1 TABLET BY MOUTH EVERY DAY active Not Available Not Available No t Available rosuvasta tin 5 mg tablet TAKE 1 TABLET BY MOUTH EVERY DAY IN THE MORNING 09/24 completed Not Available Not Available Not Available rosuvasta tin 10 mg tablet TAKE 1 TABLET BY MOUTH EVERY DAY FOR HIGH AMOUNT OF FATS IN THE BLOOD 09/24 completed Not Available Not Available Not Available Klor-Con M20 mEq tablet,ex tended release 09/02 completed Not Available Not Available Not Available Spiriva with HandiHale r 18 mcg and inhalatio n capsules INHALE THE CONTENTS OF 1 CAPSULE VIA INHALATI ON DEVICE EVERY DAY FOR CHRONIC OBSTRUCT ASHKAN LUNG DISEASE 10/01 completed Not Available Not Available Not Available nitrofura ntoin monohydra te/macroc rystals 100 mg capsule TAKE 1 CAPSULE BY MOUTH EVERY 12 HOURS FOR 7 DAYS 12/18 completed Not Available Not Available Not Available Symbicort 160 mcg-4.5 mcg/actua tion HFA aerosol inhaler INHALE 2 PUFFS BY MOUTH TWICE DAILY active Not Available Not Available No t Available peg 3350-elec trolytes 236 gram-22.7 4 gram-6.74 gram-5.86 gram solution MIX AND DRINK 240 ML BY MOUTH EVERY 10 MINUTES DIRECTED 09/24 completed Not Available Not Available Not Available peg 3350 240 gram-elec trolytes 22.72 gram-6.72 g-5.84 g powdr for soln 09/02 completed Not Available Not Available Not Available Voltaren 1 % topical gel 09/02 completed Not Available Not Available Not Available D3-2000 50 mcg (2,000 unit) capsule TAKE 2 CAPSULES BY MOUTH EVERY MORNING 02/13 completed Not Available Not Available Not Available Prolia 60 mg/mL subcutane ous syringe 1 ml SQ once every 6 months 02/13 completed Patient tolerate d first Prolia injectio n well SQ in the upper left arm. She was monitore d for 15 minutes after receivin g injectio n. Patient aware of symptoms to look out for. Patient to come to office in 6 months for second Prolia injectio n Not Available Not Available Not Available Zioptan (PF) 0.0015 % eye drops in a dropperet te 09/02 completed Not Available Not Available Not Available Spiriva Respimat 2.5 mcg/actua tion solution for inhalatio n INHALE 2 PUFFS BY MOUTH EVERY DAY active Not Available Not Available No t Available naloxone 4 mg/actuat ion nasal spray FOLLOW PACKAGE DIRECTIO NS 02/13 completed Not Available Not Available Not Available COVID-19 test specimen collectio n TEST DIRECTED 09/24 completed Not Available Not Available Not Available Vitals Date Recorded Body height Body mass index (BMI) Body weight Heart rate Respiratory rate Oxygen saturation Oxygen saturation in Arterial blood by Pulse oximetry Systolic And Diastolic Provider Name and Address Organization Details Last Updated DateTime 5 165.1 cm 34.9 kg/m2 51156.4 g 82 /min 14 /min 98 % 98 % 127/91 mm[Hg] Kristy SMITH [facility] [employer] ([place] 5 14:25:06 Date Recorded Oxygen saturation Oxygen saturation in Arterial blood by Pulse oximetry Heart rate Respiratory rate Provider Name and Address Organization Details Last Updated DateTime 06/16/2022 95 % 95 % 73 /min 15 /min Emanuel Mustafa MD [address] [facility], [facility] [address], [place], [address], [facility] [employer] [place] [facility] 3 10:49:42 Date Recorded Body height Body mass index (BMI) Body weight Body temperature Heart rate Systolic And Diastolic Provider Name and Address Organization Details Last Updated DateTime 3 165.1 cm 37.3 kg/m2 506176. 69 g 97.9 [degF] 73 /min 126/72 mm[Hg] Shreya Williamson MA [facility] [employer] [place] [facility] 3 10:42:22 Date Recorded Heart rate Respiratory rate Provider N rosie and Address Organization Details Last Updated DateTime 12/16/2022 69 /min 14 /min Emanuel Mustafa MD [address], [address], [place], [address], [facility] [employer] [place] [facility] 12/16/2022 10:37:29 Date Recorded Body height Body mass index (BMI) Body weight Body temperature Heart rate Oxygen saturation Oxygen saturation in Arterial blood by Pulse oximetry Systolic And Diastolic Provider Name and Address Organization Details Last Updated DateTime 3 165.1 cm 35.6 kg/m2 18689.7 7 g 97.4 [degF] 69 /min 96 % 96 % 112/70 mm[Hg] Christina Barba RN [facility] [employer] [place] [facility] 3 10:31:08 Date Recorded Heart rate Respiratory rate Provider N rosie and Address Organization Details Last Updated DateTime 12/19/2023 71 /min 15 /min Emanuel Mustafa MD [address], [address], [place], [address], [facility] [employer] [place] [facility] 12/19/2023 12:29:49 Date Recorded Body height Body mass index (BMI) Body weight Body temperature Heart rate Oxygen saturation Oxygen saturation in Arterial blood by Pulse oximetry Systolic And Diastolic Provider Name and Address Organization Details Last Updated DateTime 4 165.1 cm 35.1 kg/m2 90241.9 9 g 98 [degF] 71 /min 98 % 98 % 118/72 mm[Hg] Shreya Williamson MA [facility] [employer] [place] [facility] 4 12:05:53 Date Recorded Body height Body mass index (BMI) Body weight Provider Name and Address Organization Details Last Updated DateTime 02/14/2024 165.1 cm 34.9 kg/m2 41495.4 g Leatha Patricia [place] [employer] [facility] [employer] 02/14/2024 14:23:13 Date Recorded Heart rate Respiratory rate Oxygen saturation Oxygen saturation in Arterial blood by Pulse oximetry Systolic And Diastolic Provider Name and Address Organization Details Last Updated DateTime 4 81 /min 14 /min 98 % 98 % 148/87 mm[Hg] Kristy Todd [facility] 4 14:27:15 Social History Question Answer Notes LastModified by Organizat ion Details LastModified Time Tobacco Smoking Status Current Every Day Smoker Not Available [facility] 04/28/2022 13:12:44 What Is Your Level Of Caffeine Consumption? Moderate [id number] Information not available 04/28/2022 In The 14 Days Before Symptom Onset, Have You Had Close Contact With A Laboratory-confi rmed COVID-19 While That Case Was Ill? No [id number] Information not available 04/28/2022 In The 14 Days Before Symptom Onset, Have You Had Close Contact With A Person Who Is Under Investigation For COVID-19 While That Person Was Ill? No [id number] Information not available 04/28/2022 What Type Of Diet Are You Following? REGULAR MIGRATION.[id number] Information not available 04/28/2022 Do You Have An Electrostatic Air Filter? No MIGRATION.04301 [id number] Information not available 04/28/2022 Do You Have A Humidifier? No MIGRATION.[id number] Information not available 04/28/2022 Where Do You Live? [place] MIGRATION.[id number] Information not available 04/28/2022 Do You Have Moisture Problems In Your Home? No MIGRATION.14533 [id number] Information not available 04/28/2022 What Was The Date Of Your Most Recent Tobacco Screening? 12/19/2023 Information not available 12/19/2023 Do You Have Any Pets? No MIGRATION.[id number] Information not available 04/28/2022 Do You Use Your Seat Belt Or Car Seat Routinely? Yes Information not available 06/16/2022 Do You Have Smoke And Carbon Monoxide Detectors In Your Home? No MIGRATION.69373 03059 Information not available 04/28/2022 Are You Passively Exposed To Smoke? Yes MIGRATION.67144 [id number] Information not available 04/28/2022 How Much Tobacco Do You Smoke? 0.5 PPD MIGRATION.68018 76019 Information not available 04/28/2022 Do You Use Sunscreen Routinely? No MIGRATION.08336 [id number] Information not available 04/28/2022 Have You Recently Traveled Abroad? No MIGRATION.49832 07953 Information not available 04/28/2022 Do You Have Any Dietary Restrictions? No MIGRATION.36465 22280 Information not available 04/28/2022 Sex: Female Functional Status Question Answer Note LastModified by Organizat ion Details LastModified Time What is your level of alcohol consumption? None [id number] Information not available 04/28/2022 Are you currently employed? Retired Information not available 06/16/2022 Have you been exposed to chemicals or toxins? No Information not available 06/16/2022 What is your exercise level? None [id number].[id number] 26 Information not available 04/28/2022 Mental Status Question Answer Note LastModified by Organization D etails LastModified Time Do you feel stressed (tense, restless, nervous, or anxious, or unable to sleep at night)? [id number] Information not available 06/16/2022 Family History Relationship Description Onset Age of this Age Resolved Age Notes LastModified by Organization Details LastModified Time Mother Cerebrovascu lar accident MIGRATION.360 [id number] Not available 04/28/2022 13:12:46 Mother Hypertensive disorder MIGRATION.828 [id number] Not available 04/28/2022 13:12:46 Mother Hyperlipidem ia MIGRATION.166 [id number] Not available 04/28/2022 13:12:46 Father Cerebrovascu lar accident MIGRATION.576 [id number] Not available 04/28/2022 13:12:46 Father Hyperlipidem ia MIGRATION.088 [id number] Not available 04/28/2022 13:12:46 Father Asthma MIGRATION.599 [id number] Not available 04/28/2022 13:12:46 Father Diabetes mellitus MIGRATION.019 [id number] Not available 04/28/2022 13:12:46 Father Hypertensive disorder MIGRATION.346 [id number] Not available 04/28/2022 13:12:46 Father Migraine MIGRATION.544 [id number] Not available 04/28/2022 13:12:46 Father Osteoporosis MIGRATION.0 30 [id number] Not available 04/28/2022 13:12:46 Brother Malignant tumor of colon MIGRATION.781 [id number] Not available 04/28/2022 13:12:46 Brother Hypertensive disorder MIGRATION.610 [id number] Not available 04/28/2022 13:12:46 Brother Migraine MIGRATION.567 [id number] Not available 04/28/2022 13:12:46 Unspecified Relation Cerebrovascu lar accident GRANDM OTHER AND GRANDF ATHER Not available 02/14/2024 14:29:25 Unspecified Relation Hypertensive disorder GRANDM OTHER Not available 02/14/2024 14:29:59 Mother Arthritis Not available 02/14/2024 14:29:31 Mother Heart disease Not available 2023 14:30:16 Sister Hypertensive disorder Not available 2023 14:29:48 Sister Family history of malignant neoplasm Not available 2023 14:30:48 Brother Family history of malignant neoplasm Not available 2023 14:30:48 Medical History Condition Response INSOMNIA Y HIGH CHOLESTEROL / HYPERLIPIDEMIA Y EYE PROBLEMS Y BACK / NECK PROBLEMS Y GERD/NAUSEA Y ARTHRITIS Y SKIN PROBLEMS Y KIDNEY DISEASE ANEMIA/BLOOD DISORDER Y AUTOIMMUNE DISEASE Y Gynecological HistoryNo gynecological history recorded. Obstetrics History GPAL:G 0 P 0 0 0 0 Past Encounters Encounter ID Performer Location Encounter Start Date Encounter Closed Date Diagnosis/Indication Diagnosis SNOMED-CT Code Diagnosis ICD10 Code Diagnosis Note [id number] [facility] _[facility]_M IGRATION_ DEFAULT_1 _1 , 11/07/2020 00:00:00 11/10/2020 09:53:10 [id number] [facility] _ATHENA_M IGRATION_ DEFAULT_1 _1 , 11/14/2020 00:00:00 11/16/2020 17:27:05 [id number] Emanuel Mustafa MD [facility] Pulmonolo gy [address] [address] 10/01/2021 00:00:00 10/01/2021 11:46:47 [id number] MD SUMMER Jacob_[facility] Pulmonolo [facility] [address] [place] [address] 10/27/2021 00:00:00 10/27/2021 11:02:45 [id number] Corinne Anthony MD _[place]_M IGRATION_ DEFAULT_1 _1 , 12/03/2021 00:00:00 12/03/2021 16:21:50 [id number] MD ARA JacobS_[facility] Pulmonolo [address] [address] 12/03/2021 00:00:00 12/03/2021 14:44:01 [id number] MD SUMMER Jacob_[facility] Pulmonolo [address] [address] 12/31/2021 00:00:00 12/31/2021 10:18:07 [id number] MD SUMMER Zamudio_[facility] [place] [address] [place] [address] 01/14/2022 00:00:00 01/14/2022 19:45:33 [id number] MD SUMMER Jacob_[facility] Pulmonolo [address] [address] 02/26/2022 00:00:00 02/26/2022 14:54:56 [id number] MD SUMMER Zamudio_GMToy [place] [address] [place] [address] 03/26/2022 00:00:00 03/26/2022 12:40:30 [id number] MD SUMMRE Zamudio_[facility] [place] [address] [place] [address] 04/12/2022 00:00:00 04/12/2022 15:04:03 [id number] MD SUMMER Jacob_[facility]G Pulmonolo [address] [address] 06/16/2022 10:07:21 06/16/2022 11:32:45 Moderate persistent asthma 398171243 J45.40 Obstructiv e sleep apnea syndrome 41739219 G47.33 Smoker 17086926 F17.218 F17.219 Z87.139 [id number] Emanuel Mustafa MD [facility] [address] [place] [address] 12/16/2022 10:05:39 12/16/2022 10:53:56 Moderate persistent asthma 282981873 J45.40 Obstructiv e sleep apnea syndrome 71681110 G47.33 Smoker 18784645 F17.218 F17.219 Z87.516 [id number] Emanuel Mustafa MD [facility] [address] [place] [address] 12/19/2023 11:12:59 12/20/2023 15:40:40 Moderate persistent asthma 991739898 J45.40 Obstructiv e sleep apnea syndrome 23792481 G47.33 Smoker 75587177 F17.218 F17.219 Z87.756 [id number] Ambrosio Reynolds DPM [facility] [place] [address] [place] [address] 02/14/2024 14:19:24 02/27/2024 09:06:32 Pain in toe 715282905 M79.676 secondary to elongated toenails Dystrophia unguium 01527 009 L60.3 Nails 1 through 10 were debrided with sharp mechanical debridemen t without incident. Nails were debrided and greater than 50% length and thickness where needed. [id number] Ambrosio Reynolds DPM [facility] [address] [place] [address] 05/29/2024 14:09:57 05/30/2024 10:38:30 Pain in toe 807825932 M79.676 secondary to elongated toenails Dystrophia unguium 49377 009 L60.3 Nails 1 through 10 were debrided with sharp mechanical debridemen t without incident. Nails were debrided and greater than 50% length and thickness where needed. Unable to cut own toenails 320596796 Z74.1 Smoker 38409994 F17.218 F17.219 Z87.891 recommend discontinu e smoking Health Concerns Section Related Observation LastModified by Organization Detai ls LastModified Time None Recorded Concern Status LastModified by Organization Details LastModified Time None Recorded Advance Directives Directive None Recorded Payers Insurance Date Sequence Insurance Name Policy Number Policy Crane Covered Member ID Crane Member ID Guarantor Name 05/31/2024 2 [place] WHEN MEDICARE OR MEDICARE REPLACEMENT PRIMARY) Oralee N Martinez [id number] Ora Anatoliy N Martinez 05/29/2024 1 [facility] (MEDICARE REPLACEMENT/AD VANTAGE - PPO) [id number] Oralee N Martinez [id number] Ora Anatoliy N Martinez 12/19/2023 2 [facility] ON OR AFTER 08/28/20 (MEDICAID REPLACEMENT - HMO) Ora Anatoliy N Martinez [id number] Ora Anatoliy N Martinez 12/19/2023 3 [facility] ON OR AFTER 08/28/20 (MEDICAID REPLACEMENT - HMO) Ora Anatoliy N Martinez [id number] Ora Anatoliy N Martinez Notes Date Note Type Note Provider Name and Address Organization Details Recorded Time 06/16/2022 text/html Primary care/Ref erring provider: Juan Canseco, MDPatibill is here to go over her asthma and HUY management.Initial development of shortness of breath: 2013Duration of shortness of breath: 9 yearsCondition of shortness of breath: stableTiming of shortness of breath: night timeFrequency: up to 3 times a dayLimits activities: yesAggravating factors: walkingAlleviating factors: restModified [employer] Research [place] (mMRC) Dyspnea Scale - Grade 2Grade 0 I only get breathless with strenuous exercise .Grade 1 I get short of breath when hurrying on the level or walking up a slight hill .Grade 2 I walk slower than people of the same age on the level because of breathlessness or have to stop for breath when walking at my own pace on the level .Grade 3 I stop for breath after walking about 100 yards or after a few minutes on the level .Grade 4 I am too breathless to leave the house or I am breathless when dressing .Treatment history:montelukast 10 mg nightly since lbuterol HFA as needed since lbuterol nebs as needed since 2018Symbicort 160/4.5 mcg 2 puffs BID since 2013Spiriva Handihaler once daily 2018-piriva Respimat 2 inhalations daily [id number] Patient's personal best peak flow remains at 280 L/min.Other symptoms:Productive cough: yellowish to clearWheezing: yesChest tightness: yesOrthopnea: noFrequent throat clearing or swallowing: yesPalpitations: noHeartburn: noDysphagia: noEdema: yesEnvironmental exposures:Nicotine smoke: 1 ppd 1975-present = 47 pack yearsPaint: noDye: noDust mites: yesMold: noDamp basement: noWood burning stove: noAnimal dander: noCockroaches: noPollen: yesArsenic: noAsbestos: noBeryllium: noCadmium: noChromium: noCoal smoke: noDiesel fumes: noNickel: noSilica: noSoot: noDuring the [facility] diagnostic sleep study on 12/08/21, sleep onset = 32.5 minutes, REM onset = 55.5 minutes, AHI = 8, supine AHI = 10.During the [facility] titration sleep study on 02/16/22, sleep onset = 8 minutes, REM onset = 35 minutes.At home since 04/07/22, the patient uses a ResMed AirSense 11 autoset unit with heated humidification. The patient does not need the ramp to start low and go up slowly on the pressure. There is no xerostomia in a.m. There is no hose/mask condensation with water.The patient wears a Respironics extra large Parveen nasal maskwithout chin strap. There is no claustrophobia, no nostril/nose bridge irritation, no facial rash, no facial numbness, no nosebleeding.The patient feels more refreshed upon waking and daytime alertness is improved. Energy levels are sustained for the remainder of the dayAt home, the patient sleeps from 10 pm to 6 am and wakes up without an alarm.Snoring: moderate, since 1970s.Snorting: noChoking: noCoughing: yesGasping: noGagging: noSighing: noWitnessed apnea: yesTwitching or jerking of leg(s), arm(s), body, head: yesTeeth grinding: noTeeth clenching: noSleeptalking: noSleepwalking: noSleep crying: noBedwetting: yesTongue/lip/gum/cheek biting: noSleeping with open mouth: yesSleep paralysis: noHypnagogic hallucinations: noHypnopompic hallucinations: noVivid dreams: noDifficulty with sleep onset: yesDifficulty with sleep maintenance: yesSleep interruptions: nocturia 2 x a weekPatient wakes up with: fatigue, mobility impairmentDaytime cataplexy: noMorning hypersomnolence: noAfternoon hypersomnolence: yesCaffeine sources in diet: coffee 1.5 cup per day, tea 1/2 bottle per day, chocolate 1 candy bar per monthAssociated medical and psychiatric conditions:Congestive heart failure: noCoronary artery disease: noMyocardial infarction: noHypertension: noStroke: noBronchial asthma: noChronic obstructive pulmonary disease: noDepression: yesBipolar disorder: noAnxiety: noPanic disorder: noPosttraumatic stress disorder: noAttention deficit and hyperactivity disorder: noObsessive Compulsive disorder: noSchizophrenia: noSchizoaffective disorder: noPersonality disorder: noChronic analgesic use: noChronic sedative/hypnotic use: yes hydrocodoneEPWORTH SLEEPINESS SCALE (ESS)CHANCE OF DOZING SCORE0 = would never doze1 = slight chance of dozing2 = moderate chance of dozing3 = high chance of dozingSITUATION AND CHANCE OF DOZINGSitting and reading - 3Watching television - 2Sitting inactive in a public place (e.g. a theater or meeting) - 0As a passenger in a car for an hour without a break - 0Lying down to rest in the afternoon when circumstances permit - 1Sitting and talking to someone - 0Sitting quietly after lunch without alcohol - 0In a car, while stopped for a few minutes in the traffic - 0TOTAL SCORE 6Subjectively, patient has a slight chance of dozing. Emanuel Mustafa MD [address] [place] [address], [address], [place], [address], [place] [facility] 06/16/2022 11:13:38 12/16/2022 text/html Primary care/Ref erring provider: Juan Canseco, MDPatient is here to go over her asthma and HYU management.Initial development of shortness of breath: 2014Duration of shortness of breath: 9 yearsCondition of shortness of breath: stableTiming of shortness of breath: night timeFrequency: up to 3 times a dayLimits activities: yesAggravating factors: walkingAlleviating factors: restModified Medical Research [place] (mMRC) Dyspnea Scale - Grade 2Grade 0 I only get breathless with strenuous exercise .Grade 1 I get short of breath when hurrying on the level or walking up a slight hill .Grade 2 I walk slower than people of the same age on the level because of breathlessness or have to stop for breath when walking at my own pace on the level .Grade 3 I stop for breath after walking about 100 yards or after a few minutes on the level .Grade 4 I am too breathless to leave the house or I am breathless when dressing .Treatment history:montelukast 10 mg nightly since lbuterol HFA as needed since 2014albuterol nebs as needed since 2018Symbicort 160/4.5 mcg 2 puffs BID since 2013Spiriva Handihaler once daily 2018-piriva Respimat 2 inhalations daily [id number] Patient's personal best peak flow remains at 280 L/min.Other symptoms:Productive cough: yellowish to clearWheezing: yesChest tightness: yesOrthopnea: noFrequent throat clearing or swallowing: yesPalpitations: noHeartburn: noDysphagia: noEdema: yesEnvironmental exposures:Nicotine smoke: 1 ppd 1975-present = 47 pack yearsPaint: noDye: noDust mites: yesMold: noDamp basement: noWood burning stove: noAnimal dander: noCockroaches: noPollen: yesArsenic: noAsbestos: noBeryllium: noCadmium: noChromium: noCoal smoke: noDiesel fumes: noNickel: noSilica: noSoot: noDuring the [facility] diagnostic sleep study on 12/08/21, sleep onset = 32.5 minutes, REM onset = 55.5 minutes, AHI = 8, supine AHI = 10.During the [facility] titration sleep study on 02/16/22, sleep onset = 8 minutes, REM onset = 35 minutes.At home since 06/16/22, the patient uses a ResMed AirSense 11 autoset unit with heated humidification. The patient does not need the ramp to start low and go up slowly on the pressure. There is no xerostomia in a.m. There is no hose/mask condensation with water.The patient wears a Respironics extra large Parveen nasal maskwithout chin strap. There is no claustrophobia, no nostril/nose bridge irritation, no facial rash, no facial numbness, no nosebleeding. She quit CPAP in 09/2022 due to nightmares.The patient feels slightly refreshed upon waking and daytime alertness is mildly improved. Energy levels are sustained until early afternoon, around 2 pm.At home, the patient sleeps from 10 pm to 6 am and wakes up without an alarm.Snoring: moderate, since 1970s.Snorting: noChoking: noCoughing: yesGasping: noGagging: noSighing: noWitnessed apnea: yesTwitching or jerking of leg(s), arm(s), body, head: yesTeeth grinding: noTeeth clenching: noSleeptalking: noSleepwalking: noSleep crying: noBedwetting: yesTongue/lip/gum/cheek biting: noSleeping with open mouth: yesSleep paralysis: noHypnagogic hallucinations: noHypnopompic hallucinations: noVivid dreams: noDifficulty with sleep onset: yesDifficulty with sleep maintenance: yesSleep interruptions: nocturia 2 x a weekPatient wakes up with: fatigue, mobility impairmentDaytime cataplexy: noMorning hypersomnolence: noAfternoon hypersomnolence: yesCaffeine sources in diet: coffee 1.5 cup per day, tea 1/2 bottle per day, chocolate 1 candy bar per monthAssociated medical and psychiatric conditions:Congestive heart failure: noCoronary artery disease: noMyocardial infarction: noHypertension: noStroke: noBronchial asthma: noChronic obstructive pulmonary disease: noDepression: yesBipolar disorder: noAnxiety: noPanic disorder: noPosttraumatic stress disorder: noAttention deficit and hyperactivity disorder: noObsessive Compulsive disorder: noSchizophrenia: noSchizoaffective disorder: noPersonality disorder: noChronic analgesic use: noChronic sedative/hypnotic use: yes hydrocodoneEPWORTH SLEEPINESS SCALE (ESS)CHANCE OF DOZING SCORE0 = would never doze1 = slight chance of dozing2 = moderate chance of dozing3 = high chance of dozingSITUATION AND CHANCE OF DOZINGSitting and reading - 0Watching television - 0Sitting inactive in a public place (e.g. a theater or meeting) - 0As a passenger in a car for an hour without a break - 0Lying down to rest in the afternoon when circumstances permit - 0Sitting and talking to someone - 0Sitting quietly after lunch without alcohol - 0In a car, while stopped for a few minutes in the traffic - 0TOTAL SCORE 0Subjectively, patient has no chance of dozing. Emanuel Mustafa MD [address] [place] [address], [address], [place] - [facility] [employer] 12/16/2022 10:53:10 12/19/2023 text/html Primary care/Ref erring provider: Juan Canseco, [facility] go over her asthma and HUY management.Initial development of shortness of breath: 2014Duration of shortness of breath: 10 yearsCondition of shortness of breath: stableTiming of shortness of breath: night timeFrequency: up to 3 times a dayLimits activities: yesAggravating factors: walkingAlleviating factors: restModified Medical Research [place] (mMRC) Dyspnea Scale - Grade 2Grade 0 I only get breathless with strenuous exercise .Grade 1 I get short of breath when hurrying on the level or walking up a slight hill .Grade 2 I walk slower than people of the same age on the level because of breathlessness or have to stop for breath when walking at my own pace on the level .Grade 3 I stop for breath after walking about 100 yards or after a few minutes on the level .Grade 4 I am too breathless to leave the house or I am breathless when dressing .Treatment history:montelukast 10 mg nightly since lbuterol HFA as needed since lbuterol nebs as needed since 2018Symbicort 160/4.5 mcg 2 puffs BID since 2013Spiriva Handihaler once daily 2018-piriva Respimat 2 inhalations daily [id number] Patient's personal best peak flow remains at 280 L/min.Other symptoms:Productive cough: yellowish to clearWheezing: yesChest tightness: yesOrthopnea: noFrequent throat clearing or swallowing: yesPalpitations: noHeartburn: noDysphagia: noEdema: yesEnvironmental exposures:Nicotine smoke: 1 ppd 1975-present = 47 pack yearsPaint: noDye: noDust mites: yesMold: noDamp basement: noWood burning stove: noAnimal dander: noCockroaches: noPollen: yesArsenic: noAsbestos: noBeryllium: noCadmium: noChromium: noCoal smoke: noDiesel fumes: noNickel: noSilica: noSoot: noDuring the [facility] diagnostic sleep study on 12/08/21, sleep onset = 32.5 minutes, REM onset = 55.5 minutes, AHI = 8, supine AHI = 10.During the [facility] titration sleep study on 02/16/22, sleep onset = 8 minutes, REM onset = 35 minutes.At home since 12/16/22, the patient uses a ResMed AirSense 11 autoset unit with heated humidification. The patient does not need the ramp to start low and go up slowly on the pressure. There is no xerostomia in a.m. There is no hose/mask condensation with water.The patient wears a Respironics extra large Parveen nasal mask without chin strap. There is no claustrophobia, no nostril/nose bridge irritation, no facial rash, no facial numbness, no nosebleeding. She quit CPAP due to nightmares.The patient feels slightly refreshed upon waking and daytime alertness is mildly improved. Energy levels are sustained until early afternoon, around 2 pm.At home, the patient sleeps from 10 pm to 6 am and wakes up without an alarm.Snoring: moderate, since 1970s.Snorting: noChoking: noCoughing: yesGasping: noGagging: noSighing: noWitnessed apnea: yesTwitching or jerking of leg(s), arm(s), body, head: yesTeeth grinding: noTeeth clenching: noSleeptalking: noSleepwalking: noSleep crying: noBedwetting: yesTongue/lip/gum/cheek biting: noSleeping with open mouth: yesSleep paralysis: noHypnagogic hallucinations: noHypnopompic hallucinations: noVivid dreams: noDifficulty with sleep onset: yesDifficulty with sleep maintenance: yesSleep interruptions: nocturia 2 x a weekPatient wakes up with: fatigue, mobility impairmentDaytime cataplexy: noMorning hypersomnolence: noAfternoon hypersomnolence: yesCaffeine sources in diet: coffee 1.5 cup per day, tea 1/2 bottle per day, chocolate 1 candy bar per monthAssociated medical and psychiatric conditions:Congestive heart failure: noCoronary artery disease: noMyocardial infarction: noHypertension: noStroke: noBronchial asthma: noChronic obstructive pulmonary disease: noDepression: yesBipolar disorder: noAnxiety: noPanic disorder: noPosttraumatic stress disorder: noAttention deficit and hyperactivity disorder: noObsessive Compulsive disorder: noSchizophrenia: noSchizoaffective disorder: noPersonality disorder: noChronic analgesic use: noChronic sedative/hypnotic use: yes hydrocodoneEPWORTH SLEEPINESS SCALE (ESS)CHANCE OF DOZING SCORE0 = would never doze1 = slight chance of dozing2 = moderate chance of dozing3 = high chance of dozingSITUATION AND CHANCE OF DOZINGSitting and reading - 0Watching television - 0Sitting inactive in a public place (e.g. a theater or meeting) - 0As a passenger in a car for an hour without a break - 0Lying down to rest in the afternoon when circumstances permit - 0Sitting and talking to someone - 0Sitting quietly after lunch without alcohol - 0In a car, while stopped for a few minutes in the traffic - 0TOTAL SCORE 0Subjectively, patient has no chance of dozing. Emanuel Mustafa MD [address], [address], [place], [address], [employer] 12/19/2023 12:42:38 02/14/2024 text/html . Patient is a 68-year-old female she presents with complaints of elongated painful toenails. Patient states she is unable bit overt cut them she states they are very long. Patient denies any fever, chills, nausea vomiting. Patient denies any redness or drainage from the nails. Patient states she has mild burning of the feet. Patient denies any treatment for this condition. I did go over treatment options as well as testing for neuropathy which the patient states at this time she does not want to have done. Patient denies any other complaints. Ambrosio Reynolds DPM [address], [address], [place], [address], [employer] 02/14/2024 15:16:27 05/29/2024 text/html . Patient is 69-year-old female she presents the office for routine foot care. Patient states she is unable to cut her toenails. Patient states they are long and painful. Patient denies any redness or drainage. Patient denies any other complaints. Ambrosio Reynolds DPM [address], [facility] [address], [place], [address], [employer] 05/30/2024 09:30:53 OBGyn Episode No OBEpisode recorded.
--- OUTSIDE RECORDS SUMMARY | 2024-09-06 13:55 | XMS_ITS | Clinical Summary ---
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 This disclosure is being madepursuant to the Care Everywhere program and may not contain all information available regarding this patient. Last updated 17.[facility] [employer] Allergies Active Allergy Reactions Criticality Noted Date [...] document. Alwaysverify current medications with the patient. lidocaine (LIDODERM) 5 % patch 1 Active albuterol (PROVENTIL;KELLI GIRISH) (2.5 MG/3ML) 0.083% nebulizer solution INHALE 1 [...] HOURS NEEDED 54 g 1 2 Active montelukast (Singulair) 10 MG tabletIndication s:Asthma TAKE 1 TABLET BY MOUTH AT BEDTIME [...] 1 Each 3 Active Symbicort 160-4.5 MCG/ACT inhalerIndicatio ns:Chronic obstructive pulmonary disease, unspecified COPD type (HCC) INHALE 2 PUFFS BY MOUTH TWICE DAILY FOR CHRONIC OBSTRUCTIVE LUNG DISEASE 10.2 g 2 3 Active HYDROcodone-acet aminophen ([place]) 5-325 MG tabletIndication s:Kidney stone Take 1 (one) tablet by mouth every 6 hours as needed for Pain 12 tablet 3 Active triamcinolone (Nasacort Aq) 55 MCG/ACT nasal inhalerIndicatio ns:Allergic rhinitis, unspecified seasonality, unspecified trigger Champion 1 (one) spray to 2 (two) sprays into each nostril once daily 50.7 mL 4 4 Active Additional Information Patient not taking.Reported on 06/18/2024 gabapentin (Neurontin) 100 MG capsule Take 1 (one) capsule by mouth once daily Active ergocalciferol (Drisdol) 1.25 MG (44488 UT) capsuleIndicatio ns:Vitamin D deficiency Take 1 (one) capsule by mouth every 7 days 12 capsule 5 Active guaiFENesin-code ine (Robitussin AC) 100-10 MG/5ML syrupIndications :Chronic cough Take 5 mL by mouth every 6 hours as needed for Cough 240 mL 5 Active cyanocobalamin (Vitamin B-12) injection Inject 1,000 (one thousand) mcg into muscle every 30 days 3 mL 5 Active furosemide (Lasix) 20 MG tabletIndication s:Chronic heart failure with preserved ejection fraction (HCC) TAKE 1 TABLET BY MOUTH DAILY 90 tablet 3 5 Active Active Problems Problem Noted Date Diagnosed [...] current pathological fracture 05/26/2020 Overview (05/26/2020): DEXA March, 2021: T-score is -2.5 Assessment & Plan (10/27/2023 [...] (chronic obstructive pulmonary disease) Overview (04/24/2014): Dr. Dobbs note 11/05/13 Assessment & Plan (10/27/2023 11:01 AM [...] 5 06/26/2020 Overview (03/13/2020): Overview: Overview: Dr. Dobbs note 11/05/13 Preventative health care 04/01/201106/2022 Overview (05/16/2014): Breasts: The tissue density is heterogeneously dense. Lifetime Risk of Developing Breast Cancer is: 7.9% HIV negative 04/11 Last Medicare wellness visit done on 03/2014 Fatigue 04/20/2010 09/01/2022 Overview (04/08/2011): Life-long Celiac negative 04/11 Encounters Date Type Department Care Team Description 09/05/2024 Refill [facility] - Internal Medicine [address] [place] [phone] Emery Jarrell MD Refill Request 07/30/2024 Refill [facility] - Internal Medicine [address] [place] [phone] Emery Jarrell MD Refill Request 06/18/2024 1:20 PM CDT Office Visit [facility] - Urology [address], [address] [place] [phone] Francisco Adams MD Kidney stones (Primary Dx); Mixed incontinence 06/18/2024 12:40 PM CDT - 06/18/2024 11:59 PM CDT Hospital Encounter [facility] - Radiology [address] [place] [address] Milagro Daley, RN SUPPLEMENTAL-MAKEUP INSTRUCTOR Discharge Disposition: Home or Self Care 06/08/2024 Patient Outreach [facility] - Care Coordination [address] [place] [address] Ekta Davidson. Outreach Preventive Care from Last 3 Months Immunizations Immunization Administration Dates Next Due INFLUENZA VACCINE, TRIV. (AF LURIA, FLUZONE TRIVALENT; 6MO+) (IIV3) 12/02/2011,11/30/2010 Covid Moderna primary monova lent 12+ yr 0.5mL 05/19/2020,04/21/2020 FLU VACCINE QUAD IIV4 PF ID 11/17/2015 FLU VACCINE TRI IIV3 SPLIT PF IM (FLUVIRIN) 09/2012 HEP A VACCINE, ADULT 08/28/2002,02/28/2002 HEP [...] 1 49.5 Started: 02/28/1975 Smokeless Tobacco: Never Tobacco Cessation:Ready [...] on file Legal Sex Female 6:39 AM DIRECTOR MACHINE Gender Identity Not on file Sexual Orientation Not on file Occupation Industry Job Start Date Job End Date unemployed Not on file Not on file Not on file Last Filed Vital Signs Vital Sign Reading Time Taken Comments Blood Pressure 130/80 05/01/2024 11:04 AM DIRECTOR MACHINE Pulse 80 05/01/2024 11:04 AM DIRECTOR MACHINE Temperature 36.7 C (98.1 F) 05/01/2024 11:04 AM DIRECTOR MACHINE Respiratory Rate 20 10/27/2023 10:13 AM CDT Oxygen Saturation 98% 05/01/2024 11:04 AM DIRECTOR MACHINE Inhaled Oxygen Concentration 21% 12/05/2020 2 :06 AM CDT Weight 95.3 kg (210 lb) 05/01/2024 11:04 AM DIRECTOR MACHINE Height 165.1 cm (5' 5) 05/01/2024 11:04 AM DIRECTOR MACHINE Body Mass Index 34.95 05/01/2024 11:04 AM DIRECTOR MACHINE Plan of Treatment Upcoming Encounters Date Type Department Care Team (Late st Contact Info) Description 11/12/2024 9:00 AM CDT Office Visit [facility] - Internal Medicine [address] [facility] [address] [place] [address] Emery Jarrell MD [address] [facility] [address] [place] [address] 12/17/2024 9:40 AM CDT Office Visit [facility] - Urology [address] [place] [address], [address] [place] [address] Francisco Adams MD [address] [place], [place] [phone] Health Maintenance Due Date Last Done Comments COLOGUARD (AGES 45-75) - COLON CA SCREENING 1955 CT COLONOGRAPHY - COLON CA SCREENING 1955 FIT - COLON CA SCREENING 1955 FLEX SIG - COLON CA SCREENING 1955 COVID-19 VACCINE ( season) 2023 05/19/2020, 04/21/2020 INFLUENZA VACCINE (#1) 2024 , 01/28/2023, 03/19/2022, Additional history exists MAMMOGRAM 12/25/2024 12/26/2023, 11/29, 12/24/2022, Additional history [...] PNEUMOCOCCAL VACCINE 50+ Completed 020, 04/26/2014, 05/04/2012 Respiratory Syncytial Virus (RSV) Vaccine Pt: or [...] 12:03 PM CDT) No Marie Hollis MA Medical Devices Implanted Type Area Christmas Bell Ringer Device Identifier Shelf Expiration Date Model / Serial / Lot Percuflex Stent Implanted:Qty: 1 on 04/10/2015 by Dino Thakkar MD at [facility] Right: Ureter [employer] 09/18/2017 [id number] / / [id number] Set Stent Blk 22cm 6fr .038in 2 Pgtl Crv Implanted:Qty: 1 on 10/21/[address] [facility] Right: Ureter [employer] 07/22/2018 [id number] / / [id number] Explanted Type Area Christmas Bell Ringer Device Identifier Shelf Expiration Date Model / Serial / Lot Stent Uret Contour Vl 4.8fr X 22-30cm Implanted:Qty: 1 on 04/08/2015 by Dino Thakkar MD at [facility] Explanted:Qty: 1 on 10/21/[address] [facility] Right: Ureter [employer] [id number] / / [id number] Stent Uret 6fr 22-30cm Pgtl Crv Tpr Tip Implanted:Qty: 1 on 09/09/2016 by Dino Thakkar MD at [facility] Explanted:Qty: 1 on 10/21/[address] [facility] Left: Ureter [employer] 06/18/2019 [id number] / / [id number] Procedures Procedure Name Priority Date/Time Associated Diagnosis Comments XR ABDOMEN KUB Routine 06/18/2024 1:03 PM CDT Kidney stones DEXA BONE DENSITY AXIAL SKELETON Routine 05/01/2024 1:00 PM DIRECTOR MACHINE Age-related osteoporosis without current pathological fracture COMPREHENSIVE METABOLIC PANEL Routine 05/01/2024 12:08 PM DIRECTOR MACHINE Stage 3a chronic kidney disease LIPID PROFILE Routine 05/01/2024 12:08 PM DIRECTOR MACHINE Pure hypercholesterolemia MAMMO BILAT SCREENING W NAHUM Routine 12/26/2023 10:42 AM CDT Visit for screening mammogram ENDOSCOPY, COLON, SCREENING Routine 07/30/2020 HEPATITIS C ANTIBODY 10/18/2014 10:43 AM CDT from Last 3 Months or Most Recently Relevant to Health Maintenance Results * XR Abdomen Kub (06/18/2024 1:03 PM CDT) Anatomical Region Laterality Modality Abdomen Computed Radiogr aphy 06/18/2024 5:49 PM CDT Impressions 06/18/2024 5:50 PM CDT IMPRESSION: Small calculi are seen superimposed with the expected area of the right kidney measuring up to 8 mm in diameter. A calcification is superimposed within the left mid abdomen which could represent a renal stone which measures up to 5 mm in diameter. Multiple pelvic phleboliths are seen, though the possibility of ureteral stones or urinary bladder stones cannot be excluded. > Interpreting Provider: Joel Pleitez MD on 06/18/2024 5:50 PM Narrative 06/18/2024 5:50 PM CDT PROCEDURE(s): XR ABDOMEN KUB DATE AND TIME OF EXAM(s): 06/18/2024 1:03 PM INDICATION(s): N20.0: Calculus of kidney. COMPARISON(s): Abdominal radiographs dated 12/07/2023. FINDINGS: The visualized lung bases are grossly clear. The hemidiaphragms are unremarkable. No abnormally dilated bowel loops are seen to suggest obstruction. Small calculi are seen superimposed with the expected area of the right kidney measuring up to 8 mm in diameter. A calcification is superimposed within the left mid abdomen which could represent a renal stone which measures up to 5 mm in diameter. Multiple pelvic phleboliths are seen, though the possibility of ureteral stones or urinary bladder stones cannot be excluded. The osseous structures are unremarkable. Procedure Note Joel Pleitez MD - 06/18/2024 PROCEDURE(s): XR ABDOMEN KUB DATE AND TIME OF EXAM(s): 06/18/2024 1:03 PM INDICATION(s): N20.0: Calculus of kidney. COMPARISON(s): Abdominal radiographs dated 12/07/2023. FINDINGS: The visualized lung bases are grossly clear. The hemidiaphragms are unremarkable. No abnormally dilated bowel loops are seen to suggest obstruction. Small calculi are seen superimposed with the expected area of the right kidney measuring up to 8 mm in diameter. A calcification is superimposed within the left mid abdomen which could represent a renal stone which measures up to 5 mm in diameter. Multiple pelvic phleboliths are seen, though the possibility of ureteral stones or urinary bladder stonescannot be excluded. The osseous structures are unremarkable. IMPRESSION: Small calculi are seen superimposed with the expected area of the right kidney measuring up to 8 mm in diameter. A calcification is superimposed within the left mid abdomen which could represent a renal stone which measures up to 5 mm in diameter. Multiple pelvic phleboliths are seen, though the possibility of ureteral stones or urinary bladder stonescannot be excluded. > Interpreting Provider: Joel Pleitez MD on 06/18/2024 5:50 PM Milagro Daley RN SUPPLEMENTAL-MAKEUP INSTRUCTOR DIAGNOSTIC IMAGING [facility] Final Result * DEXA BONE DENSITY AXIAL SKELETON (05/01/2024 1:00 PM DIRECTOR MACHINE) Anatomical Region Laterality Modality Nuclear Medicine 05/01/2024 1:29 PM DIRECTOR MACHINE Impressions 05/01/2024 1:31 PM DIRECTOR MACHINE IMPRESSION: WHO category: Osteopenia WORLD HEALTH ORGANIZATION DEFINITIONS NORMAL= T-Score at or above -1.0 SD OSTEOPENIA = T-Score between -1 and -2.5 SD OSTEOPOROSIS = T-Score at or below -2.5 SD > Interpreting Provider: Martha Rodriguez DO on 05/01/2024 1:31 PM Narrative 05/01/2024 1:31 PM DIRECTOR MACHINE PROCEDURE: DEXA BONE DENSITY AXIAL SKELETON DATE/TIME [...] Martha Rodriguez DO on 05/01/2024 1:31 PM us Emery Jarrell MD DEXA ORDERABLES Final Result * (ABNORMAL) COMPREHENSIVE METABOLIC PANEL (05/01/2024 12:08 PM DIRECTOR MACHINE) Pathologist [facility] Glucose 95 [...] BLOOD SPECIMEN / Unknown 05/01/2024 12:08 PM DIRECTOR MACHINE 05/01/2024 Narrative [facility] ACCOUNT BILL - 05/01/2024 6:09 PM DIRECTOR MACHINE Performed at: [address] [place] [id number] Solar Sales Representative: Sampson [address], Phone: [phone] us Emery Jarrell MD LAB - CHEMISTRY ORDERABLES Fi nal Result [facility] ACCOUNT BILL [address] [place] [address] * LIPID PROFILE (05/01/2024 12:08 PM DIRECTOR MACHINE) Cholesterol 157 <200 mg/dL [facility] ACCOUNT BILL Triglycerides 87 <150 mg/dL [facility] ACCOUNT BILL HDL Cholesterol 50 >40 mg/dL [facility] ACCOUNT BILL VLDL Calculated 17 <=30 mg/dL [facility] ACCOUNT BILL LDL Calculated 90 <130 mg/dL [facility] ACCOUNT BILL Blood BLOOD SPECIMEN / Unknown 05/01/2024 12:08 PM DIRECTOR MACHINE 05/01/2024 Narrative [facility] ACCOUNT BILL - 05/01/2024 6:09 PM DIRECTOR MACHINE Performed at: [address] [place] [id number] Solar Sales Representative: Sampson [address], Phone: [phone] us Emery Jarrell MD LAB - CHEMISTRY ORDERABLES Fi nal Result Performing Organization Address City/[facility]/ZIP Co de Phone Number [facility] ACCOUNT BILL [address] [place] [address] * Mammo Bilat Screening W N[place]um (12/26/2023 [...] are postoperative changes in the left breast. us Emery Jarrell MD MAMMO ORDERABLES Final Result * ENDOSCOPY, COLON, SCREENING (07/30/2020) us Scanned Document GI PROCEDURE ORDERABLES Final R esult * HEPATITIS C ANTIBODY (10/18/2014 10:43 AM CDT) Hepatitis C Antibody NON-REACTI VE NON-REACT [facility] Signal to Cut-Off 0.03 <1.00 [facility] Comment: Test Performed at: [facility] [address] [place] [address] SANDY SHARMA DO,MPH 10/18/2014 10:4 3 AM CDT 10/18/2014 10:43 AM CDT us Mati Dobbs MD LAB - CHEMISTRY ORDERABLES Fi nal Result [facility] [id number] [place] [address] from Last 3 Months or Most Recently Relevant to Health Maintenance Insurance MEDICAID - [place] [facility] MANAGED MEDICARE FORMERLY [facility] MANAGED MEDICARE ADV Advance Directives * Full Code (Latest Code [...] 11:59 PM 06/04/2017 7:29 PM Care Teams Rice Dryer Mechanic Relationship Specialty Start Date End Date Emery Jarrell MD [address] [facility] [address] [place] [address] PCP - General Internal Medicine 12/13/22 Jas Borrero MD Obstetrics 05/08/13 Ever Garber MD [address] [place] [address] Gastroenterology 03/22/14 Gian Zimmer PA [address] [place] [phone] Physician Measurement Department Chief Clerk 05/24/17 Dino Thakkar MD [address] [facility] [address] [place] [address] Urology 05/24/17 Rambo Hui MD [address] [facility] [address] [place] [address] Internal Medicine Sleep Medicine 06/22/18 Francisco Adams MD [address] [facility] [address] [place], [place] [phone] Surgeon Urology 06/27/23
[2024-09-06 14:30] LABS: Hematocrit 46.2 % (37.0-47.0); Hemoglobin 15.1 g/dL (12.0-15.0); Immature Granulocyte Percent A 0.0 % (0-0.5); Lymphocytes Absolute Auto 3.55 K/mm3 (0.9-3.2); Mean Corpuscular HGB Conc 32.7 g/dl (32-36); Mean Corpuscular Hemoglobin 30.6 pg (26-34); Mean Corpuscular Volume 93.5 fl (80-100); Nucleated Red Blood Cells Absolute Auto 0.000 K/mm3 (0.0-0.012); Nucleated Red Blood Cells Perc 0.0 % (0.0-0.2); Platelet Count Result 231 k/mm3 (150-375); Red Blood Count 4.94 M/mm3 (4.2-5.4); White Blood Count 6.5 K/mm3 (4.5-10.0)
[2024-09-06 14:53] LABS: Anion Gap 7 mmol/L (4-12); Blood Urea Nitrogen 18 mg/dL (7-17); Calcium 9.2 mg/dL (8.4-10.2); Carbon Dioxide 29 mmol/L (22-30); Chloride 106 mmol/L (98-107); Estimated Glomerular Filt Rate 59; Glucose 107 mg/dL (65-110); Potassium 3.9 mmol/L (3.4-5.0); Sodium 142 mmol/L (137-145)
[2024-09-06 17:00] LABS: Vitamin B12 603.0 pg/mL (239-931)
== END 2024-09-06 13:51 | disposition home or self-care (01) ==
PROVIDERS: PCP Internal Medicine; Referring Provider Internal Medicine Hematology & Oncology; Visit Provider Internal Medicine
DX: E53.8 Deficiency of other specified B group vitamins (principal); I73.9 Peripheral vascular disease, unspecified
CPT/HCPCS: 36415; 80048; 82607; 82746; 85025; 93922

== ENCOUNTER 2024-11-14 12:46 | Outpatient (CLI) | payer MEDICARE, MEDICAID, SELFPAY ==
--- OUTSIDE RECORDS SUMMARY | 2024-11-14 12:52 | XMS_ITS | Clinical Summary ---
Author Organization [facility] Address [address] [place] [address] Care Team Providers Care Registered Mail Clerk Name Role Phone Jas Borrero MD Unavailable [phone] Ever Garber MD Unavailable [phone] Gian Zimmer Unavailable [phone] MastromichalDino anne MD Unavailable [phone] Rambo Hui MD Unavailable Emery Jarrell MD Primary Care Provider [phone] Francisco Adams MD Unavailable [phone] Source Comments [facility],non-owned Affiliates and Associated Physician Practices is amultiple site organization consisting of ambulatory clinics and hospital sitesin [place], [place], [place] and [place]. This disclosure is being madepursuant to the Care Everywhere program and may not contain all information available regarding this patient. Last updated 17.[facility] Allergies Active Allergy Reactions Criticality Noted Date [...] 10.2 g 2 3 Active HYDROcodone-acet aminophen ([place]) 5-325 MG tabletIndication s:Kidney stone Take 1 (one) tablet by mouth every 6 hours as needed for Pain 12 tablet 3 Active triamcinolone (Nasacort Aq) 55 MCG/ACT nasal inhalerIndicatio ns:Allergic rhinitis, unspecified seasonality, unspecified trigger [place] 1 (one) spray to 2 (two) sprays into each nostril once daily 50.7 mL 4 4 Active Additional Information Patient not taking.Reported on 06/18/2024 gabapentin (Neurontin) 100 MG capsule Take 1 (one) capsule by mouth once daily Active guaiFENesin-code ine (Robitussin AC) 100-10 MG/5ML syrupIndications :Chronic cough Take 5 mL by mouth every 6 hours as needed for Cough 240 mL 5 Active furosemide (Lasix) 20 MG tabletIndication s:Chronic heart failure with preserved ejection fraction (HCC) TAKE 1 TABLET BY MOUTH DAILY 90 tablet 3 5 Active vitamin D, ergocalciferol, (Drisdol) 1.25 MG (73968 UT) capsuleIndicatio ns:Vitamin D deficiency TAKE 1 CAPSULE BY MOUTH EVERY 7 DAYS 12 capsule 5 Active cyanocobalamin (Vitamin B-12) injection INJECT 1ML IN THE MUSCLE EVERY 30 DAYS 3 mL 5 Active Active Problems Problem Noted Date [...] Type Department Care Team Description 09/05/2024 Refill [facility] - Internal Medicine [facility] [address] [address] Emery Jarrell MD Refill Request from Last 3 Months Immunizations Immunization Administration [...] Date Smoking Tobacco: Every Day Cigarettes 1 49.7 Started: 02/28/1975 Smokeless Tobacco: Never Tobacco Cessation:Ready [...] on file Legal Sex Female 6:39 AM WINDER CONTORT OPERATOR Gender Identity Not on file Sexual Orientation Not on file Occupation Industry Job Start Date Job End Date unemployed Not on file Not on file Not on file Last Filed Vital Signs Vital Sign Reading Time Taken Comments Blood Pressure 130/80 05/01/2024 11:04 AM WINDER CONTORT OPERATOR Pulse 80 05/01/2024 11:04 AM WINDER CONTORT OPERATOR Temperature 36.7 C (98.1 F) 05/01/2024 11:04 AM WINDER CONTORT OPERATOR Respiratory Rate 20 10/27/2023 10:13 AM CDT Oxygen Saturation 98% 05/01/2024 11:04 AM WINDER CONTORT OPERATOR Inhaled Oxygen Concentration 21% 12/05/2020 2 :06 AM CDT Weight 95.3 kg (210 lb) 05/01/2024 11:04 AM WINDER CONTORT OPERATOR Height 165.1 cm (5' 5) 05/01/2024 11:04 AM WINDER CONTORT OPERATOR Body Mass Index 34.95 05/01/2024 11:04 AM WINDER CONTORT OPERATOR Plan of Treatment Upcoming Encounters Date Type Department Care Team (Late st Contact Info) Description 12/08/2024 10:00 AM CDT Appointment [facility] [address] [facility] [address] [place] [address] 12/17/2024 9:40 AM CDT Office Visit [facility] - Urology [address], [address] [place] [address] Francisco Adams MD [address] [place] [address] Health Maintenance Due Date Last Done Comments COLOGUARD (AGES 45-75) - COLON CA SCREENING 1954 CT COLONOGRAPHY - COLON CA SCREENING 1955 FIT - COLON CA SCREENING 1955 FLEX SIG - COLON CA SCREENING 1955 COVID-19 VACCINE ( season) 2024 05/19/2020, 04/21/2020 INFLUENZA VACCINE (#1) 2024 , 01/28/2023, 03/19/2022, Additional history exists MAMMOGRAM 12/25/2024 12/26/2023, 11/29, 12/24/2022, Additional history exists LIPID TESTING 05/01/2025 05/01/2024, 03/01, 12/18/2019, Additional history exists COLON MONITORING 07/30/2025 07/30/2020 (Don e Outside Per Report), 07/30/2020, 03/11/2020, Additional history exists Colorectal Cancer Screening 07/30/2025 SCREENING FOR DIABETES 05/02/2027 5, 12/05/2020, 12/04/2020, Additional history exists DTAP/TDAP/TD VACCINES [...] [place] Medical Devices Implanted Type Area Punching Machine Operator Device Identifier Shelf Expiration Date Model / Serial / Lot Percuflex Stent Implanted:Qty: 1 on 04/10/2015 by Dino Thakkar MD at [facility] Right: Ureter [employer] [facility] 09/18/2017 [id number] / / [id number] Set Stent Blk 22cm 6fr .038in 2 Pgtl Crv Implanted:Qty: 1 on 10/21/2016 at [facility] Right: Ureter [employer] 07/22/2018 [id number] / / [id number] Explanted Type Area Punching Machine Operator Device Identifier Shelf Expiration Date Model / Serial / Lot Stent Uret Contour Vl 4.8fr X 22-30cm Implanted:Qty: 1 on 04/08/2015 by Dino Thakkar MD at [facility] Explanted:Qty: 1 on 10/21/2016 at [facility] Right: Ureter [employer] [id number] / / [id number] Stent Uret 6fr 22-30cm Pgtl Crv Tpr Tip Implanted:Qty: 1 on 09/09/2016 by Dino Thakkar MD at [facility] Explanted:Qty: 1 on 10/21/2016 at [facility] Left: Ureter [employer] 06/18/2019 [id number] / / [id number] Procedures Procedure Name Priority Date/Time Associated Diagnosis Comments DEXA BONE DENSITY AXIAL SKELETON Routine 05/01/2024 1:00 PM WINDER CONTORT OPERATOR Age-related osteoporosis without current pathological fracture COMPREHENSIVE METABOLIC PANEL Routine 05/01/2024 12:08 PM WINDER CONTORT OPERATOR Stage 3a chronic kidney disease LIPID PROFILE Routine 05/01/2024 12:08 PM WINDER CONTORT OPERATOR Pure hypercholesterolemia MAMMO BILAT SCREENING W NAHUM Routine 12/26/2023 10:42 AM CDT Visit for screening mammogram ENDOSCOPY, COLON, SCREENING Routine 07/30/2020 HEPATITIS C ANTIBODY 10/18/2014 10:43 AM CDT from Last 3 Months or Most Recently Relevant to Health Maintenance Results * DEXA BONE DENSITY AXIAL SKELETON (05/01/2024 1:00 PM WINDER CONTORT OPERATOR) Anatomical Region Laterality Modality Nuclear Medicine 05/01/2024 1:29 PM WINDER CONTORT OPERATOR Impressions 05/01/2024 1:31 PM WINDER CONTORT OPERATOR IMPRESSION: WHO category: Osteopenia WORLD HEALTH ORGANIZATION DEFINITIONS NORMAL= T-Score at or above -1.0 SD OSTEOPENIA = T-Score between -1 and -2.5 SD OSTEOPOROSIS = T-Score at or below -2.5 SD > Interpreting Provider: Martha Rodriguez DO on 05/01/2024 1:31 PM Narrative 05/01/2024 1:31 PM WINDER CONTORT OPERATOR PROCEDURE: DEXA BONE DENSITY AXIAL SKELETON DATE/TIME [...] (ABNORMAL) COMPREHENSIVE METABOLIC PANEL (05/01/2024 12:08 PM WINDER CONTORT OPERATOR) Pathologist [facility] Glucose 95 70 - 99 mg/dL [facility] [...] BLOOD SPECIMEN / Unknown 05/01/2024 12:08 PM WINDER CONTORT OPERATOR 05/01/2024 Narrative [facility] ACCOUNT BILL - 05/01/2024 6:09 PM WINDER CONTORT OPERATOR Performed at: [address] [place] [address] [id number] Customer Service Associate: Sampson [address]iner [address], Phone: [phone] us Emery Jarrell MD LAB - CHEMISTRY ORDERABLES Fi nal Result [facility] ACCOUNT [place] [address] [place] [address] * LIPID PROFILE (05/01/2024 12:08 PM WINDER CONTORT OPERATOR) Cholesterol 157 <200 mg/dL [facility] ACCOUNT BILL Triglycerides 87 <150 mg/dL [facility] ACCOUNT BILL HDL Cholesterol 50 >40 mg/dL [facility] ACCOUNT BILL VLDL Calculated 17 <=30 mg/dL [facility] ACCOUNT BILL LDL Calculated 90 <130 mg/dL [facility] ACCOUNT BILL Blood BLOOD SPECIMEN / Unknown 05/01/2024 12:08 PM WINDER CONTORT OPERATOR 05/01/2024 Narrative [facility] ACCOUNT BILL - 05/01/2024 6:09 PM WINDER CONTORT OPERATOR Performed at: [address] [place] [address] [id number] Customer Service Associate: Sampson Joiner [address], Phone: [phone] us Emery Jarrell MD LAB - CHEMISTRY ORDERABLES Fi nal Result [facility] ACCOUNT [place] [address] [place] [address] * Mammo Bilat Screening W [place] (12/26/2023 [...] 0.03 <1.00 [facility] Comment: Test Performed at: [facility] [address] [place] [address] SANDY SHARMA DO,MPH 10/18/2014 10:4 3 AM CDT 10/18/2014 10:43 AM CDT us Mati Dobbs MD LAB - CHEMISTRY ORDERABLES Fi nal Result [facility] [address] [place] [address] from Last 3 Months or Most Recently Relevant to Health Maintenance Insurance MEDICAID - [place] UHC MANAGED MEDICARE ADV [facility] MANAGED MEDICARE ADV Advance Directives * [...] 11:59 PM 06/04/2017 7:29 PM Care Teams Registered Mail Clerk Relationship Specialty Start Date End Date Emery Jarrell MD [address] [facility] [address] [place] [phone] PCP - General Internal Medicine 12/13/22 Jas Borrero MD Obstetrics 05/08/13 Ever Garber MD [address] [place] [address] Gastroenterology 03/22/14 Gian Zimmer PA [address] [place] [phone] Physician Film Reproducer 05/24/17 Dino Thakkar MD [facility] [address] [place] [phone] Urology 05/24/17 Rambo Hui MD [address] [facility] [address] [place] [address] Internal Medicine Sleep Medicine 06/22/18 Francisco Adams MD [address] [facility] [address] [place], [place] [id number] Surgeon Urology 06/27/23
--- OUTSIDE RECORDS SUMMARY | 2024-11-14 12:52 | XMS_ITS | Clinical Summary ---
Author Organization [facility] Address [address] [place] [address] Care Team Providers Care Button Station Worker Name Role Phone Unavailable Primary Care Provider [...] COVID-19 Vaccine ( - 2023-2 5 season) 2024 RSV Immunization or 60+ Years (1 - [...]
--- OUTSIDE RECORDS SUMMARY | 2024-11-14 12:52 | XMS_ITS | Clinical Summary ---
Author Organization [facility] Address [address] [address] Care Team Providers Care Associate Professor Of Violin Name Role Phone Emery Jarrell MD Primary Care Provider [phone] Allergies Active Allergy Reactions Criticality Noted Date [...] Encounters Date Type Department Care Team Description 11/13/2024 External Device Data STL ABSTRACTION Provider, Abstract 09/25/2024 11:30 AM CDT Office Visit [facility] Oncology and Hematology - [place] [address] [place] [phone] Darryl Hauser MD Erythrocytosis (Primary Dx); B12 deficiency 09/12/2024 External Device Data STL ABSTRACTION Provider, Abstract 09/11/2024 External Device Data [facility] ABSTRACTION Provider, Abstract 08/21/2024 External Device Data STL ABSTRACTION Provider, [...] Day Cigarettes 0.5 48 Smokeless Tobacco: Never Tobacco Cessation:Ready to Q uit: Not Asked; Counseling Given: Not Answered Alcohol Use Standard Drinks/Week Comments Not Currently 0 (1 standard drink = 0.6 oz pur e alcohol) Comments Unknown Sex and Gender Information Value Date Recorded Sex Assigned at Not on file Legal Sex Female 11:08 AM RIVERS AND LAKES BOATMAN Gender Identity Not on file Sexual Orientation Not on file Last Filed Vital Signs Vital Sign Reading Time Taken Comments Blood Pressure 126/80 09/25/2024 11:02 AM CDT Pulse 82 09/25/2024 11:02 AM CDT Temperature 36.3 C (97.3 F) 09/25/2024 11:02 AM CDT Respiratory Rate 16 09/25/2024 11:02 AM CDT Oxygen Saturation 94% 09/25/2024 11:02 AM CDT Inhaled Oxygen Concentration - - Weight 93.7 kg (206 lb 9.6 oz) 09/25/2024 11:02 AM CDT Height 165.1 cm (5' 5) 05/31/2022 1:51 PM CDT Body Mass Index 34.38 05/31/2022 1:51 PM CDT Plan of Treatment Upcoming Encounters Date Type Department Care Team (Late st Contact Info) Description 03/27/2025 10:15 AM RIVERS AND LAKES BOATMAN Office Visit [facility] Oncology and Hematology - [place] [address] [place] [address] Darryl Hauser MD [address] [facility] [address] [place] [address] Health Maintenance Due Date Last Done Comments Pre-Diabetes and Diabetes Screening 1954 FIT-DNA Q 3 years 1999 FIT/FOBT Q 1 year 1999 Flex Sig/CT Colonography Q 5 years 1999 Lung Cancer Screening 2004 RSV VACCINE (60+ or ) (1 - Risk 60-74 years 1-dose series) 2014 INFLUENZA VACCINE (#1) 2024 , 01/28/2023, 03/19/2022, Additional history exists COVID-19 Vaccine (3 - 2024-2 6 season) 2024 05/19/2020, 04/21/2020 BREAST CANCER SCREENING 12/25/2024 12/26/19 24, 12/26/2023, 12/24/2022, Additional history exists DTAP/TDAP/TD VACCINES (3 - T d or Tdap) 01/10/2028 01/09/2018, 04/01/2011 OSTEOPOROSIS SCREENING 05/01/2029 5, 05/01/2024, 05/16/2020, Additional history exists COLORECTAL SCREENING 07/30/2030 07/30/2020 Colorectal Cancer Screening 07/30/2030 ZOSTER VACCINE Completed 10/29/2017, 08/28, 06/24/2017 PNEUMOCOCCAL VACCINE 50+ YEARS Completed 1 , 04/26/2014, 05/04/2012 Insurance RX [employer] RX Member Subscriber Plan / Payer (Ef fective 2022-Present) Name:Connie Garrett Relation to Subscriber:Self Name:Connie Garrett Jose Payer ID:Not on file Group ID:[id number] Type:RX Medicare Part D Address: [facility] DUAL COMPLETE PPO DSNP [facility] [address] MEDICAID [place] Care Teams Associate Professor Of Violin Relationship Specialty Start Date End Date Emery Jarrell MD [address] [phone] PCP - General Internal Medicine 12/29/22
--- OUTSIDE RECORDS SUMMARY | 2024-11-14 12:52 | XMS_ITS | Encounter Summary ---
Author Organization [facility] Address [address] [place] [address] Care Team Providers Care Strategic Planning Director Name Role Phone Emery Jarrell MD Primary Care Provider [phone] Encounter Details Date Type Department Care Team (Late Contact Info) Description 11/13/2024 External Device Data [facility] ABSTRACTION Provider, Abstract NO ADDRESS ON FILE Social History Tobacco Use Types Packs/Day Years Used Date Smoking Tobacco: Every Day Cigarettes 0.5 48 Smokeless Tobacco: Never Alcohol Use Standard Drinks/Week Comments Not Currently 0 (1 standard drink = 0.6 oz pur e alcohol) Comments Unknown Sex and Gender Information Value Date Recorded Sex Assigned at Not on file Legal Sex Female 11:08 AM PLANOGRAMMER Gender Identity Not on file Sexual Orientation Not on file documented as of this encounter Plan of Treatment Upcoming Encounters Date Type Department Care Team (Late Contact Info) Description 03/27/2025 10:15 AM PLANOGRAMMER Office Visit [facility] Oncology and Hematology - [place] [address] [facility] [address] [place] [address] Darryl Hauser MD [address] [facility] [address] [place] [address] documented as of this encounter Visit Diagnoses Not on filedocumented in this encounter Care Teams Strategic Planning Director Relationship Specialty Start Date End Date Emery Jarrell MD [address] [facility] [address] [place] [address] PCP - General Internal Medicine 12/29/22 documented as of this encounter
--- OUTSIDE RECORDS SUMMARY | 2024-11-14 12:52 | XMS_ITS | Clinical Summary ---
Author Organization [facility] Address [address] [place] [address] Care Team Providers Care Contract Processor Name Role Phone Unavailable Primary Care Provider [...] Date Smoking Tobacco: Every Day Cigarettes 1 54.1 Started: 10/12/1970 Smokeless Tobacco: Never Tobacco Cessation:Ready [...] 10/18/2017 6:16 AM CDT Plan of Treatment Health Maintenance Due Date Last Done Comments CT Colonography 1954 Colonoscopy 1954 Colorectal Cancer Screening 1954 FIT-DNA (Cologuard) 1954 FIT 1954 FOBT 1955 Sigmoidoscopy 1955 Annual Visit Topic 1955 Hepatitis C Screening 1972 DTaP/Tdap/Td Vaccines (1 - Tdap) 1973 Pneumococcal Vaccine: 65+ Ye ars (1 of 4 - PCV) 1973 Mammogram 1994 HIB Vaccines Aged Out No longer eligi ble based on patient's age to complete this topic HPV Vaccines Aged Out No longer eligi ble based on patient's age to complete this topic Hepatitis A Vaccines Aged Out No long er eligible based on patient's age to complete this topic Hepatitis B Vaccines Aged Out No long er eligible based on patient's age to complete this topic IPV Vaccines Aged Out No longer eligi ble based on patient's age to complete this topic Meningococcal Vaccine Aged Out No randall grupo eligible based on patient's age to complete this topic Advance Directives * Full Resuscitation (Latest Code Status on File) Date Activated Date Inactivated Comments 10/12/2017 4:19 PM 10/26/2017 2:37 PM
--- NOTE | 2024-11-14 15:00 | WPDPFTINT ---
PFT Procedure Performed PFT Procedure Performed Spirometry with Pre/Post Bronchodilator Plethysmography (Lung Vol) Diffusing Cap (DLCO) Flow Vol Loop PFT Interpretation This is a pulmonary function test with pre and post-bronchodilator spirometry, plethysmography and diffusing capacity. The test was performed and results interpreted in accordance with the 2019 and 2005 ATS/ERS Task Force guidelines respectively using the Global Lung Function Initiative-2012 reference equations. Patient demonstrated good effort and cooperation. Reproducibility criteria were met. The quality of the pre bronchodilator spirometry maneuver was Grade B and post bronchodilator spirometry maneuver was Grade A. Findings: Spirometry: The contour the inspiratory and expiratory flow tracing are normal. The pre bronchodilator FVC is 1.59 L, 60% predicted. The pre bronchodilator FEV1 is 1.30 L, 64% predicted. The pre bronchodilator FEV1: FVC ratio is 82%. The post bronchodilator FVC is 1.48 L, representing a 7% decrease. The post bronchodilator FEV1 is 1.28 L, representing a 2% decrease. The post bronchodilator FEV1: FVC ratio is 87%. Plethysmography: The total lung capacity is 3.08 L, 65% predicted. The functional residual capacity is 2.06 L, 68% predicted. The residual volume is 1.50 L, 70% predicted. Diffusing capacity: The diffusing capacity unadjusted for hemoglobin and carboxyhemoglobin is 11.4, 53% predicted. The diffusing capacity adjusted for alveolar volume is 3.67, 87% predicted. In comparison to previous pulmonary function testing on 12/15/2023, the post bronchodilator FVC is unchanged from 1.68 L to 1.48 L. The post bronchodilator FEV1 is unchanged from 1.44 L to 1.28 L. The total lung capacity is unchanged from 3.11 L to 3.08 L. The functional residual capacity is unchanged from 1.85 L to 2.06 L. The residual volume has increased from 1.24 L to 1.50 L. The diffusing capacity unadjusted for hemoglobin and carboxyhemoglobin is unchanged from 12.1 to 11.4. The diffusing capacity adjusted for alveolar volume is unchanged from 3.66 to 3.67. Impression: There is a moderate restrictive ventilatory abnormality. The spirometry is normal without evidence of an obstructive abnormality. There is no significant improvement after inhaling a single dose of albuterol. The diffusing capacity unadjusted for hemoglobin and carboxyhemoglobin is moderately decreased and normalizes when adjusted for alveolar volume. In comparison to previous pulmonary function testing on 12/15/2023, there has been a greater than anticipated time dependent increase in the residual volume with no significant change in the FVC, FEV1, total lung capacity, functional residual capacity or diffusing capacity. Clinical correlation is recommended.
== END 2024-11-14 12:47 | disposition home or self-care (01) ==
LOC: ANHLAB 12:47 → ANHCARD 12:52 → ANHPFT 13:23
PROVIDERS: PCP Internal Medicine; Visit Provider Internal Medicine Pulmonary Disease
DX: J45.40 Moderate persistent asthma, uncomplicated (principal); R94.2 Abnormal results of pulmonary function studies; Z87.891 Personal history of nicotine dependence
CPT/HCPCS: 94060; 94726; 94729

== ENCOUNTER 2024-11-30 11:04 | Outpatient (CLI) | payer MEDICARE, MEDICAID, SELFPAY ==
--- OUTSIDE RECORDS SUMMARY | 2008-12-04 08:45 | XMS_ITS | Continuity of Care Document ---
Author Organization [facility] Address [address] [place] [address] [address] [place] [address] Phone Care Team Providers Care Global Engineering Manager Name Role Phone Baker OD, Francisco Unavailable Unavailable Procedures Procedure Date Eye Exam, New Patient Refraction Advance Directives Directive Yes / No Effective Date File Name No Information Encounters Encounter Description Practice Location Reason(s) For Visit Diagnoses Date Provider Providers Copied on Encounter [facility], [address] [place] [address] [address], [place], [place], [id number], [place] tel:[phone] SEC [facility] No Information [phone] Baker OD Francisco. [address] , [address], [place], [address], [place]. tel:[phone] Family History Family Member Type Diagnosis Age At Onset No Information Payers Payer name Insurance type Covered democrat ID Authoriza tion(s) Medicaid [facility] [id number] Social History Type Description Quantity Date Captured Comments Sex Female Smoking Status No Information Chief Complaint And Reason For Visit No Information Reason For Referral Reason For Referral No Information History Of Present Illness Encounter Date Complaint History Of Prese nt Illness No Information Functional Status Date Functional Assessmen t No Information Instructions Date Instruction Additional Infor mation No Information Assessments Type Assessment Date No Information Patient Care Teams Name Effective Dates (start - stop) Status Members No Information
--- NOTE | ~2024-11-30 | CT_ITS ---
EXAMINATION:CT lung screening DATE: 11/30/2024 11:34 INDICATION: Nicotine dependence. TECHNIQUE: Computed tomography (CT) of the chest was performed without intravenous contrast. Automated exposure control and iterative reconstruction technique were employed. The dose-length product (DLP) was 108.99 mGy-cm. COMPARISON: CT abdomen and pelvis 08/29/2023 FINDINGS: There is mild emphysema. There is mild atelectasis bilaterally. There are two 4 mm nodules in right upper lobe. No pleural effusion. The heart size is normal. No pericardial effusion. There is mild thoracic spondylosis. IMPRESSION: 1. Lung-RADS category 2: Benign appearance or behavior. Continue annual screening with noncontrast low-dose chest CT in 12 months. Reviewed, dictated and finalized at location E. IMPRESSION: 1. Lung-RADS category 2: Benign appearance or behavior. Continue annual screeni ng with noncontrast low-dose chest CT in 12 months.
--- OUTSIDE RECORDS SUMMARY | 2024-11-30 11:08 | XMS_ITS | Data Portability ---
[facility] [address] [facility] [address] Care Team Providers Care Surface To Air Weapons Officer Name Role Phone DONNIE DALEY Primary Care Provider Assessment Encounter Date Assessment Date Assessment LastModified by Organization Details LastModified Time 03/30/2024 03/30/2024 we will continue current therapy healthy lifestyle care instructions follow up 4 months continue current therapy all diagnosis discussed that are in the assessment and plan and their management patient did get an RSV shot at Remote Assistant Not available 03/30/2024 22:09:19 04/13/2024 04/13/2024 she needs to get her blood work done EMG NCS legs ABIs legs to make sure no vascular insufficiency we may need an MRI of the back before it is all said and done blood work ordered further recommendations once we get testing results motor vascular and neuro appear intact to the lower extremities. consider gabapentin [email or web address] Not available 04/14/2024 16:07:50 07/20/2024 07/20/2024 Her nerve conduction tests were unremarkable we will get her set up with some physical therapy for her legs healthy lifestyle care instructions quitting tobacco care instructions blood work has been ordered review of management of diagnosis in the assessment and plan have been discussed follow up 3 months [email or web address] Not available 07/21/2024 15:57:24 11/09/2024 11/09/2024 Dermatology needs a new roller healthy lifestyle care instructions quitting tobacco care instructions we will follow up with me in 4 months continue current therapy [email or web address] Not available 11/17/2024 20:25:18 Plan of Treatment Reminders Order Date Submit Date Provider Last Modified By Organization Details Last Modified Time Details Appointments ANY 15 2024 10:00Penny Daley MD Not available Not available Not available Lab vitamin D, 25-hydrox y, total, serum 2024 025 [facility], [address], [address], [place], [address], 07/21/2024 08:22:27 lipid panel, serum 2024 025 [facility], [address] [place], [place] [address]d[address], [address], [place], [address], 07/21/2024 08:22:24 CMP, serum or plasma 2024 025 [facility], [address], [address], [place], [address], 07/21/2024 08:22:24 CBC w/ auto diff 2024 025 [email or web address] [facility], [address] [place] [address] [address], [address], [place], [address], 09/19/2024 12:24:03 vitamin B12, serum 2024 025 [facility], [address] [place] [address] [address], [address], [place], [address], 09/19/2024 12:24:03 cobalamin and folate panel, serum 2024 025 [facility], [address], [address], [place], [address], 04/14/2024 09:14:04 TSH + free T4, serum 2024 025 [facility], [address], [address], [place], [address], 04/14/2024 09:14:01 T3, total, serum 2024 025 [facility], [address] [facility], [address], [place], [address], 04/14/2024 09:14:06 CBC w/ auto diff 2024 025 [facility], [address] [facility], [address], [place], [address], 04/14/2024 09:14:07 CMP, serum or plasma 2024 025 [facility], [address] [facility], [address], [place], [address], 04/14/2024 09:14:02 Referral dermatolo gist referral 2024 025 [facility], [facility] [place], [address], 11/19/2024 10:01:07 physical therapist referral 2024 025 [facility], [address] [facility], [facility], [place], [address], 07/31/2024 15:20:31 Procedures nerve conductio n study/EMG , lower extremity (PROC) - B/L lower extermity . 2024 025 [facility] ([facility]iology [facility]), [address] [facility] [address], [address], 05/15/2024 16:13:13 Surgeries None recorded. Imaging None recorded. Medication Orders Zetia 10 mg tablet 2024 025 [email or web address] [id number], [address] [place], [place], [id number], 03/30/2024 14:01:31 Patient TargetsNo targets recorded. Patient Instructions Encounter Date Encounter Id Patient Instructions Last Modified By Organization Details Last Modified Time 03/30/2024 [id number] A healthy lifestyle: care instructions [email or web address] Not available 03/30/2024 14:01:31 04/13/2024 [id number] A healthy lifestyle: care instructions [email or web address] Not available 04/13/2024 11:41:03 (AARON) ankle brachial index* [email or web address] Not available 07/16/2024 20:39:26 07/20/2024 [id number] Quitting Tobacco : Care Instructions [email or web address] Not available 07/20/2024 12:00:24 A healthy lifestyle: care instructions Not available 07/20/2024 12:00:24 11/09/2024 [id number] Quitting Tobacco : Care Instructions [email or web address] Not available 11/09/2024 11:08:45 A healthy lifestyle: care instructions Not available 11/09/2024 11:08:45 Reason for Referral Physical Therapist Referral for Weakness of bilateral lower limb Referring Physician: Donnie Daley, Internal Medicine, Encounter Date: 07/20/2024 Layer Out Plate Glass Referral for S kin lesion Referring Physician: Donnie Daley, Internal Medicine, Encounter Date: 11/09/2024 Results Created Date Observation Date Name Description Value Unit Range Abnormal Flag Note LastModifiedBy Organization Detail LastModifiedTime 04/13/1904/14/2024 TSH+F REE T4 TSH 2.100 uIU/m L 0.450- 4.500 Not Available [facility] ([facility]) [address] [place], [address], 04/14/2024 09:14:01 04/13/1904/14/2024 TSH+F REE T4 T4,free(dire ct) 1.22 NG/dL 0.82-1 .77 Not Available [facility] ([facility]) [address] [place], [address], 04/14/2024 09:14:01 04/13/1904/14/2024 COMP. METAB OLIC PANEL (14) glucose 89 mg/dL 70-99 Not Available [facility] ([facility]) [address] [facility], [place], [address], 04/14/2024 09:14:02 04/13/19 25 04/14/2024 COMP. METAB OLIC PANEL (14) BUN 20 mg/dL 8-27 Not Available [facility] ([facility]) [address] [place], [address], 04/14/2024 09:14:02 04/13/19 25 04/14/2024 COMP. METAB OLIC PANEL (14) creatinine 0.99 mg/dL 0.57-1 .00 Not Available [facility] ([facility]) [address] [place], [address], 04/14/2024 09:14:02 04/13/19 25 04/14/2024 COMP. METAB OLIC PANEL (14) eGFR 61 mL/mi n/1.7 3 >59 Not Available [facility] ([facility]) [address] [facility] [place], [address], 04/14/2024 09:14:02 04/13/19 25 04/14/2024 COMP. METAB OLIC PANEL (14) BUN/creatini ne ratio 20 12-28 Not Available [facility] ([facility]) [address] [facility] [place], [address], 04/14/2024 09:14:02 04/13/19 25 04/14/2024 COMP. METAB OLIC PANEL (14) sodium 143 mmol/ L 134-14 4 Not Available [facility] ([facility]) [address] [facility] [place], [address], 04/14/2024 09:14:02 04/13/19 25 04/14/2024 COMP. METAB OLIC PANEL (14) potassium 4.9 mmol/ L 3.5-5. 2 Not Available [facility] ([facility]) [address] [facility] [place], [address], 04/14/2024 09:14:02 04/13/19 25 04/14/2024 COMP. METAB OLIC PANEL (14) chloride 104 mmol/ L 96-106 Not Available [facility] ([facility]) [address] [facility] [place], [address], 04/14/2024 09:14:02 04/13/19 25 04/14/2024 COMP. METAB OLIC PANEL (14) carbon dioxide, total 21 mmol/ L 20-29 Not Available [facility] ([facility]) [address] [facility], [place], [address], 04/14/2024 09:14:02 04/13/19 25 04/14/2024 COMP. METAB OLIC PANEL (14) calcium 9.2 mg/dL 8.7-10 .3 Not Available [facility] ([facility]) [address] [facility] [place], [address], 04/14/2024 09:14:02 04/13/19 25 04/14/2024 COMP. METAB OLIC PANEL (14) protein, total 7.3 g/dL 6.0-8. 5 Not Available [facility] ([facility]) [address] [facility] [place], [address], 04/14/2024 09:14:02 04/13/19 25 04/14/2024 COMP. METAB OLIC PANEL (14) albumin 4.1 g/dL 3.9-4. 9 Not Available [facility] ([facility]) [address] [facility] [place], [address], 04/14/2024 09:14:02 04/13/19 25 04/14/2024 COMP. METAB OLIC PANEL (14) globulin, total 3.2 g/dL 1.5-4. 5 Not Available [facility] ([place] [facility]) [address] [facility], [place], [address], 04/14/2024 09:14:02 04/13/19 25 04/14/2024 COMP. METAB OLIC PANEL (14) bilirubin, total 0.5 mg/dL 0.0-1. 2 Not Available [facility] ([facility]) [address] [place], [address], 04/14/2024 09:14:02 04/13/19 25 04/14/2024 COMP. METAB OLIC PANEL (14) alkaline phosphatase 91 IU/L 44-121 Not Available [facility] ([facility]) [address] [place], [address], 04/14/2024 09:14:02 04/13/19 25 04/14/2024 COMP. METAB OLIC PANEL (14) AST (SGOT) 15 IU/L 0-40 Not Available [facility] ([facility] [address] [facility] [place], [address], 04/14/2024 09:14:02 04/13/19 25 04/14/2024 COMP. METAB OLIC PANEL (14) ALT (SGPT) 10 IU/L 0-32 Not Available [facility] ([facility]) [address] [facility] [place], [address], 04/14/2024 09:14:02 04/13/19 25 04/14/2024 VITAM IN B12 AND FOLAT E vitamin B12 637 pg/mL 232-12 45 Not Available [facility] ([facility]) [address] [facility] [place], [address], 04/14/2024 09:14:04 04/13/19 25 04/14/2024 VITAM IN B12 AND FOLAT E folate (folic acid), serum 5.4 NG/mL >3.0 A serum folat e elisabeth ntrat ion of less than 3.1 ng/mL is consi dered to repre sent clini divine defic iency . Not Available [facility] ([facility]) [address] [facility] [place], [address], 04/14/2024 09:14:04 04/13/1904/14/2024 TRIIO DOTHY KANDACE E (T3) triiodothyro nine (T3) 100 NG/dL 71-180 Not Available [facility] ([facility]) [address] [place], [address], 04/14/2024 09:14:05 04/13/1904/14/2024 CBC WITH DIFFE RENTI AL/PL ATELE T WBC 7.6 x10e3 /uL 3.4-10 .8 Not Available [facility] ([facility]) [address] [place], [address], 04/14/2024 09:14:07 04/13/1904/14/2024 CBC WITH DIFFE RENTI AL/PL ATELE T RBC 5.04 x10e6 /uL 3.77-5 .28 Not Available [facility] ([facility]) [address] [place], [address], 04/14/2024 09:14:07 04/13/1904/14/2024 CBC WITH DIFFE RENTI AL/PL ATELE T hemoglobin 15.7 g/dL 11.1-1 5.9 Not Available [facility] ([facility]) [address] [place], [address], 04/14/2024 09:14:07 04/13/1904/14/2024 CBC WITH DIFFE RENTI AL/PL ATELE T hematocrit 46.9 % 34.0-4 6.6 above high normal Not Available [facility] ([facility]) [address] [place], [address], 04/14/2024 09:14:07 04/13/1904/14/2024 CBC WITH DIFFE RENTI AL/PL ATELE T MCV 93 fL 79-97 Not Available [facility] ([facility]) [address] [place], [address], 04/14/2024 09:14:07 04/13/19 25 04/14/2024 CBC WITH DIFFE RENTI AL/PL ATELE T MCH 31.2 pg 26.6-3 3.0 Not Available [facility] ([facility]) [address] [facility], [place], [address], 04/14/2024 09:14:07 04/13/19 25 04/14/2024 CBC WITH DIFFE RENTI AL/PL ATELE T MCHC 33.5 g/dL 31.5-3 5.7 Not Available [facility] ([facility]) [address] [place], [address], 04/14/2024 09:14:07 04/13/1904/14/2024 CBC WITH DIFFE RENTI AL/PL ATELE T RDW 12.9 % 11.7-1 5.4 Not Available [facility] ([facility]) [address] [place], [address], 04/14/2024 09:14:07 04/13/19 25 04/14/2024 CBC WITH DIFFE RENTI AL/PL ATELE T platelets 215 x10e3 /uL 150-45 0 Not Available [facility] ([facility]) [address] [place], [address], 04/14/2024 09:14:07 04/13/19 25 04/14/2024 CBC WITH DIFFE RENTI AL/PL ATELE T neutrophils 47 % notest ab. Not Available [facility] ([facility]) [address] [place], [address], 04/14/2024 09:14:07 04/13/19 25 04/14/2024 CBC WITH DIFFE RENTI AL/PL ATELE T lymphs 43 % notest ab. Not Available [facility] ([facility]) [address] [place], [address], 04/14/2024 09:14:07 04/13/19 25 04/14/2024 CBC WITH DIFFE RENTI AL/PL ATELE T monocytes 8 % notest ab. Not Available [facility] ([facility]) [address] [place], [address], 04/14/2024 09:14:07 04/13/1904/14/2024 CBC WITH DIFFE RENTI AL/PL ATELE T eos 1 % notest ab. Not Available [facility] ([facility]) [address] [facility], [place], [address], 04/14/2024 09:14:07 04/13/1904/14/2024 CBC WITH DIFFE RENTI AL/PL ATELE T basos 1 % notest ab. Not Available [facility] ([facility]) [address] [facility], [place], [address], 04/14/2024 09:14:07 04/13/1904/14/2024 CBC WITH DIFFE RENTI AL/PL ATELE T neutrophils (absolute) 3.5 x10e3 /uL 1.4-7. 0 Not Available [facility] ([facility]) [address] [place], [address], 04/14/2024 09:14:07 04/13/1904/14/2024 CBC WITH DIFFE RENTI AL/PL ATELE T lymphs (absolute) 3.3 x10e3 /uL 0.7-3. 1 above high normal Not Available [facility] ([facility]) [address] [place], [address], 04/14/2024 09:14:07 04/13/1904/14/2024 CBC WITH DIFFE RENTI AL/PL ATELE T monocytes(ab solute) 0.6 x10e3 /uL 0.1-0. 9 Not Available [facility] ([facility]) [address] [place], [address], 04/14/2024 09:14:07 04/13/19 25 04/14/2024 CBC WITH DIFFE RENTI AL/PL ATELE T eos (absolute) 0.1 x10e3 /uL 0.0-0. 4 Not Available [facility] ([facility]) [address] [facility], [place], [address], 04/14/2024 09:14:07 04/13/19 25 04/14/2024 CBC WITH DIFFE RENTI AL/PL ATELE T baso (absolute) 0.0 x10e3 /uL 0.0-0. 2 Not Available [facility] ([facility]) [address] [facility], [place], [address], 04/14/2024 09:14:07 04/13/1904/14/2024 CBC WITH DIFFE RENTI AL/PL ATELE T immature granulocytes 0 % notest ab. Not Available [facility] ([facility]) [address] [facility], [place], [address], 04/14/2024 09:14:07 04/13/1904/14/2024 CBC WITH DIFFE RENTI AL/PL ATELE T immature grans (abs) 0.0 x10e3 /uL 0.0-0. 1 Not Available [facility] ([facility]) [address] [facility], [place], [address], 04/14/2024 09:14:07 05/02/1905/01/2024 25-hy droxy vitam in D3 [Mass /volu me] in Serum or Plasm a vitamin D, 25 hydroxy 20.7 NG/mL low: 30NG/m Lhigh: 80NG/m L low Vitam in D, 25 [place] xy 20.7 (L) 30 - 80 ng/mL [facility] ACCOU NT BILL Not Available Not Available 05/03/2024 19:16:28 05/02/19 25 05/01/2024 25-hy droxy vitam in D3 [Mass /volu me] in Serum or Plasm a Unknown Analyte [facility] at: 01 - [place] [phone] [facility] or: [address], Not Available Not Available 19:16:28 05/02/1905/01/2024 25-hy droxy vitam in D3 [Mass /volu [...] Unknown Analyte [facility] at: 01 - [place] [id number] [facility] or: [address], [...] Serum or Plasm a Unknown Analyte [facility] at: 01 - [place] [phone] [facility] or: Charline morris PhD, Not Available Not Available 19:16:28 05/02/19 25 05/01/2024 Lipid 1996 panel - Serum or Plasm a cholesterol 157 mg/dL high: 200mg/ dL Sneha stero l 157 <200 mg/dL [facility] ACCOU NT BILL Not Available Not Available 05/03/2024 19:16:28 05/02/19 25 05/01/2024 Lipid 1995 panel - Serum or Plasm a triglyceride [...] - Serum or Plasm a Unknown Analyte [facility] at: [place] [phone] [facility] or: [address], [...] 7.50 x10e9/ L Granu locyt es Absol lummi 2.99 1.60 - 7.50 x10E9 /L [facility] ACCOU NT BILL Not Available Not Available 05/01/2024 17:17:06 05/02/19 25 05/01/2024 CBC W Auto Diffe renti al panel - Blood lymphocytes absolute 3.26 text: 1.00 - 4.40 x10e9/ L Lymph ocyte s Absol lummi 3.26 1.00 - 4.40 x10E9 /L [facility] ACCOU NT BILL Not Available Not Available 05/01/2024 17:17:06 05/02/19 25 05/01/2024 CBC W Auto Diffe renti al panel - Blood monocytes absolute 0.57 text: 0.15 - 1.00 x10e9/ L Monoc ytes Absol lummi 0.57 0.15 - 1.00 x10E9 /L [facility] ACCOU NT BILL Not Available Not Available 05/01/2024 17:17:06 05/02/19 25 05/01/2024 CBC W Auto Diffe renti al panel - Blood eosinophils absolute 0.14 text: 0.00 - 0.60 x10e9/ L Eosin ophil s Absol lummi 0.14 0.00 - 0.60 x10E9 /L [facility] ACCOU NT BILL Not Available Not Available 05/01/2024 17:17:06 05/02/19 25 05/01/2024 CBC W Auto Diffe renti al panel - Blood basophils absolute 0.04 text: 0.00 - 0.13 x10e9/ L Basop hils Absol lummi 0.04 0.00 - 0.13 x10E9 /L [facility] [...] - Blood Unknown Analyte [facility] at: [address] [place] [address] [facility] Direct or: [address], Not Available Not Available 17:17:06 07/21/19 25 07/21/2024 LIPID PANEL cholesterol, total 195 mg/dL 100-19 9 Not Available [facility] ([facility]) [address] [place], [address], 07/21/2024 08:22:24 07/21/19 25 07/21/2024 LIPID PANEL triglyceride s 128 mg/dL 0-149 Not Available [facility] ([facility]) [address] [place], [address], 07/21/2024 08:22:24 07/21/19 25 07/21/2024 LIPID PANEL HDL cholesterol 54 mg/dL >39 Not Available [facility] ([facility]) [address] [place], [address], 07/21/2024 08:22:24 07/21/19 25 07/21/2024 LIPID PANEL VLDL cholesterol divine 23 mg/dL 5-40 Not Available [facility] ([facility]) [address] [place], [address], 07/21/2024 08:22:24 07/21/19 25 07/21/2024 LIPID PANEL LDL chol calc ([facility]) 118 mg/dL 0-99 above high normal Not Available [facility] ([facility]) [address] [place], [address], 07/21/2024 08:22:24 07/21/19 25 07/21/2024 COMP. METAB OLIC PANEL (14) glucose 90 mg/dL 70-99 Not Available [facility] ([facility]) [address] [place], [address], 07/21/2024 08:22:24 07/21/19 25 07/21/2024 COMP. METAB OLIC PANEL (14) BUN 18 mg/dL 8-27 Not Available [facility] ([facility]) [address] [place], [address], 07/21/2024 08:22:24 07/21/19 25 07/21/2024 COMP. METAB OLIC PANEL (14) creatinine 1.13 mg/dL 0.57-1 .00 above high normal Not Available [facility] ([facility]) [address] [place], [address], 07/21/2024 08:22:24 07/21/19 25 07/21/2024 COMP. METAB OLIC PANEL (14) eGFR 52 mL/mi n/1.7 3 >59 below low normal Not Available [facility] ([facility]) [address] [facility] [place], [address], 07/21/2024 08:22:24 07/21/19 25 07/21/2024 COMP. METAB OLIC PANEL (14) BUN/creatini ne ratio 16 12-28 Not Available [facility] ([facility]) [address] [facility] [place], [address], 07/21/2024 08:22:24 07/21/19 25 07/21/2024 COMP. METAB OLIC PANEL (14) sodium 143 mmol/ L 134-14 4 Not Available [facility] ([facility]) [address] [place], [address], 07/21/2024 08:22:24 07/21/19 25 07/21/2024 COMP. METAB OLIC PANEL (14) potassium 4.5 mmol/ L 3.5-5. 2 Not Available [facility] ([facility]) [address] [place], [address], 07/21/2024 08:22:24 07/21/19 25 07/21/2024 COMP. METAB OLIC PANEL (14) chloride 101 mmol/ L 96-106 Not Available [facility] ([facility]) [address] [place], [address], 07/21/2024 08:22:24 07/21/19 25 07/21/2024 COMP. METAB OLIC PANEL (14) carbon dioxide, total 25 mmol/ L 20-29 Not Available [facility] ([facility]) [address] [place], [address], 07/21/2024 08:22:24 07/21/19 25 07/21/2024 COMP. METAB OLIC PANEL (14) calcium 9.3 mg/dL 8.7-10 .3 Not Available [facility] ([facility]) [address] [place], [address], 07/21/2024 08:22:24 07/21/19 25 07/21/2024 COMP. METAB OLIC PANEL (14) protein, total 7.3 g/dL 6.0-8. 5 Not Available [facility] ([facility]) [address] [facility] [place], [address], 07/21/2024 08:22:24 07/21/19 25 07/21/2024 COMP. METAB OLIC PANEL (14) albumin 4.2 g/dL 3.9-4. 9 Not Available [facility] ([facility]) [address] [facility] [place], [address], 07/21/2024 08:22:24 07/21/19 25 07/21/2024 COMP. METAB OLIC PANEL (14) globulin, total 3.1 g/dL 1.5-4. 5 Not Available [facility] ([facility]) [address] [facility] [place], [address], 07/21/2024 08:22:24 07/21/19 25 07/21/2024 COMP. METAB OLIC PANEL (14) bilirubin, total 0.4 mg/dL 0.0-1. 2 Not Available [facility] ([facility]) [address] [facility] [place], [address], 07/21/2024 08:22:24 07/21/19 25 07/21/2024 COMP. METAB OLIC PANEL (14) alkaline phosphatase 81 IU/L 44-121 Not Available [facility] ([facility]) [address] [facility] [place], [address], 07/21/2024 08:22:24 07/21/19 25 07/21/2024 COMP. METAB OLIC PANEL (14) AST (SGOT) 16 IU/L 0-40 Not Available [facility] ([facility]) [address] [facility] [place], [address], 07/21/2024 08:22:24 07/21/19 25 07/21/2024 COMP. METAB OLIC PANEL (14) ALT (SGPT) 9 IU/L 0-32 Not Available [facility] ([facility]) [address] [place], [address], 07/21/2024 08:22:24 07/21/1907/21/2024 VITAM IN B12 vitamin B12 581 pg/mL 232-12 45 Not Available [facility] ([facility]) [address] [place], [address], 07/21/2024 08:22:25 07/21/19 25 07/21/2024 CBC WITH DIFFE RENTI AL/PL ATELE T WBC 6.6 x10e3 /uL 3.4-10 .8 Not Available [facility] ([facility]) [address] [place], [address], 07/21/2024 08:22:26 07/21/1907/21/2024 CBC WITH DIFFE RENTI AL/PL ATELE T RBC 5.24 x10e6 /uL 3.77-5 .28 Not Available [facility] ([facility]) [address] [place], [address], 07/21/2024 08:22:26 07/21/1907/21/2024 CBC WITH DIFFE RENTI AL/PL ATELE T hemoglobin 16.1 g/dL 11.1-1 5.9 above high normal Not Available [facility] ([facility]) [address] [place], [address], 07/21/2024 08:22:26 07/21/1907/21/2024 CBC WITH DIFFE RENTI AL/PL ATELE T hematocrit 48.9 % 34.0-4 6.6 above high normal Not Available [facility] ([facility]) [address] [place], [address], 07/21/2024 08:22:26 07/21/19 25 07/21/2024 CBC WITH DIFFE RENTI AL/PL ATELE T MCV 93 fL 79-97 Not Available [facility] ([facility]) [address] [facility], [place], [address], 07/21/2024 08:22:26 07/21/19 25 07/21/2024 CBC WITH DIFFE RENTI AL/PL ATELE T MCH 30.7 pg 26.6-3 3.0 Not Available [facility] ([facility]) [address] [facility], [place], [address], 07/21/2024 08:22:26 07/21/19 25 07/21/2024 CBC WITH DIFFE RENTI AL/PL ATELE T MCHC 32.9 g/dL 31.5-3 5.7 Not Available [facility] [facility]) [address] [facility], [place], [address], 07/21/2024 08:22:26 07/21/19 25 07/21/2024 CBC WITH DIFFE RENTI AL/PL ATELE T RDW 13.5 % 11.7-1 5.4 Not Available [facility] ([facility]) [address] [facility], [place], [address], 07/21/2024 08:22:26 07/21/1907/21/2024 CBC WITH DIFFE RENTI AL/PL ATELE T platelets 220 x10e3 /uL 150-45 0 Not Available [facility] ([facility]) [address] [facility], [place], [address], 07/21/2024 08:22:26 07/21/19 25 07/21/2024 CBC WITH DIFFE RENTI AL/PL ATELE T neutrophils 39 % notest ab. Not Available [facility] ([facility]) [address] [facility], [place], [address], 07/21/2024 08:22:26 07/21/19 25 07/21/2024 CBC WITH DIFFE RENTI AL/PL ATELE T lymphs 51 % notest ab. Not Available [facility] ([facility]) [address] [place], [address], 07/21/2024 08:22:26 07/21/19 25 07/21/2024 CBC WITH DIFFE RENTI AL/PL ATELE T monocytes 7 % notest ab. Not Available [facility] ([facility]) [address] [facility], [place], [address], 07/21/2024 08:22:26 07/21/19 25 07/21/2024 CBC WITH DIFFE RENTI AL/PL ATELE T eos 2 % notest ab. Not Available [facility] ([facility]) [address] [facility], [place], [address], 07/21/2024 08:22:26 07/21/19 25 07/21/2024 CBC WITH DIFFE RENTI AL/PL ATELE T basos 1 % notest ab. Not Available [facility] ([facility]) [address] [place], [address], 07/21/2024 08:22:26 07/21/19 25 07/21/2024 CBC WITH DIFFE RENTI AL/PL ATELE T neutrophils (absolute) 2.6 x10e3 /uL 1.4-7. 0 Not Available [facility] ([facility]) [address] [facility], [place], [address], 07/21/2024 08:22:26 07/21/19 25 07/21/2024 CBC WITH DIFFE RENTI AL/PL ATELE T lymphs (absolute) 3.4 x10e3 /uL 0.7-3. 1 above high normal Not Available [facility] ([facility]) [address] [place], [address], 07/21/2024 08:22:26 07/21/19 25 07/21/2024 CBC WITH DIFFE RENTI AL/PL ATELE T monocytes(ab solute) 0.5 x10e3 /uL 0.1-0. 9 Not Available [facility] ([facility]) [address] [place], [address], 07/21/2024 08:22:26 07/21/19 25 07/21/2024 CBC WITH DIFFE RENTI AL/PL ATELE T eos (absolute) 0.2 x10e3 /uL 0.0-0. 4 Not Available [facility] ([facility]) [address] [place], [address], 07/21/2024 08:22:26 07/21/19 25 07/21/2024 CBC WITH DIFFE RENTI AL/PL ATELE T baso (absolute) 0.0 x10e3 /uL 0.0-0. 2 Not Available [facility] ([facility]) [address] [place], [address], 07/21/2024 08:22:26 07/21/19 25 07/21/2024 CBC WITH DIFFE RENTI AL/PL ATELE T immature granulocytes 0 % notest ab. Not Available [facility] ([facility]) [address] [place], [address], 07/21/2024 08:22:26 07/21/1907/21/2024 CBC WITH DIFFE RENTI AL/PL ATELE T immature grans (abs) 0.0 x10e3 /uL 0.0-0. 1 Not Available [facility] ([facility]) [address] [place], [address], 07/21/2024 08:22:26 07/21/1907/21/2024 VITAM IN D, 25-HY [...] Endoc rine Socie ty went on to furth er defin e vitam in D insuf ficie ncy as a level betwe en 21 and 29 ng/mL (2). 1. IOM (Inst itute of Medic ine). 2010. Dieta ry refer ence alessandra es for calci um and D. Luz Marina meade [place]: [facility] [employer] . 2. Amilcar wilde MF, Binlindsey flores [place], Bisch off-F errar i BALL, et al. Evalu ation , treat ment, and preve ntion of vitam in D defic iency : an Endoc rine Socie ty clini divine pract ice guide line. JCEM. 2010; 96(7) :1911 -30. Not Available [facility] ([facility]) [address] [facility], [place], [address], 07/21/2024 08:22:27 11/30/19 24 11/30/2023 LDCT, chest , for lung cance r miguel ángele nely No observ ation record ed. [address], [address], 11/30/2023 21:38:21 12/15/19 24 12/15/2023 PFT, compl ete No observ ation record ed. [address], [address], 12/16/2023 15:29:51 05/16/19 25 05/15/2024 nerve condu ction study /EMG, lower extre mity (PROC ) No observ ation record ed. [address], [address], 05/16/2024 17:24:25 09/08/19 25 09/06/2024 ankle brach ial index No observ ation record ed. [facility] (Imaging) [address] [place] [address], [address], 09/10/2024 14:14:11 11/15/19 25 11/14/2024 PFT, compl ete No observ ation record ed. [facility] [address], [place], [address], 11/19/2024 15:01:57 Result Notes None recorded. Problems Name Problem SNOMED Code Status Onset Date Resolution Date Notes Provider Name and Address Organization Details Recorded Time Chronic obstructive pulmonary disease 79097732 Active Not Available [facility] 3 16:06:31 Acid reflux 730576357 Active Not Available [facility] 3 16:06:32 Essential hypertensio n 45062503 Active Not Available [facility] 3 16:06:31 Hyperlipide jah 03538480 Active Not Available [facility] 3 16:06:31 Obesity 049278837 Active Not Available [facility] 3 16:06:31 Pain of hip region 95958565 Active Not Available [facility] 3 16:06:31 Knee pain Active Not Available [facility] 3 16:06:31 Migraine 07036094 Active Not Available [facility] 3 16:06:31 Kidney stone 25866073 Active Not Available [facility] 3 16:06:32 Tobacco user 202167799 Active 2015 Not Available [facility] 3 16:06:31 Vaginitis and vulvovagini tis Active 2016 Not Available [facility] 3 16:06:31 Sinusitis 07810889 Active 2016 Not Available [facility] 3 16:06:31 Pre-surgery testing Active 2017 Not Available [facility] 3 16:06:31 Neuropathy 563394008 Active 2017 Not Available [facility] 3 16:06:31 Vitamin D deficiency 33385172 Active 2017 Not Available [facility] 3 16:06:31 Right upper quadrant pain 101554275 Active 2018 Not Available [facility] 3 16:06:31 Parotid cyst 445969484 Active 2018 Not Available [facility] 3 16:06:31 Eczema 47471404 Active 2018 Not Available [facility] 3 16:06:31 Prolapsed lumbar interverteb ral disc 366117677 Active 2018 Not Available [facility] 3 16:06:31 Gastroesoph ageal reflux disease 408267123 Active 2019 Not Available [facility] 3 16:06:31 Chronic constipatio n 615771041 Active 2019 Not Available [facility] 3 16:06:31 Serum vitamin B12 below reference range 592064804 Active 2019 Not Available [facility] 3 16:06:31 Urinary incontinenc e 155529735 Active 2019 Not Available [facility] 3 16:06:31 Acute urticaria 834110990 Active 2020 Not Available [facility] 3 16:06:31 Vulvovagini tis 19094677 Active 2020 Not Available [facility] 3 16:06:31 Insomnia 724950857 Active 2021 Not Available [facility] 3 16:06:31 Normal grief reaction 608339896 Active 2021 of53 years a few weeks ago Not Available [facility] 3 16:06:31 Serum creatinine above reference range 806374348 Active 2021 Not Available [facility] 3 16:06:31 Allergic rhinitis 44126554 Active 2021 Not Available [facility] 3 16:06:32 Neurogenic urinary bladder 030311756 Active 2023 Donnie Daley MD Attn: Accounting ,[address] [place], [address] , [facility] - [facility] 4 12:06:32 Obstructive sleep apnea syndrome 20574159 Active 2023 Donnie Daley MD Attn: Accounting ,[address] [facility], [place], [address] , [place] [facility] 4 12:06:35 Chronic pain syndrome 963109063 Active 2023 Donnie Daley MD Attn: Accounting ,[address] [facility], [place], [address] , [place] [facility] 4 22:42:21 Smoker 00233679 Active 2023 Donnie Daley MD Attn: Accounting ,[address] [facility], [place], [address] , [facility] - [facility] 4 22:42:23 Gastroesoph ageal reflux disease without esophagitis 347780630 Active 2023 Donnie Daley MD Attn: Accounting ,[address] [facility], [place], [address] , [facility] - [facility] 4 22:42:25 Fatigue 91048333 Active 2023 Aditi Livingston MA null, [place] - [facility] 4 15:58:12 Secondary polycythemi a 94661675 Active 2024 Donnie Daley MD Attn: Accounting ,[address] [facility], [place], [address] , [facility] - [facility] 5 22:08:25 Notes:sees Dr. pedraza : n europathy Problem Notes Documentation Provider Name and Address Organization Details Recorded Time Inspection Engineer Consult Note : This document (1 of 1) was received from [email or web address] SMITH (formerly [employer]) on 11/15/2024 through Direct Message along with the following message body content: Patient Name: SERGEI MARTINEZ. Patient : 1955. Patient . Mony Julio null, [place] - [facility] 11/23/2024 10:39:08 Procedures Surgical History Date Name Laterality Status Provider Name and Address Organization Details Recorded Time Unlisted procedure spine completed Arlen Powell [place] - [facility] 01/05/2018 13:19:52 Joint Replacement completed Dae gaxiola KELSEY Mora [place] - [facility] 10/10/2014 13:07:07 Knee Surgery completed Guerita KEL[place]Y [place]a [place] - [facility] 10/10/2014 13:07:07 Tonsillectomy completed Guerita KEL[place]Y [place] - [facility] 10/10/2014 13:07:07 Imaging Results None recorded. Procedure Notes None recorded. Medical Equipment None Reported. Allergies Allergen ID Allergen Name Allergen Category Reaction Reaction Severity Criticality Documentation Date Start Date Code Code System Note Provider Name and Address Organization Details Recorded Time 278059 rosuvasta tin medicatio n Not available Not available Not available 05/19/2020 93393 2 RxNorm Other react ions and sever ities : 'Adve rse react ion to subst ance' . KELSEY Long, [place] - [facility] 4 12:17:46 677605 cefuroxim e Not available itching Not available Not available 04/13/20242016 2194 RxNorm Cefaz nolan IV dosed 02/16 18 with no adver se effec t unrec ogniz ed react ion (text : Nause a and/o r Vomit ing, code: 84934 000) (from exter nal sour e) KELSEY Jimenez, [place] - [facility] 5 11:00:22 089345 denosumab medicatio n rash Not available high 04/13/20242022 06210 9 RxNorm Blist ers aroun d mouth KELSEY Jimenez, [place] - [facility] 5 11:00:36 258271 flunisoli de medicatio n Not available Not available Not available 04/13/20242012 24898 RxNorm Gag and vomit . Shahla ates nasac ort, cause s nose to bleed . unrec ogniz ed react ion (text : Other , code: 59813 07) (from exter nal sourc e) KELSEY [place], [place] - [facility] 5 11:00:42 657675 lovastati n medicatio n Not available Not available Not available 04/13/20242023 6472 RxNorm Veronica Sweeney [place] null, [place] - [facility] 5 11:00:50 17511 Iodinated contrast media (substanc e) medicatio n rash Not available low 10/10/20142022 51434 2004 SNOMED Veronica [place]ween[place] null, [place] [facility] 5 11:00:47 88469 omeprazol e medicatio n Not available Not available Not available 01/06/2016 7646 RxNorm Other react ions and sever ities : 'Adve rse react ion to subst ance - Mild' . Adelia Zimmer [place] null, [place] [facility] 4 12:17:46 Medications Name Sig Start Date [...] ORAL ROUTE ONCE DAILY FOR 4 DAYS 11/09 completed Not Available Not Available Not Available cefpodoxi me 100 mg tablet 05/01 [...] Available cephalexi n 500 mg capsule TAKE 4 CAPSULES BY MOUTH ONCE 11/09 completed Not Available Not Available Not Available [...] 1,000 mcg/mL injection solution INJECT 1 ML IN THE MUSCLE EVERY 30 DAYS active Not Available Not Available No t Available triamcino lone acetonide 0.1 % topical ointment APPLY TOPICALL Y TO THE AFFECTED AREA TWICE DAILY NEEDED 2024 active Not Available Not Available Not Avai lable ranitidin e 150 mg tablet Take 1 tablet twice a day by oral route before meals for 30 days. 01/09 /2020 completed contamin ants Not Available Not Available [...] Available lidocaine 5 % topical patch APPLY TO THE AFFECTED AREA ONCE DAILY REMOVE AFTER 12 HOURS NEEDED active Not Available Not Available [...] TABLET BY MOUTH EVERY DAY AT BEDTIME active Not Available Not Available No t Available codeine 10 mg-guaife nesin 100 mg/5 mL oral liquid TAKE 5 ML BY MOUTH EVERY 6 HOURS NEEDED FOR COUGH 11/09 completed Not Available Not Available Not Available [...] propionat e 50 mcg/actua tion nasal spray,chris penon 05/01 completed Not Available Not Available Not [...] Updated DateTime 5 167.64 cm 34.3 kg/m2 81876.0 2 g 100 /min 96 % 96 % 106/68 mm[Hg] Veronica [place] - [facility] 5 09:40:15 Date Recorded Body height Body mass index (BMI) Body weight Heart rate Oxygen saturation Oxygen saturation in Arterial blood by Pulse oximetry Systolic And Diastolic Provider Name and Address Organization Details Last Updated DateTime 5 167.64 cm 34.2 kg/m2 69111.5 8 g 94 /min 97 % 97 % 110/64 mm[Hg] Veronica Sweeney [place] - [facility] 5 10:59:33 Date Recorded Body height Body mass index (BMI) Body weight Heart rate Oxygen saturation Oxygen saturation in Arterial blood by Pulse oximetry Systolic And Diastolic Provider Name and Address Organization Details Last Updated DateTime 5 167.64 cm 33 kg/m2 03649.9 2 g 73 /min 99 % 99 % 124/68 mm[Hg] Floresita CatrinaKELSEY stevenson [facility] 5 11:48:31 Date Recorded Body height Body mass index (BMI) Body weight Heart rate Oxygen saturation Oxygen saturation in Arterial blood by Pulse oximetry Systolic And Diastolic Provider Name and Address Organization Details Last Updated DateTime 5 167.64 cm 32.9 kg/m2 14981.8 4 g 86 /min 95 % 95 % 120/72 mm[Hg] Veronica Sweeney [place] - [facility] 5 10:23:08 Date Recorded Body height Body mass index (BMI) Body weight Heart rate Oxygen saturation Oxygen saturation in Arterial blood by Pulse oximetry Systolic And Diastolic Provider Name and Address Organization Details Last Updated DateTime 4 167.64 cm 33.8 kg/m2 87961.9 6 g 86 /min 95 % 95 % 128/72 mm[Hg] Aliza Cali [place] - [facility] 4 10:20:00 Social History Question Answer Notes LastModified by Organizat ion Details LastModified Time Tobacco Smoking Status Current Every Day Smoker Emily Mclaughlin MA null, [place] - [facility] 03/08/2019 14:25:00 Do You Have An Advance [...] Date Of Your Most Recent Tobacco Screening? 11/09/2024 Information not available 11/09/2024 What Is Your Relationship Status? Information not [...] What Date Was Tobacco Cessation Counseling Provided? 11/09/2024 Information not available 11/09/2024 How Many Years Have You Smoked Tobacco? [...] 06/19/2020 Are you able to care for yourself independently? 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 None Information not available 06/19/2020 Mental Status Question Answer Note LastModified by Organization D etails LastModified Time Do you feel stressed (tense, restless, nervous, or anxious, or unable to sleep at night)? [id number] [facility] Information not available 06/19/2020 Family History Relationship [...] Not availab le 10/10/2014 13:07:07 Brother Malignant neoplasm of colon Not available 2014 13:07:07 Brother [...] 15:27:31 Influenza, recombinant, quadrivalent, PF 9 completed [place] [facility] 09/08/2023 15:27:31 Influenza, recombinant, quadrivalent, PF 0 completed [place] [facility] 09/08/2023 15:27:31 zoster recombinant [...] [place] [facility] 09/08/2023 15:27:31 pneumococcal polysaccharide PPV23 3 completed [place] [facility] 09/08/2023 15:27:31 pneumococcal polysaccharide PPV23 0 completed Adelia [place] [facility] 09/08/2023 15:27:31 Pneumococcal conjugate PCV 13 5 completed Adelia [place] [facility] 09/08/2023 15:27:31 Td (adult), 5 Lf tetanus toxoid, preservative free, adsorbed 8 completed Adelia [place] [facility] 09/08/2023 15:27:31 Influenza, split virus, quadrivalent, PF 5 completed Adelia [place] [facility] 09/08/2023 15:27:31 RSV, recombinant, protein subunit RSVpreF, adjuvant reconstituted, 0.5 mL, PF 5 completed Not Available [facility] 11/09/2024 10:14:57 Influenza, high-dose, quadrivalent, PF 3 completed Juan Canseco MD Attn: Accounting,[address] [place], [address], [place] [facility] 01/28/2023 17:44:30 Influenza, high-dose, trivalent, PF 4 completed Aliza Cal[place] [facility] 12/14/2023 14:44:32 Influenza, high-dose, trivalent, PF 5 completed Aditi [place] [facility] 11/09/2024 11:31:13 Past Encounters Encounter ID Performer Location Encounter Start Date Encounter Closed Date Diagnosis/Indication Diagnosis SNOMED-CT Code Diagnosis ICD10 Code Diagnosis IMO Codes Diagnosis Note [id number] [facility] (Adult Med) [address] [place] [address] 10/10/2014 11:51:30 10/10/2014 13:26:35 Bronchitis 49980321 Adult heal th examination 347476805 Chronic ob structive pulmonary disease 96528413 Essential hypertension 57102649 Hyperlipidemia 27245075 Obesity 041355481 [id number] [facility] (Adult Med) [address] [place] [address] 12/12/2014 15:25:34 12/12/2014 16:35:15 Acid reflux 760396031 K21.9 Adult heal th examination 508269651 Z00.00 Essential hypertension 28962921 I10 Hyperlipidemia 85612863 E78.5 Obesity 887255205 E66.9 Pain of hip region 76626 002 M25.551 Chronic ob structive pulmonary disease 72569556 J44.9 [id number] [facility] (Adult Med) [address] [place] [address] 03/13/2015 14:59:03 03/13/2015 15:27:13 Acid reflux 358416994 K21.9 Chronic ob structive pulmonary disease 38921349 J44.9 Essential hypertension 66595575 I10 Pain of hip region 41390 002 M25.551 Hyperlipidemia 26547171 E78.5 Diabetes m ellitus screening 002625421 Z13.1 Knee pain 33755976 M25.5 60 right more than left , left aches but had total knee replacemen t on left knee January 2004. Dr. Jefferson [id number] [facility] (Adult Med) [address] [place] [address] 06/05/2015 13:54:38 06/05/2015 15:19:57 Migraine 53438037 G43.909 Pain of hip region 74236 002 M25.551 Hyperlipidemia 44649691 E78.5 Obesity 469643570 E66.9 Kidney stone 61111993 N2 0.0 lithotrips y April 11, and while hospitaliz ed at [facility] in [place] [id number] [facility] (Adult Med) [address] [place] [id number] 10/08/2015 11:25:49 10/08/2015 17:31:01 Acute sinusitis 66883557 J01.90 Obesity 978122127 E66.9 Hyperlipidemia 03339631 E78.5 Essential hypertension 95996834 I10 Pain of hip region 03210 002 M25.551 Chronic ob structive pulmonary disease 34349008 J44.9 [id number] [facility] [address] [place] [address] 01/06/2016 13:14:57 01/06/2016 15:35:52 Kidney stone 95484832 N20.0 lithotrips y April 11, and while hospitaliz ed at [facility] Acid reflux 745100638 K2 1.9 Essential hypertension 75078318 I10 Hyperlipidemia 36385835 E78.5 Pain of hip region 75558 002 M25.551 Obesity 666264571 E66.9 Migraine 27642858 G43.90 9 Chronic ob structive pulmonary disease 89360218 J44.9 Tobacco user 272526408 Z 72.0 [id number] MD [facility] (Adult Med) [address] [place] [phone] 04/02/2016 15:33:38 04/02/2016 16:37:50 Acute sinusitis 39064546 J01.90 Vaginitis and vulvovaginitis 923348869 N76.0 Pain of hip region 13316 002 M25.551 Essential hypertension 84426824 I10 Hyperlipidemia 31360292 E78.5 Acid reflux 835995591 K2 1.9 Tobacco user 474132524 Z 72.0 [id number] [facility] [address] [place] [address] 07/02/2016 14:47:06 07/02/2016 17:59:49 Pain of hip region 16514940 M25.551 Sinusitis 26102223 J32.9 Essential hypertension 46153650 I10 Bronchitis 55056721 J40 Hyperlipidemia 45555918 E78.5 Obesity 997047046 E66.9 [id number] [facility] [address] [place] [address] 10/01/2016 14:44:39 10/04/2016 11:29:13 Essential hypertension 04209860 I10 Hyperlipidemia 45879253 E78.5 Acid reflux 622310907 K2 1.9 Kidney stone 47821958 N2 0.0 lithotrips y April 11, and while hospitaliz ed at [facility] in [place] Pain of hip region 20527 002 M25.551 Obesity 925140342 E66.9 Migraine 68636759 G43.90 9 Knee pain 21224627 M25.5 60 right more than left , left aches but had total knee replacemen t on left knee January 2004. Dr. Jefferson Chronic ob structive pulmonary disease 71388962 J44.9 Tobacco user 289678230 Z 72.0 [id number] MD [facility] (Adult Med) [address] [place] [id number] 0 03/24/2017 15:47:09 03/24/2017 16:42:47 Bronchitis 62427636 J40 Obesity 906246203 E66.9 Chronic ob structive pulmonary disease 78379560 J44.9 [id number] [facility] [address] [place] [phone] 0 09/06/2017 12:34:13 09/06/2017 13:43:30 Pre-surgery testing 068284840 Z01.89 Essential hypertension 11653187 I10 Chronic ob structive pulmonary disease 85290063 J44.9 Obesity 053897070 E66.9 Hyperlipidemia 83146935 E78.5 Acid reflux 080788314 K2 1.9 [id number] Juan Canseco MD [facility] (Adult Med) [address] [place] [address] 10/05/2017 13:02:28 10/05/2017 13:28:01 Essential hypertension 77768944 I10 Tobacco user 474941177 Z 72.0 Neuropathy 166298887 G62 .9 Hyperlipidemia 97473966 E78.5 Obesity 461811911 E66.9 Chronic ob structive pulmonary disease 31918299 J44.9 [id number] MD [facility] (Adult Med) [address] [place] [address] 0 01/05/2018 12:14:03 01/05/2018 13:41:48 Hyperlipidemia 86792393 E78.5 Vitamin D deficiency 347 89947 E55.9 Pain of hip region 07468 002 M25.551 Chronic ob structive pulmonary disease 62310226 J44.9 Obesity 140488986 E66.9 Essential hypertension 72411970 I10 [id number] MD [facility] (Adult Med) [address] [place] [address] 05/01/2018 15:11:21 05/02/2018 12:34:30 Vitamin D deficiency 75448995 E55.9 Tobacco user 611587503 Z 72.0 Chronic ob structive pulmonary disease 76563640 J44.9 Obesity 143935285 E66.9 Hyperlipidemia 52811768 E78.5 Acid reflux 096589384 K2 1.9 Acute otitis media 72967 03 H66.91 Acute sinusitis 32298097 J01.90 Sinusitis 30917843 J32.9 Essential hypertension 52424318 I10 [id number] Juan Canseco MD [facility] (Adult Med) [address] [place] [address] 0 08/25/2018 13:57:44 08/25/2018 15:49:18 Acute otitis media 0697476 H66.91 Acute sinusitis 54632990 J01.90 Vitamin D deficiency 347 12862 E55.9 Acid reflux 287774744 K2 1.9 Chronic ob structive pulmonary disease 35183409 J44.9 Neuropathy 722929767 G62 .9 Obesity 953493488 E66.9 Hyperlipidemia 52398884 E78.5 Essential hypertension 44844541 I10 [id number] Juan Canseco MD [facility] (Adult Med) [address] [place] [address] 0 09/22/2018 15:35:45 09/22/2018 16:22:16 Acid reflux 869968647 K21.9 Acute sinusitis 75727766 J01.90 Right uppe r quadrant pain 176488270 R10.11 no fever ... Chronic ob structive pulmonary disease 25432268 J44.9 Obesity 963043870 E66.9 [id number] MD [facility] (Adult Med) [address] [place] [address] 0 10/23/2018 15:48:34 10/24/2018 09:06:46 Parotid cyst 826868381 K11.6 Hyperlipidemia 73835883 E78.5 Essential hypertension 55537209 I10 Vitamin D deficiency 347 93771 E55.9 Acid reflux 043200299 K2 1.9 Acute otitis media 43646 03 H66.91 Eczema 79030160 L30.9 Chronic ob structive pulmonary disease 77066061 J44.9 [id number] MD [facility] (Adult Med) [address] [place] [address] 0 03/08/2019 13:42:13 03/08/2019 15:12:05 Gastroesophageal reflux disease 101890433 K21.9 Chronic constipation 236 231527 K59.09 Serum miriam min B12 below reference range 668126637 R79.89 Vitamin D deficiency 347 97171 E55.9 Hyperlipidemia 32358470 E78.5 Chronic ob structive pulmonary disease 72930490 J44.9 Essential hypertension 25347969 I10 Prolapsed lumbar intervertebral disc 020508827 M51.26 Tobacco user 831473874 Z 72.0 [id number] MD [facility] (Adult Med) [address] [place] [address] 73298-453 0 05/14/2019 16:38:51 05/14/2019 17:22:23 Acute otitis media 5013069 H66.91 Sinusitis 82024659 J32.9 Chronic ob structive pulmonary disease 49873323 J44.9 Hyperlipidemia 71590366 E78.5 Essential hypertension 36066260 I10 Gastroesop hageal reflux disease 748346273 K21.9 Neuropathy 153468868 G62 .9 Prolapsed lumbar intervertebral disc 079375292 M51.26 Vitamin D deficiency 347 57230 E55.9 [id number] JW Hyatt (Adult Med) [address] [place] [address] 42781-805 0 06/05/2019 14:12:13 06/05/2019 15:17:46 Acute otitis media 1003179 H66.91 Acute pharyngitis 739904 003 J02.9 Chronic ob structive pulmonary disease 54225387 J44.9 Essential hypertension 17617759 I10 Gastroesop hageal reflux disease 779547619 K21.9 Hyperlipidemia 34180300 E78.5 Neuropathy 448776304 G62 .9 Obesity 386473841 E66.9 Prolapsed lumbar intervertebral disc 536535376 M51.26 Vitamin D deficiency 347 22502 E55.9 Serum miriam min B12 below reference range 942670504 R79.89 [id number] MD Akua Baumann rd [address] [place] [address] 08075-916 9 08/17/2019 14:30:59 08/20/2019 14:17:14 Viral screening 218650376 Z11.59 [id number] MD Murtaza Mcgee (Adult Med) [address] [place] [address] 86132-023 0 09/04/2019 10:12:09 09/05/2019 11:58:54 Chronic obstructive pulmonary disease 20123052 J44.9 Essential hypertension 45549105 I10 Gastroesop hageal reflux disease 682332992 K21.9 Hyperlipidemia 45474030 E78.5 Neuropathy 466315754 G62 .9 Prolapsed lumbar intervertebral disc 599091428 M51.26 Tobacco user 344156417 Z 72.0 Vitamin D deficiency 347 92444 E55.9 [id number] RONALDO Humphreys [address] [place] [address] 94307-194 9 09/13/2019 10:05:42 09/14/2019 11:47:21 Viral screening 206585967 Z11.59 D/w pt the current pandemic of COVID-19 and call for social isolation in order to blunt the curve and minimize risk and spread. Encouraged patient and family to take restrictio ns seriously. They have verbalized understand ing of such. Viral syndrome 292938458 B34.9 [id number] MD Murtaza Mcgee (Adult Med) [address] [place] [address] 29801-613 0 02/28/2020 07:56:22 02/28/2020 14:17:05 Bronchitis 02233569 J40 Acute sinusitis 52093192 J01.90 Gastroesop hageal reflux disease 852397866 K21.9 Chronic ob structive pulmonary disease 50063386 J44.9 Hyperlipidemia 74285068 E78.5 Essential hypertension 65739570 I10 Neuropathy 319754725 G62 .9 Serum miriam min B12 below reference range 083784695 R79.89 Vitamin D deficiency 347 59843 E55.9 Tobacco user 893413271 Z 72.0 [id number] MD Murtaza Mcgee (Adult Med) [address] [place] [address] 94289-029 0 05/19/2020 08:29:37 05/19/2020 17:52:33 Acute urticaria 840914845 L50.9 Neuropathy 352749030 G62 .9 Prolapsed lumbar intervertebral disc 926582667 M51.26 Chronic ob structive pulmonary disease 65422501 J44.9 Acid reflux 540329897 K2 1.9 Essential hypertension 95759025 I10 Gastroesop hageal reflux disease 781352230 K21.9 Hyperlipidemia 80975257 E78.5 Obesity 328133722 E66.9 Serum miriam min B12 below reference range 236492228 R79.89 Tobacco user 341666400 Z 72.0 Vitamin D deficiency 347 73003 E55.9 [id number] MD Murtaza Mcgee (Adult Med) [address] [place] [address] 76096-098 0 06/19/2020 08:34:28 06/19/2020 13:44:26 Eczema 08825391 L30.9 Hyperlipidemia 06661318 E78.5 [id number] MD Murtaza Mcgee (Adult Med) [address] [place] [address] 32143-265 0 07/18/2020 09:38:30 07/18/2020 14:12:14 Chronic obstructive pulmonary disease 94812023 J44.9 Essential hypertension 95312852 I10 Gastroesop hageal reflux disease 519943600 K21.9 Hyperlipidemia 98744333 E78.5 Neuropathy 897581861 G62 .9 Obesity 368191640 E66.9 Prolapsed lumbar intervertebral disc 785923852 M51.26 Vitamin D deficiency 347 06843 E55.9 Serum miriam min B12 below reference range 054047245 R79.89 [id number] MD Murtaza Mcgee (Adult Med) [address] [place] [address] 29177-891 0 10/17/2020 08:48:38 10/17/2020 11:58:21 Neuropathy 614944908 G62.9 Vulvovaginitis 82159542 N76.0 Chronic ob structive pulmonary disease 56357711 J44.9 Essential hypertension 20428041 I10 Gastroesop hageal reflux disease 714545808 K21.9 Hyperlipidemia 79775434 E78.5 Prolapsed lumbar intervertebral disc 249737206 M51.26 Vitamin D deficiency 347 62829 E55.9 Tobacco user 376975576 Z 72.0 Serum miriam min B12 below reference range 136243085 R79.89 [id number] [facility] [address] [place] [address] 12086-157 0 01/16/2021 12:02:03 01/16/2021 12:48:32 Chronic obstructive pulmonary disease 62906127 J44.9 Serum miriam min B12 below reference range 524830528 R79.89 Chronic constipation 236 551189 K59.09 Essential hypertension 39737046 I10 Gastroesop hageal reflux disease 717807297 K21.9 Hyperlipidemia 17530491 E78.5 Neuropathy 947723289 G62 .9 Prolapsed lumbar intervertebral disc 667500403 M51.26 Tobacco user 187956472 Z 72.0 Urinary incontinence 165 552859 R32 Vitamin D deficiency 347 94069 E55.9 [id number] [facility] [address] [place] [address] 33271-668 0 04/17/2021 09:21:22 04/17/2021 16:48:47 Insomnia 519226826 G47.00 Chronic ob structive pulmonary disease 38889389 J44.9 Chronic constipation 236 296332 K59.09 Essential hypertension 74131986 I10 Gastroesop hageal reflux disease 367902988 K21.9 Pain of hip region 87275 002 M25.551 Hyperlipidemia 42058035 E78.5 Neuropathy 367234291 G62 .9 Normal grief reaction 27 8209526 F43.20 Prolapsed lumbar intervertebral disc 673277822 M51.26 Serum miriam min B12 below reference range 174703213 R79.89 Tobacco user 417867405 Z 72.0 Vitamin D deficiency 347 91910 E55.9 [id number] MD Murtaza Mcgee (Adult Med) [address] [place] [address] 47689-414 0 08/11/2021 15:00:29 08/12/2021 13:12:43 Acid reflux 534616699 K21.9 Gastroesop hageal reflux disease 911861844 K21.9 Hyperlipidemia 83957165 E78.5 Insomnia 920754048 G47.0 0 Neuropathy 023450972 G62 .9 Obesity 968342585 E66.9 Prolapsed lumbar intervertebral disc 653069531 M51.26 Serum miriam min B12 below reference range 637569424 R79.89 Tobacco user 980240380 Z 72.0 Vitamin D deficiency 347 62336 E55.9 Chronic ob structive pulmonary disease 36171455 J44.9 Essential hypertension 82609856 I10 Normal grief reaction 27 4038923 F43.20 Eczema 42764079 L30.9 arms [id number] MD Murtaza Mcgee (Adult Med) [address] [place] [address] 29984-926 0 09/11/2021 11:49:22 09/15/2021 08:25:09 Acute sinusitis 38075511 J01.90 Hyperlipidemia 21842022 E78.5 Serum miriam min B12 below reference range 545129830 R79.89 Vitamin D deficiency 347 64229 E55.9 Essential hypertension 27060424 I10 Gastroesop hageal reflux disease 508395534 K21.9 Neuropathy 316488495 G62 .9 Prolapsed lumbar intervertebral disc 485260168 M51.26 Chronic ob structive pulmonary disease 79645977 J44.9 Insomnia 846361089 G47.0 0 [id number] [facility] [address] [place] [address] 22301-364 0 10/16/2021 11:49:21 10/20/2021 07:59:55 Chronic obstructive pulmonary disease 23345492 J44.9 Acute sinusitis 72227222 J01.90 Renewal of prescription 542675554 Z76.0 [id number] MD Murtaza Mcgee (Adult Med) [address] [place] [address] 38110-947 0 11/16/2021 12:07:30 11/17/2021 08:34:17 Bronchitis 03936522 J40 Chronic ob structive pulmonary disease 88923645 J44.9 Eczema 10322545 L30.9 arms Acute otitis media 98599 03 H66.91 Allergic rhinitis 238070 04 J30.9 Essential hypertension 35441598 I10 Gastroesop hageal reflux disease 083416639 K21.9 Hyperlipidemia 78525495 E78.5 Insomnia 281629462 G47.0 0 Prolapsed lumbar intervertebral disc 979059319 M51.26 Serum miriam min B12 below reference range 082820180 R79.89 Tobacco user 501957033 Z 72.0 Vitamin D deficiency 347 36774 E55.9 [id number] [facility] [address] [place] [address] 47761-588 0 03/22/2022 16:01:18 03/25/2022 15:01:33 Obesity 374880077 E66.9 BMI is 35.2. she has been advised to watx=ch her diwr, exercise and keep the weight down. Acid reflux 510335772 K2 1.9 On famotidine . Chronic ob structive pulmonary disease 96242245 J44.9 On inhalers. Gastroesop hageal reflux disease 806075805 K21.9 On famotidine . Hyperlipidemia 92266603 E78.5 On low anomal fat diet, and ezetimibe Generalize d osteoarthritis 275877850 M15.9 On ergocalcif john. Smoker 61555284 F17.200 Advised her to quit smoking. 03-22-2022 . [id number] Juan Canseco MD [facility] (Adult Med) [address] [place] [address] 95535-114 0 07/20/2022 11:50:11 07/21/2022 14:43:32 Obesity 531077745 E66.9 BMI is 35.2. she has been advised to watch her diet, exercise and keep the weight down. Edema of l ower extremity 185669703 R60.0 She agreed for the tests as ordered and agreed to try furosemide pending the tests. Smoker 83474580 F17.200 Advised her to quit smoking. 03-22-2022 . She is aware of cigarettes smoking can cause cancer of lung, throat, mouth , and emphysema and other disese. [id number] [facility] [address] [place] [address] 76575-217 0 10/04/2022 11:51:03 10/05/2022 13:14:56 Obesity 121865074 E66.9 BMI is 35.2. she has been advised to watch her diet, exercise and keep the weight down. BMI is 36.8 as 10-04-22, Chronic ob structive pulmonary disease 13929701 J44.9 On inhalers. Also under the care of her usability specialist . Smoker 65467976 F17.200 Advised her to quit smoking. 03-22-2022 . She is aware of cigarettes smoking can cause cancer of lung, throat, mouth , and emphysema and other disese. She said that she has cut down to about 10 cigarettes /day, has LDCT ordered by Dr. Luciano Mustafa. usability specialist , no lung tumor 2022. Chronic sinusitis 392837 00 J32.9 has had chronic sinus congestion , Discussed with patient, that chronic use of ABS and prednisolo n is not a good ideal, . She agreed for the med as ordered. [id number] MD Murtaza Mcgee (Adult Med) [address] [place] [address] 01/28/2023 13:58:01 01/31/2023 14:45:20 Administration of influenza vaccine 11312781 Z23 She tolerated shot well. Chronic ob structive pulmonary disease 01413548 J44.9 On inhalers. Also under the care of her usability specialist . Smoker 32294035 F17.200 Advised her to quit smoking. 03-22-2022 . She is aware of cigarettes smoking can cause cancer of lung, throat, mouth , and emphysema and other disese. She said that she has cut down to about 10 cigarettes /day, has LDCT ordered by Dr. Luciano Mustafa. usability specialist , no lung tumor 2022. Hyperlipidemia 87142062 E78.5 On low anomal fat diet, and ezetimibe Chronic back pain 039259 002 G89.29 Under the care of her pain management . Vitamin B1 2 level below reference range 133002610 R79.9 it is not truth, she wants to be tested today. Vitamin D deficiency 347 62458 E55.9 Level was 37.9 on 09-11-2021 . Normal is above 30. [id number] MD Murtaza Mcgee (Adult Med) [address] [place] [address] 78695-883 0 04/28/2023 16:24:12 05/03/2023 11:21:57 Acute exacerbation of chronic obstructive pulmonary disease 322957715 J44.1 Discussed with patient, agreed to try medication s as ordered. [id number] MD Murtaza Pandey (Adult Med) [address] [place] [address] 48159-494 0 06/24/2023 09:45:55 06/24/2023 11:00:02 Hyperlipidemia 62555394 E78.5 Vitamin D deficiency 347 70542 E55.9 Neurogenic urinary bladder 601421174 N31.9 Urinary incontinence 165 676501 R32 Obstructiv e sleep apnea syndrome 38963901 G47.33 [id number] Donnie Daley MD [facility] [employer] [facility] [place] [address] [place] [address] 08/01/2023 16:08:34 08/01/2023 17:41:50 Acute bronchitis 53899310 J20.9 [id number] Donnie Daley MD [facility] [employer] [facility] [place] [address] [place] [address] 09/08/2023 14:52:54 09/08/2023 16:56:15 Obesity 761484201 E66.8 Chronic ob structive pulmonary disease 16171537 J44.9 Chronic pain syndrome 37 4313356 G89.4 Obstructiv e sleep apnea syndrome 39350416 G47.33 Smoker 83217144 F17.200 Gastroesop hageal reflux disease without esophagitis 287124435 K21.9 [id number] MD Murtaza Pandey (Adult Med) [address] [place] [address] 72128-611 0 09/20/2023 11:56:28 09/20/2023 12:48:36 Obesity 630812784 E66.8 Smoker 41960916 F17.200 Chronic ob structive pulmonary disease 84443126 J44.9 [id number] MD Murtaza Pandey (Adult Med) [address] [place] [address] 07226-542 0 10/26/2023 14:30:51 10/26/2023 16:17:42 Essential hypertension 64944399 I10 Fatigue 60654669 R53.83 Hyperlipidemia 72626043 E78.5 Chronic ob structive pulmonary disease 39085376 J44.9 [id number] MD Murtaza Pandey (Adult Med) [address] [place] [address] 72112-543 0 12/13/2023 10:11:48 12/13/2023 10:57:30 Administration of influenza vaccine 69841930 Z23 [id number] MD Murtaza Pandey (Adult Med) [address] [place] [address] 76909-989 0 03/30/2024 09:28:05 03/30/2024 10:54:48 Body mass index 30+ - obesity 839028744 Z68.34 Obesity 792271179 E66.9 Hyperlipidemia 04539763 E78.5 Chronic ob structive pulmonary disease 83356668 J44.9 Kidney stone 87190480 N2 0.0 Obstructiv e sleep apnea syndrome 86453606 G47.33 Gallstone 978757700 K80. 20 Secondary polycythemia 86274875 D75.1 Eczema 45465940 L30.9 [id number] MD Murtaza Pandey (Adult Med) [address] [place] [address] 59592-531 0 04/13/2024 10:43:23 04/13/2024 11:59:26 Body mass index 30+ - obesity 939181188 Z68.34 Obesity 164533095 E66.9 Hyperlipidemia 26366841 E78.5 Paresthesi a of lower extremity 880373324 R20.2 [id number] MD Murtaza Pandey (Adult Med) [address] [place] [address] 92178-159 0 07/20/2024 10:46:46 07/20/2024 12:19:04 Smoker 75201541 F17.200 Obesity ca used by energy imbalance 626418638 E66.811 E66.09 Z68.33 06098321 Essential hypertension 31112107 I10 Hyperlipidemia 51189806 E78.5 Vitamin D deficiency 347 27140 E55.9 Serum miriam min B12 below reference range 703016311 R79.89 Gastroesop hageal reflux disease without esophagitis 098469152 K21.9 Weakness o f bilateral lower limb 5379544928 95537 R29.898 874880 Chronic ob structive pulmonary disease 77886877 J44.9 [id number] Donnie Daley MD [facility] (Adult Med) [address] [place] [address] 87055-902 0 11/09/2024 10:13:28 11/09/2024 11:31:48 Obese class I 4788035151 55236 E66.811 E66.3 6579730057 Smoker 70151274 F17.200 Abnormal gait 53184053 R 26.9 16682 Skin lesion 55380826 L98 .9 34688 Influenza vaccination given 9372974995 9109 Z23 58504638 Chronic ob structive pulmonary disease 64755060 J44.9 Essential hypertension 37988335 I10 Health Concerns Section Related Observation LastModified by Organization Detai ls LastModified Time None Recorded Concern Status LastModified by Organization Details LastModified Time None Recorded Advance Directives Directive N: Payers Insurance Date Sequence Insurance Name Policy Number Policy Crane Covered Member ID Crane Member ID Guarantor Name 11/09/2024 2 [place] WHEN [place]ARE OR MEDICARE REPLACEMENT PRIMARY) Oralee Martinez [id number] Ora Anatoliy Martinez 11/09/2024 [facility] ON OR AFTER 08/28/20 (MEDICAID REPLACEMENT - HMO) Oralee Martinez [id number] Ora Anatoliy Martinez 11/09/2024 1 [place] Oralee N Martinez [id number] Ora Anatoliy Martinez 11/20/2024 1 [facility] (MEDICARE REPLACEMENT/ADVANT AGE - HMO) [id number] Oralee N Martinez [id number] Ora Anatoliy Martinez 11/09/2024 2 [place] OR [place]IC[place] REPLACEMENT PRIMARY) Oralee Martinez [id number] Ora Anatoliy Martinez 11/09/2024 [place] [facility] Oralee N Martinez [id number] Ora Anatoliy Martinez 11/09/[address] [facility] PRIOR TO 08/28/2020 (MEDICAID REPLACEMENT - HMO) Oralee Martinez [id number] Ora Anatoliy Martinez 11/09/2024 2 [facility] - DUAL ELIGIBLE - [place] (MEDICARE REPLACEMENT/ADVANT AGE) Oralee Martinez [id number] Ora Anatoliy Martinez 11/09/2024 [facility] - DOS ON OR AFTER 20 (MEDICAID REPLACEMENT - HMO) Oralee Martinez [id number] Ora Anatoliy Martinez 11/09/2024 1 [facility] - DOS ON OR AFTER 2020 - DUAL ELIGIBLE (MEDICARE REPLACEMENT/ADVANT AGE - HMO) Oralee Martinez [id number] Ora Anatoliy Martinez 11/09/2024 [place] [facility] Oralee N Martinez [id number] Ora Anatoliy Martinez 11/09/2024 2 [place] [facility] Oralee Martinez [id number] Ora Anatoliy Martinez 11/09/2024 [place] Oralee N Martinez [id number] Ora Anatoliy Martinez 11/09/2024 2 [place]ARE OR MEDICARE REPLACEMENT PRIMARY) Oralee Martinez [id number] Ora Anatoliy Martinez 11/09/2024 2 [facility] - DOS ON OR AFTER 20 (MEDICAID REPLACEMENT - HMO) Oralee Martinez [id number] Ora Anatoliy Martinez 11/09/2024 1 [facility] - DOS ON OR AFTER 2020 - DUAL ELIGIBLE (MEDICARE REPLACEMENT/ADVANT AGE - HMO) Oralee Martinez [id number] Ora Anatoliy Martinez 11/09/2024 [place] WHEN [place] OR MEDICARE REPLACEMENT PRIMARY) Oralee Martinez [id number] Ora Anatoliy Martinez 11/09/2024 2 [place] WHEN [place] OR MEDIC[place] REPLACEMENT PRIMARY) Oralee Martinez [id number] Ora Anatoliy Martinez 11/09/2024 2 [place] [facility] Oralee Martinez [id number] Ora Anatoliy Martinez 11/09/2024 [facility] - DOS PRIOR TO 2020 (MEDICAID REPLACEMENT - HMO) Sergei Martinez [id number] Connie Martinez Notes Date Note Type Note Provider Name and Address Organization Details Recorded Time 03/30/2024 text/html hypertension no headache or dizziness blood pressure 106/68. COPD stable no cough or wheezing. Dyslipidemia taking her Zetia without any side effects. gallstone asymptomatic kidney stone asymptomatic Donnie Daley MD Attn: Accounting,[address] [facility], [place], [address], [facility] 03/30/2024 22:09:45 04/13/2024 text/html Acute appointment she comes in basically for a couple [...] not have classic claudication Mary Boykin RN [facility], [facility] 07/16/2024 17:45:36 07/20/2024 text/html hypertension no headache or dizziness . COPD stable no cough or wheezing. Dyslipidemia taking her Zetia without any side effects. gallstone asymptomatic kidney stone asymptomatic still feel weak in the legs needs her vitamin-D level checked she needs to quit smoking or GERD has been doing fine Donnie Daley MD Attn: Accounting,[address] [facility], [place], [address], [facility] 07/21/2024 15:57:45 11/09/2024 text/html Needs a new Rollator wants to see Dermatology her blood pressure is controlled Donnie Daley MD Attn: Accounting,[address] [facility], [place], [address], [facility] 11/17/2024 20:25:52 OBGyn Episode No OBEpisode recorded.
--- OUTSIDE RECORDS SUMMARY | 2024-11-30 11:08 | XMS_ITS | Clinical Summary ---
Author Organization [employer] [facility] Address [address] [place] [address] Care Team Providers Care Blending Technician Name Role Phone Emery Jarrell MD Primary Care Provider [phone] Allergies Active Allergy Reactions Criticality Noted Date [...] Encounters Date Type Department Care Team Description 11/20/2024 External Device Data STL ABSTRACTION Provider, Abstract 11/13/2024 External Device Data STL ABSTRACTION Provider, Abstract 09/25/2024 11:30 AM CDT Office Visit [facility] Oncology and Hematology [facility] [address] [place] [phone] Darryl Hauser MD Erythrocytosis (Primary Dx); B12 [...] on file Legal Sex Female 11:08 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 Gender Identity Not on file Sexual Orientation [...] st Contact Info) Description 03/27/2025 10:15 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 Office Visit [facility] Oncology and Hematology [facility] [address] [place] [address] Darryl Hauser MD [address] [facility] [address] [place] [address] Health Maintenance Due Date Last [...] Tdap) 01/10/2028 01/09/2018, 04/01/2011 OSTEOPOROSIS SCREENING 05/01/2029 , 05/01/2024, 05/16/2020, Additional history exists COLORECTAL SCREENING 07/30/2030 07/30/2020 Colorectal Cancer Screening 07/30/2030 ZOSTER VACCINE Completed 10/29/2017, 08/28, 06/24/2017 PNEUMOCOCCAL VACCINE 50+ YEARS Completed 1 , 04/26/2014, 05/04/2012 Insurance RX [employer] RX Member Subscriber Plan / Payer (Ef fective 2022-Present) Name:Connie Garrett Relation to Subscriber:Self Name:Connie Garrett Payer ID:Not on file Group ID:[id number] Type:RX Medicare Part D Address: [address] [facility] DUAL COMPLETE PPO DSNP [facility] [address] [place] [address] MEDICAID [place] Care Teams Blending Technician Relationship Specialty Start Date End Date Emery Jarrell MD [address] [phone] PCP - General Internal Medicine 12/29/22
--- OUTSIDE RECORDS SUMMARY | 2024-11-30 11:08 | XMS_ITS | Data Portability ---
Author Organization [place] [employer] [place], Main Office Address [address] [place] [address] Care Team Providers Care Insurance Rater Name Role Phone DONNIE DALEY Primary Care Provider [phone] DONNIE DALEY Referring Provider Assessment Encounter Date Assessment Date Assessment LastModified by Organization Details LastModified Time 02/14/2024 02/14/2024 This note is dictated and transcribed by [employer]. Bra[employer] Maker variances may occur. Despite proofreading, typographical errors may occur. Occasional wrong-word or 'fpwxr-c-dkwq' substitutions may have occurred due to the inherent limitations of voice recording. Read the chart carefully and recognize, using context, where substitutions have occurred. Not available 02/14/2024 15:15:13 05/29/2024 05/29/2024 This note is dictated and transcribed by [employer]. [employer] variances may occur. Despite proofreading, typographical errors may occur. Occasional wrong-word or 'htbxp-k-sgky' substitutions may have occurred due to the inherent limitations of voice recording. Read the chart carefully and recognize, using context, where substitutions have occurred. Not available 05/30/2024 09:29:27 11/13/2024 11/13/2024 This note is dictated and transcribed by [employer]. [employer] variances may occur. Despite proofreading, typographical errors may occur. Occasional wrong-word or 'auqpa-n-vqnv' substitutions may have occurred due to the inherent limitations of voice recording. Read the chart carefully and recognize, using context, where substitutions have occurred. Not available 11/19/2024 09:36:25 11/28/2024 11/28/2024 Assessment: Hypogammaglobuline jah Nicotine smoke: 1 ppd 1975-present = 49 pack years Methacholine (+) mod persistent asthma [...] 3.01 L (60%), DLCO 34%, DLCO/VA 83% PFT 12/15/23 nl FEV1/FVC, FEV1 1.44 L (72%), TLC 3.11 L (68%), DLCO 58%, DLCO/VA 86% Methacholine challenge testing 11/09/21 (+) methacholine challenge @ level 5 [facility] split night sleep study 02/16/09 AHI = 6, CPAP 8 cmH2O [facility] titration sleep study 06/09/13 sleep onset = 19 minutes, REM onset = 33 minutes, Respironics Easy Life nasal mask @ 8-14 cmH2O [facility] diagnostic sleep study 12/08/21 sleep onset = 32.5 minutes, REM onset = 55.5 minutes, AHI = 8, supine AHI = 10 [facility] titration sleep study 02/16/22 sleep onset = 8 minutes, REM onset = 35 minutes, Respironics extra large Parveen nasal mask PAP compliance downloaded and interpreted x 20 minutes. Data reviewed and explained to the patient. Average apnea/hypopnea index (AHI) is 2.2. Patient used PAP > 4 hours 0% of the time. PAP is set at 8 cmH2O. PAP will remain at 8 cmH2O. Keep ramp start at 4 cmH2O. Keep ramp duration at 20 minutes. Keep humidifier level on automatic mode. Keep tube temperature on automatic mode. Keep EPR +3 time clock mechanic. Oxygen supplementation: none Patient is benefiting from PAP therapy. Encouraged patient to maintain PAP use more than 70% of the time. Statement of PAP use and benefits will be sent to the home care store. Trial of brwtu-qdj-dwbm nasal mask without pillows. Educated the patient on problems and solutions [...] carrier. Patient will setup an appointment with Provider [facility] for supplies and pressure adjustments. A major [...] times of infection. Nicotine cessation counseling provided. Olar for quitting nicotine include getting ready, getting [...] in Quit For Life program Registering at [email or web address] Making a call to 7-224-XBFI-NOW ( ). A strong, clear, personalized message [...] failure or relapse. Patient can enroll in [facility]'s smoking cessation class through Allyssa [...] for further management. Follow-up: 1 year, November 2025 [facility]5 Not available 11/28/2024 11:22:11 Plan of Treatment Reminders Order Date Submit Date Provider Last Modified By Organization Details Last Modified Time Details Appointments Establish ed Patient 15 2024 02:30P Jeremie Reynolds DPM Not available Not available Not available Any 30 2025 11:00A M Emanuel Mustafa MD Not available Not available Not available Lab None recorded. Referral None recorded. Procedures None recorded. Surgeries None recorded. Imaging LDCT, chest, for lung cancer screening 2024 026 [facility] Not available 11/28/2024 11:16:50 Medication Orders albuterol sulfate HFA 90 mcg/actua tion aerosol inhaler 2024 025 [facility] #[id number] [place], [place], [id number], 11/28/2024 11:17:[address] 10 mg tablet 2024 025 [facility] #[id number] [place], [place], [id number], 11/28/2024 11:17:21 Symbicort 160 mcg-4.5 mcg/actua tion HFA aerosol inhaler 2024 025 [facility] #[id number] [place], [place], [id number], 11/28/2024 11:17:17 Spiriva Respimat 2.5 mcg/actua tion solution for inhalatio n 2024 [facility] #[id number], [address] [place], [place], [id number], 11/28/2024 11:17:21 mometason e 0.1 % topical cream 2024 025 [facility] #[id number], [address] [place], [place], [id number], 11/15/2024 11:04:44 Patient TargetsNo targets recorded. Patient InstructionsNo instructions recorded. Reason for Referral None Reported. Results Created Date Observation Date Name Description Value Unit Range Abnormal Flag Note LastModifiedBy Organization Detail LastModifiedTime 01/24/2012/15/2023 compl ete PFT w/ post [facility] hodil ator alejo metry * No observ ation record ed. [facility] [address], [place], [address], 01/24/2024 11:02:12 05/22/1905/01/2024 XR, chest , 2 view No observ ation record ed. [facility] Not Available 2024 14:14:03 Result Notes None recorded. Problems Name Problem SNOMED Code Status Onset Date Resolution Date Notes Provider Name and Address Organization Details Recorded Time Closed fracture of base of metacarpal bone other than first metacarpal 09413948 Active Not Available [facility] 3 20:55:25 Bilateral plantar fasciitis 9334676402265 9108 Active 2020 Not Available [facility] 3 20:55:25 Postmenopa usal osteoporos is 889091901 Active 2022 Not Available [facility] 3 20:55:25 Moderate persistent asthma 232424681 Active 2022 Emanuel Mustafa MD [address], [place], [address] , [facility] [employer] [facility] 5 10:49:49 Obstructiv e sleep apnea syndrome 70520168 Active 2022 Emanuel Mustafa MD [address], [address] [address], [place], [address] , [facility] 5 10:49:49 Smoker 16887054 Active 2022 Emanuel Mustafa MD [address], [address], [place], [address] , [facility] 5 10:49:49 Arthritis 5673563 Active 2023 Leatha Patricia null, [facility] 4 14:27:10 Sensorineu ral hearing loss of bilateral ears 204205717 Active 2024 Destinee Rocha RN null, [facility] 5 11:02:09 Chronic eczema 70665676 Active 2024 Eh Munroe MD [address], [address], [place], [address] , [facility] 5 11:04:09 Presbycusi s 31127754 Active 2024 Eh Munroe MD [address], [address] [address], [place], [address] , [facility] 5 11:04:18 Dystrophia unguium 62689584 Active 2024 Ambrosio Reynolds DPM [address], [address] [address], [place], [address] , 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 Procedures Surgical History Date Name Laterality Status Provider Name and Address Organization Details Recorded Time 11/14/19 25 Nail Debridement completed Ambrosio Reynolds DPM [address], [address], [place], [address], [employer] 11/19/2024 09:33:41 05/30/19 25 Nail Debridement completed Ambrosio Reynolds DPM [address], [address], [place], [address], [employer] 05/30/2024 09:29:22 02/14/20 24 Nail Debridement completed Ambrosio Reynolds DPM [address], [address], [place], [address], [employer] 02/14/2024 15:15:01 Knee Replacement completed Leatha Gomez [employer] 02/14/2024 14:31:20 Imaging Results None recorded. Procedure Notes None recorded. Medical Equipment None Reported. Allergies Allergen ID Allergen Name Allergen Category Reaction Reaction Severity Criticality Documentation Date Start Date Code Code System Note Provider Name and Address Organization Details Recorded Time 14839 rosuvasta tin medicatio n hives Not available Not available 04/28/2022 63002 2 RxNorm Not Available [facility] 3 13:15:10 04429 omeprazol e medicatio n hives Not available Not available 04/28/2022 7646 RxNorm Not Available [facility] 3 13:15:10 99264 Iodinated contrast media (substanc e) medicatio n Not available Not available Not available 04/28/2022 51382 2004 SNOMED dye Not Available [facility] 3 13:15:10 Medications Name Sig Start [...] TABLET BY MOUTH DAILY FOR 4 DAYS 10/29 completed Not Available Not Available Not Available ibuprofen 800 mg tablet 02/13 completed [...] capsule TAKE 4 CAPSULES BY MOUTH ONCE 11/28 completed Not Available Not Available Not Available [...] TO THE AFFECTED AREA TWICE DAILY NEEDED 10/29 completed Not Available Not Available Not Available ranitidin e 150 mg tablet TK 1 T PO BID 30 MINUTES AC 10/03 completed Not Available Not Available Not Available lansopraz ole 30 mg capsule,d elayed release 09/02 completed Not Available Not Available Not Available lidocaine 5 % topical patch APPLY 1 PATCH TO THE AFFECTED AREA FOR 12 HOURS NEEDED active Not Available Not [...] monteluka st 10 mg tablet Take 1 tablet every day by oral route at bedtime. 2024 active Not Available Not Available Not Avai lable codeine 10 mg-guaife nesin 100 mg/5 mL oral liquid TAKE 5 ML BY MOUTH EVERY 6 HOURS NEEDED FOR COUGH 10/29 completed Not Available Not Available Not Available [...] sulfate HFA 90 mcg/actua tion aerosol inhaler Inhale 1 puff every 4 hours by inhalati on route as needed. 2024 active Not Available Not Available Not Avai lable ipratropi um bromide 42 mcg (0.06 %) [...] Available Not Available Not Available mometason e 0.1 % topical cream APPLY THIN LAYER TOPICALL Y TO THE AFFECTED AREA DAILY active Not Available Not Available No t Available amoxicill in 875 mg-potass ium clavulana [...] TAKE 1 TABLET BY MOUTH EVERY DAY 11/15 completed Not Available Not Available Not Available rosuvasta tin 5 mg tablet TAKE [...] 160 mcg-4.5 mcg/actua tion HFA aerosol inhaler Inhale 2 puffs twice a day by inhalati on route. 2024 active Not Available Not Available Not Avai lable peg 3350-elec trolytes 236 gram-22.7 4 gram-6.74 [...] 2.5 mcg/actua tion solution for inhalatio n Inhale 2 puffs every day by inhalati on route. 2024 active Not Available Not Available Not Avai lable naloxone 4 mg/actuat ion nasal spray FOLLOW [...] and Address Organization Details Last Updated DateTime 165.1 cm 34.9 kg/m2 72005.4 g 82 /min 14 /min 98 % 98 % 127/91 mm[Hg] Kristy Todd [employer] 14:25:06 Date Recorded Body height Body mass index (BMI) Body weight Heart rate Respiratory rate Oxygen saturation Oxygen saturation in Arterial blood by Pulse oximetry Systolic And Diastolic Provider Name and Address Organization Details Last Updated DateTime 165.1 cm 34.9 kg/m2 15906.4 g 87 /min 14 /min 98 % 98 % 138/91 mm[Hg] Kristy Todd [employer] 16:19:39 Date Recorded Body height Body mass index (BMI) Body weight Provider Name and Address Organization Details Last Updated DateTime 11/15/2024 165.1 cm 34.5 kg/m2 78454.06 g YENNY Posada [employer] [facility] [employer] 11/15/2024 10:40:55 Date Recorded Heart rate Respiratory rate Provider N rosie and Address Organization Details Last Updated DateTime 11/28/2024 70 /min 16 /min Emanuel Mustafa MD [address], [address], [place], [address], [employer] 11/28/2024 11:17:51 Date Recorded Body height Body mass index (BMI) Body weight Body temperature Heart rate Oxygen saturation Oxygen saturation in Arterial blood by Pulse oximetry Systolic And Diastolic Provider Name and Address Organization Details Last Updated DateTime 165.1 cm 33.6 kg/m2 33605.6 6 g 97.9 [degF] 70 /min 95 % 95 % 122/86 mm[Hg] Shreya Williamson MA [employer] 5 10:59:18 Date Recorded Body height Body mass index (BMI) Body weight Provider Name and Address Organization Details Last Updated DateTime 02/14/2024 165.1 cm 34.9 kg/m2 28011.4 g Leatha Patricia PA [employer] 02/14/2024 14:23:13 Date Recorded Heart rate Respiratory rate Oxygen saturation Oxygen saturation in Arterial blood by Pulse oximetry Systolic And Diastolic Provider Name and Address Organization Details Last Updated DateTime 4 81 /min 14 /min 98 % 98 % 148/87 mm[Hg] Kristy Todd PA [employer] 4 14:27:15 Social History Question Answer Notes LastModified by Organizat ion Details LastModified Time Tobacco Smoking Status Current Every Day Smoker Not Available [facility] 04/28/2022 13:12:44 What Is Your Level Of Caffeine Consumption? Moderate MIGRATION.[id number] Information not available 04/28/2022 In The 14 Days Before Symptom Onset, Have You Had Close Contact With A Laboratory-confi rmed COVID-19 While That Case Was Ill? No MIGRATION.21708 09875 Information not available 04/28/2022 In The 14 Days Before Symptom Onset, Have You Had Close Contact With A Person Who Is Under Investigation For COVID-19 While That Person Was Ill? No MIGRATION.41350 31297 Information not available 04/28/2022 What Type Of Diet Are You Following? REGULAR MIGRATION.80097 34605 Information not available 04/28/2022 Do You Have An Electrostatic Air Filter? No MIGRATION.17890 77070 Information not available 04/28/2022 Do You Have A Humidifier? No MIGRATION.58047 03175 Information not available 04/28/2022 Where Do You Live? [place] MIGRATION.27240 87886 Information not available 04/28/2022 Do You Have Moisture Problems In Your Home? No MIGRATION.70047 42066 Information not available 04/28/2022 What Was The Date Of Your Most Recent Tobacco Screening? 11/28/2024 Information not available 11/28/2024 What Is Your Current Pack Years? 30ormorepackyears [email or web address] Information no t available 10/30/2024 Do You Have Any Pets? No MIGRATION.11313 73325 Information not available 04/28/2022 Do You Use Your Seat Belt Or Car Seat Routinely? Yes Information not available 06/16/2022 Do You Have Smoke And Carbon Monoxide Detectors In Your Home? No MIGRATION.32136 48660 Information not available 04/28/2022 At What Age Did You Start Smoking Tobacco? 21 [email or web address] Information not available 10/30/2024 Are You Passively Exposed To Smoke? Yes MIGRATION.87142 79193 Information not available 04/28/2022 How Much Tobacco Do You Smoke? 0.5 PPD Information not available 11/28/2024 Do You Use Sunscreen Routinely? No MIGRATION.89309 40546 Information not available 04/28/2022 How Many Years Have You Smoked Tobacco? 48 [email or web address] Information not available 10/30/2024 Have You Recently Traveled Abroad? No MIGRATION.03550 73025 Information not available 04/28/2022 Do You Have Any Dietary Restrictions? No MIGRATION.37147 25236 Information not available 04/28/2022 Sex: Female Functional Status Question Answer Note LastModified by Organizat ion Details LastModified Time Do you use any illicit or recreational drugs? No Information not available 11/28/2024 Do you or have you ever used any other forms of tobacco or nicotine? No Information not available 11/28/2024 What is your level of alcohol consumption? None MIGRATION.[id number] 26 Information not available 04/28/2022 Are you currently employed? Retired Information not available 06/16/2022 Have you been exposed to chemicals or toxins? No Information not available 06/16/2022 What is your exercise level? None MIGRATION.[id number] 26 Information not available 04/28/2022 Mental Status Question Answer Note LastModified by Organization D etails LastModified Time Do you feel stressed (tense, restless, nervous, or anxious, or unable to sleep at night)? [id number] Information not available 06/16/2022 Family History Relationship Description Onset Age of this Age Resolved Age Notes LastModified by Organization Details LastModified Time Mother Cerebrovascu lar accident MIGRATION.462 [id number] Not available 04/28/2022 13:12:46 Mother Hypertensive disorder MIGRATION.842 [id number] Not available 04/28/2022 13:12:46 Mother Hyperlipidem ia MIGRATION.674 [id number] Not available 04/28/2022 13:12:46 Father Cerebrovascu lar accident MIGRATION.965 [id number] Not available 04/28/2022 13:12:46 Father Hyperlipidem ia MIGRATION.099 7021770 Not available 04/28/2022 13:12:46 Father Asthma MIGRATION.785 7435448 Not available 04/28/2022 13:12:46 Father Diabetes mellitus MIGRATION.384 1313337 Not available 04/28/2022 13:12:46 Father Hypertensive disorder MIGRATION.207 1996573 Not available 04/28/2022 13:12:46 Father Migraine MIGRATION.176 9725244 Not available 04/28/2022 13:12:46 Father Osteoporosis MIGRATION.0 30 [id number] Not available 04/28/2022 13:12:46 Brother Malignant neoplasm of colon MIGRATION.222 3527738 Not available 04/28/2022 13:12:46 Brother Hypertensive disorder MIGRATION.370 [id number] Not available 04/28/2022 13:12:46 Brother Migraine MIGRATION.164 [id number] Not available 04/28/2022 13:12:46 Unspecified Relation Cerebrovascu [...] available 2023 14:30:48 Medical History Condition Response ARTHRITIS Y EYE PROBLEMS Y ANEMIA/BLOOD DISORDER Y GERD/NAUSEA Y SKIN PROBLEMS Y KIDNEY DISEASE AUTOIMMUNE DISEASE Y BACK / NECK PROBLEMS Y INSOMNIA Y HIGH CHOLESTEROL / HYPERLIPIDEMIA Y Gynecological HistoryNo gynecological history recorded. Obstetrics History GPAL:G 0 P 0 0 0 0 Past Encounters Encounter ID Performer Location Encounter Start Date Encounter Closed Date Diagnosis/Indication Diagnosis SNOMED-CT Code Diagnosis ICD10 Code Diagnosis IMO Codes Diagnosis Note [id number] [facility]HENA_M IGRATION_ DEFAULT_1 _1 , 11/07/2020 00:00:00 11/10/2020 09:53:10 [id number] [facility] _ATHENA_M IGRATION_ DEFAULT_1 _1 , 11/14/2020 00:00:00 11/16/2020 17:27:05 [id number] MD [facility] [place] [address] [address] 10/01/2021 00:00:00 10/01/2021 11:46:47 [id number] MD ARA [facility] [place] [address] [address] 10/27/2021 00:00:00 10/27/2021 11:02:45 [id number] Corinne Anthony MD _[facility] IGRATION_ DEFAULT_1 _1 , 12/03/2021 00:00:00 12/03/2021 16:21:50 [id number] MD ARA [facility] [place] [address] [address] 12/03/2021 00:00:00 12/03/2021 14:44:01 [id number] Emanuel Mustafa MD [facility] [address] [address] 12/31/2021 00:00:00 12/31/2021 10:18:07 [id number] MD ARA ZamudioS[facility] [address] [place] [address] 01/14/2022 00:00:00 01/14/2022 19:45:33 [id number] MD ARA [facility] [place] [address] [address] 02/26/2022 00:00:00 02/26/2022 14:54:56 [id number] Corinne Anthony MD [facility] [address] [place] [address] 03/26/2022 00:00:00 03/26/2022 12:40:30 [id number] Corinne Anthony MD [facility] [address] [place] [address] 04/12/2022 00:00:00 04/12/2022 15:04:03 [id number] Emanuel Mustafa MD [facility] [address] [place] [address] 06/16/2022 10:07:21 06/16/2022 11:32:45 Moderate persistent asthma 798083420 J45.40 Obstructiv e sleep apnea syndrome 62625166 G47.33 Smoker 52411890 F17.218 F17.219 Z87.637 [id number] Emanuel Mustafa MD S_[facility] [address] [place] [address] 12/16/2022 10:05:39 12/16/2022 10:53:56 Moderate persistent asthma 423542513 J45.40 Obstructiv e sleep apnea syndrome 85338386 G47.33 Smoker 25381195 F17.218 F17.219 Z87.604 [id number] Emanuel Mustafa MD [facility] [address] [place] [address] 12/19/2023 11:12:59 12/20/2023 15:40:40 Moderate persistent asthma 037627790 J45.40 Obstructiv e sleep apnea syndrome 47546018 G47.33 Smoker 24086134 F17.218 F17.219 Z87.553 [id number] Ambrosio Reynolds DPM [facility] [address] [place] [address] 02/14/2024 14:19:24 02/27/2024 09:06:32 Pain in toe 514622200 M79.676 secondary to elongated toenails Dystrophia unguium 27105 009 L60.3 Nails 1 through 10 were debrided with sharp mechanical debridemen t without incident. Nails were debrided and greater than 50% length and thickness where needed. [id number] Ambrosio Reynolds DPM [facility] [address] [place] [address] 05/29/2024 14:09:57 05/30/2024 10:38:30 Pain in toe 200624364 M79.676 secondary to elongated toenails Dystrophia unguium 81053 009 L60.3 Nails 1 through 10 were debrided with sharp mechanical debridemen t without incident. Nails were debrided and greater than 50% length and thickness where needed. Unable to cut own toenails 069505305 Z74.1 Smoker 24266608 F17.218 F17.219 Z87.891 recommend discontinu e smoking [id number] Ambrosio Reynolds DPM [facility] [address] [place] [address] 11/13/2024 16:15:50 11/21/2024 13:45:03 Dystrophia unguium 37244808 L60.3 1009 Nails 1 through 10 were debrided with sharp mechanical debridemen t without incident. Nails were debrided and greater than 50% length and thickness where needed. [id number] Eh Munroe MD [facility] [address] [place] [address] 11/15/2024 10:36:17 11/23/2024 09:07:05 Chronic eczema 73719383 L30.9 307 Presbycusis 23726031 H91 .13 [id number] Emanuel Mustafa MD S_[facility] [place] [address] [place] [address] 11/28/2024 10:26:19 11/30/2024 08:57:57 Moderate persistent asthma 010932674 J45.40 Obstructiv e sleep apnea syndrome 19137361 G47.33 Smoker 23020758 F17.218 F17.219 Z87.891 Health Concerns Section Related Observation LastModified by Organization Detai ls LastModified Time None Recorded Concern Status LastModified by Organization Details LastModified Time None Recorded Advance Directives Directive None Recorded Payers Insurance Date Sequence Insurance Name Policy Number Policy Crane Covered Member ID Crane Member ID Guarantor Name 11/28/2024 2 [place] WHEN MEDICARE OR MEDICARE REPLACEMENT PRIMARY) Oralee N Garrett [id number] Ora Anatoliy N Garrett 11/30/2024 1 [facility] (MEDICARE REPLACEMENT/AD VANTAGE - PPO) [id number] Oralee N Garrett [id number] Orkhalida Anatoliy N Garrett 12/19/2023 2 [facility] - DOS ON OR AFTER 20 (MEDICAID REPLACEMENT - HMO) Ora Anatoliy N Garrett [id number] Ora Anatoliy N Garrett 12/19/2023 3 [facility] - DOS ON OR AFTER 20 (MEDICAID REPLACEMENT - HMO) Ora Anatoliy N Garrett [id number] Ora Anatoliy N Garertt Notes Date Note Type Note Provider Name and Address Organization Details Recorded Time 02/14/2024 text/html . Patient is a 68-year-old [...] any other complaints. Ambrosio Reynolds DPM [address], [place], [address], [employer] [employer] 02/14/2024 15:16:27 05/29/2024 text/html . Patient is 69-year-old female she presents the office for routine foot care. Patient states she is unable to cut her toenails. Patient states they are long and painful. Patient denies any redness or drainage. Patient denies any other complaints. Ambrosio Reynolds DPM [address], [address], [place], [address], [employer] 05/30/2024 09:30:53 11/13/2024 text/html . Patient is a 69-year-old female who returns for routine foot care. Patient states her nails are long would like to have them cut as she can not cut them. Patient denies any other complaints. Ambrosio Reynolds DPM [address], [facility] [address], [place], [address], [employer] 11/19/2024 09:36:39 11/15/2024 text/html this patient has had years of itching and some hearing loss. Eh Munroe MD [address] [facility], [address], [place], [address], [employer] 11/22/2024 12:18:32 11/28/2024 text/html Primary care/Referring provider: Donnie Daley MD CC: I don't like my nasal mask. I want to try [id number] mask without pillows.Patient is here to go over her asthma and HUY management.Initial development of shortness of breath: 2014Duration of shortness of breath: 11 yearsCondition of shortness of breath: stableTiming of shortness of breath: night timeFrequency: up to 3 times a dayLimits activities: yesAggravating factors: walkingAlleviating factors: restModified Medical Research [place] (mMRC) Dyspnea Scale - Grade 2Grade 0 [...] dressing .Treatment history:montelukast 10 mg nightly since 2015albuterol HFA as needed since 2014albuterol nebs as needed since 2018Symbicort 160/4.5 mcg 2 puffs BID since 2013Spiriva Handihaler once daily 2018-piriva Respimat 2 inhalations daily [id number] Patient's personal best peak flow remains at 280 L/min.Other symptoms:Productive cough: yellowish to clearWheezing: yesChest tightness: yesOrthopnea: noFrequent throat clearing or swallowing: yesPalpitations: noHeartburn: noDysphagia: noEdema: yesEnvironmental exposures:Nicotine smoke: 1 ppd 1976-present = 49 pack yearsPaint: noDye: noDust mites: yesMold: noDamp basement: noWood burning stove: noAnimal dander: noCockroaches: noPollen: yesArsenic: noAsbestos: noBeryllium: noCadmium: noChromium: noCoal smoke: noDiesel fumes: noNickel: noSilica: noSoot: noDuring the [facility] diagnostic sleep study on 12/08/21, sleep onset = 32.5 minutes, REM onset = 55.5 minutes, AHI = 8, supine AHI = 10.During the [facility] titration sleep study on 02/16/22, sleep onset [...] no chance of dozing. Emanuel Mustafa MD [address] [place] [address], [facility] [address], [place], [address], [facility] [employer] [facility] 11/28/2024 11:23:09 OBGyn Episode No OBEpisode recorded.
--- OUTSIDE RECORDS SUMMARY | 2024-11-30 11:09 | XMS_ITS | Clinical Summary ---
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
--- OUTSIDE RECORDS SUMMARY | 2024-11-30 11:09 | XMS_ITS | Clinical Summary ---
Author Organization [facility] Address [address] [place] [address] Care Team Providers Care Ruby Rails Developer Name Role Phone Jas Borrero MD Unavailable [phone] Ever Garber MD Unavailable [phone] Gian Zimmer Unavailable [phone] MastromichalDino anne MD Unavailable [phone] Rambo Hui MD Unavailable [phone] Emery Jarrell MD Primary Care Provider Francisco Adams MD Unavailable [phone] Source Comments [facility],non-owned Affiliates and Associated Physician Practices is amultiple site organization consisting of ambulatory clinics and hospital sitesin [place], [place], [place] and [place]. This disclosure is being madepursuant to the Care Everywhere program and may not contain all information available regarding this patient. Last updated 17.[facility] Allergies Active Allergy Reactions Criticality Noted Date [...] the patient. lidocaine (LIDODERM) 5 % patch 09/15/19 21 Active albuterol (PROVENTIL;VENT YOVANY) (2.5 MG/3ML) 0.083% nebulizer solution INHALE 1 VIAL VIA NEBULIZER FOUR TIMES DAILY NEEDED SHORTNESS OF BREATH 06/08/19 22 Active triamcinolone acetonide (KENALOG) 0.1 % ointment Active tiotropium (SPIRIVA RESPIMAT) 2.5 MCG/ACT inhaler Inhale 2 (two) puffs by mouth once daily 1 g 06/20/19 22 Active ibuprofen (MOTRIN) 800 MG tablet 09/09/19 22 Active albuterol HFA (Proventil; Ventolin; Proair) 108 (90 Base) MCG/ACT inhaler INHALE 2 PUFFS BY MOUTH EVERY 6 HOURS NEEDED 54 g 1 11/04/19 22 Active montelukast (Singulair) 10 MG tabletIndicatio ns:Asthma TAKE 1 TABLET BY MOUTH AT BEDTIME FOR ASTHMA Reasons: Asthma 90 tablet 2 02/05/20 22 Active baclofen (Lioresal) 10 MG tablet TAKE 1 TABLET BY MOUTH 1 TO 2 TIMES DAILY NEEDED 03/02/19 23 Active ASPIRIN 81 PO Active ipratropium (Atrovent) 0.06 % nasal spray USE 2 SPRAYS IN EACH NOSTRIL THREE TIMES DAILY NEEDED Active Misc. Devices (Transfer Bench) MISC Use 1 Each once daily as needed 1 Each 09/17/19 23 Active Symbicort 160-4.5 MCG/ACT inhalerIndicati ons:Chronic obstructive pulmonary disease, unspecified COPD type (HCC) INHALE 2 PUFFS BY MOUTH TWICE DAILY FOR CHRONIC OBSTRUCTIVE LUNG DISEASE 10.2 g 2 11/24/19 23 Active HYDROcodone-kylee taminophen ([place]) 5-325 MG tabletIndicatio ns:Kidney stone Take 1 (one) tablet by mouth every 6 hours as needed for Pain 12 tablet 01/15/20 23 Active triamcinolone (Nasacort Aq) 55 MCG/ACT nasal inhalerIndicati ons:Allergic rhinitis, unspecified seasonality, unspecified trigger Moore 1 (one) spray to 2 (two) sprays into each nostril once daily 50.7 mL 4 03/23/19 24 Active Additional Information Patient not taking.Reported on 06/18/2024 gabapentin (Neurontin) 100 MG capsule Take 1 (one) capsule by mouth once daily Active guaiFENesin-cod eine (Robitussin AC) 100-10 MG/5ML syrupIndication s:Chronic cough Take 5 mL by mouth every 6 hours as needed for Cough 240 mL 05/05/19 25 Active furosemide (Lasix) 20 MG tabletIndicatio ns:Chronic heart failure with preserved ejection fraction (HCC) TAKE 1 TABLET BY MOUTH DAILY 90 tablet 3 08/01/19 25 Active vitamin D, ergocalciferol, (Drisdol) 1.25 MG (88841 UT) capsuleIndicati ons:Vitamin D deficiency TAKE 1 CAPSULE BY MOUTH EVERY 7 DAYS 12 capsule 09/08/19 25 Active cyanocobalamin (Vitamin B-12) injection INJECT 1 ML IN THE MUSCLE EVERY 30 DAYS 3 mL 1 11/27/19 25 Active cyanocobalamin (Vitamin B-12) injection INJECT 1ML IN THE MUSCLE EVERY 30 DAYS 3 mL 09/08/19 25 025 Discontinued Active Problems Problem Noted Date Diagnosed Date [...] Encounters Date Type Department Care Team Description 11/23/2024 Refill [facility] - Internal Medicine [facility] [address] [address] Emery Jarrell MD Refill Request 09/05/2024 Refill [facility] - Internal Medicine [address] [place] [phone] Emery Jarrell MD Refill Request from Last [...] Date Smoking Tobacco: Every Day Cigarettes 1 49.8 Started: 02/28/1975 Smokeless Tobacco: Never Tobacco Cessation:Ready [...] on file Legal Sex Female 6:39 AM [employer]OL SYSTEMS ENG Gender Identity Not on file Sexual Orientation Not on file Occupation Industry Job Start Date Job End Date unemployed Not on file Not on file Not on file Last Filed Vital Signs Vital Sign Reading Time Taken Comments Blood Pressure 130/80 05/01/2024 11:04 AM [employer] SYSTEMS ENG Pulse 80 05/01/2024 11:04 AM [employer] SYSTEM[employer] ENG Temperature 36.7 C (98.1 F) 05/01/2024 11:04 AM CONTROL SYSTEMS ENG Respiratory Rate 20 10/27/2023 10:13 AM CDT Oxygen Saturation 98% 05/01/2024 11:04 AM CONTROL SYSTEMS ENG Inhaled Oxygen Concentration 21% 12/05/2020 2 :06 AM CDT Weight 95.3 kg (210 lb) 05/01/2024 11:04 AM CONTROL SYSTEMS ENG Height 165.1 cm (5' 5) 05/01/2024 11:04 AM CONTROL SYSTEMS ENG Body Mass Index 34.95 05/01/2024 11:04 AM CONTROL SYSTEMS ENG Plan of Treatment Upcoming Encounters Date Type Department Care Team (Late st Contact Info) Description 12/08/2024 10:00 AM CDT Appointment [facility] [address] [facility] [address] [place] [address] 12/17/2024 9:40 AM CDT Office Visit [facility] - Urology [address] [facility], [address] [place] [address] Francisco Adams MD [address] [place] [address] Health Maintenance Due Date Last Done Comments COLOGUARD (AGES 45-75) - COLON CA SCREENING 1955 CT COLONOGRAPHY - COLON CA SCREENING 1955 FIT - COLON CA SCREENING 1955 FLEX SIG - COLON CA SCREENING 1955 COVID-19 VACCINE ( season) 2024 05/19/2020, 04/21/2020 INFLUENZA VACCINE (#1) 2024 4, 01/28/2023, 03/19/2022, Additional history exists MAMMOGRAM 12/25/2024 [...] [place] Medical Devices Implanted Type Area Slip Operator Device Identifier Shelf Expiration Date Model / Serial / Lot Percuflex Stent Implanted:Qty: 1 on 04/10/2015 by Dino Thakkar MD at [facility] Right: Ureter [employer] 09/18/2017 [id number] / / [id number] Set Stent Blk 22cm 6fr .038in 2 Pgtl Crv Implanted:Qty: 1 on 10/21/2016 at [facility] Right: Ureter [employer] 07/22/2018 [id number] / / [id number] Explanted Type Area Slip Operator Device Identifier Shelf Expiration Date Model / Serial / Lot Stent Uret Contour Vl 4.8fr X 22-30cm Implanted:Qty: 1 on 04/08/2015 by Dino Thakkar MD at [facility] Explanted:Qty: 1 on 10/21/2016 at [facility] Right: [employer]ter [employer] [id number] / / [id number] Stent Uret 6fr 22-30cm Pgtl Crv Tpr Tip Implanted:Qty: 1 on 09/09/2016 by Dino Thakkar MD at [facility] Explanted:Qty: 1 on 10/21/2016 at [facility] Left: Ureter [employer] 06/18/2019 [id number] / / [id number] Procedures Procedure Name Priority Date/Time Associated Diagnosis Comments DEXA BONE DENSITY AXIAL SKELETON Routine 05/01/2024 1:00 PM CONTROL SYSTEMS ENG Age-related osteoporosis without current pathological fracture COMPREHENSIVE METABOLIC PANEL Routine 05/01/2024 12:08 PM CONTROL SYSTEMS ENG Stage 3a chronic kidney disease LIPID PROFILE Routine 05/01/2024 12:08 PM CONTROL SYSTEMS ENG Pure hypercholesterolemia MAMMO BILAT SCREENING W NAHUM Routine 12/26/2023 10:42 AM CDT Visit for screening mammogram ENDOSCOPY, COLON, SCREENING Routine 07/30/2020 HEPATITIS C ANTIBODY 10/18/2014 10:43 AM CDT from Last 3 Months or Most Recently Relevant to Health Maintenance Results * DEXA BONE DENSITY AXIAL SKELETON (05/01/2024 1:00 PM CONTROL SYSTEMS ENG) Anatomical Region Laterality Modality Nuclear Medicine 05/01/2024 1:29 PM CONTROL SYSTEMS ENG Impressions 05/01/2024 1:31 PM CONTROL SYSTEMS ENG IMPRESSION: WHO category: Osteopenia WORLD HEALTH ORGANIZATION DEFINITIONS NORMAL= T-Score at or above -1.0 SD OSTEOPENIA = T-Score between -1 and -2.5 SD OSTEOPOROSIS = T-Score at or below -2.5 SD > Interpreting Provider: Martha Rodriguez DO on 05/01/2024 1:31 PM Narrative 05/01/2024 1:31 PM CONTROL SYSTEMS ENG PROCEDURE: DEXA BONE DENSITY AXIAL SKELETON DATE/TIME [...] (ABNORMAL) COMPREHENSIVE METABOLIC PANEL (05/01/2024 12:08 PM CONTROL SYSTEMS ENG) Glucose 95 70 - 99 mg/dL [facility] [...] BLOOD SPECIMEN / Unknown 05/01/2024 12:08 PM CONTROL SYSTEMS ENG 05/01/2024 Narrative [facility] ACCOUNT BILL - 05/01/2024 6:09 PM CONTROL SYSTEMS ENG Performed at: [address] [place] [id number] Reporting Coordinator: Sampson Joiner Dr, Phone: [phone] us Emery Jarrell MD LAB - CHEMISTRY ORDERABLES Fi nal Result [facility] ACCOUNT BILL [address] [place] [address] * LIPID PROFILE (05/01/2024 12:08 PM CONTROL SYSTEMS ENG) Cholesterol 157 <200 mg/dL [facility] ACCOUNT BILL Triglycerides 87 <150 mg/dL [facility] ACCOUNT BILL HDL Cholesterol 50 >40 mg/dL [facility] ACCOUNT BILL VLDL Calculated 17 <=30 mg/dL [facility] ACCOUNT BILL LDL Calculated 90 <130 mg/dL [facility] ACCOUNT BILL Blood BLOOD SPECIMEN / Unknown 05/01/2024 12:08 PM CONTROL SYSTEMS ENG 05/01/2024 Narrative [facility] ACCOUNT BILL - 05/01/2024 6:09 PM CONTROL SYSTEMS ENG Performed at: [address] [place] [address] [id number] Reporting Coordinator: Sampson Joiner Dr, Phone: [phone] us Emery Jarrell MD LAB - CHEMISTRY ORDERABLES Fi nal Result [facility] ACCOUNT BILL [address] [place] [address] * Mammo Bilat Screening [place] (12/26/2023 [...] 0.03 <1.00 [facility] Comment: Test Performed at: [facility] [address] SANDY SHARMA DO,MPH 10/18/2014 10:4 3 AM CDT 10/18/2014 10:43 AM CDT us Mati Dobbs MD LAB - CHEMISTRY ORDERABLES nal Result [facility] [address] [place] [address] from Last 3 Months or Most Recently Relevant to Health Maintenance Insurance MEDICAID - [place] [facility] MANAGED MEDICARE ADV [id number] MANAGED MEDICARE ADV Advance Directives * Full [...] 11:59 PM 06/04/2017 7:29 PM Care Teams Ruby Rails Developer Relationship Specialty Start Date End Date Emery Jarrell MD [address] [facility] [address] [place] [phone] PCP - General Internal Medicine 12/13/22 Jas Borrero MD Obstetrics 05/08/13 Ever Garber MD [address] [place] [address] Gastroenterology 03/22/14 Gian Zimmer PA [address] [place] [phone] Physician Substation Operator Helper 05/24/17 Dino Thakkar MD [address] [place] [phone] Urology 05/24/17 Rambo Hui MD [address] [facility] [address] [place] [address] Internal Medicine Sleep Medicine 06/22/18 Francisco Adams MD [address] [address] Surgeon Urology 06/27/23
== END 2024-11-30 11:05 | disposition home or self-care (01) ==
LOC: ANHIMG 11:05
PROVIDERS: PCP Internal Medicine; Visit Provider Internal Medicine Pulmonary Disease
DX: Z12.2 Encounter for screening for malignant neoplasm of respiratory organs (principal); Z87.891 Personal history of nicotine dependence
CPT/HCPCS: 71271